=== PATIENT | female | born 1940 | race Caucasian/White ===

== ENCOUNTER 2025-04-27 20:23 | Inpatient (IN) | payer OTHER ==
[~2025-04-27] VITALS: Ht 152.4 cm; Wt 66.0 kg
--- NOTE | 2025-04-27 21:30 | ED.PDOC ---
History of Present Illness HPI Comments 84-year-old female who is brought in by ambulance from private residence for chief complaint of generalized weakness and left hip, leg, and ankle pain status post mechanical fall and injury. Per EMS report, patient endorses on slipping and falling from left side of her bed onto the floor and being unable to assist herself up for 45 minutes straight prior to calling EMS. Vitals were noted to have been stable within normal limits, with the exception of an initial SpO2 of 89% on room air. Significant history for hyperlipidemia, hypertension, diabetes, and in remission left femur cancer. EN route patient was given 2 L O2 via NC, with a SpO2 improving to 96%. Patient denies any loss of consciousness or head, neck, or further injuries. Denies any headache, dizziness, lightheadedness, chest pain, shortness of breath, or further associated symptoms. REVIEW OF SYSTEMS: General: No fever, no chills, or fatigue HEENT: No sore throat, no earache, no congestion, no neck pain. Cardiac: No chest pain. No palpitations. Lungs: No shortness of breath, no cough. GI: No nausea, no vomiting, no diarrhea, no constipation, no abdominal pain : No dysuria, frequency, or urgency. No hematuria. Musculoskeletal: Left hip, leg, and ankle pain , no joint swelling, no extremity edema. Skin: No rash, no itching. Neuro: Generalized weakness. No headache, no dizziness GEN: Patient alert, in no acute distress HEENT: Atraumatic, normocephalic without edema, discoloration or evidence of trauma. Facial bones without deformities or tenderness EYES: PERRL. no scleral icterus or conjunctival injection. Extraocular muscles intact without nystagmus or diplopia. No proptosis or enophthalmos. EARS: Normal-appearing pinnae. No hemotympanum. NOSE: Trachea midline. No discolorations or edema. Neck immobilized in cervical collar. CVS: S1-S2 heard, regular rate and rhythm, no murmur RESPIRATORY: No respiratory distress. Breath sounds clear bilateral, no wheezes, rhonchi or rales; no use of accessory muscles CHEST: No abrasions or ecchymosis. Chest symmetric with respirations. No chest wall tenderness. No crepitus. No step-offs. Lungs are clear to auscultation bilaterally. No rales, rhonchi, wheezing or stridor. Systolic murmur. ABDOMINAL: No ecchymosis or abrasions. Soft, nondistended, nontender. Bowel tones normoactive. No masses or organomegaly. : No CVA tenderness MUSC: No gross deformities are discolorations or lesions. Tolerates full range of motion of extremities without tenderness, with the exception of left tib-fib and ankle tenderness. No edema of the extremities. BACK: No abrasions, skin openings or ecchymosis. Lower thoracic and upper lumbar tenderness. No step-offs. PELVIC: Pelvis stable, nontender to lateral compression and palpation of the symphysis pubis. NEURO: Alert and oriented to person, place and time. GCS 15. Cranial nerves II through XII intact. Sensation grossly intact. Strength 5 out of 5 in bilateral upper and lower extremities. CEREBELLAR FUNCTION: [id number] intact bilaterally SKIN: Warm and well perfused. No lacerations, bruises, discoloration or abrasions. PSYCH: Normal affect, normal mood, no apparent hallucinations, speech clear LYMPHATIC: No cervical lymphadenopathy Chief Complaint: General Weakness Time Seen by MD: 22:10 Reviewed Notes: Nurses Notes, Wedding Day Coordinator Notes, Medications, Allergies Allergies: Coded Allergies: NO KNOWN ALLERGIES (Unverified , 09/12/15) Information Source: Patient, Emergency Med Personnel Mode of Arrival: EMS Severity: Moderate Timing: Hours Duration: Since onset Prehospital treatment: 12 Lead EKG, Accucheck, Central Office Maintainer, Oxygen Past Medical History PAST MEDICAL HISTORY: Cancer (Left femur cancer-in remission), DM, High Lipids, HTN Surgical History: Denies all surgeries ELECTROPLATING TECHNICIAN History: No Pertinent ELECTROPLATING TECHNICIAN History Family History Family History: Unknown Social History Smoker: Non-Smoker Alcohol: Denies ETOH Use Drugs: Denies Drug Use Lives In: Home Was a procedure done? Was a procedure done?: No EKG EKG : Pulse Rate (adult): 91 [place]: Normal Cardiac Rhythm: NSR Block: None Hypertrophy: None ST: Normal Comments No STEMI Differential Dx Considerations may include: Differential diagnoses considered include but are not limited to sepsis, CVA, ACS, PE, stroke, ICH, adrenal insufficiency, viral syndrome, thyroid storm, myxedema coma , DKA, HHS, hypoglycemia, anemia, GI bleeding, renal failure, dehydration, hepatic failure, electrolyte imbalance, carbon monoxide poisoning, malignancy, UTI, other. X-Ray, Labs, Meds, VS Vital Signs Date Time Temp Pulse Resp B/P (MAP) Pulse Ox O2 Delivery O2 Flow Rate FiO2 04/27/25 22:34 91 04/27/25 21:48 87 15 97 Nasal Cannula* 2 28 04/27/25 21:48 98.7 87 16 153/66 (95) 97 98.7 04/27/25 20:47 99.8 90 17 153/73 95 99.8 04/27/25 20:26 91 Lab Test 04/27/25 22:30 04/27/25 22:25 Range/Units White Blood Count 3.6 L 4.4-10.8 10^3/uL Red Blood Count 3.12 L 4.0-5.20 10^6/uL Hemoglobin 9.8 L 12.2-16.2 g/dL Hematocrit 28.6 L 36.0-46.0 % Mean Corpuscular Volume 91.7 80.0-100.0 fL Mean Corpuscular Hemoglobin 31.5 28.0-32.0 pg Mean Corpuscular Hemoglobin Concent 34.4 32.0-36.0 g/dL Red Cell Distribution Width 14.3 11.8-14.3 % Platelet Count 81 L 140-450 10^3/uL Mean Platelet Volume 8.8 6.9-10.8 fL Neutrophils (%) (Auto) 37.0-80.0 % Lymphocytes (%) (Auto) 10.0-50.0 % Monocytes (%) (Auto) 0.0-12.0 % Basophils (%) (Auto) 0.0-2.0 % Neutrophils # (Auto) 1.6-8.6 10 ^3/uL Lymphocytes # (Auto) 0.4-5.4 10 ^3/uL Monocytes # (Auto) 0-1.3 10 ^3/uL Differential Total Cells Counted Pending Neutrophils % (Manual) Pending Band Neutrophils % (Manual) Pending Lymphocytes % (Manual) Pending Monocytes % (Manual) Pending Eosinophils % (Manual) Pending Basophils % (Manual) Pending Metamyelocytes % (manual) Pending Myelocytes % (Manual) Pending Promyelocytes % (Manual) Pending Blast Cells % (Manual) Pending Reactive Lymphocytes Pending Platelet Estimate Pending Sodium Level 134 L 136-145 mmol/L Potassium Level 4.5 3.5-5.1 mmol/L Chloride Level 104 98-107 mmol/L Carbon Dioxide Level 19 L 20-31 mmol/L Anion Gap 11 5-15 Blood Urea Nitrogen 36 H 9-23 mg/dL Creatinine 1.17 H 0.550-1.02 mg/dL Glomerular Filtration Rate Calc 46 >90 mL/min BUN/Creatinine Ratio 30.8 H 10.0-20.0 Serum Glucose 300 H 74-106 mg/dL Calcium Level 9.5 8.7-10.4 mg/dL Troponin I High Sensitivity 18 </=34 ng/L Blood Gas Specimen Type Arterial Blood Gas Sample Site Left radial Blood Gas Patient Temperature 37.0 Arterial Blood Date Drawn [id number] Arterial Blood pH 7.477 H 7.350-7.450 Arterial Blood Partial Pressure CO2 26.4 L 32.0-45.0 mmHg Arterial Blood Partial Pressure O2 98.3 83.0-108.0 mmHg Arterial Blood HCO3 19.1 L 21.0-28.0 mmol/L Arterial Blood Oxygen Saturation 97.5 94.0-98.0 % Arterial Blood Base Excess -3.4 L -2.0-3.0 mmol/L Arterial Blood Oxyhemoglobin 95.5 94.0-98.0 % Arterial Blood Carboxyhemoglobin 1.4 0.5-1.5 % Arterial Blood Methemoglobin 0.7 0.0-1.5 % Chito Test Modified Blood Gas Total Hemoglobin 10.60 L 12.0-16.0 g/dL Blood Gas Liter Flow 2.00 Blood Gas Modality Nasal cannula FiO2 % 28.0 Current Medications Medications (Trade) Dose Ordered Sig/Justina Route Start Time Stop Time Status Last Admin Tramadol HCl (Ultram) 50 mg ONCE ONCE PO 04/27/25 22:15 04/27/25 22:16 DC 04/27/25 22:28 Acetaminophen (Tylenol Tablet) 650 mg ONCE ONCE PO 04/27/25 22:15 04/27/25 22:16 DC 04/27/25 22:28 [facility] [id number] [place] [id number] Ph: [phone] DIAGNOSTIC IMAGING Diagnostic Imaging Report : [id number] Signed PATIENT: LOU STAHL ACCT: [id number] UNIT: [id number] : 1940 LOC: ER ROOM / BED: / AGE / SEX: 84 / F ADM STATUS: REG ER SERVICE 13 ORDERING PHYSICIAN: HAWA TRISTAN MD PROCEDURE(s): CXR1 - CHEST XRAY 1 VIEW REASON: Hypoxia ORDER NUMBER(s): [id number], ACCESSION NUMBER(s): [id number] CHEST RADIOGRAPH Indication: Hypoxia Technique: Single frontal view of the chest was obtained COMPARISON: None FINDINGS: Lines and Tubes: None Lungs: Clear Pleura: No effusion. No pneumothorax. Cardiomediastinal contours: Unremarkable Bones: Unremarkable IMPRESSION: 1. No acute disease. ATED BY: KEON PICKETT MD DICTATED DATE/TIME: 04/27/252333 SIGNED BY: KEON PICKETT MD SIGNED DATE/TIME: 04/27/252333 CC: HEST RADIOGRAPH Indication: Hypoxia Technique: Single frontal view of the chest was obtained COMPARISON: None FINDINGS: Lines and Tubes: None Lungs: Clear Pleura: No effusion. No pneumothorax. Cardiomediastinal contours: Unremarkable Bones: Unremarkable IMPRESSION: 1. No acute disease. Time of 1ST Reevaluation: 22:40 Reevaluation 1ST: Unchanged Patient Education/Counseling: Other (Need for admission) Family Education/Counseling: No Family Present SEPSIS Sepsis Screen Date sepsis recognized/suspect: Apr 27, 2025 Time Sepsis recognized/suspect: 2033 Recent Procedure: No On Antibiotic Therapy: No Respiratory Rate >20: No Heart Rate >90: No Temp<36 C (96.8 F) or >38.3 C: No SBP <90 or MAP <65 mmHG: No New Acute Mental Status Change: No Is the patient on CPAP, BIPAP,: No Physician Orders Complete Blood Count (04/27/25 22:14) Electrocardigram (04/27/25 22:14) Chest Xray 1 View (04/27/25 22:14) Abg W/ Co-Ox (04/27/25 22:14) Manual Differential (04/27/25 22:30) NS (04/28/25 00:15) Vital Signs Date Time Temp Pulse Resp B/P (MAP) Pulse Ox O2 Delivery O2 Flow Rate FiO2 04/27/25 22:34 91 04/27/25 21:48 87 15 97 Nasal Cannula* 2 28 04/27/25 21:48 98.7 87 16 153/66 (95) 97 98.7 04/27/25 20:47 99.8 90 17 153/73 95 99.8 04/27/25 20:26 91 Laboratory Tests Test 04/27/25 22:30 White Blood Count 3.6 10^3/uL (4.4-10.8) L Medications Medications Dose Ordered Sig/Justina Route Start Time Stop Time Status Last Admin Dose Admin Acetaminophen 650 mg ONCE ONCE PO 04/27/25 22:15 04/27/25 22:16 DC 04/27/25 22:28 Tramadol HCl 50 mg ONCE ONCE PO 04/27/25 22:15 04/27/25 22:16 DC 04/27/25 22:28 Departure 1 Departure Time of Disposition: 23:58 Impression: Primary Impression: Hypoxia Additional Impressions: Hyperglycemia WILLIAN (acute kidney injury) Anemia Fall Disposition: ADMITTED INPATIENT Condition: Stable Comments MDM: 84-year-old female has in the ED EMS after fall out of bed. She is found to be hypoxic, 89% on room air on the scene. Initial evaluation included thorough history, physical examination and approp riate diagnostic testing. Based on the clinical presentation and diagnostic findings, the patient appears to have hypoxia, acute kidney injury, hyperglycemia. Given the complexity of the case and need for further management patient is being admitted to the hospitalist service for further monitoring, treatment and evaluation. Risks, benefits and alternatives of admission and proposed interventions were discussed with the patient. Patient is in agreement with the plan. Extensive evaluation was performed in attempt to identify or rule out: (See differential diagnosis section) The following tests were ordered, and results were reviewed by me and discussed with patient: (See diagnostic results section) The following test were independently interpreted by me: N/A I reviewed and agreed with the following test results read by other providers: Chest x-ray I reviewed the following notes from the pt's past medical encounters: September 12, 2015 encounter for headache, nausea, hypertensive Additional information was gathered from interviewing the following independent historians: EMS personnel Discussion of management or test interpretation with external physician/other qualified health childcare aide: N/A Addressed An acute or chronic illness that poses a threat to life or bodily fu nction: Hypoxia, acute kidney injury Decision regarding hospitalization or escalation of hospital level of care: Risk and benefits of admission for further treatment of patient's condition was considered. Due to patient's current clinical condition, high risk of decline and poor outcome if discharged and need for further inpatient management and monitoring, patient will be admitted to the hospital. Critical Care Note Critical Care Time?: No Stability Stability form required: No Heart Score Heart Score: Heart Score Response (Comments) Value History N/A 0 EKG N/A 0 Age N/A 0 Risk Factors N/A 0 Troponin N/A 0 Total 0 I personally scribed for HAWA TRISTAN MD ([email or web address]) on 04/27/25 at 21:30. Electronically submitted by Jacob Regan ([email or web address]). I personally scribed for HAWA TRISTAN MD ([email or web address]) on 04/27/25 at 22:34. Electronically submitted by Jacob Regan ([email or web address]). I personally scribed for HAWA TRISTAN MD ([email or web address]) on 04/27/25 at 23:47. Electronically submitted by Jacob Regan ([email or web address]). HAWA TRISTAN MD Apr 27, 2025 21:30
[2025-04-27 21:48] VITALS: PULSE 87; RESP 15; O2SAT 97
[2025-04-27] MEDS: ACETAMINOPHEN 325 MG TAB PO ONE (22:28)
[2025-04-27 22:29] LABS: Base Excess -3.4 mmol/L (-2.0-3.0)
--- NOTE | 2025-04-27 22:38 | ECG ---
[facility] Test Date: 2025-04-27 Test Time: 20:26:52 Pat Name: LOU STAHL Department: ED Room: 0237 Gender: F Molecular Spectroscopist: KATTY : 1940 Requested By: HAWA TRISTAN Order Number: [id number] Reading MD: Wilfredo Gonzales Measurements Intervals [place] Rate: 91 P: 64 WA: 212 QRS: 64 QRSD: 87 T: 41 QT: 354 QTc: 436 Interpretive Statements Sinus rhythm Atrial premature complex Borderline prolonged WA interval Abnormal R-wave progression, early transition Electronically Signed On 05-02-2025 22:42:06 PDT by Wilfredo Gonzales Please click the below link to view image of tracing.
[2025-04-27 22:48] LABS: Hematocrit 28.6 % (36.0-46.0); Hemoglobin 9.8 g/dL (12.2-16.2); Mean Corpuscular Hemoglobin 31.5 pg (28.0-32.0); Mean Corpuscular Volume 91.7 fL (80.0-100.0)
[2025-04-27 22:53] LABS: Chloride 104 mmol/L (98-107); Potassium 4.5 mmol/L (3.5-5.1)
[2025-04-27 22:54] LABS: Anion Gap 11 (5-15); Calcium 9.5 mg/dL (8.7-10.4)
[2025-04-27 22:59] LABS: BUN/Creatinine Ratio 30.8 (10.0-20.0)
[2025-04-27 23:03] LABS: Blood Urea Nitrogen 36 mg/dL (9-23); Carbon Dioxide 19 mmol/L (20-31); Glucose 300 mg/dL (74-106); Sodium 134 mmol/L (136-145)
--- NOTE | 2025-04-27 23:36 | DVH ---
CHEST RADIOGRAPH Indication: Hypoxia Technique: Single frontal view of the chest was obtained COMPARISON: None FINDINGS: Lines and Tubes: None Lungs: Clear Pleura: No effusion. No pneumothorax. Cardiomediastinal contours: Unremarkable Bones: Unremarkable IMPRESSION: 1. No acute disease.
[2025-04-28 00:24] LABS: Nucleated Red Blood Cells % 1.0 %; Total Cells Counted 100.0 (100)
[2025-04-28] MEDS: SODIUM CHLORIDE 0.9% 1,000 ML IV ONE (00:26)
[2025-04-28] MEDS ORDERED: DEXTROSE (50%) 50ML SYRG IV PRN ×2 (02:00→08:30)
[2025-04-28 02:10] VITALS: PULSE 69; RESP 15; O2SAT 100
[2025-04-28 02:27] LABS: Urine Amorphous Crystal FEW /hpf (None Seen); Urine Protein, UAD 1+ (Negative)
[2025-04-28] MEDS ORDERED: ONDANSETRON HCL 4 MG/2 ML VIAL IV PRN (03:00)
[2025-04-28] MEDS ORDERED: MORPHINE SULFATE INJ 2 MG/ml SYRG IV PRN (03:00)
[2025-04-28] MEDS ORDERED: HYDROcodone-ACET 5/325MG TAB PO PRN (03:00)
[2025-04-28] MEDS ORDERED: ACETAMINOPHEN 325 MG TAB PO PRN (03:00)
[2025-04-28 03:02] LABS: Iron 16.0 ug/dL (50-170); Total Iron Binding Capacity 243.0 ug/dL (250-425)
--- NOTE | 2025-04-28 03:24 | DVHHPRES ---
History of Present Illness Resident Creating Document: FARHANA BOWENS RESIDENT History of Present Illness Suni Martinez is a 84-year-old female, with past medical history of hyperlipidemia, hypertension, and DM2. The patient came to the ED via EMS with chief complain of 4hr after a mechanical fall from standing position, she hit the left side of her body, presenting left hip pain.The patient reports 2 days of generalized weakness and fatigue that contributed to her falling today. The Patient denies loss of conciseness, head trauma or injuring other part of her body as well she denies any headache, dizziness, lightheadedness, chest pain, shortness of breath, or other symptoms. In the ambulance her O2 was 89%, then improving to 96% with O2 2L via NC. The patient will be admitted for further evaluated to rule out hip fracture and pain management. Cardiovascular: HTN Endocrine: Diabetes (type 2 ) Past Surgical History: None Family History: None Smoke: No ALCOHOL: none Drugs: None Lives: with Family Review of Systems Constitutional: Yes: Weakness, Malaise; No: Fever, Chills, Sweats, Other Eyes: No: Pain, Vision change, Conjunctivae inflammation, Eyelid inflammation, Other, Redness ENT: No: Ear pain, Ear discharge, Nose pain, Nose discharge, Nose congestion, Mouth pain, Mouth swelling, Throat pain, Throat swelling, Other Respiratory: No: Cough, Dry, Shortness of breath, SOB with excertion, Wheezing, Hemoptysis, Pleuritic Pain, Sputum, Wheezing, Other Cardiovascular: Lt Headedness; No: Chest Pain, Palpitations, Orthopnea, Paroxysmal Noc. Dyspnea, Edema, Other Gastrointestinal: Nausea; No: Vomiting, Abdominal Pain, Diarrhea, Constipation, Melena, Hematochezia, Other Genitourinary: No Dysuria, No Frequency, No Incontinence, No Hematuria, No Retention, No Other Musculoskeletal: No: other, neck pain, shoulder pain, arm pain, back pain, hand pain, leg pain, foot pain Skin: No: Rash, Lesions, Jaundice, Bruising, Other Neurological: Weakness; No: Numbness, Incoordination, Change in speech, Confusion, Seizures, Other Allergies: Coded Allergies: NO KNOWN ALLERGIES (Unverified , 09/12/15) Medications Current Medications Medications Dose Ordered Sig/Justina Route Start Time Stop Time Status Last Admin Dose Admin Insulin Glargine 10 units QAM SC 04/28/25 07:00 Diagnostic Test (Pha) 1 strip ACHS 04/28/25 07:00 Insulin Human Regular ACHS SC 04/28/25 07:00 Dextrose 50 ml UD PRN IV 04/28/25 02:00 Exam Vital Signs Vital Signs Date Time Temp Pulse Resp B/P (MAP) Pulse Ox O2 Delivery O2 Flow Rate FiO2 04/28/25 02:10 69 15 100 Nasal Cannula* 3 32 04/28/25 02:10 98.2 140/81 (100) 98.2 General Appearance: Alert, Oriented X3, Cooperative, mild distress HEENT: Atraumatic, Mucous membr. moist/pink Respiratory: Clear to auscultation, Normal air movement Cardiovascular: Regular rate, Normal S1, Normal S2, No murmurs Abdominal: Normal bowel sounds, Soft, No tenderness, No hepatospenomegaly, No masses Extremities: No clubbing, No cyanosis, No edema (Bilateral pitting edema), Normal pulses, Other (Pain in left hip) Skin: No rashes, No breakdown, No significant lesion Neuro: Normal speech, Strength at 5/5 X4 ext, Normal tone, Sensation intact Psych/Mental Status: Mental status NL, Mood NL Labs/Xrays Labs Test 04/28/25 02:16 04/27/25 22:30 04/27/25 22:25 Range/Units Urine Color Yellow Yellow Urine Clarity Clear Clear Urine pH 5.0 5.0-9.0 Urine Specific [place] 1.016 1.001-1.035 Urine Protein 1+ H Negative Urine Ketones Negative Negative Urine Blood Negative Negative /uL Urine Nitrite Negative Negative Urine Bilirubin Negative Negative Urine Urobilinogen Normal Negative mg/dL Urine Leukocyte Esterase Trace Negative /uL Urine RBC None seen 0 - 4 /hpf Urine Microscopic WBC 1 0-5 /HPF Urine Squamous Epithelial Cells None seen <5 /hpf Urine Amorphous Crystals Few None Seen /hpf Urine Bacteria None seen None Seen /hpf Urine Glucose Normal Normal mg/dL White Blood Count 3.6 L 4.4-10.8 10^3/uL Red Blood Count 3.12 L 4.0-5.20 10^6/uL Hemoglobin 9.8 L 12.2-16.2 g/dL Hematocrit 28.6 L 36.0-46.0 % Mean Corpuscular Volume 91.7 80.0-100.0 fL Mean Corpuscular Hemoglobin 31.5 28.0-32.0 pg Mean Corpuscular Hemoglobin Concent 34.4 32.0-36.0 g/dL Red Cell Distribution Width 14.3 11.8-14.3 % Platelet Count 81 L 140-450 10^3/uL Mean Platelet Volume 8.8 6.9-10.8 fL Neutrophils (%) (Auto) 37.0-80.0 % Lymphocytes (%) (Auto) 10.0-50.0 % Monocytes (%) (Auto) 0.0-12.0 % Basophils (%) (Auto) 0.0-2.0 % Neutrophils # (Auto) 1.6-8.6 10 ^3/uL Lymphocytes # (Auto) 0.4-5.4 10 ^3/uL Monocytes # (Auto) 0-1.3 10 ^3/uL Differential Total Cells Counted 100.0 100 Neutrophils % (Manual) 37 37.0-80.0 Band Neutrophils % (Manual) 0 Lymphocytes % (Manual) 40 10.0-50.0 Monocytes % (Manual) 22 H 0-12 Eosinophils % (Manual) 1 0-7 Basophils % (Manual) 0 0.0-2.0 Metamyelocytes % (manual) 0 Myelocytes % (Manual) 0 Promyelocytes % (Manual) 0 Blast Cells % (Manual) 0 Nucleated Red Blood Cells 1.0 % Reactive Lymphocytes 0 Platelet Estimate Decreased Sodium Level 134 L 136-145 mmol/L Potassium Level 4.5 3.5-5.1 mmol/L Chloride Level 104 98-107 mmol/L Carbon Dioxide Level 19 L 20-31 mmol/L Anion Gap 11 5-15 Blood Urea Nitrogen 36 H 9-23 mg/dL Creatinine 1.17 H 0.550-1.02 mg/dL Glomerular Filtration Rate Calc 46 >90 mL/min BUN/Creatinine Ratio 30.8 H 10.0-20.0 Serum Glucose 300 H 74-106 mg/dL Calcium Level 9.5 8.7-10.4 mg/dL Troponin I High Sensitivity 18 </=34 ng/L Blood Gas Specimen Type Arterial Blood Gas Sample Site Left radial Blood Gas Patient Temperature 37.0 Arterial Blood Date Drawn [id number] Arterial Blood pH 7.477 H 7.350-7.450 Arterial Blood Partial Pressure CO2 26.4 L 32.0-45.0 mmHg Arterial Blood Partial Pressure O2 98.3 83.0-108.0 mmHg Arterial Blood HCO3 19.1 L 21.0-28.0 mmol/L Arterial Blood Oxygen Saturation 97.5 94.0-98.0 % Arterial Blood Base Excess -3.4 L -2.0-3.0 mmol/L Arterial Blood Oxyhemoglobin 95.5 94.0-98.0 % Arterial Blood Carboxyhemoglobin 1.4 0.5-1.5 % Arterial Blood Methemoglobin 0.7 0.0-1.5 % Chito Test Modified Blood Gas Total Hemoglobin 10.60 L 12.0-16.0 g/dL Blood Gas Liter Flow 2.00 Blood Gas Modality Nasal cannula FiO2 % 28.0 SEPSIS Sepsis Screen Date sepsis recognized/suspect: Apr 28, 2025 Time Sepsis recognized/suspect: 212 Recent Procedure: No On Antibiotic Therapy: No Respiratory Rate >20: No Heart Rate >90: No Temp<36 C (96.8 F) or >38.3 C: No SBP <90 or MAP <65 mmHG: No New Acute Mental Status Change: No Is the patient on CPAP, BIPAP,: No Physician Orders Electrocardigram (04/27/25 22:14) Chest Xray 1 View (04/27/25 22:14) Abg W/ Co-Ox (04/27/25 22:14) Insulin Lantus (Glargine) (Lantus) (04/28/25 07:00) Glucose Blood (Accu-Chek Comfort Curve T (04/28/25 07:00) Insulin R (Human) (Insulin R) (04/28/25 07:00) Dextrose 50% Syringe (04/28/25 02:00) Sequential Compression Device (04/28/25 01:58) Iron Panel (04/28/25 01:59) Ferritin (04/28/25 01:59) B-Type Natriuretic Peptide (04/28/25 02:01) Chest Ultrasound (04/28/25 02:23) Admit (04/28/25 02:51) Code Status (04/28/25 02:51) Vital Signs .PER UNIT PROTOCOL (04/28/25 02:51) Review Orders With Adm. (04/28/25 02:51) Bedside Commode (04/28/25 02:51) Consistent Carb(Ccho)Diabetes (04/28/25 Breakfast) Acetaminophen Tablet (Tylenol Tablet) (04/28/25 03:00) Notify Md Of Changes From Base (04/28/25 02:51) Advance Directive (04/28/25 02:51) Basic Metabolic Panel (04/28/25 04:00) Urinalysis (04/28/25 02:51) Complete Blood Count (04/28/25 04:00) Patient Condition (04/28/25 02:51) Allergies (04/28/25 02:51) Hydrocodone-Acet 5/325mg Tab ([place] 5/32 (04/28/25 03:00) Ondansetron Hcl (Zofran) (04/28/25 03:00) Morphine Sulfate Injection (04/28/25 03:00) Notify Md Of Changes From Base (04/28/25 02:51) Pantoprazole Tablet (Protonix Tablet) (04/28/25 10:00) Drug Screen (04/28/25 02:51) Covid19 Antigen Humaira (04/28/25 ) Rapid Influenza A&B (04/28/25 02:51) Vital Signs Date Time Temp Pulse Resp B/P (MAP) Pulse Ox O2 Delivery O2 Flow Rate FiO2 04/28/25 02:10 69 15 100 Nasal Cannula* 3 32 04/28/25 02:10 98.2 64 18 140/81 (100) 99 98.2 04/27/25 22:34 91 04/27/25 21:48 87 15 97 Nasal Cannula* 2 28 04/27/25 21:48 98.7 87 16 153/66 (95) 97 98.7 04/27/25 20:47 99.8 90 17 153/73 95 99.8 04/27/25 20:26 91 Laboratory Tests Test 04/27/25 22:30 White Blood Count 3.6 10^3/uL (4.4-10.8) L Medications Medications Dose Ordered Sig/Justina Route Start Time Stop Time Status Last Admin Dose Admin Acetaminophen 650 mg ONCE ONCE PO 04/27/25 22:15 04/27/25 22:16 DC 04/27/25 22:28 650 MG Sodium Chloride 1,000 ml @ 1,000 mls/hr Q1H ONCE IV 04/28/25 00:15 04/28/25 01:14 DC 04/28/25 00:26 1,000 MLS/HR Tramadol HCl 50 mg ONCE ONCE PO 04/27/25 22:15 04/27/25 22:16 DC 04/27/25 22:28 50 MG Assessment/Plan Assessment/Plan #Mechanical fall #Rule out left hip fracture IV fluids Pain control: tramadol Left hip xray #WILLIAN possible due to VMN IV fluids Creatinine: 1.17 and BUN 36 #Pancytopenia Iron Panel + ferritin #DM type 2 with hyperglycemia HbA1c Insulin sliding scale #Essential Hypertension Medication reconciliation #Hyperlipidemia Medication reconciliation Diabetic diet DVT prophylaxis- Compressive device PUD prophylaxis Protonic. Goals of care discussed with the patient > 35 min. Discussed plan of care with Dr. Orellana Code status: Full code PCP: Does not recall the name Plan discussed with: Patient, the patient agrees with the admission plan. Plan discussed with: Patient My Orders Orders - FARHANA BWOENS RESIDENT Procedure Category Date Status Time Chest Ultrasound US 04/28/25 Taken 02:23 Admit ADMIT 04/28/25 Transmitted 02:51 Code Status CODE 04/28/25 Transmitted 02:51 Vital Signs [facility] 04/28/25 In Process 02:51 Review Orders With [facility] 04/28/25 In Process Adm. 02:51 Bedside Commode [facility] 04/28/25 In Process 02:51 Consistent DIET 04/28/25 Transmitted Carb(Ccho)Diabetes Breakfast Acetaminophen Tablet PHA 04/28/25 Logged (Tylenol Tablet) 03:00 Notify Of Changes [facility] 04/28/25 In Process From Base 02:51 Advance Directive [facility] 04/28/25 In Process 02:51 Basic Metabolic Panel LAB 04/28/25 Logged 04:00 Urinalysis LAB 04/28/25 Logged 02:51 Complete Blood Count LAB 04/28/25 Logged 04:00 Patient Condition ORDERS 04/28/25 Transmitted 02:51 Allergies NAJMA 04/28/25 In Process 02:51 Hydrocodone-Acet PHA 04/28/25 Logged 5/325mg Tab ([place] 03:00 Ondansetron Hcl PHA 04/28/25 Logged (Zofran) 03:00 Morphine Sulfate PHA 04/28/25 Logged Injection 03:00 Notify Of Changes [facility] 04/28/25 In Process From Base 02:51 Pantoprazole Tablet PHA 04/28/25 Logged (Protonix Tablet) 10:00 Drug Screen LAB 04/28/25 Logged 02:51 Covid19 Antigen Humaira LAB 04/28/25 Logged Rapid Influenza A&B LAB 04/28/25 Logged 02:51 Date of Service: Apr 28, 2025 Billing Provider: LUCY ORELLANA MD Common Visit Codes: [id number] INP/OBS CARE (HIGH) Secondary Visit Codes: [id number] CARE PLAN 30 MINUTES FARHANA BOWENS RESIDENT Apr 28, 2025 03:24
--- NOTE | 2025-04-28 04:02 | DVH ---
Chest Sonogram Date: 04/28/2025 02:42 AM Clinical history: R/O PLURAL EFFUSION Technique: Limited sonographic evaluation of the bilateral chest was performed to evaluate for pleur al effusion. FINDINGS: / impression: No significant pleural effusion noted at this time.
[2025-04-28 04:17] LABS: COVID19 ANTIGEN SOFIA FIA POSITIVE (NEGATIVE)
[2025-04-28 06:06] LABS: Hematocrit 28.2 % (36.0-46.0); Hemoglobin 9.7 g/dL (12.2-16.2); Mean Corpuscular Hemoglobin 32.1 pg (28.0-32.0); Mean Corpuscular Volume 93.7 fL (80.0-100.0)
[2025-04-28 06:11] LABS: Anion Gap 8 (5-15); Carbon Dioxide 22 mmol/L (20-31); Chloride 105 mmol/L (98-107); Potassium 5.0 mmol/L (3.5-5.1)
[2025-04-28 06:13] LABS: Calcium 9.0 mg/dL (8.7-10.4)
[2025-04-28 06:18] LABS: BUN/Creatinine Ratio 29.4 (10.0-20.0)
[2025-04-28 06:22] LABS: Blood Urea Nitrogen 35 mg/dL (9-23); Sodium 135 mmol/L (136-145)
[2025-04-28 06:23] LABS: Glucose 435 mg/dL (74-106)
--- NOTE | 2025-04-28 06:41 | DVH ---
CLINICAL INDICATION: Mechanical fall, left hip pain TECHNIQUE: Pelvis and XY L HIP COMPLETE XRAY Comparison: None FINDINGS/IMPRESSION: : There is no evidence of acute fracture or dislocation. Soft tissues are unremarkable. Moderate degenerative changes of bilateral hips, [id number]-right.
[2025-04-28] MEDS: InsuLIN REG 1unit/0.01ml Soln (100units/ml) SC SCH ×2 (07:00→08:30)
[2025-04-28] MEDS: INSULIN LANTUS (GLARGINE) 1 /0.01ml (100units/ml) SC SCH (07:01)
[2025-04-28] MEDS: ACCU-CHEK COMFORT CURVE STRIP VI SCH ×2 (07:01→08:30)
[2025-04-28] MEDS ORDERED: REMDESIVIR PER PHARMACY 0 ML IV SCH (08:30)
[2025-04-28 09:41] LABS: Total Cells Counted 100.0 (100)
[2025-04-28] MEDS: REMDESIVIR 200mg in NS 210mL LOADING DOSE ADULT IV ONE (10:38)
[2025-04-28] MEDS: PANTOPRAZOLE 40 MG TAB PO SCH (10:40)
[2025-04-28 15:13] VITALS: BP 120/95; PULSE 77; RESP 17; TEMP 98.2; O2SAT 99
[2025-04-28 15:24] VITALS: O2SAT 97
--- NOTE | 2025-04-28 16:15 | DVHPNRES ---
Progress Note Date Seen: Apr 28, 2025 Resident Creating Document: MARRY BATES Medical Necessity Reason Pt with a Central, PICC or Fol: No (RN) Subjective Review of Systems Patient is a 67 years old female with past medical history of hyperlipidemia, hypertension, and DM2 came to the ED via EMS with left hip pain after mechanical fall from standing position. Patient reports that yesterday she felt down while she trying to get out from bed at 7:00 p.m. Patient also complained of generalized weakness and fatigue for a long time. Patient is found to be hypoxic, 89% on room air on the scene and improve to 96% with O2 2L via NC. Patient denies loss of conciseness, head trauma or injuring other part of her body, headache, dizziness, lightheadedness, chest pain, shortness of breath, or cough. 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 Patient is alert and oriented to time, place person and responding to all questions. Constitutional: Weakness, Malaise; No: Fever, Chills, Sweats, Other Eyes: No Pain, No Vision change, No Conjunctivae inflammation, No Eyelid inflammation, No Other, No Redness ENT: No Ear pain, No Ear discharge, No Nose pain, No Nose discharge, No Nose congestion, No Mouth pain, No Mouth swelling, No Throat pain, No Throat swelling, No Other Cardiovascular: Lt Headedness, No Chest Pain, No Palpitations, No Orthopnea, No Paroxysmal No Dyspnea, No Edema, No Other Respiratory: No Cough, No Dry, No Shortness of breath, No SOB with exertion, No Wheezing, No Hemoptysis, No Pleuritic Pain, No Sputum, No Other Gastrointestinal: Nausea, No Vomiting, No Abdominal Pain, No Diarrhea, No Constipation, No Melena, No Hematochezia, No Other Genitourinary: No Dysuria, No Frequency, No Incontinence, No Hematuria, No Retention, No Other Musculoskeletal: No other, No neck pain, No shoulder pain, No arm pain, No back pain, No hand pain, No leg pain, No foot pain Neurological: Weakness; No: Numbness, Incoordination, Change in speech, Confusion, Seizures, Other Skin: No Rash, No Lesions, No Jaundice, No Bruising, No Other Objective vital signs Vital Sign Date Time Temp Pulse Resp B/P (MAP) Pulse Ox O2 Delivery O2 Flow Rate FiO2 04/28/25 14:00 70 11 135/34 (67) 100 04/28/25 08:00 98.4 98.4 04/28/25 02:10 Nasal Cannula* 3 32 Total Intake and Output 04/27/25 04/27/25 04/28/25 15:00 23:00 07:00 Intake Total 1000 ml Balance 1000 ml medications Current Medications Medications Dose Ordered Sig/Justina Route Start Time Stop Time Status Last Admin Dose Admin Insulin Glargine 10 units QAM SC 04/28/25 07:00 04/28/25 07:01 10 UNITS Acetaminophen 650 mg Q6HP PRN PO 04/28/25 03:00 Acetaminophen/ Hydrocodone Bitart 1 tab Q4HP PRN PO 04/28/25 03:00 Ondansetron HCl 4 mg Q4HP PRN IV 04/28/25 03:00 Morphine Sulfate 2 mg Q4HPRN PRN IV 04/28/25 03:00 Pantoprazole Sodium 40 mg DAILY PO 04/28/25 10:00 04/28/25 10:40 40 MG Diagnostic Test (Pha) 1 strip IQ4HR 04/28/25 08:30 04/28/25 12:20 1 STRIP Insulin Human Regular IQ4HR SC 04/28/25 08:30 04/28/25 12:20 12 UNITS Dextrose 50 ml UD PRN IV 04/28/25 08:30 Remdesivir 0 ml @ 0 mls/hr PER PHARMACY IV 04/28/25 08:30 04/30/25 08:31 Remdesivir 100 mg/ Sodium Chloride 250 ml @ 250 mls/hr DAILY@1500 IV 04/29/25 15:00 04/30/25 15:59 Remdesivir 100 mg/ Sodium Chloride 250 ml @ 250 mls/hr DAILY@1500 IV 04/29/25 15:00 05/02/25 15:59 Examination General Appearance: Alert, Oriented X3, Cooperative, mild distress Head Exam: Normal inspection Neck Exam: Normal inspection. Non-tender. Normal alignment Pulmonary/Respiratory: Chest non-tender. Clear bilateral breath sounds, no crackles, no wheezing. Cardiovascular/Chest: Regular rate and rhythm. No murmurs. No JVD. Peripheral Pulses: 2+ Radial (R). 2+ Radial (L). 2+ Pedal (R). 2+ Pedal (L) Abdominal Exam: Normal bowel sounds. Soft. normal abdomen, no visible veins, Nontender. No hepatospenomegaly. No masses Ankle Exam: Negative ankle edema Lower extremities: bilateral lower extremity edema, pain in left hip Neuro/Mental Status: A&O x4. Coherent. Thoughts/Psych: Normal thought pattern. Appropriate mood and affect. Good judgement and insight Skin Exam: Scar in nose from prior BCC excisions. Normal inspection. Normal color. Warm. Dry laboratory and microbiology Laboratory Tests 04/28/25 04:50 Test 04/28/25 04:50 Range/Units Serum Glucose 435 *H 74-106 mg/dL Labs and/or images reviewed: Labs reviewed by me, Image(s) reviewed by me Problem List/Assessment/Plan Problem List/Assessment/Plan # s/p mechanical fall # Ruled out left hip fracture -IV fluids -Tylenol 650 mg -[place] 5/325 mg -Morphine sulfate 2mg -Left hip xray: There is no evidence of acute fracture or dislocation. Soft tissues are unremarkable. Moderate degenerative changes of bilateral hips, [id number]-right. # acute hypoxic respiratory failure, currently on O2 via NC 2 L # COVID-19 infection -Chest X-Ray: No Pleural effusion.No acute disease. -Chest Sonogram: No significant pleural effusion noted at this time. - IV remdesivir per pharmacy -monitor #WILLIAN possible due to VMN -IV fluids -Creatinine: 1.17 and BUN 36 # Pancytopenia due to unspecified cause? 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 Hernandez Plan discussed with: Patient (RN), Other Date of Service: Apr 28, 2025 Billing Provider: CALE HERNANDEZ MD Common Visit Codes: [id number] INP/OBS CARE(HIGH) Secondary Visit Codes: [id number] CARE PLAN 30 MINUTES MARRY BATES RESIDENT Apr 28, 2025 16:15 JR FRANCO RESIDENT Apr 29, 2025 06:28 CALE HERNANDEZ MD Apr 30, 2025 21:24
[2025-04-28 20:00] VITALS: PULSE 78; RESP 18; O2SAT 100
[2025-04-28 21:00] VITALS: BP 120/61; PULSE 78; RESP 18; TEMP 98.5; O2SAT 100
[2025-04-29] VITALS (8 sets, daily range): BP systolic 118–140; BP diastolic 47–96; PULSE 60–97; RESP 17–20; TEMP 98–99.2; O2SAT 96–100
[2025-04-29 06:07] LABS: Potassium 3.6 mmol/L (3.5-5.1); Sodium 139 mmol/L (136-145)
[2025-04-29 06:08] LABS: Anion Gap 9 (5-15); Carbon Dioxide 23 mmol/L (20-31)
[2025-04-29 06:09] LABS: Calcium 8.8 mg/dL (8.7-10.4)
[2025-04-29 06:10] LABS: Chloride 107 mmol/L (98-107)
[2025-04-29 06:14] LABS: BUN/Creatinine Ratio 31.3 (10.0-20.0)
[2025-04-29 06:20] LABS: Hematocrit 26.4 % (36.0-46.0); Hemoglobin 9.3 g/dL (12.2-16.2); Mean Corpuscular Hemoglobin 32.6 pg (28.0-32.0); Mean Corpuscular Volume 92.9 fL (80.0-100.0)
[2025-04-29 06:29] LABS: Blood Urea Nitrogen 35 mg/dL (9-23); Glucose 222 mg/dL (74-106)
[2025-04-29 06:56] LABS: Total Cells Counted 100.0 (100)
[2025-04-29] MEDS ORDERED: REMDESIVIR 100mg in NS 230mL (5 DAY REGIMEN) IV SCH (15:00)
[2025-04-29] MEDS ORDERED: REMDESIVIR 100mg in NS 230mL (3 DAY REGIMEN) IV SCH (15:00)
[2025-04-29] MEDS ORDERED: REMDESIVIR 200mg in NS 210mL LOADING DOSE ADULT IV ONE (15:15)
--- NOTE | 2025-04-29 16:16 | DVHPNRES ---
Progress Note Date Seen: Apr 29, 2025 Resident Creating Document: MARRY BATES Medical Necessity Reason Pt with a Central, PICC or Fol: No (RN) Subjective Review of Systems Patient today reports no pain in the left hip and denies any new symptoms except for a mild cough. Objective vital signs Vital Sign Date Time Temp Pulse Resp B/P (MAP) Pulse Ox O2 Delivery O2 Flow Rate FiO2 04/29/25 13:00 98.2 77 19 118/59 (78) 96 98.2 04/29/25 08:00 Nasal Cannula* 2 28 Total Intake and Output 04/28/25 04/28/25 04/29/25 15:00 23:00 07:00 Intake Total 480 ml 240 ml Output Total 100 ml Balance 380 ml 240 ml medications Current Medications Medications Dose Ordered Sig/Justina Route Start Time Stop Time Status Last Admin Dose Admin Insulin Glargine 10 units QAM SC 04/28/25 07:00 04/29/25 06:29 10 UNITS Acetaminophen 650 mg Q6HP PRN PO 04/28/25 03:00 Acetaminophen/ Hydrocodone Bitart 1 tab Q4HP PRN PO 04/28/25 03:00 Ondansetron HCl 4 mg Q4HP PRN IV 04/28/25 03:00 Morphine Sulfate 2 mg Q4HPRN PRN IV 04/28/25 03:00 Pantoprazole Sodium 40 mg DAILY PO 04/28/25 10:00 04/29/25 10:20 40 MG Diagnostic Test (Pha) 1 strip IQ4HR 04/28/25 08:30 04/29/25 11:50 1 STRIP Insulin Human Regular IQ4HR SC 04/28/25 08:30 04/29/25 11:52 6 UNITS Dextrose 50 ml UD PRN IV 04/28/25 08:30 Remdesivir 0 ml @ 0 mls/hr PER PHARMACY IV 04/28/25 08:30 04/30/25 08:31 Remdesivir 100 mg/ Sodium Chloride 250 ml @ 250 mls/hr DAILY@1500 IV 04/29/25 15:00 04/30/25 15:59 Cancel Remdesivir 100 mg/ Sodium Chloride 250 ml @ 250 mls/hr DAILY@1500 IV 04/30/25 15:00 05/01/25 15:59 Examination General Appearance: Alert, Oriented X3, Cooperative, no distress Head Exam: Normal inspection Neck Exam: Normal inspection. Non-tender. Normal alignment Pulmonary/Respiratory: Chest non-tender. Clear bilateral breath sounds, no crackles, no wheezing. Cardiovascular/Chest: Regular rate and rhythm. No murmurs. No JVD. Peripheral Pulses: 2+ Radial (R). 2+ Radial (L). 2+ Pedal (R). 2+ Pedal (L) Abdominal Exam: Normal bowel sounds. Soft. normal abdomen, no visible veins, Nontender. No hepatosplenomegaly. No masses Ankle Exam: Negative ankle edema Lower extremities: bilateral lower extremity edema, pain in left hip, Surgical scar on the femur Neuro/Mental Status: A&O x4. Coherent. Thoughts/Psych: Normal thought pattern. Appropriate mood and affect. Good judgement and insight Skin Exam: Scar in nose from prior BCC excisions. Normal inspection. Normal color. Warm. Dry laboratory and microbiology Laboratory Tests 04/29/25 05:11 Test 04/29/25 05:11 Range/Units Serum Glucose 222 H 74-106 mg/dL Labs and/or images reviewed: Labs reviewed by me, Image(s) reviewed by me (RN) Problem List/Assessment/Plan Problem List/Assessment/Plan # s/p mechanical fall # Ruled out left hip fracture -IV fluids -Tylenol 650 mg -[place] 5/325 mg -Morphine sulfate 2mg -Left hip x-ray: There is no evidence of acute fracture or dislocation. Soft tissues are unremarkable. Moderate degenerative changes of bilateral hips, [id number]-right. # acute hypoxic respiratory failure due to COVID-19 pneumonia, currently on O2 via NC 2 L/min # COVID-19 pneumonia -Chest X-Ray: No Pleural effusion.No acute disease. -Chest Sonogram: No significant pleural effusion noted at this time. - IV remdesivir per pharmacy -continue oxygen therapy as needed -monitor #WILLIAN possible due to VMN -IV fluids -Creatinine: 1.17 and BUN 36 # Pancytopenia due to unspecified cause? 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 Herbert Plan discussed with: Patient, Other (RN) ADDENDUM ADDENDUM ADDENDUM I was physically present for the lucero portions of the service provided to patient by THE RESIDENT. I have reviewed the documentation, discussed the case with resident and agree with the resident's documentation except as noted. Also the patient's clinical case was discussed with the patient's nurse. This medical document was created using an electronic medical record system with computerized dictation system. Although this document has been carefully reviewed, there might still be some phonetic and typographical errors. These areas are purely typographical due to imperfections of the software programs, and do not reflect any compromise in the patient's medical care. Late signature. Date of Service: Apr 29, 2025 Billing Provider: TEJA HERBERT MD Common Visit Codes: [id number] INP/OBS CARE(HIGH) Secondary Visit Codes: [id number] CARE PLAN 30 MINUTES (20 minutes) MARRY BATES RESIDENT Apr 29, 2025 16:16 JR FRANCO RESIDENT Apr 29, 2025 19:58 TEJA HERBERT MD May 02, 2025 06:09
[2025-04-29] MEDS: REMDESIVIR 100mg in NS 230mL (5 DAY REGIMEN) IV SCH (17:30)
[2025-04-30] VITALS (8 sets, daily range): BP systolic 100–154; BP diastolic 51–77; PULSE 66–102; RESP 15–20; TEMP 97.8–98.3; O2SAT 92–100
[2025-04-30 07:17] LABS: Hematocrit 28.1 % (36.0-46.0); Hemoglobin 9.7 g/dL (12.2-16.2); Mean Corpuscular Hemoglobin 32.0 pg (28.0-32.0); Mean Corpuscular Volume 92.6 fL (80.0-100.0)
[2025-04-30 07:28] LABS: Potassium 3.7 mmol/L (3.5-5.1); Sodium 140 mmol/L (136-145)
[2025-04-30 07:29] LABS: Anion Gap 7 (5-15); Calcium 8.8 mg/dL (8.7-10.4); Carbon Dioxide 24 mmol/L (20-31)
[2025-04-30 07:34] LABS: BUN/Creatinine Ratio 28.2 (10.0-20.0); Blood Urea Nitrogen 33 mg/dL (9-23); Chloride 109 mmol/L (98-107); Glucose 146 mg/dL (74-106)
[2025-04-30 07:47] LABS: Total Cells Counted 100.0 (100)
--- NOTE | 2025-04-30 10:41 | DVHPN2 ---
Reviewed: Care Plan, H&P, Labs, Medications, Previous Orders, Radiology Changes from previous H/P or p: No Changes Eyes: No Pain, No Vision change, No Conjunctivae inflammation, No Eyelid inflammation, No Other, No Redness ENT: No Ear pain, No Ear discharge, No Nose pain, No Nose discharge, No Nose congestion, No Mouth pain, No Mouth swelling, No Throat pain, No Throat swelling, No Other Cardiovascular: No Chest Pain, No Palpitations, No Orthopnea, No Paroxysmal Noc. Dyspnea, No Edema; Lt Headedness; No Other Respiratory: No Cough, No Dry, No Shortness of breath, No SOB with excertion, No Wheezing, No Hemoptysis, No Pleuritic Pain, No Sputum, No Other Gastrointestinal: Nausea; No Vomiting, No Abdominal Pain, No Diarrhea, No Constipation, No Melena, No Hematochezia, No Other Genitourinary: No Dysuria, No Frequency, No Incontinence, No Hematuria, No Retention, No Other Musculoskeletal: No other, No neck pain, No shoulder pain, No arm pain, No back pain, No hand pain, No leg pain, No foot pain Skin: No Rash, No Lesions, No Jaundice, No Bruising, No Other Objective Vitals Vital Signs Date Time Temp Pulse Resp B/P (MAP) Pulse Ox O2 Delivery O2 Flow Rate FiO2 04/30/25 09:00 98.3 102 15 107/51 (69) 100 98.3 04/30/25 08:00 Nasal Cannula* 2 28 Intake/Output Intake and Output 04/30/25 07:00 Intake Total 840 ml Output Total 300 ml Balance 540 ml Intake Oral 840 ml Output Urine Total 300 ml # Voids 3 # Bowel Movements 2 Medications Current Medications Medications Dose Ordered Sig/Justina Route Start Time Stop Time Status Last Admin Dose Admin Insulin Glargine 10 units QAM SC 04/28/25 07:00 04/30/25 06:17 10 UNITS Acetaminophen 650 mg Q6HP PRN PO 04/28/25 03:00 Acetaminophen/ Hydrocodone Bitart 1 tab Q4HP PRN PO 04/28/25 03:00 Ondansetron HCl 4 mg Q4HP PRN IV 04/28/25 03:00 Morphine Sulfate 2 mg Q4HPRN PRN IV 04/28/25 03:00 Pantoprazole Sodium 40 mg DAILY PO 04/28/25 10:00 04/29/25 10:20 40 MG Diagnostic Test (Pha) 1 strip IQ4HR 04/28/25 08:30 04/30/25 08:12 1 STRIP Insulin Human Regular IQ4HR SC 04/28/25 08:30 04/30/25 08:13 3 UNITS Dextrose 50 ml UD PRN IV 04/28/25 08:30 Remdesivir 100 mg/ Sodium Chloride 250 ml @ 250 mls/hr DAILY@1500 IV 04/29/25 15:00 04/30/25 15:59 Cancel Remdesivir 100 mg/ Sodium Chloride 250 ml @ 250 mls/hr DAILY@1500 IV 04/29/25 15:00 04/30/25 15:59 04/29/25 17:30 250 MLS/HR Laboratory Results Laboratory Tests 04/30/25 06:10 Chemistry Test 04/30/25 06:10 Calcium Level 8.8 mg/dL (8.7-10.4) Urinalysis Test 04/28/25 02:16 Urine Color Yellow (Yellow) Urine Clarity Clear (Clear) Urine pH 5.0 (5.0-9.0) Urine Specific [place] 1.016 (1.001-1.035) Urine Protein 1+ (Negative) H Urine Ketones Negative (Negative) Urine Blood Negative /uL (Negative) Urine Nitrite Negative (Negative) Urine Bilirubin Negative (Negative) Urine Urobilinogen Normal mg/dL (Negative) Urine Leukocyte Esterase Trace /uL (Negative) Urine RBC None seen /hpf (0 - 4) Urine Microscopic WBC 1 /HPF (0-5) Urine Squamous Epithelial Cells None seen /hpf (<5) Urine Amorphous Crystals Few /hpf (None Seen) Urine Bacteria None seen /hpf (None Seen) Urine Glucose Normal mg/dL (Normal) Labs and/or images reviewed: Labs reviewed by me, Image(s) reviewed by me Assessment/Plan Assessment/Plan Covering for resident physician Acute Mechanical fall left hip x-ray negative Acute hypoxic respiratory failure COVID-19 infection remdesivir, zinc vitamin-D vitamin-C WILLIAN Pancytopenia Hypertension Diabetes type 2 Hypercholesterolemia Time spent 55 minutes Plan discussed with: Patient Date of Service: Apr 30, 2025 Billing Provider: TEQUILA BAIRD MD Common Visit Codes: [id number] INP/OBS CARE(HIGH) TEQUILA BAIRD MD Apr 30, 2025 10:41
[2025-04-30] MEDS: ZINC SULFATE 220mg CAP or TAB PO ONE (11:04)
[2025-04-30] MEDS: CHOLECALCIFEROL (VITD3) 1,000UNIT=25mCg TAB PO ONE (11:05)
[2025-04-30] MEDS: ASCORBIC ACID 500 MG TAB PO SCH (21:09)
[2025-05-01] VITALS (8 sets, daily range): BP systolic 108–142; BP diastolic 59–71; PULSE 63–92; RESP 16–18; TEMP 96.1–98.3; O2SAT 90–100
[2025-05-01] MEDS: ZINC SULFATE 220mg CAP or TAB PO SCH (08:28)
[2025-05-01] MEDS: CHOLECALCIFEROL (VITD3) 1,000UNIT=25mCg TAB PO SCH (08:28)
--- NOTE | 2025-05-01 10:04 | DVHPN2 ---
Reviewed: Care Plan, H&P, Labs, Medications, Previous Orders, Radiology Changes from previous H/P or p: No Changes Eyes: No Pain, No Vision change, No Conjunctivae inflammation, No Eyelid inflammation, No Other, No Redness ENT: No Ear pain, No Ear discharge, No Nose pain, No Nose discharge, No Nose congestion, No Mouth pain, No Mouth swelling, No Throat pain, No Throat swelling, No Other Cardiovascular: No Chest Pain, No Palpitations, No Orthopnea, No Paroxysmal Noc. Dyspnea, No Edema; Lt Headedness; No Other Respiratory: No Cough, No Dry, No Shortness of breath, No SOB with excertion, No Wheezing, No Hemoptysis, No Pleuritic Pain, No Sputum, No Other Gastrointestinal: Nausea; No Vomiting, No Abdominal Pain, No Diarrhea, No Constipation, No Melena, No Hematochezia, No Other Genitourinary: No Dysuria, No Frequency, No Incontinence, No Hematuria, No Retention, No Other Musculoskeletal: No other, No neck pain, No shoulder pain, No arm pain, No back pain, No hand pain, No leg pain, No foot pain Skin: No Rash, No Lesions, No Jaundice, No Bruising, No Other Objective Vitals Vital Signs Date Time Temp Pulse Resp B/P (MAP) Pulse Ox O2 Delivery O2 Flow Rate FiO2 05/01/25 09:00 97.9 91 18 142/59 (86) 100 97.9 05/01/25 08:09 Nasal Cannula* 2 28 Intake/Output Intake and Output 05/01/25 07:00 Intake Total 1120 ml Output Total 603 ml Balance 517 ml Intake Oral 1120 ml Output Urine Total 600 ml Stool Total 3 ml # Voids 3 # Bowel Movements 2 Medications Current Medications Medications Dose Ordered Sig/Justina Route Start Time Stop Time Status Last Admin Dose Admin Insulin Glargine 10 units QAM SC 04/28/25 07:00 05/01/25 06:53 10 UNITS Acetaminophen 650 mg Q6HP PRN PO 04/28/25 03:00 Acetaminophen/ Hydrocodone Bitart 1 tab Q4HP PRN PO 04/28/25 03:00 Ondansetron HCl 4 mg Q4HP PRN IV 04/28/25 03:00 Morphine Sulfate 2 mg Q4HPRN PRN IV 04/28/25 03:00 Pantoprazole Sodium 40 mg DAILY PO 04/28/25 10:00 05/01/25 08:28 40 MG Diagnostic Test (Pha) 1 strip IQ4HR 04/28/25 08:30 05/01/25 08:28 1 STRIP Insulin Human Regular IQ4HR SC 04/28/25 08:30 05/01/25 08:37 3 UNITS Dextrose 50 ml UD PRN IV 04/28/25 08:30 Remdesivir 100 mg/ Sodium Chloride 250 ml @ 250 mls/hr DAILY@1500 IV 04/29/25 15:00 04/30/25 15:59 Cancel Zinc Sulfate 220 mg DAILY PO 05/01/25 10:00 05/01/25 08:28 220 MG Ascorbic Acid 500 mg BID PO 04/30/25 22:00 05/01/25 08:28 500 MG Cholecalciferol 4,000 unit DAILY PO 05/01/25 10:00 05/01/25 08:28 4,000 UNIT Laboratory Results Laboratory Tests 04/30/25 06:10 Urinalysis Test 04/28/25 02:16 Urine Color Yellow (Yellow) Urine Clarity Clear (Clear) Urine pH 5.0 (5.0-9.0) Urine Specific [place] 1.016 (1.001-1.035) Urine Protein 1+ (Negative) H Urine Ketones Negative (Negative) Urine Blood Negative /uL (Negative) Urine Nitrite Negative (Negative) Urine Bilirubin Negative (Negative) Urine Urobilinogen Normal mg/dL (Negative) Urine Leukocyte Esterase Trace /uL (Negative) Urine RBC None seen /hpf (0 - 4) Urine Microscopic WBC 1 /HPF (0-5) Urine Squamous Epithelial Cells None seen /hpf (<5) Urine Amorphous Crystals Few /hpf (None Seen) Urine Bacteria None seen /hpf (None Seen) Urine Glucose Normal mg/dL (Normal) Labs and/or images reviewed: Labs reviewed by me, Image(s) reviewed by me Assessment/Plan Assessment/Plan Covering for resident physician Acute Mechanical fall left hip x-ray negative Acute hypoxic respiratory failure COVID-19 infection remdesivir, zinc vitamin-D vitamin-C WILLIAN Pancytopenia Hypertension Diabetes type 2 Hypercholesterolemia Time spent 55 minutes Plan discussed with: Patient My Orders Orders - TEQUILA BAIRD MD Procedure Category Date Status Time Zinc Sulfate PHA 05/01/25 In Process 10:00 Ascorbic Acid Tablet PHA 04/30/25 In Process (Vitamin C Tablet) 22:00 Cholecalciferol PHA 05/01/25 In Process Tablet (Vitamin D3 10:00 Date of Service: May 01, 2025 Billing Provider: TEQUILA BAIRD MD Common Visit Codes: [id number] INP/OBS CARE(HIGH) TEQUILA BAIRD MD May 01, 2025 10:04
[2025-05-02 01:24] VITALS: BP 121/71; PULSE 76; RESP 17; TEMP 98.3; O2SAT 100
[2025-05-02 05:05] VITALS: BP 121/58; PULSE 93; RESP 18; TEMP 97.8; O2SAT 100
[2025-05-02 08:00] VITALS: O2SAT 98
[2025-05-02 09:00] VITALS: BP 134/70; PULSE 93; RESP 16; TEMP 98.3; O2SAT 96
[2025-05-02 10:31] LABS: Hematocrit 30.3 % (36.0-46.0); Hemoglobin 10.0 g/dL (12.2-16.2); Mean Corpuscular Hemoglobin 31.4 pg (28.0-32.0); Mean Corpuscular Volume 95.3 fL (80.0-100.0)
[2025-05-02 10:50] LABS: Anion Gap 8 (5-15); Carbon Dioxide 25 mmol/L (20-31); Chloride 106 mmol/L (98-107); Potassium 3.6 mmol/L (3.5-5.1); Sodium 139 mmol/L (136-145)
[2025-05-02 10:51] LABS: Calcium 9.0 mg/dL (8.7-10.4)
[2025-05-02 10:56] LABS: BUN/Creatinine Ratio 21.8 (10.0-20.0)
[2025-05-02 10:57] LABS: Blood Urea Nitrogen 24 mg/dL (9-23); Glucose 367 mg/dL (74-106)
[2025-05-02 11:08] LABS: Total Cells Counted 100.0 (100)
[2025-05-02 11:53] VITALS: TEMP 36.8
[2025-05-02] MEDS ORDERED: ZINC50TA7 PO (16:07)
[2025-05-02] MEDS ORDERED: CHOL200010 PO (16:07)
[2025-05-02] MEDS ORDERED: ASCO500C49 PO (16:07)
--- NOTE | 2025-05-02 16:35 | DVHDSRES ---
Discharge Summary Date of Admission Resident Creating Document: MARRY BATES RESIDENT Apr 28, 2025 at 02:51 Date of Discharge: May 02, 2025 Admitting Diagnosis left hip pain after mechanical fall from standing position Labs/Diagnostic Data: Laboratory Results Test 05/02/25 11:28 05/02/25 10:16 04/30/25 06:10 04/28/25 04:50 POC Glucose 317 mg/dl (70-106) White Blood Count 2.4 10^3/uL (4.4-10.8) Red Blood Count 3.18 10^6/uL (4.0-5.20) Hemoglobin 10.0 g/dL (12.2-16.2) Hematocrit 30.3 % (36.0-46.0) Mean Corpuscular Volume 95.3 fL (80.0-100.0) Mean Corpuscular Hemoglobin 31.4 pg (28.0-32.0) Mean Corpuscular Hemoglobin Concent 32.9 g/dL (32.0-36.0) Red Cell Distribution Width 14.6 % (11.8-14.3) Platelet Count 80 10^3/uL (140-450) Mean Platelet Volume 8.9 fL (6.9-10.8) Neutrophils (%) (Auto) % (37.0-80.0) Lymphocytes (%) (Auto) % (10.0-50.0) Monocytes (%) (Auto) % (0.0-12.0) Basophils (%) (Auto) % (0.0-2.0) Neutrophils # (Auto) 10 ^3/uL (1.6-8.6) Lymphocytes # (Auto) 10 ^3/uL (0.4-5.4) Monocytes # (Auto) 10 ^3/uL (0-1.3) Differential Total Cells Counted 100.0 (100) Neutrophils % (Manual) 33 (37.0-80.0) Band Neutrophils % (Manual) 0 Lymphocytes % (Manual) 43 (10.0-50.0) Monocytes % (Manual) 18 (0-12) Eosinophils % (Manual) 3 (0-7) Basophils % (Manual) 0 (0.0-2.0) Metamyelocytes % (manual) 0 Myelocytes % (Manual) 0 Promyelocytes % (Manual) 0 Blast Cells % (Manual) 0 Reactive Lymphocytes 3 Platelet Estimate Decreased Sodium Level 139 mmol/L (136-145) Potassium Level 3.6 mmol/L (3.5-5.1) Chloride Level 106 mmol/L (98-107) Carbon Dioxide Level 25 mmol/L (20-31) Anion Gap 8 (5-15) Blood Urea Nitrogen 24 mg/dL (9-23) Creatinine 1.10 mg/dL (0.550-1.02) Glomerular Filtration Rate Calc 50 mL/min (>90) BUN/Creatinine Ratio 21.8 (10.0-20.0) Serum Glucose 367 mg/dL (74-106) Calcium Level 9.0 mg/dL (8.7-10.4) Large Platelets Few Hemoglobin A1c 8.2 % A1C (<5.7) Test 04/28/25 03:30 04/28/25 02:16 04/27/25 22:30 04/27/25 22:25 Influenza Type A Antigen Negative (Negative) Influenza Type B Antigen Negative (Negative) SARS-CoV-2 Antigen (Rapid) Positive (NEGATIVE) Urine Color Yellow (Yellow) Urine Clarity Clear (Clear) Urine pH 5.0 (5.0-9.0) Urine Specific [place] 1.016 (1.001-1.035) Urine Protein 1+ (Negative) Urine Ketones Negative (Negative) Urine Blood Negative /uL (Negative) Urine Nitrite Negative (Negative) Urine Bilirubin Negative (Negative) Urine Urobilinogen Normal mg/dL (Negative) Urine Leukocyte Esterase Trace /uL (Negative) Urine RBC None seen /hpf (0 - 4) Urine Microscopic WBC 1 /HPF (0-5) Urine Squamous Epithelial Cells None seen /hpf (<5) Urine Amorphous Crystals Few /hpf (None Seen) Urine Bacteria None seen /hpf (None Seen) Urine Glucose Normal mg/dL (Normal) Nucleated Red Blood Cells 1.0 % Iron Level 16 ug/dL (50-170) Total Iron Binding Capacity 243 ug/dL (250-425) Percent Iron Saturation 6.6 % (15-50) Ferritin 187.7 ng/mL (10-291) Troponin I High Sensitivity 18 ng/L (</=34) B-Type Natriuretic Peptide 305.89 pg/mL (0-100) Blood Gas Specimen Type Arterial Blood Gas Sample Site Left radial Blood Gas Patient Temperature 37.0 Arterial Blood Date Drawn [id number] Arterial Blood pH 7.477 (7.350-7.450) Arterial Blood Partial Pressure CO2 26.4 mmHg (32.0-45.0) Arterial Blood Partial Pressure O2 98.3 mmHg (83.0-108.0) Arterial Blood HCO3 19.1 mmol/L (21.0-28.0) Arterial Blood Oxygen Saturation 97.5 % (94.0-98.0) Arterial Blood Base Excess -3.4 mmol/L (-2.0-3.0) Arterial Blood Oxyhemoglobin 95.5 % (94.0-98.0) Arterial Blood Carboxyhemoglobin 1.4 % (0.5-1.5) Arterial Blood Methemoglobin 0.7 % (0.0-1.5) Chito Test Modified Blood Gas Total Hemoglobin 10.60 g/dL (12.0-16.0) Blood Gas Liter Flow 2.00 Blood Gas Modality Nasal cannula FiO2 % 28.0 Other Laboratory Tests 05/02/25 10:16 Brief Hx & Hospital Course: The patient is a 67-year-old female with a medical history of hypertension, hyperlipidemia, type 2 diabetes mellitus, atypical sarcoma of the left femur, basal cell carcinoma of the nose, and sciatica. She presented to the emergency department via EMS after a mechanical fall from standing while attempting to get out of bed. She reported left hip pain and longstanding generalized weakness and fatigue. On scene, she was found to be hypoxic (SpO? 89% on room air), which improved to 96% with 2L oxygen via nasal cannula. She denied loss of consciousness, head trauma, or other injuries. Past surgical history includes cholecystectomy and appendectomy. She has no history of smoking, alcohol, or drug use. Family history is notable for Huntingtons disease in her mother. On examination, the patient was alert and oriented, in mild distress, and cooperative. Imaging ruled out acute fracture or dislocation of the left hip, though moderate degenerative changes were noted bilaterally. She was treated with IV fluids, acetaminophen, Bonifay, and morphine for pain control. The patient was diagnosed with acute hypoxic respiratory failure and tested positive for COVID-19. Chest imaging showed no acute cardiopulmonary disease or pleural effusion. She was started on IV remdesivir and monitored closely. Laboratory findings revealed acute kidney injury (creatinine 1.17, BUN 36), likely secondary to volume depletion, and pancytopenia of unclear etiology. She was considered immunocompromised and received supportive care including iron studies and antiemetics. Her diabetes was poorly controlled (HbA1c 8.2, glucose 094422 mg/dL) and managed with insulin glargine and dextrose. Antihypertensives were held due to soft blood pressure readings. Hyperlipidemia was monitored without active intervention. Throughout her stay, the patient remained stable on low-flow oxygen. She refused SCDs and bed alarms but was educated on fall precautions and verbalized understanding. At discharge, she was alert and in no distress. IV and Scherer catheters were removed, and she was escorted to her vehicle with family and staff assistance. Discharge instructions were provided, and the patient was advised to follow up with her primary care provider. Patient is discharged with vitamin C, vitamin D, Zinc. Physical exam Constitutional: Weakness, Malaise; No: Fever, Chills, Sweats, Other Eyes: No Pain, No Vision change, No Conjunctivae inflammation, No Eyelid inflammation, No Other, No Redness ENT: No Ear pain, No Ear discharge, No Nose pain, No Nose discharge, No Nose congestion, No Mouth pain, No Mouth swelling, No Throat pain, No Throat swelling, No Other Cardiovascular: Lt Headedness, No Chest Pain, No Palpitations, No Orthopnea, No Paroxysmal No Dyspnea, No Edema, No Other Respiratory: No Cough, No Dry, No Shortness of breath, No SOB with exertion, No Wheezing, No Hemoptysis, No Pleuritic Pain, No Sputum, No Other Gastrointestinal: Nausea, No Vomiting, No Abdominal Pain, No Diarrhea, No Constipation, No Melena, No Hematochezia, No Other Genitourinary: No Dysuria, No Frequency, No Incontinence, No Hematuria, No Retention, No Other Musculoskeletal: No other, No neck pain, No shoulder pain, No arm pain, No back pain, No hand pain, No leg pain, No foot pain Neurological: Weakness; No: Numbness, Incoordination, Change in speech, Confusion, Seizures, Other Skin: No Rash, No Lesions, No Jaundice, No Bruising, No Other Operations or Procedures PROCEDURE(s): LHIP - L HIP COMPLETE XRAY REASON: Mechanical fall, left hip pain ORDER NUMBER(s): [id number], ACCESSION NUMBER(s): [id number] CLINICAL INDICATION: Mechanical fall, left hip pain TECHNIQUE: Pelvis and XY L HIP COMPLETE XRAY Comparison: None FINDINGS/IMPRESSION: : There is no evidence of acute fracture or dislocation. Soft tissues are unremarkable. Moderate degenerative changes of bilateral hips, [id number]. PROCEDURE(s): CHSTU - CHEST ULTRASOUND REASON: R/O PLURAL EFFUSION ORDER NUMBER(s): [id number], ACCESSION NUMBER(s): [id number] Chest Sonogram Date: 04/28/2025 02:42 AM Clinical history: R/O PLURAL EFFUSION Technique: Limited sonographic evaluation of the bilateral chest was performed to evaluate for pleural effusion. FINDINGS: / impression: No significant pleural effusion noted at this time. PROCEDURE(s): CXR1 - CHEST XRAY 1 VIEW REASON: Hypoxia ORDER NUMBER(s): [id number], ACCESSION NUMBER(s): [id number] CHEST RADIOGRAPH Indication: Hypoxia Technique: Single frontal view of the chest was obtained COMPARISON: None FINDINGS: Lines and Tubes: None Lungs: Clear Pleura: No effusion. No pneumothorax. Cardiomediastinal contours: Unremarkable Bones: Unremarkable IMPRESSION: 1. [place] [address] ELECTROCARDIOGRAM REPORT PATIENT: LOU STAHL ACCT: [id number] : 1940 LOC: ER ROOM / BED: / AGE / SEX: 84 / F ADM STATUS: REG ER SERVICE UNIT: [id number] ORDERING PHYSICIAN: HAWA TRISTAN MD PROCEDURE(s): EKG - ELECTROCARDIGRAM ORDER NUMBER(s): [id number], ACCESSION NUMBER(s): [id number] [facility] [place] Test Date: 2025-04-27 Test Time: 20:26:52 Pat Name: LOU STAHL Department: ED Room: Gender: F Charge Entry Clerk: KATTY : 1940 Requested By: HAWA TRISTAN Order Number: [id number] Reading MD: Measurements Intervals [place] Rate: 91 P: 64 IN: 212 QRS: 64 QRSD: 87 T: 41 QT: 354 QTc: 436 Interpretive Statements Sinus rhythm Atrial premature complex Borderline prolonged IN interval Abnormal R-wave progression, early transition Please click the below link to view image of tracing. DICTATED BY: DICTATED DATE/TIME:04/27/252025 Condition at Discharge: Stable Final Diagnosis/Problems List # s/p mechanical fall # Ruled out left hip fracture # acute hypoxic respiratory failure due to COVID-19 pneumonia, currently on O2 via NC 2 L/min # COVID-19 pneumonia #WILLIAN possible due to [employer] # Pancytopenia due to unspecified cause? 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 Medications: Ascorbic Acid (Vitamin C) 500 Mg PO daily 14 days Cholecalciferol (Vitamin D) 2,000 unit PO daily 14 days Zinc Gluconate (Zinc) 50 Mg PO daily 14 days Scheduled Ascorbic Acid (Vitamin C), 500 MG PO DAILY Cholecalciferol (Vitamin D), 2,000 UNIT PO DAILY Zinc Gluconate (Zinc), 50 MG PO DAILY Discharge Statement: "Patient was advised to return to the ER or call 911 if any headaches, dizziness, shortness of breath, chest pain, abdominal pain, bleeding, fevers, or worsening of medical condition. Patient was counseled about treatment plan, medications, possible side effects, patientverbalized understanding. All questions were answered to the best of my ability. This discharge took greater then 30 minutes in planning, reviewing documentation, counseling the patient, and discussing with other team members." ASSESSMENT ASSESSMENT Assessment # s/p mechanical fall # Ruled out left hip fracture # acute hypoxic respiratory failure due to COVID-19 pneumonia, currently on O2 via NC 2 L/min # COVID-19 pneumonia #WILLIAN possible due to [employer] # Pancytopenia due to unspecified cause? 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
== END 2025-05-02 14:18 | disposition home or self-care (01) | DRG 177 ==
LOC: ER 20:23 → EDBD 20:23 → OVERFLOW 04-28 02:51 → EAST 04-28 15:13
PROVIDERS: ADMIT Internal Medicine Geriatric Medicine; ATTEND Internal Medicine Geriatric Medicine
PROC: XW033E5 Introduction of Remdesivir Anti-infective into Peripheral Vein, Percutaneous Approach, New Technology Group 5 (ICD-10-PCS; principal; 2025-04-28)
DX: U07.1 COVID-19 (principal); J12.82 Pneumonia due to coronavirus disease 2019; J96.01 Acute respiratory failure with hypoxia; N17.0 Acute kidney failure with tubular necrosis; D61.818 Other pancytopenia; D84.89 Other immunodeficiencies; E11.65 Type 2 diabetes mellitus with hyperglycemia; E78.00 Pure hypercholesterolemia, unspecified; I10 Essential (primary) hypertension; Z85.830 Personal history of malignant neoplasm of bone; Z79.899 Other long term (current) drug therapy
CPT/HCPCS: 36415; 36600; 71045; 73502; 76604; 80048; 81001; 82728; 82805; 82962; 83036; 83540; 83550; 83880; 84484; 85007; 85027; 87426; 87804; 93005; 97110; 97116; 97163; G0378; J1815

== ENCOUNTER 2025-08-09 15:14 | Inpatient (IN) | payer OTHER ==
[~2025-08-09] VITALS: Ht 152.4 cm; Wt 65.7 kg
[2025-08-09] VITALS (10 sets, daily range): BP systolic 78–133; BP diastolic 38–62; PULSE 64–84; RESP 13–16; O2SAT 93–100
[~2025-08-09 15:14] MED LIST: ASCO500C49 PO; CHOL200010 PO; ZINC50TA7 PO
[2025-08-09] MEDS: MIDAZOLAM DRIP 100 mg/100mL NS 100 ML IV ONE (15:32)
--- NOTE | 2025-08-09 15:37 | ED.PDOC ---
HPI Comments 85-year-old female with a past medical history of HTN, DM, HLD presents to the ED via EMS with a chief compliant chest pain onset today. Per EMS, patient was experiencing chest pain and shortness of breath, 911 was called by family. Upon EMS arrival, O2 sat was 77% RA, patient was alert and oriented. Patient was discharged from [facility] 07/26/25. Upon ED arrival, O2 saturation dropped, code blue was called 15:24, 1 round epinephrine, 1 round bicarb was given, ROSC 1526. Patient was intubated ett tube 8.0, 24 cm @ lips. Time Seen by MD: 15:22 Reviewed Notes: Medications, Allergies Allergies: Coded Allergies: NO KNOWN ALLERGIES (Unverified , 09/12/15) Home Meds Active Scripts Zinc Gluconate (Zinc) 50 Mg Tab, 50 MG PO DAILY for 14 Days, #14 TAB Prov:JR FRANCO RESIDENT 05/02/25 Cholecalciferol (Vitamin D) 2,000 Unit Cap, 2000 UNIT PO DAILY for 14 Days, #20 CAP Prov:JR FRANCO RESIDENT 05/02/25 Ascorbic Acid (VITAMIN C) 500 Mg Cap, 500 MG PO DAILY for 14 Days, #30 CAP Prov:JR FRANCO RESIDENT 05/02/25 Information Source: Emergency Med Personnel Mode of Arrival: EMS Severity: Moderate Timing: Minutes Duration: Since onset Prehospital treatment: Oxygen Location: Chest (L) Radiation: No Radiation Quality: Sharp Onset: At Rest Cardiac Risk Factors: Hyperlipidemia, HTN, Diabetes PE Risk Factors: None History of: None Modifying Factors: Nothing Past Medical History PAST MEDICAL HISTORY: Cancer, DM, High Lipids, HTN Surgical History: Denies all surgeries TRAVEL SALES CONSULTANT History: No Pertinent TRAVEL SALES CONSULTANT History Family History Family History: Unknown Social History Smoker: Non-Smoker Alcohol: Denies ETOH Use Drugs: Denies Drug Use Lives In: Home Unable to Obtain due to: Medical Urgency Physical Exam General Appearance: Severe Distress HEENT: Normal ENT Inspection, Pharynx Normal, TMs Normal Neck: Full Range of Motion, Non-Tender, Normal, Normal Inspection Respiratory: Chest Non-Tender, Lungs Clear, No Accessory Muscle Use, No Respiratory Distress, Normal Breath Sounds Cardiovascular: Other (No pulse) Breast Exam: Deferred Gastrointestinal: No Organomegaly, Non Tender, No Pulsatile Mass, Normal Bowel Sounds, Soft Genitalia: Deferred Pelvic: Deferred Rectal: Deferred Extremities: No pedal edema Musculoskeletal : Apperance: Normal Neurologic: Other (Unconscious) Cerebellar Function: NOT DONE Reflexes: NOT DONE Skin: Pallor Peripheral Pulses: 0 Radial (R), 0 Radial (L) Lymphatic: No Adenopathy EKG EKG : Pulse Rate (adult): 84 Cardiac Rhythm: NSR Block: LBBB Was a procedure done? Was a procedure done?: Yes Sedation Sedation?: No Central Line Recorder of insertion practice: Grain Oilseed Or Pasture Grower Occupation of embroidery cutter: Attending Physician Indication: Inability to obtain IV Room prepared for procedure: Yes Grain Oilseed Or Pasture Grower performed hand hygien: Yes Intubation Indication: Respiratory Insufficiency Prep: Preoxygenation Intubation Approach: Orotracheal Intubation size: cm (24) Informed consent obtained: Yes Risks/benefits/alt described: Yes UTO Consent 8.0 ett CP Differential Dx Differential Diagnosis: A-fib, A-Flutter, Angina, Anxiety / Panic Attack, Atrial Dysrhythmia, Electrolyte Disorder X-Ray, Labs, Meds, VS Vital Signs Date Time Temp Pulse Resp B/P (MAP) Pulse Ox O2 Delivery O2 Flow Rate FiO2 08/09/25 16:50 208.6 90 14 68 Ambu-Bag 90 08/09/25 16:43 85 08/09/25 16:14 106 08/09/25 15:37 84 08/09/25 15:30 68 14 141/76 (97) 100 100 08/09/25 15:18 84 08/09/25 15:15 98.1 96 22 105/52 92 98.1 Lab Test 08/09/25 16:30 Range/Units White Blood Count 4.3 L 4.4-10.8 10^3/uL Red Blood Count 2.23 L 4.0-5.20 10^6/uL Hemoglobin 7.3 L 12.2-16.2 g/dL Hematocrit 21.9 L 36.0-46.0 % Mean Corpuscular Volume 98.1 80.0-100.0 fL Mean Corpuscular Hemoglobin 32.9 H 28.0-32.0 pg Mean Corpuscular Hemoglobin Concent 33.6 32.0-36.0 g/dL Red Cell Distribution Width 19.1 H 11.8-14.3 % Platelet Count 69 L 140-450 10^3/uL Mean Platelet Volume 9.1 6.9-10.8 fL Neutrophils (%) (Auto) 74.5 37.0-80.0 % Lymphocytes (%) (Auto) 12.7 10.0-50.0 % Monocytes (%) (Auto) 11.6 0.0-12.0 % Eosinophils (%) (Auto) 0.5 0.0-7.0 % Basophils (%) (Auto) 0.7 0.0-2.0 % Neutrophils # (Auto) 3.2 1.6-8.6 10 ^3/uL Lymphocytes # (Auto) 0.5 0.4-5.4 10 ^3/uL Monocytes # (Auto) 0.5 0-1.3 10 ^3/uL Eosinophils # (Auto) 0 0-0.8 10 ^3/uL Basophils # (Auto) 0 0-0.2 10 ^3/uL Nucleated Red Blood Cells 0.1 % Prothrombin Time 12.5 H 9.3-11.8 sec Prothrombin Time INR 1.20 H 0.9-1.15 Activated Partial Thromboplast Time 26.2 24.5-34.5 SEC Blood Gas Specimen Type Arterial Blood Gas Sample Site Right radial Blood Gas Patient Temperature 37.0 Arterial Blood Date Drawn [id number] Arterial Blood pH 7.456 H 7.350-7.450 Arterial Blood Partial Pressure CO2 41.4 32.0-45.0 mmHg Arterial Blood Partial Pressure O2 159.1 H 83.0-108.0 mmHg Arterial Blood HCO3 28.5 H 21.0-28.0 mmol/L Arterial Blood Oxygen Saturation 99.0 H 94.0-98.0 % Arterial Blood Base Excess 4.3 H -2.0-3.0 mmol/L Arterial Blood Oxyhemoglobin 95.9 94.0-98.0 % Arterial Blood Carboxyhemoglobin 2.5 H 0.5-1.5 % Arterial Blood Methemoglobin 0.6 0.0-1.5 % Arterial Blood Deoxyhemoglobin 1.0 0.0-5.0 % Chito Test Modified Blood Gas Total Hemoglobin 7.60 L 12.0-16.0 g/dL Blood Gas Set Respiration Rate 14.0 Blood Gas Modality Vent - ac FiO2 % 100.0 Blood Gas Tidal Volume 500.0 Blood Gas PEEP or CPAP 5.0 Sodium Level Pending Potassium Level Pending Chloride Level Pending Carbon Dioxide Level Pending Anion Gap Pending Blood Urea Nitrogen Pending Creatinine Pending Glomerular Filtration Rate Calc Pending BUN/Creatinine Ratio Pending Serum Glucose Pending Hemoglobin A1c Pending Lactic Acid Level Pending Calcium Level Pending Phosphorus Level Pending Magnesium Level Pending Total Bilirubin Pending Aspartate Amino Transferase (AST) Pending Alanine Aminotransferase (ALT) Pending Alkaline Phosphatase Pending Troponin I High Sensitivity Pending Total Protein Pending Albumin Pending Triglycerides Level Pending Cholesterol Level Pending LDL Cholesterol Pending HDL Cholesterol Pending Lipase Pending Vitamin B12 Level Pending Vitamin D 25-Hydroxy Pending Thyroid Stimulating Hormone (TSH) Pending Current Medications Medications (Trade) Dose Ordered Sig/Justina Route Start Time Stop Time Status Last Admin Piperacillin Sod/ Tazobactam Sod 100 ml @ 100 mls/hr ONCE ONCE IV 08/09/25 15:45 08/09/25 16:44 DC 08/09/25 17:23 Sodium Chloride 1,000 ml @ 1,000 mls/hr Q1H ONCE IV 08/09/25 15:45 08/09/25 16:44 DC 08/09/25 16:28 Heparin Sodium (Porcine) 5,000 units ONCE ONCE IV 08/09/25 16:00 08/09/25 17:10 DC 08/09/25 17:04 Brought by paramedics. Not responding. No pulse. CPR started. Epinephrine was given. Sodium bicarbonate was given. Was able to revive the patient within 2 minutes pain Blood pressure holding. Blood pressure within normal limits. Intubate the patient. Central line placed. EKG does show ischemic changes. Spoke with Cardiology. Placed on heparin. Waiting for family. Continue to monitor. Time of 1ST Reevaluation: 15:55 Reevaluation 1ST: Unchanged Patient Education/Counseling: Other Family Education/Counseling: No Family Present SEPSIS Sepsis Screen Physician Orders Blood Culture (08/09/25 15:36) Lactic Acid W/ Reflex Order (08/09/25 15:36) Troponin-I Hs (08/09/25 15:36) Chest Portable (08/09/25 15:36) Urinalysis (08/09/25 15:36) Sodium Chloride 0.9% (08/09/25 15:45) Troponin-I Hs (08/09/25 16:36) Troponin-I Hs (08/09/25 18:36) Head Without Contrast (08/09/25 15:36) Electrocardigram (08/09/25 18:42) Abg W/ Co-Ox (08/09/25 15:45) Ventilator Orders (08/09/25 15:30) Respiratory Culture W/ Gs (08/09/25 15:45) Norepinephrine 8 Mg/250ml Kit (Levophed) (08/09/25 16:15) Midazolam Drip 100 Mg/100ml Ns (Versed D (08/09/25 16:15) Rass Sedation Scale Q1HR (08/09/25 16:03) Troponin-I Hs (08/09/25 16:08) Cardiac Rehabilitation - Outpa (08/09/25 16:08) Platelet Monitoring (08/09/25 16:08) Heparin Per Standardized Proce (08/09/25 16:08) Discontinue All Im Injections (08/09/25 16:08) Heparin Drip/D5w 100units/Ml (08/09/25 16:15) Stat Ekg For Chest Pain (08/09/25 16:08) Communication Order (08/09/25 16:11) Respiratory Misc. Order (08/09/25 16:31) Heparin Per Pharmacy Protocol (08/09/25 16:50) Vital Signs Date Time Temp Pulse Resp B/P (MAP) Pulse Ox O2 Delivery O2 Flow Rate FiO2 08/09/25 16:50 208.6 90 14 68 Ambu-Bag 90 08/09/25 16:43 85 08/09/25 16:14 106 08/09/25 15:37 84 08/09/25 15:30 68 14 141/76 (97) 100 100 08/09/25 15:18 84 08/09/25 15:15 98.1 96 22 105/52 92 98.1 Laboratory Tests Test 08/09/25 16:30 Lactic Acid Level Pending White Blood Count 4.3 10^3/uL (4.4-10.8) L Medications Medications Dose Ordered Sig/Justina Route Start Time Stop Time Status Last Admin Dose Admin Heparin Sodium (Porcine) 5,000 units ONCE ONCE IV 08/09/25 16:00 08/09/25 17:10 DC 08/09/25 17:04 Piperacillin Sod/ Tazobactam Sod 100 ml @ 100 mls/hr ONCE ONCE IV 08/09/25 15:45 08/09/25 16:44 DC 08/09/25 17:23 Sodium Chloride 1,000 ml @ 1,000 mls/hr Q1H ONCE IV 08/09/25 15:45 08/09/25 16:44 DC 08/09/25 16:28 Departure 1 Departure Time of Disposition: 16:38 Impression: Primary Impression: Cardiac arrest Additional Impressions: Metabolic encephalopathy STEMI (ST elevation myocardial infarction) Qualified Codes: I21.3 - ST elevation (STEMI) myocardial infarction of unspecified site Disposition: ADMITTED INPATIENT Admit to: Med Surg Condition: Guarded Critical Care Note Critical Care Time?: Yes (90 min-critical care time only) Stability Stability form required: No Heart Score Heart Score: Heart Score Response (Comments) Value History Highly Suspicious [address]-Deviation 2 Age >65 2 Risk Factors >3 or Hx ASHD 2 Troponin N/A 0 Total 8 I personally scribed for MANISHA ZENDEJAS MD ([email or web address]) on 08/09/25 at 15:37. Electronically submitted by Sarah Franz ([email or web address]). I personally scribed for MANISHA ZENDEJAS MD ([email or web address]) on 08/09/25 at 15:57. Electronically submitted by Sarah Franz ([email or web address]). MANISHA ZENDEJAS MD Aug 09, 2025 15:37
--- NOTE | 2025-08-09 15:42 | ECG ---
[facility] Test Date: 2025-08-09 Test Time: 15:18:51 Pat Name: LOU STAHL Department: ED Room: 0264 Gender: F Philosophy Specialist: LUIS MANUEL : 1940 Requested By: MANISHA ZENDEJAS Order Number: [id number] Reading MD: Wilfredo Gonzales Measurements Intervals [place] Rate: 84 P: 0 MO: 161 QRS: 104 QRSD: 150 T: -81 QT: 390 QTc: 462 Interpretive Statements Sinus rhythm Nonspecific intraventricular conduction delay Repol abnrm, global ischemia, diffuse leads Electronically Signed On 08-10-2025 17:48:00 PST by Wilfredo Gonzales Please click the below link to view image of tracing.
[2025-08-09] MEDS: AZITHROMYCIN 500MG/250ML 250 ML IV ONE (15:45)
[2025-08-09] MEDS: NOREPINEPHRINE 8 MG/250ML KIT 250 ML IV ONE (16:13)
[2025-08-09] MEDS: MIDAZOLAM DRIP 100 mg/100mL NS 100 ML IV SCH (16:15)
[2025-08-09] MEDS: NOREPINEPHRINE 8 MG/250ML KIT 250 ML IV SCH (16:15)
[2025-08-09] MEDS: SODIUM CHLORIDE 0.9% 1,000 ML IV ONE ×2 (16:28→16:35)
[2025-08-09 16:36] LABS: Base Excess 4.3 mmol/L (-2.0-3.0)
--- NOTE | 2025-08-09 16:50 | RESUS ---
CODE BLUE ASSESSSMENT History of Events History of Events: PT BROUGHT IN BY EMS FOR SOB. PT BECAME UNRESPONSIVE ON ARRIVAL TO ER. PT IMMEDIATELY TAKEN TO BED 10 FOR INTUBATION AND MINUTES AFTER LOST PULSES. Initial Information Date: Aug 09, 2025 Time: 15:24 Location of Arrest: ER Arrest Witnessed: Yes CPR started initial time: 15:24 CPR started by whom: Hospital Staff Last seen well: 1515 Type of arrest: Cardiac Spontaneous Respirations: No Pulse Present: No Monitoring: Pulse Oximetry, Telemetry Crash Cart Opened and Supplies: Yes Airway Ventilation Breathing at Onset: Assisted Oxygen Delivery Method: Ambu-Bag Artificial Ventilation: Bag/Endo tube Intubation Time: 15:28 Intubation Size: 8.0 cuffed Intubated by: DR FRANCO Intubation Attempts: 1 Tube secured at: 24 CO2 indicator used: Yes Confirmation: Auscultation, Exhaled CO2, Chest X-ray Circulation Circulation : Time: 15:26 Pulse Rate (adult): 90 Blood Pressure Systolic: 141 Blood Pressure Diastolic: 76 Temperature (Fahrenheit): 98.1 Circulation Comment: ROSC ACHIEVED Procedure - IV Procedure - IV : IV Side: Right IV Location: Hand IV Catheter Type: Peripheral IV IV Placed: Pre-Hospital IV Placed by EMS IV Gauge: 22 IV Line Care: Saline Flush Medications & Response Medications and Responses #1: Medication Time: 15:25 ADULT Medications Given ADULT: Epinephrine 1 mg Route of Administration: IV Heart Rate: 0 EKG Rhythm: Asystole Medications and Responses #2: Medication Time: 15:27 ADULT Medications Given ADULT: Sodium Bacarbinate 50 meq Route of Administration: IV Heart Rate: 90 EKG Rhythm: Sinus Rhythm, Other Blood Pressure Systolic: 141 Blood Pressure Diastolic: 76 Respiratory Rate: 14 O2 Sat by Pulse Oximetry: 68 Nurses Notes [place] Coma Scale Eye Opening: None (1) [place] Coma Scale Verbal: None (1) [place] Coma Scale Motor: None (1) [place] Total: 3 Pupil Reaction: Sluggish Bedside Blood Glucose: 306 Time Code Ended Time Code Ended: 15:26 Post Arrest Status: Ventilated Outcome of code: Successful Code Team Present: GEORGE ROSARIO RT ILLIANA RT ROSC Time of ROSC: 15:26 DAVID DEWEY Aug 09, 2025 16:50
--- NOTE | 2025-08-09 16:50 | CONS ---
Pharmacy Clinical Information: START HEPARIN RATE AT 9 ML/HR NEXT APTT 6 HOURS FROM THE START OF NEW HEPARIN RATE. KELLY BARNARD CONFIRMED AND READ BACK MARISELA QUEEN PHARMACIST Aug 09, 2025 16:50
--- NOTE | 2025-08-09 16:52 | ECG ---
[facility] Test Date: 2025-08-09 Test Time: 16:43:13 Pat Name: LOU STAHL Department: ED Room: 0264 Gender: F Food Services Coordinator: nevin : 1940 Requested By: MANISHA ZENDEJAS Order Number: [id number] Reading MD: Wilfredo Gonzales Measurements Intervals [place] Rate: 85 P: 0 VA: 0 QRS: 94 QRSD: 88 T: 206 QT: 331 QTc: 394 Interpretive Statements Atrial fibrillation Right axis deviation Repol abnrm, severe global ischemia (LM/MVD) Electronically Signed On 08-10-2025 17:48:05 PST by Wilfredo Gonzales Please click the below link to view image of tracing.
--- NOTE | 2025-08-09 16:55 | DVH ---
CHEST RADIOGRAPH Indication: ETT/CENT LINE/NGT Technique: Single frontal view of the chest was obtained Comparison: XY CHEST XRAY 1 VIEW on DOS: 04/27/25 FINDINGS: Lines and Tubes: Endotracheal tube terminates about 0.7 cm above the abeba. Enteric tube and right IJ approach central venous catheters are in satisfactory position. Lungs: Interstitial and alveolar type opacities of bilateral lungs. Blunting of bilateral costophrenic angles. No pneumothorax. Cardiomediastinal contours: Mild cardiomegaly with mild Atherosclerotic calcification and uncoiling of the aorta. Bones: No acute osseous abnormality. IMPRESSION: Endotracheal tube terminates about 0.7 cm above the abeba. Recommend pulling back about 3 cm for more optimal positioning. Right IJ approach central venous catheter and enteric tubes are in satisfactory position. Cardiomegaly with findings suggestive of congestive heart failure / multifocal pneumonia with small to moderate bilateral pleural effusions.
[2025-08-09] MEDS: HEPARIN SODIUM (PORCINE) 5000 UNITS/ML 1ML VIAL IV ONE (17:04)
[2025-08-09 17:07] LABS: Hematocrit 21.9 % (36.0-46.0); Hemoglobin 7.3 g/dL (12.2-16.2); Mean Corpuscular Hemoglobin 32.9 pg (28.0-32.0); Mean Corpuscular Volume 98.1 fL (80.0-100.0); Nucleated Red Blood Cells % 0.1 %
[2025-08-09] MEDS ORDERED: ONDANSETRON HCL 4 MG/2 ML VIAL IV PRN (17:15)
[2025-08-09] MEDS: ASPirin-EC 81 mg tab PO ONE (17:15)
[2025-08-09] MEDS ORDERED: VANCOMYCIN PER PHARMACY 0 MG IV SCH (17:15)
[2025-08-09] MEDS ORDERED: NITROGLYCERIN 0.4 MG SL TAB SL PRN (17:15)
[2025-08-09] MEDS ORDERED: MORPHINE SULFATE INJ 2 MG/ml SYRG IV PRN ×2 (17:15)
[2025-08-09 17:17] LABS: Potassium 4.1 mmol/L (3.5-5.1); Sodium 142 mmol/L (136-145)
[2025-08-09 17:18] LABS: Anion Gap 14 (5-15); Calcium 9.1 mg/dL (8.7-10.4)
[2025-08-09 17:19] LABS: Carbon Dioxide 32 mmol/L (20-31); Chloride 96 mmol/L (98-107)
[2025-08-09 17:22] LABS: INR 1.2 (0.9-1.15); Partial Thromboplastin Time 26.2 SEC (24.5-34.5); Prothrombin Time 12.5 sec (9.3-11.8)
[2025-08-09 17:23] LABS: BUN/Creatinine Ratio 21.9 (10.0-20.0)
[2025-08-09] MEDS: PIPERACILLIN-TAZOB 3.375GM 100 ML IV ONE (17:23)
[2025-08-09 17:24] LABS: Blood Urea Nitrogen 35 mg/dL (9-23); Glucose 355 mg/dL (74-106)
[2025-08-09 17:37] LABS: Albumin 3.5 g/dL (3.2-4.8); Alkaline Phosphatase 114 U/L (46-116); Anion Gap 16 (5-15); BUN/Creatinine Ratio 22.0 (10.0-20.0); Calcium 9.2 mg/dL (8.7-10.4); Carbon Dioxide 30 mmol/L (20-31); Magnesium 2.0 mg/dL (1.6-2.6); Potassium 4.1 mmol/L (3.5-5.1); Sodium 142 mmol/L (136-145); Total Protein 6.3 g/dL (5.7-8.2); Triglycerides 114 mg/dL (< 150)
[2025-08-09 17:38] LABS: Cholesterol 80 mg/dL (< 200)
--- NOTE | 2025-08-09 17:38 | DVHNC2 ---
Procedure - INDICATION: vasopressor support PROCEDURE NUCLEAR AUXILIARY OPERATOR: Dr. Perry, Resident ATTENDING PHYSICIAN: Dr. Cat CONSENT: The procedure was emergent, the patient was unable to provide consent, and a designee was not immediately available. PROCEDURE SUMMARY: The [facility] Central Line Insertion Practices form was completed by an independent observer starting with the first handwash prior to starting sterile technique. A time out was performed. My hands were washed immediately prior to the procedure. I wore a surgical cap, mask with protective eyewear, full gown and sterile gloves throughout the procedure. The patient was placed in Trendelenburg position. RIGHT chest region was prepped using chlorhexidine scrub and draped in sterile fashion using a full drape and sterile probe cover and sterile gel employed. The medial and lateral heads of the sternocleidomastoid muscle were identified as was the carotid pulse. The Internal Jugular vein was identified using the ultrasound. Anesthesia was achieved over the vein using 1% lidocaine. Using real-time out of plane guidance, the introducer needle was inserted into the Internal Jugular vein under direct ultrasound visualization. Venous blood was withdrawn. The syringe was removed and a guidewire was advanced into the introducer needle. The guidewire was visualized in the Internal Jugular Vein by ultrasound. A small incision was made at the skin surface with a scalpel and the introducer needle was exchanged for a dilator over the guidewire. After appropriate dilation was obtained, the dilator was exchanged over the wire for a central venous catheter. The wire was removed and the catheter was sutured in place. A sterile sorbaview shield was placed over the catheter at the insertion site. The patient tolerated the procedure without any hemodynamic compromise. At time of procedure completion, all ports aspirated and flushed properly. Post-procedure chest x-ray showed right IJ CVC in satisfactory position. Estimated blood loss is 5ml. JR PERRY RESIDENT Aug 09, 2025 17:38
--- NOTE | 2025-08-09 17:50 | DVHNC2 ---
Procedure - INDICATION: Protect airway PROCEDURE BI SOLUTIONS ARCHITECT: Dr. Perry, Resident ATTENDING PHYSICIAN: Dr. Cat CONSENT: The procedure was emergent, the patient was unable to provide consent, and a designee was not immediately available. PROCEDURE SUMMARY: A time out was performed. My hands were washed immediately prior to the procedure. I wore a surgical cap, mask with protective eyewear, gown and gloves throughout the procedure. The patient was placed on a campus monitor including continuous pulse oximetry. Rapid Sequence Intubation was conducted. The patient did not receive etomidate and rocuronium, as patient was undergoing resuscitative efforts as part of code blue. Cricoid pressure was maintained from time induction agent was given to time of cuff balloon inflation.With the endotracheal tube with stylet, the patient was intubated on the 1st attempt. The stylet was removed and cuff balloon was inflated. Appropriate endotracheal tube position was confirmed by direct visualization of vocal cord passage, fogging of the tube, CO2 colormetric indicator and symmetric breath sounds. The tube was secured at 24 cm at the lips. Post intubation chest x-ray showed endotracheal tube terminating about 0.7 cm above the abeba.Tube was retracted back by 2cm. JR PERRY RESIDENT Aug 09, 2025 17:50
[2025-08-09] MEDS: HEPARIN DRIP/D5W 100UNITS/ML 250 ML IV SCH (17:52)
[2025-08-09 18:06] LABS: Alanine Aminotransferase 109 U/L (7-40); Bilirubin, Total 1.8 mg/dL (0.2-1.0); Blood Urea Nitrogen 35 mg/dL (9-23); Chloride 96 mmol/L (98-107); Glucose 355 mg/dL (74-106); HDL Cholesterol 18 mg/dL (40-59)
[2025-08-09 18:14] LABS: Lactic Acid w/Reflex 6.2 mmol/L (0.4-2.0)
--- NOTE | 2025-08-09 18:24 | ECG ---
[facility] Test Date: 2025-08-09 Test Time: 15:52:29 Pat Name: LOU STAHL Department: ED Room: 0264 Gender: F Director Pharmaceutical: etienne : 1940 Requested By: MANISHA ZENDEJAS Order Number: [id number] Reading MD: Wilfredo Gonzales Measurements Intervals [place] Rate: 114 P: 0 [place]: 0 QRS: 80 QRSD: 87 T: 176 QT: 303 QTc: 418 Interpretive Statements Atrial fibrillation Repol abnrm, severe global ischemia (LM/MVD) Electronically Signed On 08-10-2025 17:48:01 PST by Wilfredo Gonzales Please click the below link to view image of tracing.
[2025-08-09] MEDS: ASPirin-EC 81 mg tab PO SCH (18:29)
[2025-08-09] MEDS: CLOPIDOGREL BISULFATE 75 MG TAB PO ONE (18:29)
[2025-08-09 18:34] LABS: Lipase 36 U/L (12-53)
--- NOTE | 2025-08-09 19:33 | DVH ---
COMPUTERIZED TOMOGRAPHY OF THE HEAD WITHOUT CONTRAST REASON FOR STUDY: altered COMPARISON: None TECHNIQUE: Helical tomographic scans were obtained through the brain. 2-D coronal and sagittal reformatted images are provided. Radiation optimization: All CT scans at this facility use at least one of these dose optimization techniques: Automated exposure control mA and/or kV adjustment per patient size (includes targeted exams where dose is matched to clinical indication) or iterative reconstruction. RADIATION DOSE: CTDI: 55.4 mGy DLP: 980.93 mGy-cm FINDINGS: No suspicious intracranial hyperdensity to suggest acute blood. 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 There is no mass effect nor midline shift. There is extensive generalized volume loss with compensatory enlargement of the CSF spaces. There is no hydrocephalus. The suprasellar cistern is intact. There are scattered and confluence periventricular and deep white matter hypodensities that are most consistent with chronic microangiopathic changes. The calvarium is intact. The visualized mastoid air cells are grossly clear. There is mild mucosal thickening in the ethmoid air c ells. The patient is status post bilateral lens surgeries. IMPRESSION: No acute intracranial abnormality. Extensive generalized volume loss with severe chronic small vessel ischemic change. Mild mucosal thickening in the ethmoid air cells. Correlate clinically for acute sinusitis.
--- NOTE | 2025-08-09 19:53 | DVH ---
ULTRASOUND CAROTID DUPLEX REASON FOR EXAM: Cardiac arrest. COMPARISON: None TECHNIQUE: Using real-time freeze-frame technique with a high-frequency small parts transducer, multiple longitudinal and transverse sections were obtained. Simultaneous color flow Doppler imaging was performed. FINDINGS: Mild calcified and noncalcified plaques are present at the proximal left internal carotid artery. Waveforms are normal. Flow is laminar throughout. Peak systolic velocities as well as ICA/CCA ratio are normal. Flow through the left vertebral and external carotid arteries is antegrade. PEAK SYSTOLIC VELOCITIES (cm/sec): RIGHT: Not visualized due to a central line in the right internal jugular vein and associated bandages. LEFT: Evaluation difficult due to patient position and intubated status. CCA 69 Proximal ICA 59 Mid ICA 81 Distal ICA 52 ECA 71 ICA/CCA ratio 1.2 IMPRESSION: The arteries of the right neck could not be evaluated due to the central line at the right internal jugular vein. Mild atherosclerotic vascular disease with no hemodynamically significant stenosis in the left neck. Any narrowing is less than 50%. Measurement of carotid stenosis is based on velocity parameters that correlate the residual internal carotid diameter with that of the more distal vessel in accordance with the [place] Symptomatic Carotid Endarterectomy Trial (NASCET).
[2025-08-09 19:58] LABS: Urine Protein, UAD 1+ (Negative); Urine WBC Clumps PRESENT /hpf (None Seen)
[2025-08-09 20:03] LABS: Amphetamine Screen, Urine Neg (NEGATIVE); Barbiturate Scree,Urine Neg (NEGATIVE); Benzodiazephine Screen, Urine Pos (NEGATIVE); Cannabinoid Screen, Urine Neg (NEGATIVE); Cocaine Screen, Urine Neg (NEGATIVE); Opiate Scree,Urine Neg (NEGATIVE); Phencyclidine Screen, Urine Neg (NEGATIVE)
[2025-08-09] MEDS: IODIXANOL 320MG/ML 100ML BTL IV ONE (20:30)
--- NOTE | 2025-08-09 20:41 | DVHSR ---
APPROVED REPORT EXAM: Two-dimensional and M-mode echocardiogram with Doppler and color Doppler. Blood Pressure: 141/76 mmHg INDICATION Cardiac arrest RISK FACTORS Height: 5'0", Weight: 166 DIMENSIONS LVDd (3.8-5.7cm) LA (2D) 4.0 (1.9-4.0cm) Aortic Root (2.0-3.7cm) EF (%) 55.0 (55-70%) Rt. Atrium 3.7 (1.9-4.0cm) Asc. Aorta cm Mitral Valve Mitral Mitral Stenosis E wave 1.36m/s MV Mean GR. mmHg A wave 0.32m/s MV Peak GR. mmHg E/A ratio 4.3 2D MVA cm2 DECEL Time 173ms PRESS 1/2 Time ms Aortic Valve Aortic Valve Aortic Stenosis V1 1.18m/s AO Mean GR. 7mmHg V2 1.89m/s AO Peak GR. 14mmHg LVOT Diameter 1.7 (1.8-2.4cm) Doppler POOJA 1.42cm2 AI P 1/2 Time 387.67ms Tricuspid Valve TR Velocity 3.64m/s RVSP 61mmHg Other Information Quality : Technically Limited Rhythm : Technically limited study due to body habitus, patient lying flat on vent s/p CPR. Conclusion MODERATE DEGREE LVH AND MODERATE DEGREE LV DIASTOLIC DYSFUNCTION LV EF IS 65% MODERATELY DILATED RV AND RA SEVERE PULMONARY HYPERTENSION RVSP IS 61 MM OF HG AND IS VERY HIGH NO EFFUSION NORMAL VALVES
[2025-08-09] MEDS: VERAPAMIL 2.5MG/ML INJ 2ML VIAL IV ONE (21:15)
[2025-08-09] MEDS: SODIUM CHL 0.9% 50 ML ONE (21:15)
[2025-08-09] MEDS: ANGIOMAX 250 MG VIAL IV ONE (21:15)
[2025-08-09] MEDS: LIDOCAINE 2%HCL (LOCAL ANESTH.) INJ 20ML MDV ONE (21:16)
[2025-08-09] MEDS ORDERED: ATORVASTATIN 20 MG TAB PO SCH (22:00)
[2025-08-09 23:32] LABS: Urine Protein, UAD TRACE (Negative)
[2025-08-09] MEDS: CEFEPIME 1GM/50ML 50 ML IV SCH (23:57)
[2025-08-09] MEDS: FUROSEMIDE 40 MG/4 ML VIAL IV ONE (23:58)
[2025-08-09] MEDS: VANCOMYCIN 1GM/250ML KIT 250 ML IV ONE (23:58)
[2025-08-10] VITALS (107 sets, daily range): BP systolic 87–132; BP diastolic 29–86; PULSE 62–124; RESP 12–22; TEMP 96.4–101.5; O2SAT 91–100
[2025-08-10] MEDS: CEFEPIME 1GM/50ML 50 ML IV ONE
[2025-08-10] MEDS: fentaNYL Drip 2500mCg/250mlNS 250 ML IV SCH (00:24)
[2025-08-10 00:56] LABS: INR 1.91 (0.9-1.15); Partial Thromboplastin Time 68.6 SEC (24.5-34.5); Prothrombin Time 19.0 sec (9.3-11.8)
--- NOTE | 2025-08-10 01:01 | DVHINCON2 ---
Date of service: Aug 09, 2025 Referring Physician Ethan Reason for Consultation Cardiac arrest History of Present Illness This is an 85-year-old female with a past medical history of HTN, DM, HLD who was brought in by EMS due to compliant chest pain. Per EMS, patient was experiencing chest pain and shortness of breath, 911 was called by family. Upon EMS arrival, O2 sat was 77% RA, patient was alert and oriented. Patient was recently discharged from [facility] 07/26/25. Upon ED arrival, patient's O2 saturation dropped, code blue was called 15:24. Patietn received 1 round epinephrine, 1 round bicarb and ROSC was achieved at 1526. Patient was intubated in the ED for airway protection. EKG Is NSR at 84 with LBBB. HGB 7.3, HCT 21.9, PLT 69, TROP 115 > 209 > 469. Chest x-ray shows cardiomegaly with findings suggestive of congestive heart failure / multifocal pneumonia with small to moderate bilateral pleural effusions. Patient was admitted to the hospital. I am asked to consult on this patient. Family History: Hypertension G8 MOTHER Allergies: Coded Allergies: NO KNOWN ALLERGIES (Unverified , 09/12/15) Home Meds Active Scripts Zinc Gluconate (Zinc) 50 Mg Tab, 50 MG PO DAILY for 14 Days, #14 TAB Prov:JR FRANCO RESIDENT 05/02/25 Cholecalciferol (Vitamin D) 2,000 Unit Cap, 2000 UNIT PO DAILY for 14 Days, #20 CAP Prov:JR FRANCO RESIDENT 05/02/25 Ascorbic Acid (VITAMIN C) 500 Mg Cap, 500 MG PO DAILY for 14 Days, #30 CAP Prov:JR FRANCO RESIDENT 05/02/25 Current Medications Current Medications Medications (Trade) Dose Ordered Sig/Justina Route PRN Reason Start Time Stop Time Status Last Admin Norepinephrine Bitartrate 250 ml @ 3.75 mls/hr Q24H IV 08/09/25 16:15 08/09/25 16:15 Midazolam HCl 100 ml @ 1 mls/hr Q24H IV 08/09/25 16:15 08/09/25 16:15 Heparin Sodium/ Dextrose 250 ml @ 9 mls/hr Q24H IV 08/09/25 16:15 08/09/25 17:52 Acetaminophen (Tylenol Tablet) 325 mg Q4HP PRN PO MILD PAIN (1-3 PAIN SCALE) 08/09/25 17:15 Hold Ondansetron HCl (Zofran) 4 mg Q4HP PRN IV NAUSEA / VOMITING 08/09/25 17:15 Morphine Sulfate 2 mg Q4HPRN PRN IV SEVERE PAIN (7-10 PAIN SCALE) 08/09/25 17:15 Nitroglycerin (Ntrostat Sublingual) 0.4 mg Q5MINP PRN SL FOR CHEST PAIN 08/09/25 17:15 Morphine Sulfate 2 mg Q30M PRN IV FOR CHEST PAIN 08/09/25 17:15 Fentanyl Citrate 250 ml @ 2.5 mls/hr Q24H IV 08/09/25 17:15 Aspirin (Ecotrin Enteric Coated Tablet) 81 mg DAILY PO 08/10/25 10:00 Atorvastatin Calcium (Lipitor) 40 mg HS PO 08/09/25 22:00 Hold Furosemide (Lasix Injection) 40 mg BIDD IV 08/10/25 06:00 Vancomycin HCl 0 ml @ 0 mls/hr PER PHARMACY IV 08/09/25 17:15 Cefepime HCl 50 ml @ 12.5 mls/hr Q12HR IV 08/09/25 22:00 Clopidogrel Bisulfate (Plavix) 75 mg DAILY PO 08/10/25 10:00 Review of Systems Unable to obtain due to: Intubated on ventilator Vital Signs Vital Signs Date Time Temp Pulse Resp B/P (MAP) Pulse Ox O2 Delivery O2 Flow Rate FiO2 08/09/25 20:31 86 14 117/44 (68) 97 08/09/25 20:15 40 08/09/25 19:57 Mechanical Ventilator+ 08/09/25 19:30 97.9 97.9 Physical Exam GENERAL: Ill appearing, intubated on ventilator. EYES: PERRL, EOMI. Anicteric. HENT: Moist mucous membranes. LUNGS: Decreased breath sounds. CARDIOVASCULAR: Regular rate and rhythm. ABDOMEN: Soft, nontender and nondistended. EXTREMITIES: No edema. SKIN: Warm, dry. Labs/Diagnostic Data Labs Test 08/09/25 19:13 08/09/25 18:45 08/09/25 17:40 08/09/25 16:30 Range/Units Lactic Acid Level 1.7 0.4-2.0 mmol/L Troponin I High Sensitivity 469 *H </=34 ng/L Urine Color Yellow Yellow Urine Clarity Turbid H Clear Urine pH 5.5 5.0-9.0 Urine Specific [place] 1.016 1.001-1.035 Urine Protein 1+ H Negative Urine Ketones Negative Negative Urine Blood 1+ H Negative /uL Urine Nitrite Negative Negative Urine Bilirubin Negative Negative Urine Urobilinogen Normal Negative mg/dL Urine Leukocyte Esterase Negative Negative /uL Urine RBC 11 0 - 4 /hpf Urine WBC Clumps Present None Seen /hpf Urine Microscopic WBC 20 H 0-5 /HPF Urine Squamous Epithelial Cells Few <5 /hpf Urine Bacteria Few H None Seen /hpf Urine Mucus Few None Seen Urine Glucose 1+ H Normal mg/dL Urine Opiates Screen Neg NEGATIVE Urine Fentanyl Screen Neg NEGATIVE Urine Barbiturates Screen Neg NEGATIVE Urine Phencyclidine Screen Neg NEGATIVE Urine Amphetamines Screen Neg NEGATIVE Urine Benzodiazepines Screen Pos NEGATIVE Urine Cocaine Screen Neg NEGATIVE Urine Cannabinoids Screen Neg NEGATIVE Ammonia 14 11-32 umol/L White Blood Count 4.3 L 4.4-10.8 10^3/uL Red Blood Count 2.23 L 4.0-5.20 10^6/uL Hemoglobin 7.3 L 12.2-16.2 g/dL Hematocrit 21.9 L 36.0-46.0 % Mean Corpuscular Volume 98.1 80.0-100.0 fL Mean Corpuscular Hemoglobin 32.9 H 28.0-32.0 pg Mean Corpuscular Hemoglobin Concent 33.6 32.0-36.0 g/dL Red Cell Distribution Width 19.1 H 11.8-14.3 % Platelet Count 69 L 140-450 10^3/uL Mean Platelet Volume 9.1 6.9-10.8 fL Neutrophils (%) (Auto) 74.5 37.0-80.0 % Lymphocytes (%) (Auto) 12.7 10.0-50.0 % Monocytes (%) (Auto) 11.6 0.0-12.0 % Eosinophils (%) (Auto) 0.5 0.0-7.0 % Basophils (%) (Auto) 0.7 0.0-2.0 % Neutrophils # (Auto) 3.2 1.6-8.6 10 ^3/uL Lymphocytes # (Auto) 0.5 0.4-5.4 10 ^3/uL Monocytes # (Auto) 0.5 0-1.3 10 ^3/uL Eosinophils # (Auto) 0 0-0.8 10 ^3/uL Basophils # (Auto) 0 0-0.2 10 ^3/uL Nucleated Red Blood Cells 0.1 % Prothrombin Time 12.5 H 9.3-11.8 sec Prothrombin Time INR 1.20 H 0.9-1.15 Activated Partial Thromboplast Time 26.2 24.5-34.5 SEC Blood Gas Specimen Type Arterial Blood Gas Sample Site Right radial Blood Gas Patient Temperature 37.0 Arterial Blood Date Drawn [id number] Arterial Blood pH 7.456 H 7.350-7.450 Arterial Blood Partial Pressure CO2 41.4 32.0-45.0 mmHg Arterial Blood Partial Pressure O2 159.1 H 83.0-108.0 mmHg Arterial Blood HCO3 28.5 H 21.0-28.0 mmol/L Arterial Blood Oxygen Saturation 99.0 H 94.0-98.0 % Arterial Blood Base Excess 4.3 H -2.0-3.0 mmol/L Arterial Blood Oxyhemoglobin 95.9 94.0-98.0 % Arterial Blood Carboxyhemoglobin 2.5 H 0.5-1.5 % Arterial Blood Methemoglobin 0.6 0.0-1.5 % Arterial Blood Deoxyhemoglobin 1.0 0.0-5.0 % Chito Test Modified Blood Gas Total Hemoglobin 7.60 L 12.0-16.0 g/dL Blood Gas Set Respiration Rate 14.0 Blood Gas Modality Vent - ac FiO2 % 100.0 Blood Gas Tidal Volume 500.0 Blood Gas PEEP or CPAP 5.0 Sodium Level 142 136-145 mmol/L Potassium Level 4.1 3.5-5.1 mmol/L Chloride Level 96 L 98-107 mmol/L Carbon Dioxide Level 30 20-31 mmol/L Anion Gap 16 H 5-15 Blood Urea Nitrogen 35 H 9-23 mg/dL Creatinine 1.59 H 0.550-1.02 mg/dL Glomerular Filtration Rate Calc 32 >90 mL/min BUN/Creatinine Ratio 22.0 H 10.0-20.0 Serum Glucose 355 H 74-106 mg/dL Hemoglobin A1c 5.4 <5.7 % A1C Calcium Level 9.2 8.7-10.4 mg/dL Phosphorus Level 5.6 H 2.4-5.1 mg/dL Magnesium Level 2.0 1.6-2.6 mg/dL Total Bilirubin 1.8 H 0.2-1.0 mg/dL Aspartate Amino Transferase (AST) 148 H 13-40 U/L Alanine Aminotransferase (ALT) 109 H 7-40 U/L Alkaline Phosphatase 114 46-116 U/L Total Protein 6.3 5.7-8.2 g/dL Albumin 3.5 3.2-4.8 g/dL Triglycerides Level 114 < 150 mg/dL Cholesterol Level 80 < 200 mg/dL LDL Cholesterol 36 < 100 mg/dL HDL Cholesterol 18 L 40-59 mg/dL Lipase 36 12-53 U/L Vitamin B12 Level 1383 H 211-911 pg/mL Vitamin D 25-Hydroxy 49.9 30.0-100 ng/mL Thyroid Stimulating Hormone (TSH) 2.33 0.55-4.78 uIU/mL Assessment Cardiac arrest with successful ROSC. Metabolic encephalopathy. STEMI (ST elevation myocardial infarction). Plan/Recommendation I agree with your ongoing assessment and care of plan. Emergency left heart cath. Echocardiogram. Aspirin, Plavix. IV antibiotics as ordered. Diuretics with Lasix. Hepatin drip per pharmacy. Vasopressors for hemodynamic support. Additional plan as per the hospital course. Critical care time of 90 minutes provided to include time spent evaluation of patient at bedside, when appropriate patient/family education for diagnosis, treatment plan, review of pertinent medical information and discussion of care with specialty providers and PCP. Mechanical ventilator parameters, treatment and adjustments have personally been reviewed by me and treatment plan by customer experience leader has also been reviewed. Plan discussed with: Other PATRICIA GROVES MD Aug 09, 2025 23:00
--- NOTE | 2025-08-10 01:36 | DVHHPRES ---
History of Present Illness Resident Creating Document: PERNELL WEIR RESIDENT History of Present Illness Suni García is a 85 year old female patient who presents to the ED via EMS due to dyspnea in functional class IV, chest pain and right arm weakness. Upon arrival, patient presented agonal breathing associated with desaturation (70%) on a non-rebreather mask and became unresponsive, progressing to cardiac arrest obtaining ROSC with ACLS maneuvers with a downtime of 2 minutes (1 round of CPR, 1 epinephrine and ET intubation). Initial EKG showed new LBBB and second EKG lilo wed atrial fibrillation with diffuse ischemia. Dr Silva was consulted indicating STEMI equivalents and indicated emergent coronary angiography. Could not obtain review of systems due to clinical status. Obtained HPI and past medical history from Samia Baig (phone number ). Past medical history: Hypertension, dyslipidemia, diabetes, basal cell carcinoma, atypical sarcoma of left hip, HFpEF, paroxysmal A-Fib (CHADS VASC 7) on apixaban, recent hospitalization due to COVID Surgical history: Hysterectomy, biopsy of basal cell carcinoma and sarcoma Family history: Non contributory Social history: Lives in [place] with (GREGORIA). Denies current tobacco, alcohol and other drug abuse Allergy: Denies Home medication: Does not recall Patient seen and examined at bedside. Currently on mechanical assisted ventilation, and IV vasopressors. Past Medical History Per HPI Past Surgical History Per HPI Family History Per HPI Past Social History Per HPI Review of Systems Review of Systems Per HPI Allergies: Coded Allergies: NO KNOWN ALLERGIES (Unverified , 09/12/15) Medications Current Medications Medications Dose Ordered Sig/[facility] Route Start Time Stop Time Status Last Admin Dose Admin Norepinephrine Bitartrate 250 ml @ 3.75 mls/hr Q24H IV 08/09/25 16:15 08/09/25 16:15 3.75 MLS/HR Midazolam HCl 100 ml @ 1 mls/hr Q24H IV 08/09/25 16:15 08/10/25 00:02 10 MLS/HR Heparin Sodium/ Dextrose 250 ml @ 9 mls/hr Q24H IV 08/09/25 16:15 08/09/25 17:52 9 MLS/HR Acetaminophen 325 mg Q4HP PRN PO 08/09/25 17:15 Hold Ondansetron HCl 4 mg Q4HP PRN IV 08/09/25 17:15 Morphine Sulfate 2 mg Q4HPRN PRN IV 08/09/25 17:15 Nitroglycerin 0.4 mg Q5MINP PRN SL 08/09/25 17:15 Morphine Sulfate 2 mg Q30M PRN IV 08/09/25 17:15 Fentanyl Citrate 250 ml @ 2.5 mls/hr Q24H IV 08/09/25 17:15 08/10/25 00:24 2.5 MLS/HR Aspirin 81 mg DAILY PO 08/10/25 10:00 Atorvastatin Calcium 40 mg HS PO 08/09/25 22:00 Hold Furosemide 40 mg BIDD IV 08/10/25 06:00 Vancomycin HCl 0 ml @ 0 mls/hr PER PHARMACY IV 08/09/25 17:15 Cefepime HCl 50 ml @ 12.5 mls/hr Q12HR IV 08/09/25 22:00 08/09/25 23:57 12.5 MLS/HR Clopidogrel Bisulfate 75 mg DAILY PO 08/10/25 10:00 Exam Vital Signs Vital Signs Date Time Temp Pulse Resp B/P (MAP) Pulse Ox O2 Delivery O2 Flow Rate FiO2 08/10/25 00:41 96/48 08/09/25 23:44 64 14 95 40 08/09/25 19:57 Mechanical Ventilator+ 08/09/25 19:30 97.9 97.9 Exam Patient lying in bed, under sedoanalgesia due to mechanical ventilation General: RASS -4, afebrile, mucosae are moist Cardiovascular: Normal S1 and S2. No murmurs, gallops or rubs Respiratory: Mechanically assisted ventilation, equal bilateral airway entree. Clear lung sounds on auscultation Abdomen: Soft, nontender, no organomegaly, normal bowel sounds MSK/skin: Mobilization of limbs cannot be evaluated. Skin is dry and warm Neurological: Orientation cannot be assessed. No apparent motor no sensitive deficits. Pupils are isocoric and reactive Labs/Xrays Labs Test 08/10/25 00:20 08/09/25 23:10 08/09/25 19:13 08/09/25 18:45 Range/Units Prothrombin Time 19.0 H 9.3-11.8 sec Prothrombin Time INR 1.91 H 0.9-1.15 Activated Partial Thromboplast Time 68.6 H 24.5-34.5 SEC Urine Color Light-orange Yellow Urine Clarity Turbid H Clear Urine pH 5.5 5.0-9.0 Urine Specific [place] 1.041 H 1.001-1.035 Urine Protein Trace H Negative Urine Ketones Negative Negative Urine Blood 3+ H Negative /uL Urine Nitrite Negative Negative Urine Bilirubin Negative Negative Urine Urobilinogen Normal Negative mg/dL Urine Leukocyte Esterase Negative Negative /uL Urine RBC 123 0 - 4 /hpf Urine Microscopic WBC 13 H 0-5 /HPF Urine Squamous Epithelial Cells Few <5 /hpf Urine Uric Acid Crystals Mod None Seen /hpf Urine Bacteria None seen None Seen /hpf Urine Glucose Trace Normal mg/dL Lactic Acid Level 1.7 0.4-2.0 mmol/L Troponin I High Sensitivity 469 *H </=34 ng/L Urine WBC Clumps Present None Seen /hpf Urine Mucus Few None Seen Urine Opiates Screen Neg NEGATIVE Urine Fentanyl Screen Neg NEGATIVE Urine Barbiturates Screen Neg NEGATIVE Urine Phencyclidine Screen Neg NEGATIVE Urine Amphetamines Screen Neg NEGATIVE Urine Benzodiazepines Screen Pos NEGATIVE Urine Cocaine Screen Neg NEGATIVE Urine Cannabinoids Screen Neg NEGATIVE Test 08/09/25 17:40 08/09/25 16:30 Range/Units Ammonia 14 11-32 umol/L White Blood Count 4.3 L 4.4-10.8 10^3/uL Red Blood Count 2.23 L 4.0-5.20 10^6/uL Hemoglobin 7.3 L 12.2-16.2 g/dL Hematocrit 21.9 L 36.0-46.0 % Mean Corpuscular Volume 98.1 80.0-100.0 fL Mean Corpuscular Hemoglobin 32.9 H 28.0-32.0 pg Mean Corpuscular Hemoglobin Concent 33.6 32.0-36.0 g/dL Red Cell Distribution Width 19.1 H 11.8-14.3 % Platelet Count 69 L 140-450 10^3/uL Mean Platelet Volume 9.1 6.9-10.8 fL Neutrophils (%) (Auto) 74.5 37.0-80.0 % Lymphocytes (%) (Auto) 12.7 10.0-50.0 % Monocytes (%) (Auto) 11.6 0.0-12.0 % Eosinophils (%) (Auto) 0.5 0.0-7.0 % Basophils (%) (Auto) 0.7 0.0-2.0 % Neutrophils # (Auto) 3.2 1.6-8.6 10 ^3/uL Lymphocytes # (Auto) 0.5 0.4-5.4 10 ^3/uL Monocytes # (Auto) 0.5 0-1.3 10 ^3/uL Eosinophils # (Auto) 0 0-0.8 10 ^3/uL Basophils # (Auto) 0 0-0.2 10 ^3/uL Nucleated Red Blood Cells 0.1 % Blood Gas Specimen Type Arterial Blood Gas Sample Site Right radial Blood Gas Patient Temperature 37.0 Arterial Blood Date Drawn [id number] Arterial Blood pH 7.456 H 7.350-7.450 Arterial Blood Partial Pressure CO2 41.4 32.0-45.0 mmHg Arterial Blood Partial Pressure O2 159.1 H 83.0-108.0 mmHg Arterial Blood HCO3 28.5 H 21.0-28.0 mmol/L Arterial Blood Oxygen Saturation 99.0 H 94.0-98.0 % Arterial Blood Base Excess 4.3 H -2.0-3.0 mmol/L Arterial Blood Oxyhemoglobin 95.9 94.0-98.0 % Arterial Blood Carboxyhemoglobin 2.5 H 0.5-1.5 % Arterial Blood Methemoglobin 0.6 0.0-1.5 % Arterial Blood Deoxyhemoglobin 1.0 0.0-5.0 % Chito Test Modified Blood Gas Total Hemoglobin 7.60 L 12.0-16.0 g/dL Blood Gas Set Respiration Rate 14.0 Blood Gas Modality Vent - ac FiO2 % 100.0 Blood Gas Tidal Volume 500.0 Blood Gas PEEP or CPAP 5.0 Sodium Level 142 136-145 mmol/L Potassium Level 4.1 3.5-5.1 mmol/L Chloride Level 96 L 98-107 mmol/L Carbon Dioxide Level 30 20-31 mmol/L Anion Gap 16 H 5-15 Blood Urea Nitrogen 35 H 9-23 mg/dL Creatinine 1.59 H 0.550-1.02 mg/dL Glomerular Filtration Rate Calc 32 >90 mL/min BUN/Creatinine Ratio 22.0 H 10.0-20.0 Serum Glucose 355 H 74-106 mg/dL Hemoglobin A1c 5.4 <5.7 % A1C Calcium Level 9.2 8.7-10.4 mg/dL Phosphorus Level 5.6 H 2.4-5.1 mg/dL Magnesium Level 2.0 1.6-2.6 mg/dL Total Bilirubin 1.8 H 0.2-1.0 mg/dL Aspartate Amino Transferase (AST) 148 H 13-40 U/L Alanine Aminotransferase (ALT) 109 H 7-40 U/L Alkaline Phosphatase 114 46-116 U/L Total Protein 6.3 5.7-8.2 g/dL Albumin 3.5 3.2-4.8 g/dL Triglycerides Level 114 < 150 mg/dL Cholesterol Level 80 < 200 mg/dL LDL Cholesterol 36 < 100 mg/dL HDL Cholesterol 18 L 40-59 mg/dL Lipase 36 12-53 U/L Vitamin B12 Level 1383 H 211-911 pg/mL Vitamin D 25-Hydroxy 49.9 30.0-100 ng/mL Thyroid Stimulating Hormone (TSH) 2.33 0.55-4.78 uIU/mL SEPSIS Sepsis Screen Date sepsis recognized/suspect: Aug 09, 2025 Time Sepsis recognized/suspect: 1514 Recent Procedure: No On Antibiotic Therapy: No Respiratory Rate >20: No Heart Rate >90: Yes Temp<36 C (96.8 F) or >38.3 C: No SBP <90 or MAP <65 mmHG: No New Acute Mental Status Change: Yes Is the patient on CPAP, BIPAP,: No Physician Orders Heparin Per Pharmacy Protocol (08/09/25 18:30) Vancomycin,Random (08/10/25 04:00) Vancomycin Per Pharmacy Protoc (08/09/25 18:36) Cl Left Heart Cath (08/09/25 20:00) Mrsa Screen (08/09/25 23:00) Vital Signs Date Time Temp Pulse Resp B/P (MAP) Pulse Ox O2 Delivery O2 Flow Rate FiO2 08/10/25 00:41 96/48 08/10/25 00:35 103/44 08/10/25 00:24 103/43 08/10/25 00:02 103/43 08/09/25 23:58 103/43 08/09/25 23:44 64 14 103/43 (63) 95 40 08/09/25 22:53 78 14 122/60 (80) 98 40 08/09/25 20:31 86 14 117/44 (68) 97 08/09/25 20:30 114/44 08/09/25 20:30 117/44 08/09/25 20:15 79 14 127/55 (79) 98 40 08/09/25 20:15 83 14 127/55 (79) 97 08/09/25 20:01 82 14 154/46 (82) 97 08/09/25 20:00 82 08/09/25 19:57 80 14 98 Mechanical Ventilator+ 40 40 08/09/25 19:45 75 14 134/47 (76) 97 08/09/25 19:30 122/47 08/09/25 19:30 122/47 08/09/25 19:30 97.9 80 14 122/47 (72) 97 97.9 08/09/25 19:11 76 14 133/46 (75) 97 40 08/09/25 18:31 85 08/09/25 18:00 93 10 109/53 (71) 08/09/25 17:58 Laboratory Tests Test 08/09/25 16:30 08/09/25 19:13 Lactic Acid Level 6.2 mmol/L (0.4-2.0) *H 1.7 mmol/L (0.4-2.0) White Blood Count 4.3 10^3/uL (4.4-10.8) L Medications Medications Dose Ordered Sig/Justina Route Start Time Stop Time Status Last Admin Dose Admin Cefepime HCl 50 ml @ 12.5 mls/hr Q12HR IV 08/09/25 22:00 08/09/25 23:57 12.5 MLS/HR Cefepime HCl 50 ml @ 50 mls/hr ONCE ONCE IV 08/09/25 17:15 08/09/25 18:14 DC 08/10/25 00:00 50 MLS/HR Fentanyl Citrate 250 ml @ 2.5 mls/hr Q24H IV 08/09/25 17:15 08/10/25 00:24 2.5 MLS/HR Furosemide 40 mg ONCE ONCE IV 08/09/25 17:15 08/09/25 18:06 DC 08/09/25 23:58 40 MG Heparin Sodium (Porcine) 5,000 units ONCE ONCE IV 08/09/25 16:00 08/09/25 17:10 DC 08/09/25 17:04 5,000 UNITS Heparin Sodium/ Dextrose 250 ml @ 9 mls/hr Q24H IV 08/09/25 16:15 08/09/25 17:52 9 MLS/HR Iodixanol 32,000 mg STK-MED ONCE IV 08/09/25 20:30 08/09/25 20:30 DC 08/09/25 20:30 26,000 MG Midazolam HCl 100 ml @ 1 mls/hr Q24H IV 08/09/25 16:15 08/10/25 00:02 10 MLS/HR Norepinephrine Bitartrate 250 ml @ 3.75 mls/hr Q24H IV 08/09/25 16:15 08/09/25 16:15 3.75 MLS/HR Piperacillin Sod/ Tazobactam Sod 100 ml @ 100 mls/hr ONCE ONCE IV 08/09/25 15:45 08/09/25 16:44 DC 08/09/25 17:23 100 MLS/HR Sodium Chloride 1,000 ml @ 150 mls/hr Q6H40M ONCE IV 08/09/25 15:45 08/09/25 22:24 DC 08/09/25 23:59 150 MLS/HR Sodium Chloride 1,000 ml @ 1,000 mls/hr Q1H ONCE IV 08/09/25 15:45 08/09/25 16:44 DC 08/09/25 16:28 1,000 MLS/HR Vancomycin HCl 250 ml @ 250 mls/hr ONCE ONCE IV 08/09/25 17:15 08/09/25 18:24 DC 08/09/25 23:58 250 MLS/HR Assessment/Plan Assessment/Plan ASSESSMENT Cardiac arrest - s/p ROSC (downtime 2 minutes) Metabolic encephalopathy Acute on chronic respiratory failure Septic shock secondary to aspiration pneumonia STEMI Acute on chronic diastolic congestive heart failure (LVEF 65%) Pulmonary hypertension (RVSP 61 mmHg) WILLIAN hemodynamically mediated (VMN) Likely Pulmonary embolism Atypical sarcoma of left hip Transaminitis Pancytopenia due to above Thrombocytopenia Normocytic anemia Hyperlactacidemia Hypertension Diabetes Dyslipidemia PLAN Patient admitted to ICU On mechanical assisted ventilation, IV vasopressors, empiric IV antibiotics (Va ncomycin and Cefepime), IV diuretics Troponin elevated and increasing. EKG showed new LBBB and diffuse ischemia in subsequent EKG. Presentation of cardiac arrest. Evaluated by Dr Silva who interpreted as STEMI equivalent. Completed coronary angiography (pending report, no PCI performed). Echocardiogram completed: moderate LVH, LVEF 65%, moderately dilated RV and RA, RVSP 61 mmHg Due to thrombocytopenia and anemia, discontinued heparin drip. Likely patient presented cardiac arrest due to PE. Ordered angio CT of chest for diagnosis of PE Goals of care discussed with family for over 26 minutes: For now full code status Discussed plan with Dr Hernandez, family (niece Safia ) and nurses: On ICU status, on mechanical assisted ventilation, IV vasopressors, IV antibiotics and IV diuretics. Discontinued heparing drip due to thrombocytopenia and severe anemia (high risk of bleeding, Safia agrees). Ordered angioCT of chest for diagnosis of PE. Patient has critical prognosis. Critical care time which includes family discussion, chart review, patient evaluation and plan, excluding procedures: 99 minutes Plan discussed with: Spouse, Other (Niece (Safia) and nurses) My Orders Orders - PERNELL WEIR RESIDENT Procedure Category Date Status Time Norepinephrine 8 PHA 08/09/25 In Process Mg/250ml Kit 16:15 Midazolam Drip 100 PHA 08/09/25 In Process Mg/100ml Ns (Versed D 16:15 Rass Sedation Scale [facility] 08/09/25 In Process 16:03 Cardiac NAJMA 08/09/25 In Process Rehabilitation - Outpa 16:08 Platelet Monitoring [facility] 08/09/25 In Process 16:08 Heparin Per NAJMA 08/09/25 In Process Standardized Proce 16:08 Discontinue All Im NAJMA 08/09/25 In Process Injections 16:08 Heparin Drip/D5w PHA 08/09/25 In Process 100units/Ml 16:15 Stat Ekg For Chest NAJMA 08/09/25 In Process Pain 16:08 Communication Order ORDERS 08/09/25 Transmitted 16:11 Respiratory Misc. RT 08/09/25 Transmitted Order 16:31 Heparin Per Pharmacy [facility] 08/09/25 In Process Protocol 16:50 Admit ADMIT 08/09/25 Transmitted 17:01 Code Status CODE 08/09/25 Transmitted 17:01 Acetaminophen Tablet PHA 08/09/25 In Process (Tylenol Tablet) 17:15 Ondansetron Hcl PHA 08/09/25 In Process (Zofran) 17:15 Complete Blood Count LAB 08/10/25 Logged 04:00 Comprehensive LAB 08/10/25 Logged Metabolic Panel 04:00 Npo (Nothing By DIET 08/09/25 Transmitted Mouth) Diet Dinner Echo 2d Mode Cardiac US 08/09/25 Resulted DOP 17:01 Carotid Duplx W Color US 08/09/25 Resulted DOP 17:01 Morphine Sulfate PHA 08/09/25 In Process Injection 17:15 Nitroglycerin PHA 08/09/25 In Process Sublingual (Ntrostat 17:15 Morphine Sulfate PHA 08/09/25 In Process Injection 17:15 Oxygen By Nasal RT 08/09/25 Transmitted Cannula 17:01 Notify Of Changes [facility] 08/09/25 In Process From Base 17:01 Gauntlet Pairer For [facility] 08/09/25 In Process 24 Hours 17:01 Emergency Dysrhythmia [facility] 08/09/25 In Process Protocol 17:01 Rhythm Strips Once [facility] 08/09/25 In Process Every Shift 17:01 Fentanyl Drip PHA 08/09/25 In Process 2500mcg/250mlns 17:15 Aspirin Enteric PHA 08/10/25 In Process Coated Tablet 10:00 Atorvastatin (Lipitor) PHA 08/09/25 In Process 22:00 Vancomycin Per PHA 08/09/25 In Process Pharmacy 17:15 Cefepime 1gm/50ml PHA 08/09/25 In Process (Maxipime 1gm/50ml) 22:00 Clopidogrel Bisulfate PHA 08/10/25 In Process (Plavix) 10:00 Furosemide Injection PHA 08/10/25 In Process (Lasix Injection) 06:00 Heparin Per Pharmacy [facility] 08/09/25 In Process Protocol 18:30 Vancomycin,Random LAB 08/10/25 Logged 04:00 Vancomycin Per [facility] 08/09/25 In Process Pharmacy Protoc 18:36 Mrsa Screen [place] 08/09/25 In Process 23:00 Date of Service: Aug 09, 2025 Billing Provider: CALE HERNANDEZ MD Common Visit Codes: [id number] INP/OBS CARE (HIGH) Secondary Visit Codes: [id number] CARE PLAN 30 MINUTES PERNELL WEIR RESIDENT Aug 10, 2025 01:36
[2025-08-10] MEDS ORDERED: DEXTROSE (50%) 50ML SYRG IV PRN (02:30)
[2025-08-10 04:13] LABS: Hematocrit 21.8 % (36.0-46.0); Hemoglobin 7.7 g/dL (12.2-16.2); Mean Corpuscular Hemoglobin 33.1 pg (28.0-32.0); Mean Corpuscular Volume 94.4 fL (80.0-100.0); Nucleated Red Blood Cells % 0.0 %
[2025-08-10 04:16] LABS: INR 1.39 (0.9-1.15); Partial Thromboplastin Time 51.0 SEC (24.5-34.5); Prothrombin Time 14.3 sec (9.3-11.8)
[2025-08-10 04:18] LABS: Albumin 3.3 g/dL (3.2-4.8); Alkaline Phosphatase 96 U/L (46-116); Anion Gap 11 (5-15); BUN/Creatinine Ratio 25.6 (10.0-20.0); Calcium 8.8 mg/dL (8.7-10.4); Sodium 141 mmol/L (136-145); Total Protein 6.2 g/dL (5.7-8.2)
[2025-08-10 04:19] LABS: Alanine Aminotransferase 77 U/L (7-40); Bilirubin, Total 1.5 mg/dL (0.2-1.0); Blood Urea Nitrogen 32 mg/dL (9-23); Carbon Dioxide 32 mmol/L (20-31); Chloride 98 mmol/L (98-107); Glucose 256 mg/dL (74-106); Potassium 3.2 mmol/L (3.5-5.1)
[2025-08-10 05:55] LABS: COVID19 ANTIGEN SOFIA FIA NEGATIVE (NEGATIVE)
[2025-08-10] MEDS: FUROSEMIDE 40 MG/4 ML VIAL IV SCH (06:16)
[2025-08-10] MEDS: ACCU-CHEK COMFORT CURVE STRIP VI SCH (06:16)
[2025-08-10] MEDS: POTASSIUM CHL 20MEQ/100ML 100 ML IV SCH (06:16)
[2025-08-10] MEDS: InsuLIN REG 1unit/0.01ml Soln (100units/ml) SC SCH (06:19)
--- NOTE | 2025-08-10 07:24 | DVHOP ---
DATE OF SURGERY: 08/09/2025 TECHNIQUES PERFORMED: * Ultrasound of right radial artery. * Management of conscious sedation. * Ultrasound-guided insertion of a 6-Cymro arterial line in the right radial artery. * Attempt for right heart cath and left ventriculogram. * [place] selective left and right coronary artery angiography. ASSISTANTS: Rodrigue Villatoro Juliet and Joseph. INDICATIONS: cardiac catheterization, CPR, intubated, acute myocardial infarction. DESCRIPTION OF PROCEDURE: The procedure risks and benefits discussed. Counseling done. Questions answered. Information given. Brought to the catheter builder. The right radial area thoroughly cleaned with soap and Betadine. I also in-person discussed with the patient's and niece, Safia before bringing her to the catheter builder. Indications, risks and benefits all have been explained. Informed consent obtained. A 6-Cymro arterial line had been placed under ultrasound and TIG catheter, 5-Cymro ____ done after giving the cocktail of nitroglycerin, verapamil and heparin. Subsequently with the help of the TIG catheter, 5-Cymro right groin performed ____. IMPRESSION: * The left main distally is 60% narrowed. 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 * Circumflex artery is moderate sized, obtuse marginal artery is narrowed 90% ____ left anterior descending artery. Shanda Silva MD MP/SAM/JUSTIN TID: [id number] RECEIPT: [id number]
[2025-08-10 07:31] LABS: Base Excess 8.0 mmol/L (-2.0-3.0)
--- NOTE | 2025-08-10 07:33 | DVHOP ---
DATE OF SURGERY: 08/09/2025 TECHNIQUES PERFORMED: * Ultrasound of the right radial artery. * Management of conscious sedation. * Ultrasound-guided insertion of a 6-Belgian arterial line in the right radial artery. * Left coronary angiography. * Insertion of the balloon angioplasty in approximately the mid-region of the left anterior descending artery, which is a 2.0 x 6 mm balloon. * Insertion of the multiple wires in the left anterior descending artery. Initially, we have tried with a Whisper wire and subsequently followed by the Automatic Thread Winder wire and subsequently followed by the Choice extra-support wire. COMPLICATIONS: None. ASSISTANTS: Assisted by Irving. Other assistants are Joseph Husain Juliet. INDICATION: The patient given cardiac cath and CPR, intubated. 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 DESCRIPTION OF PROCEDURE: Risk and benefits have been explained to the and niece, Safia, in a standard manner. Angiogram was started. XB 3.5, 6-Belgian guiding catheter ____ and subsequently now we put a wire which is Whisper wire, which went in the left anterior artery in the proximal region. It did not cross the lesion, going immediately to the septal dental equipment technician proximal to the stenosis. Multiple attempts were done and subsequently the further attempt had been discontinued. Now I have put a Automatic Thread Winder wire and Automatic Thread Winder wire also had the same problem. It did not cross the lesion because it is heavily calcified subtotally and it is chronically total occluded, so did not cross the lesion. Subsequently, I pulled a Choice extra-support wire and a similar problem had occurred ____ did not cross the lesion. So further attempts had been discontinued. There were no complications and balloon, wire and catheter all had been discontinued. 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 It appears it is chronically occluded. * Post-procedure the similar finding and the GABRIELLE grade 1 flow has been noted pre and post. No complications. PLAN OF ACTION: I was unable to cross the wire because of the chronic total occlusion. I discussed along with the patient's in person and also with her niece, her name is Safia conservative medical treatment at this time. Shanda Silva MD MP/GEOVANY/JUSTIN TID: [id number] RECEIPT: [id number]
[2025-08-10 08:50] LABS: Hematocrit 23.3 % (36.0-46.0); Hemoglobin 8.1 g/dL (12.2-16.2); Mean Corpuscular Hemoglobin 32.8 pg (28.0-32.0); Mean Corpuscular Volume 95.1 fL (80.0-100.0); Nucleated Red Blood Cells % 0.1 %
[2025-08-10] MEDS: AZITHROMYCIN 500MG/250ML 250 ML IV ONE (08:53)
[2025-08-10 09:08] LABS: INR 1.28 (0.9-1.15); Partial Thromboplastin Time 36.9 SEC (24.5-34.5); Prothrombin Time 13.2 sec (9.3-11.8)
[2025-08-10] MEDS ORDERED: CLOPIDOGREL BISULFATE 75 MG TAB PO SCH (10:00)
[2025-08-10] MEDS: HEPARIN DRIP/D5W 100UNITS/ML 250 ML IV SCH (10:27)
--- NOTE | 2025-08-10 10:51 | ECG ---
[facility] Test Date: 2025-08-09 Test Time: 18:31:51 Pat Name: LOU STAHL Department: ED Room: 0264 A Gender: F Parole Or Probation Officer: LUIS MANUEL : 1940 Requested By: MANISHA ZENDEJAS Order Number: [id number] Reading MD: Wilfredo Gonzales Measurements Intervals [place] Rate: 85 P: 0 [place]: 0 QRS: 59 QRSD: 86 T: 170 QT: 364 QTc: 433 Interpretive Statements Atrial fibrillation Nonspecific repol abnormality, diffuse leads Electronically Signed On 08-10-2025 17:48:47 PST by Wilfredo Gonzales Please click the below link to view image of tracing.
--- NOTE | 2025-08-10 11:14 | DVH ---
CHEST RADIOGRAPH Indication: ett PLACEMENT Technique: XY CHEST PORTABLE COMPARISON: None FINDINGS: Right IJ catheter tip projects over the cavoatrial junction. Nasogastric tube projects towards stomach. Endotracheal tube tip projects 1.8 cm above the abeba. The cardiac silhouette is enlarged. The lungs demonstrate bilateral patchy airspace opacities, [id number]-left. The pulmonary vasculature is prominent. Moderate right and small left pleural effusions. There is no pneumothorax. IMPRESSION: As above
--- NOTE | 2025-08-10 12:58 | DVHPNRES ---
Progress Note Date Seen: Aug 10, 2025 Resident Creating Document: BRENDAN LEMOS RESIDENT Has the PT tested + for MRSA If YES, has PT been informed?: No Medical Necessity Reason Pt with a Central, PICC or Fol: Yes The following are medically ne: Central Line, Scherer Catheter Subjective Review of Systems The patient is an 85-year-old female who presented to the ED with class IV dyspnea, chest pain, and right arm weakness, followed by agonal breathing, rapid desaturation into the 70s on NRB, and progression to cardiac arrest. ROSC achieved after ~2 min downtime, 1 round of CPR, 1 dose epinephrine, and endotracheal intubation. EKG showed new left bundle branch block. atrial fibrillation with global ischemia. Cardiology diagnosed ST-segmentelevation [place] equivalent and took patient for emergent LHC, which revealed: * 99% LAD stenosis * 60% left main stenosis * 90% circumflex stenosis * Unable to cross chronic total occlusion due to high procedural mortality and conservative medical management recommended. The patient developed acute hypoxic respiratory failure, aspiration pneumonia, and septic shock requiring vasopressors. She was admitted to ICU on mechanical ventilation, norepinephrine, broad-spectrum antibiotics, heparin drip, and supportive care. PAST MEDICAL HISTORY * Hypertension * Type 2 diabetes mellitus * Dyslipidemia * HFpEF (EF 65%) * Paroxysmal atrial fibrillation on apixaban * Pulmonary hypertension (RVSP 61 mmHg) * Basal cell carcinoma * Atypical left hip sarcoma (surgically treated) * Recent COVID-19 * Chronic thrombocytopenia IV. PAST SURGICAL HISTORY * Hysterectomy * Appendectomy * Cholecystectomy * Basal cell carcinoma excision * Left hip sarcoma excision (2019) V. SOCIAL HISTORY * Lives with * No smoking, alcohol, or illicit substances ROS (Unable to Obtain Due to Intubation & Sedation) 08/10/25 The patient is an 85-year-old female who presented to the ED with class IV dyspnea, chest pain, and right arm weakness, followed by agonal breathing, rapid desaturation into the 70s on NRB, and progression to cardiac arrest. ROSC achieved after ~2 min downtime, 1 round of CPR, 1 dose epinephrine, and endotracheal intubation. EKG showed new left bundle branch block. atrial fibrillation with global ischemia. Cardiology diagnosed ST-segmentelevation [place] equivalent and took patient for emergent LHC, which revealed: * 99% LAD stenosis * 60% left main stenosis * 90% circumflex stenosis * Unable to cross chronic total occlusion due to high procedural mortality and conservative medical management recommended. The patient developed acute hypoxic respiratory failure, aspiration pneumonia, and septic shock requiring vasopressors. She was admitted to ICU on mechanical ventilation, norepinephrine, broad-spectrum antibiotics, heparin drip, and supportive care. * Still requiring norepinephrine Temperature: Tmax 100.9 ongoing infection concern. Renal: UOP remains 0.32 mL/kg/hr, creatinine improved to 1.25 (from 1.6). Troponin: 496 ( from 115), consistent with evolving [place]. Platelets: 92K (chronic baseline, trending up from 78K yesterday). CXR: Cardiomegaly, pulmonary vascular congestion, multifocal pneumonia, bilateral effusions. Labs: K 3.2 repleted; Phos 5.6; BUN 32; Hgb 8.1; AST/ALT down-trending. Medications: Norepinephrine, midazolam, fentanyl, heparin drip, cefepime, vancomycin. PLAN ADJUSTMENTS TODAY: * Convert enteric-coated aspirin to regular aspirin * Continue heparin drip now * Discontinue heparin in 48 hours, then start Aspirin + Plavix * Held/discontinued Zofran * Held/discontinued Atorvastatin (Lipitor) * Ordered repeat chest X-ray * Continue antibiotics * Continue vasopressor support Objective vital signs Vital Sign Date Time Temp Pulse Resp B/P (MAP) Pulse Ox O2 Delivery O2 Flow Rate FiO2 08/10/25 11:52 104 14 118/54 (75) 98 30 08/10/25 06:00 Mechanical Ventilator+ 08/10/25 04:00 98.1 98.1 08/10/25 03:13 40.0 Total Intake and Output 08/09/25 08/09/25 08/10/25 14:59 22:59 06:59 Intake Total 1555.00 ml Output Total 550 ml Balance 1005.00 ml medications Current Medications Medications Dose Ordered Sig/Justina Route Start Time Stop Time Status Last Admin Dose Admin Norepinephrine Bitartrate 250 ml @ 3.75 mls/hr Q24H IV 08/09/25 16:15 08/10/25 09:14 18.75 MLS/HR Midazolam HCl 100 ml @ 1 mls/hr Q24H IV 08/09/25 16:15 08/10/25 09:06 10 MLS/HR Acetaminophen 325 mg Q4HP PRN PO 08/09/25 17:15 Ondansetron HCl 4 mg Q4HP PRN IV 08/09/25 17:15 Morphine Sulfate 2 mg Q4HPRN PRN IV 08/09/25 17:15 Nitroglycerin 0.4 mg Q5MINP PRN SL 08/09/25 17:15 Morphine Sulfate 2 mg Q30M PRN IV 08/09/25 17:15 Fentanyl Citrate 250 ml @ 2.5 mls/hr Q24H IV 08/09/25 17:15 08/10/25 00:24 2.5 MLS/HR Aspirin 81 mg DAILY PO 08/10/25 10:00 Atorvastatin Calcium 40 mg HS PO 08/09/25 22:00 Hold Furosemide 40 mg BIDD IV 08/10/25 06:00 08/10/25 06:16 40 MG Vancomycin HCl 0 ml @ 0 mls/hr PER PHARMACY IV 08/09/25 17:15 Cefepime HCl 50 ml @ 12.5 mls/hr Q12HR IV 08/09/25 22:00 08/10/25 11:02 12.5 MLS/HR Diagnostic Test (Pha) 1 strip Q6HR 08/10/25 06:00 08/10/25 11:41 1 STRIP Insulin Human Regular Q6HR SC 08/10/25 06:00 08/10/25 11:45 3 UNITS Dextrose 50 ml UD PRN IV 08/10/25 02:30 Heparin Sodium/ Dextrose 250 ml @ 8 mls/hr Q24H IV 08/10/25 09:22 08/10/25 10:27 8 MLS/HR Examination General Intubated, sedated, critically ill. Neuro Sedated on midazolam/fentanyl; no purposeful movement; PERRL. CV Irregular rhythm (AFib). Tachycardia. Peripheral pulses present. warm extremities. Resp Mechanically ventilated. Bilateral crackles R>L. Adequate chest rise. GI Soft, nontender. NG tube present. Scherer catheter draining concentrated urine. Skin Warm; no new pressure ulcers. Lines/Tubes * Right IJ triple lumen * ET tube * NG tube * Scherer catheter laboratory and microbiology Laboratory Tests 08/10/25 08:30 08/10/25 03:26 Test 08/10/25 03:26 Range/Units Serum Glucose 256 H 74-106 mg/dL Microbiology Date/Time Source Procedure Growth Status 08/09/25 15:40 Sputum Gram Stain - Final Resulted 08/09/25 15:40 Sputum Respiratory Culture - Preliminary Resulted Problem List/Assessment/Plan Problem List/Assessment/Plan IX. [id number] PLAN NEUROLOGY Metabolic Encephalopathy Post-arrest + sepsis + hypoxia. neurological arrest ruled out (CT head negative) Reflexes present * Continue sedation: midazolam and fentanyl drips * Target RASS 3 * Daily sedation holiday when stable * Monitor for hypoxic-ischemic brain injury * Daily sedation awakening trial when hemodynamically stable. * Monitor for post-hypoxic brain injury. * CT head negative for acute abnormalities. CARDIOVASCULAR . Cardiac Arrest with ROSC Due to hypoxic respiratory failure + STEMI-equivalent. * Downtime ~2 minutes; ROSC after 1 Epi, 1 CPR cycle. STEMI Due to multi-vessel CAD (LAD 99%, LM 60%, LCx 90%).High procedural mortality , conservative management per cardiology LBBB, global ischemia, coronary angiography findings Acute on Chronic Diastolic CHF (HFpEF, EF 65%) Volume overload + pulmonary edema on imaging. Severe Pulmonary Hypertension (RVSP 61 mmHg) From chronic HF + hypoxic vasoconstriction. * Continue norepinephrine to maintain MAP >65 * Convert EC aspirin TO regular aspirin chewable * Continue heparin drip for now * Discontinue heparin in 48 hours * After stopping heparin THEN Start Aspirin + Plavix * Hold Lipitor (atorvastatin) * Trend troponin until peak * Cardiology following * Avoid aggressive diuresis due to borderline MAP. * Conservative management of multi-vessel CAD per cardiology. * Continue aspirin, , heparin drip unless platelets <50K or HIT suspected. * Trend troponin q6h. * Continuous telemetry for AFib; rate-control withheld due to vasopressor need. Hypertension Chronic comorbidity Dyslipidemia Chronic comorbidity RESPIRATORY MECHANICAL VENTILATION Acute Hypoxic Respiratory Failure * Requiring mechanical ventilation Aspiration Pneumonia, Multifocal CXR findings consistent. * Febrile, pneumonia on CXR, lactate normalized from 6.2 - 1.7 * Mode: Assist-Control Volume * RR 14, TV 500, PEEP 5, FiO? 40% * Maintain saturation >94% * Daily SBT after vasopressor weaning * Prevent VAP: HOB elevated, oral care * ABG shows metabolic alkalosis + mild hypoxemia. * Lung-protective strategy if ARDS develops. RENAL WILLIAN Stage 2 due to VMN Improving Likely hemodynamic ischemic ATN. . Hyperphosphatemia Hypokalemia improving replenished Electrolyte derangements. * Monitor UOP hourly * Electrolyte replacement protocol * Avoid nephrotoxins * Consider renal ultrasound if persistent oliguria * WILLIAN improving (Cr 1.25). * Monitor UOP q1h; goal >0.5 mL/kg/hr. * Avoid nephrotoxins. * Continue gentle diuresis only if hemodynamically tolerated. * Correct electrolytes: K >4, Mg >2. INFECTIOUS DISEASE Septic Shock From aspiration pneumonia: initially lactate 6.2 THEN improved to 1.7 .Still requiring vasopressors. Aspiration Pneumonia, Multifocal Complicated UTI, UA Positive CXR findings consistent. * Continue Vancomycin + Cefepime . * Repeat blood cultures if febrile, urine culture ordered * MRSA negative, initial blood cultures are negative * Respiratory culture/gram stain Few Gram Positive Rods Few Gram Positive Cocci in chains Rare Gram Negative Rods Still ruling out pathogens. * De-escalate based on culture results. * Lactate normalized; continue sepsis bundle. GI Transaminitis Likely shock liver vs congestive hepatopathy. * NPO with NG tube. * Start tube feeds when hemodynamically stable. * GI prophylaxis: IV pantoprazole. * Bowel regimen: Senna + docusate. * Continue Scherer for accurate I/O * Monitor for hematuria * Schreer catheter in place for accurate UOP. HEMATOLOGY Normocytic Anemia improving Chronic Thrombocytopenia * Trending upward; no bleeding * Thrombocytopenia trending upward ? continue monitoring * Continue heparin drip; discontinue in 48 hours * Start DAPT afterward * Platelets 92K monitor daily. * If <50K reassess need for heparin. * Anemia Hgb 8.1: transfuse if <7 or hemodynamically unstable. * DVT prophylaxis: Heparin drip already therapeutic. ENDOCRINE T2DM with Stress Hyperglycemia * Sliding scale insulin q4h * Goal BG [id number] * Resume home diabetic meds after stabilization. PSYCHIATRY * Sedated; no psychiatric meds needed PROPHYLAXIS * DVT: Heparin drip * GI: Pantoprazole * Pressure ulcers: q2h turns * Line-associated infection: Daily review of necessity LINES, TUBES, DRIPS * Right IJ triple-lumen (08/09) * ET tube placed 08/09 * NG tube * Scherer * Drips: Norepinephrine, Midazolam, Fentanyl, Heparin PHYSICAL THERAPY * Not appropriate today due to hemodynamic instability. * Reassess daily. SOCIAL WORK * Family updated at bedside; case management following. * [id number] ongoing; currently FULL CODE. X. CRITICAL CARE TIME Critical care time: 82 minutes (exclusive of procedures).High-complexity medical decision-making due to multiorgan failure, vasopressor dependence, mechanical ventilation, post-cardiac arrest care, evolving STEMI, and septic shock. XI. CODE STATUS Full Code Discussed with family >20 minutes.Family understands severity of illness and poor prognosis of illness FINAL STATEMENT Case discussed in detail with the attending physician , including the clinical presentation, diagnostic workup, and comprehensive management plan. The patient was present for the discussion and demonstrated understanding of her condition and the proposed plan. Plan discussed with: Patient, Spouse, Other (Samia DEVRIES, KELLY) Date of Service: Aug 10, 2025 Billing Provider: DAVID SANDRA MD Common Visit Codes: 56224-[id number] CARE 30-74 MIN, 10659-MCEPJEHV CARE-EACH +30MIN BRENDAN LEMOS RESIDENT Aug 10, 2025 12:57 DAVID SANDRA MD Aug 11, 2025 11:34
[2025-08-10] MEDS ORDERED: SITA50TA PO (13:43)
[2025-08-10] MEDS ORDERED: GLIM4TAB42 PO (13:43)
[2025-08-10] MEDS ORDERED: METO25TA5 PO (13:43)
[2025-08-10] MEDS ORDERED: APIX5TAB4 PO (13:43)
[2025-08-10] MEDS ORDERED: ATOR40TA52 PO (13:43)
[2025-08-10] MEDS ORDERED: NIFE1TAB36 PO (13:44)
[2025-08-10 17:08] LABS: INR 1.25 (0.9-1.15); Partial Thromboplastin Time 53.6 SEC (24.5-34.5); Prothrombin Time 13.0 sec (9.3-11.8)
[2025-08-10 22:39] LABS: INR 1.24 (0.9-1.15); Partial Thromboplastin Time 54.3 SEC (24.5-34.5); Prothrombin Time 12.9 sec (9.3-11.8)
--- NOTE | 2025-08-10 23:55 | DVHPN2 ---
Progress Note - Dictate Date Seen: Aug 10, 2025 Has the PT tested + for MRSA If YES, has PT been informed?: No Medical Necessity Reason Pt with a Central, PICC or Fol: Yes The following are medically ne: Central Line, Scherer Catheter Subjective Patient was seen and evaluated in follow-up in the ICU. Patient is intubated and sedated on ventilator. 30% FiO2. Patient underwent an attempt for right heart cath, [place] selective left and right coronary artery angiography, left coronary angiography, insertion of the balloon angioplasty in approximately the mid- region of the left anterior descending artery, insertion of the multiple wires in the left anterior descending artery. Initially, we have tried with a Whisper wire and subsequently followed by the Machine Operator Picker wire and subsequently followed by the Choice extra-support wire. Prior to performing the procedure; the left anterior descending artery from proximal to mid region has subtotal occlusion 99.9%. It appears it is chronically occluded. Post-procedure the similar finding and the GABRIELLE grade 1 flow has been noted pre and post. No complications. I was unable to cross the wire because of the chronic total occlusion. I discussed along with the patient's in person and also with her niece, her name is Safia conservative medical treatment at this time. HGB 8.1, HCT 23.3, K 3.2, CO2 32, BUN 32, JUNIOR QA ANALYST 1.25, AST 96, ALT 77. vital signs Vital Sign Date Time Temp Pulse Resp B/P (MAP) Pulse Ox O2 Delivery O2 Flow Rate FiO2 08/10/25 11:52 104 14 118/54 (75) 98 30 08/10/25 08:00 Mechanical Ventilator+ 08/10/25 04:00 98.1 98.1 08/10/25 03:13 40.0 Total Intake and Output 08/09/25 08/09/25 08/10/25 15:00 23:00 07:00 Intake Total 17.5 ml 1618.75 ml Output Total 550 ml Balance 17.5 ml 1068.75 ml medications Current Medications Medications Dose Ordered Sig/Justina Route Start Time Stop Time Status Last Admin Dose Admin Norepinephrine Bitartrate 250 ml @ 3.75 mls/hr Q24H IV 08/09/25 16:15 08/10/25 09:14 18.75 MLS/HR Midazolam HCl 100 ml @ 1 mls/hr Q24H IV 08/09/25 16:15 08/10/25 09:06 10 MLS/HR Acetaminophen 325 mg Q4HP PRN PO 08/09/25 17:15 Ondansetron HCl 4 mg Q4HP PRN IV 08/09/25 17:15 Morphine Sulfate 2 mg Q4HPRN PRN IV 08/09/25 17:15 Nitroglycerin 0.4 mg Q5MINP PRN SL 08/09/25 17:15 Morphine Sulfate 2 mg Q30M PRN IV 08/09/25 17:15 Fentanyl Citrate 250 ml @ 2.5 mls/hr Q24H IV 08/09/25 17:15 08/10/25 00:24 2.5 MLS/HR Aspirin 81 mg DAILY PO 08/10/25 10:00 Atorvastatin Calcium 40 mg HS PO 08/09/25 22:00 Hold Furosemide 40 mg BIDD IV 08/10/25 06:00 08/10/25 06:16 40 MG Vancomycin HCl 0 ml @ 0 mls/hr PER PHARMACY IV 08/09/25 17:15 Cefepime HCl 50 ml @ 12.5 mls/hr Q12HR IV 08/09/25 22:00 08/10/25 11:02 12.5 MLS/HR Diagnostic Test (Pha) 1 strip Q6HR 08/10/25 06:00 08/10/25 11:41 1 STRIP Insulin Human Regular Q6HR SC 08/10/25 06:00 08/10/25 11:45 3 UNITS Dextrose 50 ml UD PRN IV 08/10/25 02:30 Heparin Sodium/ Dextrose 250 ml @ 8 mls/hr Q24H IV 08/10/25 09:22 08/10/25 10:27 8 MLS/HR objective GENERAL: Ill appearing, intubated on ventilator. EYES: PERRL, EOMI. Anicteric. HENT: Moist mucous membranes. LUNGS: Decreased breath sounds. CARDIOVASCULAR: Regular rate and rhythm. ABDOMEN: Soft, nontender and nondistended. EXTREMITIES: No edema. SKIN: Warm, dry. laboratory and microbiology Laboratory Tests 08/10/25 08:30 08/10/25 03:26 Test 08/10/25 03:26 Range/Units Serum Glucose 256 H 74-106 mg/dL Problem List Cardiac arrest with successful ROSC. Metabolic encephalopathy. STEMI (ST elevation myocardial infarction). Assessment/Plan Continued all current supportive medical care. Aspirin. IV antibiotics as ordered. Diuretics with Lasix. Heparin drip per pharmacy. Vasopressors for hemodynamic support. Additional plan as per the hospital course. Critical care time of 45 minutes provided to include time spent evaluation of patient at bedside, when appropriate patient/family education for diagnosis, treatment plan, review of pertinent medical information and discussion of care with specialty providers and PCP. Mechanical ventilator parameters, treatment and adjustments have personally been reviewed by me and treatment plan by scoring machine operator has also been reviewed. Plan discussed with: Other PATRICIA GROVES MD Aug 10, 2025 14:26
[2025-08-11] VITALS (107 sets, daily range): BP systolic 89–146; BP diastolic 26–106; PULSE 73–114; RESP 13–20; TEMP 96.8–99.9; O2SAT 93–100
[2025-08-11 03:16] LABS: Anion Gap 10 (5-15); BUN/Creatinine Ratio 27.0 (10.0-20.0)
[2025-08-11 03:20] LABS: Albumin 3.0 g/dL (3.2-4.8); Alkaline Phosphatase 93 U/L (46-116); Bilirubin, Total 1.7 mg/dL (0.2-1.0); Blood Urea Nitrogen 37 mg/dL (9-23); Calcium 8.8 mg/dL (8.7-10.4); Carbon Dioxide 31 mmol/L (20-31); Chloride 102 mmol/L (98-107); Glucose 144 mg/dL (74-106); Magnesium 1.7 mg/dL (1.6-2.6); Potassium 3.6 mmol/L (3.5-5.1); Sodium 143 mmol/L (136-145); Total Protein 5.6 g/dL (5.7-8.2)
[2025-08-11 03:27] LABS: Hematocrit 21.4 % (36.0-46.0); Hemoglobin 7.3 g/dL (12.2-16.2); Mean Corpuscular Hemoglobin 32.5 pg (28.0-32.0); Mean Corpuscular Volume 95.3 fL (80.0-100.0); Nucleated Red Blood Cells % 0.1 %
[2025-08-11 04:38] LABS: Alanine Aminotransferase 53 U/L (7-40)
[2025-08-11 05:52] LABS: INR 1.21 (0.9-1.15); Partial Thromboplastin Time 46.2 SEC (24.5-34.5); Prothrombin Time 12.6 sec (9.3-11.8)
--- NOTE | 2025-08-11 06:12 | DVH ---
CHEST RADIOGRAPH Indication: acute hypoxic respiratory failure Technique: Single frontal view of the chest was obtained COMPARISON: XY CHEST PORTABLE on DOS: 08/10/25, XY CHEST PORTABLE on DOS: 08/09/25, US CHEST ULTRASOUND on DOS: 04/28/25, XY CHEST XRAY 1 VIEW on DOS: 04/27/25 FINDINGS: Lines and Tubes: Endotracheal tube, enteric catheter and right central venous catheter in satisfactory position. Lungs: Unchanged pulmonary vascular congestion. Pleura: Trace left pleural effusion. No pneumothorax. Cardiomediastinal contours: Unremarkable Bones: Unremarkable IMPRESSION: Lines and tubes in satisfactory position. No significant interval change.
[2025-08-11 07:50] LABS: Base Excess 5.3 mmol/L (-2.0-3.0)
--- NOTE | 2025-08-11 08:51 | DVHPNRES ---
Progress Note Date Seen: Aug 11, 2025 Resident Creating Document: BRENDAN LEMOS RESIDENT Has the PT tested + for MRSA If YES, has PT been informed?: No Medical Necessity Reason Pt with a Central, PICC or Fol: Yes The following are medically ne: Central Line, Scherer Catheter Subjective Review of Systems The patient is an 85-year-old female who presented to the ED with class IV dyspnea, chest pain, and right arm weakness, followed by agonal breathing, rapid desaturation into the 70s on NRB, and progression to cardiac arrest. ROSC achieved after ~2 min downtime, 1 round of CPR, 1 dose epinephrine, and endotracheal intubation. EKG showed new left bundle branch block. atrial fibrillation with global ischemia. Cardiology diagnosed ST-segmentelevation MS equivalent and took patient for emergent LHC, which revealed: * 99% LAD stenosis * 60% left main stenosis * 90% circumflex stenosis * Unable to cross chronic total occlusion due to high procedural mortality and conservative medical management recommended. The patient developed acute hypoxic respiratory failure, aspiration pneumonia, and septic shock requiring vasopressors. She was admitted to ICU on mechanical ventilation, norepinephrine, broad-spectrum antibiotics, heparin drip, and supportive care. PAST MEDICAL HISTORY * Hypertension * Type 2 diabetes mellitus * Dyslipidemia * HFpEF (EF 65%) * Paroxysmal atrial fibrillation on apixaban * Pulmonary hypertension (RVSP 61 mmHg) * Basal cell carcinoma * Atypical left hip sarcoma (surgically treated) * Recent COVID-19 * Chronic thrombocytopenia IV. PAST SURGICAL HISTORY * Hysterectomy * Appendectomy * Cholecystectomy * Basal cell carcinoma excision * Left hip sarcoma excision (2019) V. SOCIAL HISTORY * Lives with * No smoking, alcohol, or illicit substances ROS (Unable to Obtain Due to Intubation & Sedation) 08/10/25 The patient is an 85-year-old female who presented to the ED with class IV dyspnea, chest pain, and right arm weakness, followed by agonal breathing, rapid desaturation into the 70s on NRB, and progression to cardiac arrest. ROSC achieved after ~2 min downtime, 1 round of CPR, 1 dose epinephrine, and endotracheal intubation. EKG showed new left bundle branch block. atrial fibrillation with global ischemia. Cardiology diagnosed ST-segmentelevation MS equivalent and took patient for emergent LHC, which revealed: * 99% LAD stenosis * 60% left main stenosis * 90% circumflex stenosis * Unable to cross chronic total occlusion due to high procedural mortality and conservative medical management recommended. The patient developed acute hypoxic respiratory failure, aspiration pneumonia, and septic shock requiring vasopressors. She was admitted to ICU on mechanical ventilation, norepinephrine, broad-spectrum antibiotics, heparin drip, and supportive care. * Still requiring norepinephrine Temperature: Tmax 100.9 ongoing infection concern. Renal: UOP remains 0.32 mL/kg/hr, creatinine improved to 1.25 (from 1.6). Troponin: 496 ( from 115), consistent with evolving MS. Platelets: 92K (chronic baseline, trending up from 78K yesterday). CXR: Cardiomegaly, pulmonary vascular congestion, multifocal pneumonia, bilateral effusions. Labs: K 3.2 repleted; Phos 5.6; BUN 32; Hgb 8.1; AST/ALT down-trending. Medications: Norepinephrine, midazolam, fentanyl, heparin drip, cefepime, vancomycin. PLAN ADJUSTMENTS TODAY: * Convert enteric-coated aspirin to regular aspirin * Continue heparin drip now * Discontinue heparin in 48 hours, then start Aspirin + Plavix * Held/discontinued Zofran * Held/discontinued Atorvastatin (Lipitor) * Ordered repeat chest X-ray * Continue antibiotics * Continue vasopressor support 08/11/25 * Hemodynamically fluctuating on norepinephrine. * On AC/VC mechanical ventilation; gases show mild metabolic alkalosis. * Oxygenation improved (PO2 88). * No fever overnight. * Chronic thrombocytopenia trending downward but stable. * Hemoglobin down to 7.3; monitor closely, consider transfusion if symptomatic or <7.0. * WILLIAN slightly worsened (Cr 1.37). * CXR unchanged. * Started statin therapy and sedation vacation protocol. * No arrhythmias other than AFib with controlled rate. Objective vital signs Vital Sign Date Time Temp Pulse Resp B/P (MAP) Pulse Ox O2 Delivery O2 Flow Rate FiO2 08/11/25 08:12 94 14 119/46 (70) 100 30 08/11/25 07:15 98.2 208.8 08/11/25 06:00 Mechanical Ventilator+ 08/10/25 03:13 40.0 Total Intake and Output 08/10/25 08/10/25 08/11/25 15:00 23:00 07:00 Intake Total 256.25 ml 309.0 ml 316.00 ml Output Total 325 ml 450 ml Balance 256.25 ml -16.0 ml -134.00 ml medications Current Medications Medications Dose Ordered Sig/Justina Route Start Time Stop Time Status Last Admin Dose Admin Norepinephrine Bitartrate 250 ml @ 3.75 mls/hr Q24H IV 08/09/25 16:15 08/11/25 01:37 15 MLS/HR Midazolam HCl 100 ml @ 1 mls/hr Q24H IV 08/09/25 16:15 08/11/25 04:36 10 MLS/HR Acetaminophen 325 mg Q4HP PRN PO 08/09/25 17:15 Morphine Sulfate 2 mg Q4HPRN PRN IV 08/09/25 17:15 Nitroglycerin 0.4 mg Q5MINP PRN SL 08/09/25 17:15 Morphine Sulfate 2 mg Q30M PRN IV 08/09/25 17:15 Fentanyl Citrate 250 ml @ 2.5 mls/hr Q24H IV 08/09/25 17:15 08/10/25 00:24 2.5 MLS/HR Furosemide 40 mg BIDD IV 08/10/25 06:00 08/11/25 06:05 40 MG Vancomycin HCl 0 ml @ 0 mls/hr PER PHARMACY IV 08/09/25 17:15 Cefepime HCl 50 ml @ 12.5 mls/hr Q12HR IV 08/09/25 22:00 08/10/25 21:01 12.5 MLS/HR Diagnostic Test (Pha) 1 strip Q6HR 08/10/25 06:00 08/11/25 06:05 1 STRIP Insulin Human Regular Q6HR SC 08/10/25 06:00 08/11/25 06:08 2 UNITS Dextrose 50 ml UD PRN IV 08/10/25 02:30 Aspirin 81 mg DAILY PO 08/11/25 10:00 Heparin Sodium/ Dextrose 250 ml @ 10 mls/hr Q24H IV 08/11/25 06:30 Examination General: Intubated, sedated, critically ill. Neuro: RASS 3; no purposeful movement; pupils brisk; cough/gag intact. CV: AFib 97521 bpm; pulses palpable; extremities warm; 1+ edema. Resp: Coarse crackles, wheezes, rhonchi bilaterally. GI: Soft, non-tender; NG tube present. : Scherer catheter; adequate UOP. Skin: No ulcers. Lines: RIJ triple lumen, ET tube, NG tube, Scherer. laboratory and microbiology Laboratory Tests 08/11/25 02:30 Test 08/11/25 02:30 Range/Units Serum Glucose 144 H 74-106 mg/dL Microbiology Date/Time Source Procedure Growth Status 08/09/25 22:59 Nose MRSA Screen - Final Complete 08/09/25 16:40 Blood Blood Culture - Preliminary NO GROWTH AFTER 24 HOURS OF INCUBATION. Resulted 08/09/25 15:40 Sputum Gram Stain - Final Resulted 08/09/25 15:40 Sputum Respiratory Culture - Preliminary Resulted Problem List/Assessment/Plan Problem List/Assessment/Plan IX. [id number] PLAN NEUROLOGY Metabolic Encephalopathy Post-arrest + sepsis + hypoxia. neurological arrest ruled out (CT head negative) Reflexes present * Continue sedation: midazolam and fentanyl * Target RASS 3 * Monitor for hypoxic-ischemic brain injury * Daily sedation awakening trial when hemodynamically stable. * Monitor for post-hypoxic brain injury. * CT head negative for acute abnormalities. CARDIOVASCULAR . Cardiac Arrest with ROSC Due to hypoxic respiratory failure + STEMI-equivalent. * Downtime ~2 minutes; ROSC after 1 Epi, 1 CPR cycle. STEMI Due to multi-vessel CAD (LAD 99%, LM 60%, LCx 90%).High procedural mortality , conservative management per cardiology LBBB, global ischemia, coronary angiography findings Acute on Chronic Diastolic CHF (HFpEF, EF 65%) Volume overload + pulmonary edema on imaging. Severe Pulmonary Hypertension (RVSP 61 mmHg) From chronic HF + hypoxic vasoconstriction. * Continue norepinephrine to maintain MAP >65 * Continue heparin drip for now * Discontinue heparin in 48 hours * After stopping heparin THEN Start Aspirin + Plavix * Continue aspirin * Continue atorvastatin started today * Trend troponin until peak * Cardiology following * Avoid aggressive diuresis due to borderline MAP. * Conservative management of multi-vessel CAD per cardiology. * Continue aspirin, heparin drip unless platelets <50K or HIT suspected. * Trend troponin q6h. * Continuous telemetry for AFib; rate-control withheld due to vasopressor need. Hypertension Chronic comorbidity Dyslipidemia Chronic comorbidity RESPIRATORY MECHANICAL VENTILATION Acute Hypoxic Respiratory Failure * Requiring mechanical ventilation Aspiration Pneumonia, Multifocal CXR findings consistent. * Febrile, pneumonia on CXR, lactate normalized from 6.2 - 1.7 - 1.2 * Mode: Assist-Control Volume * RR 2530, TV 450, FiO2 30%, PEEP 5 * Maintain saturation >94% * Daily SBT after vasopressor weaning * Prevent VAP: HOB elevated, oral care * Suction PRN * Bronchodilators if wheezing persists * Lung-protective strategy if ARDS develops. RENAL WILLIAN Stage 2 due to VMN Improving Likely hemodynamic ischemic ATN. . Hyperphosphatemia Hypokalemia improving replenished Electrolyte derangements. * Monitor UOP hourly * Electrolyte replacement protocol * Avoid nephrotoxins * Consider renal ultrasound if persistent oliguria * WILLIAN improving * Monitor UOP q1h; goal >0.5 mL/kg/hr. * Avoid nephrotoxins. * Continue gentle diuresis only if hemodynamically tolerated. * Correct electrolytes: K >4, Mg >2. INFECTIOUS DISEASE Septic Shock From aspiration pneumonia: initially lactate 6.2 THEN improved to 1.7 - 1.2 .Still requiring vasopressors. Aspiration Pneumonia, Multifocal CXR findings consistent. * Continue Vancomycin + Cefepime for aspiration pneumonia + sepsis. * Repeat blood cultures if febrile, urine culture ordered and are negative. * MRSA negative, initial blood cultures are negative * Respiratory culture/gram stain Few Gram Positive Rods Few Gram Positive Cocci in chains Rare Gram Negative Rods Still ruling out pathogens. * De-escalate based on culture results. * Lactate normalized; continue sepsis bundle. GI Transaminitis Likely shock liver vs congestive hepatopathy. * NPO with NG tube. * Start tube feeds when hemodynamically stable. * GI prophylaxis: IV pantoprazole. * Bowel regimen: Senna + docusate. * Continue Scherer for accurate I/O * Monitor for hematuria * Scherer catheter in place for accurate UOP. HEMATOLOGY Normocytic Anemia Chronic Thrombocytopenia no bleeding * Thrombocytopenia continue monitoring * Continue heparin drip; discontinue in 48 hours * Start DAPT afterward * Platelets monitor daily. * If <50K reassess need for heparin. * Anemia : transfuse if <7 or hemodynamically unstable. * DVT prophylaxis: Heparin drip already therapeutic. ENDOCRINE T2DM with Stress Hyperglycemia * Sliding scale insulin q4h * Goal BG [id number] * Resume home diabetic meds after stabilization. PSYCHIATRY * Sedated; no psychiatric meds needed NUTRITION * NPO * Initiate enteral feeds once vasopressors lower * Nutritional consult PROPHYLAXIS * DVT: Heparin drip * GI: Pantoprazole * Pressure ulcers: q2h turns * Line-associated infection: Daily review of necessity LINES, TUBES, DRIPS * Right IJ triple-lumen (08/09) * ET tube placed 08/09 * NG tube * Scherer * Drips: Norepinephrine, Midazolam, Fentanyl, Heparin PHYSICAL THERAPY * Not appropriate today due to hemodynamic instability. * Reassess daily. SOCIAL WORK * Family updated at bedside; case management following. * [id number] ongoing; currently FULL CODE. X. CRITICAL CARE TIME Critical care time: 83 minutes (exclusive of procedures).High-complexity medical decision-making due to multiorgan failure, vasopressor dependence, mechanical ventilation, post-cardiac arrest care, evolving STEMI, and septic shock. XI. CODE STATUS Full Code Discussed with family >20 minutes.Family understands severity of illness and poor prognosis of illness FINAL STATEMENT Case discussed in detail with the attending physician , including the clinical presentation, diagnostic workup, and comprehensive management plan. The patient was present for the discussion and demonstrated understanding of her condition and the proposed plan. Plan discussed with: Spouse, Other (Niece, RN) My Orders My Orders Orders - BRENDAN LEMOS RESIDENT Procedure Category Date Status Time Aspirin Chewable PHA 08/11/25 In Process Tablet 10:00 Abg W/ Co-Ox RT 08/11/25 Logged 04:00 Chest Xray 1 View XY 08/11/25 Resulted 04:00 BRENDAN LEMOS RESIDENT Aug 11, 2025 08:51
[2025-08-11] MEDS: HEPARIN DRIP/D5W 100UNITS/ML 250 ML IV SCH (10:12)
[2025-08-11] MEDS: VANCOMYCIN 750MG KIT 100 ML IV ONE (12:59)
[2025-08-11 19:06] LABS: Hematocrit 24.0 % (36.0-46.0); Hemoglobin 8.2 g/dL (12.2-16.2)
[2025-08-11 19:12] LABS: INR 1.15 (0.9-1.15); Partial Thromboplastin Time 59.2 SEC (24.5-34.5); Prothrombin Time 12.0 sec (9.3-11.8)
[2025-08-11] MEDS: Glucerna 1.2 Cal 1Liter BOTTLE GT SCH (21:54)
[2025-08-11] MEDS: ATORVASTATIN 20 MG TAB GT SCH (22:35)
[2025-08-12] VITALS (108 sets, daily range): BP systolic 89–153; BP diastolic 33–90; PULSE 64–120; RESP 13–18; TEMP 96.3–99.5; O2SAT 85–100
--- NOTE | 2025-08-12 00:25 | DVHPN2 ---
Progress Note - Dictate Date Seen: Aug 11, 2025 Has the PT tested + for MRSA If YES, has PT been informed?: No Medical Necessity Reason Pt with a Central, PICC or Fol: Yes The following are medically ne: Central Line, Scherer Catheter Subjective Patient was seen and evaluated in follow up in the ICU. Patient is intubated and sedated on ventilator. 30% FiO2. Patient on Levophed drip. HGB 8.2, HCT 24, BUN 37, Director Quality Assurance 1.37. Urine culture is negative for growth. MRSA is negative. Chest x- ray shows pulmonary vascular congestion and trace left pleural effusion. vital signs Vital Sign Date Time Temp Pulse Resp B/P (MAP) Pulse Ox O2 Delivery O2 Flow Rate FiO2 08/12/25 00:00 82 08/12/25 00:00 14 100 Mechanical Ventilator+ 30 30 08/11/25 21:58 111/46 (67) 08/11/25 19:15 98.4 209.1 Total Intake and Output 08/11/25 08/11/25 08/12/25 15:00 23:00 07:00 Intake Total 191.75 ml 213.0 ml Output Total 400 ml Balance 191.75 ml -187.0 ml medications Current Medications Medications Dose Ordered Sig/Justina Route Start Time Stop Time Status Last Admin Dose Admin Norepinephrine Bitartrate 250 ml @ 3.75 mls/hr Q24H IV 08/09/25 16:15 08/11/25 15:39 15 MLS/HR Midazolam HCl 100 ml @ 1 mls/hr Q24H IV 08/09/25 16:15 08/11/25 15:38 6 MLS/HR Acetaminophen 325 mg Q4HP PRN PO 08/09/25 17:15 Morphine Sulfate 2 mg Q4HPRN PRN IV 08/09/25 17:15 Nitroglycerin 0.4 mg Q5MINP PRN SL 08/09/25 17:15 Morphine Sulfate 2 mg Q30M PRN IV 08/09/25 17:15 Fentanyl Citrate 250 ml @ 2.5 mls/hr Q24H IV 08/09/25 17:15 08/10/25 00:24 2.5 MLS/HR Furosemide 40 mg BIDD IV 08/10/25 06:00 08/11/25 17:40 40 MG Vancomycin HCl 0 ml @ 0 mls/hr PER PHARMACY IV 08/09/25 17:15 Cefepime HCl 50 ml @ 12.5 mls/hr Q12HR IV 08/09/25 22:00 08/11/25 21:59 12.5 MLS/HR Diagnostic Test (Pha) 1 strip Q6HR 08/10/25 06:00 08/12/25 00:09 1 STRIP Insulin Human Regular Q6HR SC 08/10/25 06:00 08/12/25 00:12 2 UNITS Dextrose 50 ml UD PRN IV 08/10/25 02:30 Aspirin 81 mg DAILY PO 08/11/25 10:00 08/11/25 10:46 81 MG Heparin Sodium/ Dextrose 250 ml @ 10 mls/hr Q24H IV 08/11/25 06:30 08/11/25 15:01 10 MLS/HR Atorvastatin Calcium 80 mg HS GT 08/11/25 22:00 08/11/25 22:35 80 MG Pantoprazole Sodium 40 mg DAILY IV 08/12/25 10:00 Enteral Nutritional Formula 1,000 ml 25ML/HR GT 08/11/25 19:30 08/11/25 21:54 1,000 ML objective GENERAL: Ill appearing, intubated on ventilator. EYES: PERRL, EOMI. Anicteric. HENT: Moist mucous membranes. LUNGS: Decreased breath sounds. CARDIOVASCULAR: Regular rate and rhythm. ABDOMEN: Soft, nontender and nondistended. EXTREMITIES: No edema. SKIN: Warm, dry. laboratory and microbiology Laboratory Tests 08/11/25 18:35 08/11/25 02:30 Test 08/11/25 02:30 Range/Units Serum Glucose 144 H 74-106 mg/dL Problem List Cardiac arrest with successful ROSC. Metabolic encephalopathy. STEMI (ST elevation myocardial infarction). Assessment/Plan Continued all current supportive medical care. Aspirin. IV antibiotics as ordered. Diuretics with Lasix. Heparin drip per pharmacy. Vasopressors for hemodynamic support. Additional plan as per the hospital course. Critical care time of 45 minutes provided to include time spent evaluation of patient at bedside, when appropriate patient/family education for diagnosis, treatment plan, review of pertinent medical information and discussion of care with specialty providers and PCP. Mechanical ventilator parameters, treatment and adjustments have personally been reviewed by me and treatment plan by red hat open stack administrator has also been reviewed. Dietary Evaluation Review Comments: Nutrition Recommendation: 1) EN Vital High Protein @ 45ml/hr x 24hr (goal). Water flush 50ml Q6H if allowed, adjust PRN. TF at goal volume provides 1080 kcal (100%), 95 gm protein (100%), and 90510 ml free water(including flush). 2) TPN if NPO >7 days 3) Monitor NPO status, lab values, weight trend, and I/O Expected Outcomes/Goals: Intake to meet >75% estimated needs Lab values to improve FU 2-3 days Plan discussed with: Other PATRICIA GROVES MD Aug 12, 2025 00:25
[2025-08-12 01:15] LABS: INR 1.16 (0.9-1.15); Partial Thromboplastin Time 64.2 SEC (24.5-34.5); Prothrombin Time 12.1 sec (9.3-11.8)
[2025-08-12 04:24] LABS: Hematocrit 21.5 % (36.0-46.0); Hemoglobin 7.5 g/dL (12.2-16.2); Mean Corpuscular Hemoglobin 32.9 pg (28.0-32.0); Mean Corpuscular Volume 94.9 fL (80.0-100.0)
[2025-08-12 04:46] LABS: Alanine Aminotransferase 35 U/L (7-40); Alkaline Phosphatase 95 U/L (46-116); Anion Gap 10 (5-15); BUN/Creatinine Ratio 25.9 (10.0-20.0); Calcium 9.0 mg/dL (8.7-10.4); Chloride 101 mmol/L (98-107); Sodium 142 mmol/L (136-145)
[2025-08-12 04:47] LABS: Albumin 3.0 g/dL (3.2-4.8); Bilirubin, Total 1.6 mg/dL (0.2-1.0); Blood Urea Nitrogen 37 mg/dL (9-23); Carbon Dioxide 31 mmol/L (20-31); Glucose 137 mg/dL (74-106); Potassium 3.2 mmol/L (3.5-5.1); Total Protein 5.5 g/dL (5.7-8.2)
--- NOTE | 2025-08-12 05:06 | DVH ---
CHEST RADIOGRAPH Indication: Acute hypoxic respiratory failure Technique: Single frontal view of the chest was obtained COMPARISON: XY CHEST XRAY 1 VIEW on DOS: 08/11/25, XY CHEST PORTABLE on DOS: 08/10/25, XY CHEST PORTABLE on DOS: 08/09/25, US CHEST ULTRASOUND on DOS: 04/28/25, XY CHEST XRAY 1 VIEW on DOS: 04/27/25 FINDINGS: Lines and Tubes: Endotracheal tube, enteric catheter and right central venous catheter in satisfactory position. Lungs: Increased interstitial prominence. This may represent pulmonary vascular congestion and/or viral pneumonia. Pleura: No effusion. No pneumothorax. Cardiomediastinal contours: Unremarkable Bones: Unremarkable IMPRESSION: Lines and tubes in satisfactory position. Increased interstitial prominence. This may represent pulmonary vascular congestion and/or viral pneumonia.
[2025-08-12 05:24] LABS: Total Cells Counted 100.0 (100)
[2025-08-12] MEDS: MAGNESIUM SULFATE 1GM/100ML 100 ML IV ONE (05:36)
[2025-08-12] MEDS: POTASSIUM CHL 20MEQ/100ML 100 ML IV SCH (05:37)
[2025-08-12 07:03] LABS: Base Excess 1.6 mmol/L (-2.0-3.0)
--- NOTE | 2025-08-12 08:02 | DVHPNRES ---
Progress Note Date Seen: Aug 12, 2025 Resident Creating Document: BRENDAN LEMOS RESIDENT Has the PT tested + for MRSA If YES, has PT been informed?: No Medical Necessity Reason Pt with a Central, PICC or Fol: Yes The following are medically ne: Central Line, Scherer Catheter Subjective Review of Systems The patient is an 85-year-old female who presented to the ED with class IV dyspnea, chest pain, and right arm weakness, followed by agonal breathing, rapid desaturation into the 70s on NRB, and progression to cardiac arrest. ROSC achieved after ~2 min downtime, 1 round of CPR, 1 dose epinephrine, and endotracheal intubation. EKG showed new left bundle branch block. atrial fibrillation with global ischemia. Cardiology diagnosed ST-segmentelevation CA equivalent and took patient for emergent LHC, which revealed: * 99% LAD stenosis * 60% left main stenosis * 90% circumflex stenosis * Unable to cross chronic total occlusion due to high procedural mortality and conservative medical management recommended. The patient developed acute hypoxic respiratory failure, aspiration pneumonia, and septic shock requiring vasopressors. She was admitted to ICU on mechanical ventilation, norepinephrine, broad-spectrum antibiotics, heparin drip, and supportive care. PAST MEDICAL HISTORY * Hypertension * Type 2 diabetes mellitus * Dyslipidemia * HFpEF (EF 65%) * Paroxysmal atrial fibrillation on apixaban * Pulmonary hypertension (RVSP 61 mmHg) * Basal cell carcinoma * Atypical left hip sarcoma (surgically treated) * Recent COVID-19 * Chronic thrombocytopenia IV. PAST SURGICAL HISTORY * Hysterectomy * Appendectomy * Cholecystectomy * Basal cell carcinoma excision * Left hip sarcoma excision (2019) V. SOCIAL HISTORY * Lives with * No smoking, alcohol, or illicit substances ROS (Unable to Obtain Due to Intubation & Sedation) 08/10/25 The patient is an 85-year-old female who presented to the ED with class IV dyspnea, chest pain, and right arm weakness, followed by agonal breathing, rapid desaturation into the 70s on NRB, and progression to cardiac arrest. ROSC achieved after ~2 min downtime, 1 round of CPR, 1 dose epinephrine, and endotracheal intubation. EKG showed new left bundle branch block. atrial fibrillation with global ischemia. Cardiology diagnosed ST-segmentelevation CA equivalent and took patient for emergent LHC, which revealed: * 99% LAD stenosis * 60% left main stenosis * 90% circumflex stenosis * Unable to cross chronic total occlusion due to high procedural mortality and conservative medical management recommended. The patient developed acute hypoxic respiratory failure, aspiration pneumonia, and septic shock requiring vasopressors. She was admitted to ICU on mechanical ventilation, norepinephrine, broad-spectrum antibiotics, heparin drip, and supportive care. * Still requiring norepinephrine Temperature: Tmax 100.9 ongoing infection concern. Renal: UOP remains 0.32 mL/kg/hr, creatinine improved to 1.25 (from 1.6). Troponin: 496 ( from 115), consistent with evolving CA. Platelets: 92K (chronic baseline, trending up from 78K yesterday). CXR: Cardiomegaly, pulmonary vascular congestion, multifocal pneumonia, bilateral effusions. Labs: K 3.2 repleted; Phos 5.6; BUN 32; Hgb 8.1; AST/ALT down-trending. Medications: Norepinephrine, midazolam, fentanyl, heparin drip, cefepime, vancomycin. PLAN ADJUSTMENTS TODAY: * Convert enteric-coated aspirin to regular aspirin * Continue heparin drip now * Discontinue heparin in 48 hours, then start Aspirin + Plavix * Held/discontinued Zofran * Held/discontinued Atorvastatin (Lipitor) * Ordered repeat chest X-ray * Continue antibiotics * Continue vasopressor support 08/11/25 * Hemodynamically fluctuating on norepinephrine. * On AC/VC mechanical ventilation; gases show mild metabolic alkalosis. * Oxygenation improved (PO2 88). * No fever overnight. * Chronic thrombocytopenia trending downward but stable. * Hemoglobin down to 7.3; monitor closely, consider transfusion if symptomatic or <7.0. * WILLIAN slightly worsened (Cr 1.37). * CXR unchanged. * Started statin therapy and sedation vacation protocol. * No arrhythmias other than AFib with controlled rate. 08/12/25 Patient remains critically ill but hemodynamically unstable on low-dose norepinephrine. Ventilation stable. Labs show mild anemia worsening (Hgb 7.5), stable chronic thrombocytopenia (80K), slight rise in creatinine. Cultures negative except respiratory culture with E. coli sensitive to cefepime. Heparin drip discontinued; switched to prophylactic Lovenox. Code status updated to DNR. KUB ordered for constipation; tube feeds tolerated. Continuing all supportive care. Heparin drip discontinued today Started Lovenox 40 mg subcutaneous daily (prophylactic) Continue Aspirin. NOT starting Eliquis / therapeutic Lovenox due to: * Hgb drop (8.2 to 7.5) * Platelets 80K * High bleeding risk. NOT starting Plavix due to high bleeding risk Code status changed from FULL CODE to DNR per family. Continue cefepime (E. coli sensitive), discontinue vancomycin if MRSA PCR negative (as already done) K repleted; Mg repleted Continue sedation and vasopressor support Begin bowel regimen if KUB non-obstructive Objective vital signs Vital Sign Date Time Temp Pulse Resp B/P (MAP) Pulse Ox O2 Delivery O2 Flow Rate FiO2 08/12/25 07:00 96.3 84 14 117/39 (65) 97 96.3 08/12/25 06:00 30 08/12/25 06:00 Mechanical Ventilator+ Total Intake and Output 08/11/25 08/11/25 08/12/25 15:00 23:00 07:00 Intake Total 191.75 ml 213.0 ml 509.25 ml Output Total 400 ml 500 ml Balance 191.75 ml -187.0 ml 9.25 ml medications Current Medications Medications Dose Ordered Sig/Justina Route Start Time Stop Time Status Last Admin Dose Admin Norepinephrine Bitartrate 250 ml @ 3.75 mls/hr Q24H IV 08/09/25 16:15 08/12/25 06:35 15 MLS/HR Midazolam HCl 100 ml @ 1 mls/hr Q24H IV 08/09/25 16:15 08/12/25 06:41 6 MLS/HR Acetaminophen 325 mg Q4HP PRN PO 08/09/25 17:15 Morphine Sulfate 2 mg Q4HPRN PRN IV 08/09/25 17:15 Nitroglycerin 0.4 mg Q5MINP PRN SL 08/09/25 17:15 Morphine Sulfate 2 mg Q30M PRN IV 08/09/25 17:15 Fentanyl Citrate 250 ml @ 2.5 mls/hr Q24H IV 08/09/25 17:15 08/12/25 06:39 2.5 MLS/HR Furosemide 40 mg BIDD IV 08/10/25 06:00 08/12/25 05:36 40 MG Vancomycin HCl 0 ml @ 0 mls/hr PER PHARMACY IV 08/09/25 17:15 Cefepime HCl 50 ml @ 12.5 mls/hr Q12HR IV 08/09/25 22:00 08/11/25 21:59 12.5 MLS/HR Diagnostic Test (Pha) 1 strip Q6HR 08/10/25 06:00 08/12/25 05:37 1 STRIP Insulin Human Regular Q6HR SC 08/10/25 06:00 08/12/25 05:57 2 UNITS Dextrose 50 ml UD PRN IV 08/10/25 02:30 Aspirin 81 mg DAILY PO 08/11/25 10:00 08/11/25 10:46 81 MG Heparin Sodium/ Dextrose 250 ml @ 10 mls/hr Q24H IV 08/11/25 06:30 08/11/25 15:01 10 MLS/HR Atorvastatin Calcium 80 mg HS GT 08/11/25 22:00 08/11/25 22:35 80 MG Pantoprazole Sodium 40 mg DAILY IV 08/12/25 10:00 Enteral Nutritional Formula 1,000 ml 25ML/HR GT 08/11/25 19:30 08/11/25 21:54 1,000 ML Potassium Chloride 100 ml @ 50 mls/hr Q2H IV 08/12/25 05:30 08/12/25 09:29 08/12/25 05:37 50 MLS/HR Examination General Intubated, sedated, critically ill. Neurological * RASS 3 * Cough/gag reflex intact * Pupils brisk * No purposeful movements Cardiovascular * AFib, rate [id number] * Pulses palpable in all extremities * 1+ pitting edema * Extremities warm Respiratory * Ventilated * Crackles, rhonchi, wheezes * Adequate chest rise * ET tube secure GI * Soft, nondistended * NG tube in place * No bowel movement * Scherer catheter draining clear urine * UOP acceptable for WILLIAN Skin * Intact; no ulcers Lines/Tubes * ET tube * NG tube * Scherer catheter * Right IJ triple lumen laboratory and microbiology Laboratory Tests 08/12/25 02:35 Test 08/12/25 02:35 Range/Units Serum Glucose 137 H 74-106 mg/dL Microbiology Date/Time Source Procedure Growth Status 08/09/25 23:10 Urine - Scherer Port Urine Culture - Preliminary No growth Resulted 08/09/25 22:59 Nose MRSA Screen - Final Complete 08/09/25 16:40 Blood Blood Culture - Preliminary NO GROWTH AFTER 48 HOURS OF INCUBATION. Resulted 08/09/25 15:40 Sputum Gram Stain - Final Resulted 08/09/25 15:40 Respiratory Culture - Preliminary Escherichia coli Resulted Problem List/Assessment/Plan Problem List/Assessment/Plan IX. [id number] PLAN NEUROLOGY Metabolic Encephalopathy Post-arrest + sepsis + hypoxia. neurological arrest ruled out (CT head negative) Reflexes present * Continue sedation: midazolam and fentanyl * Target RASS 3 * Monitor for hypoxic-ischemic brain injury * Daily sedation awakening trial when hemodynamically stable. * Monitor for post-hypoxic brain injury. * CT head negative for acute abnormalities. CARDIOVASCULAR . Cardiac Arrest with ROSC Due to hypoxic respiratory failure + STEMI-equivalent. * Downtime ~2 minutes; ROSC after 1 Epi, 1 CPR cycle. STEMI Due to multi-vessel CAD (LAD 99%, LM 60%, LCx 90%).High procedural mortality , conservative management per cardiology LBBB, global ischemia, coronary angiography findings Acute on Chronic Diastolic CHF (HFpEF, EF 65%) Volume overload + pulmonary edema on imaging. Severe Pulmonary Hypertension (RVSP 61 mmHg) From chronic HF + hypoxic vasoconstriction. * Continue norepinephrine to maintain MAP >65 * Continue aspirin * Stop heparin drip today * Start Lovenox 40 mg SC daily (prophylaxis) * No therapeutic Lovenox / Eliquis due to anemia & low platelets * No Plavix due to bleeding risk * Trend troponin, EKG PRN * No beta blockers while on pressors * No KEVIN inhibitors due to WILLIAN * Continue atorvastatin * Cardiology following * Avoid aggressive diuresis due to borderline MAP. * Conservative management of multi-vessel CAD per cardiology. * Continuous telemetry for AFib; rate-control withheld due to vasopressor need. Hypertension Chronic comorbidity Dyslipidemia Chronic comorbidity RESPIRATORY MECHANICAL VENTILATION Acute Hypoxic Respiratory Failure * Requiring mechanical ventilation Aspiration Pneumonia, Multifocal CXR findings consistent. * Febrile, pneumonia on CXR, lactate normalized from 6.2 - 1.7 - 1.2 * Mode: Assist-Control Volume * RR 2530, TV 450, FiO2 30%, PEEP 5 * Maintain saturation >94% * Daily SBT after vasopressor weaning * Prevent VAP: HOB elevated, oral care * Suction PRN * Bronchodilators if wheezing persists * Lung-protective strategy if ARDS develops. RENAL WILLIAN Stage 2 due to VMN Improving Likely hemodynamic ischemic ATN. . Hyperphosphatemia Hypokalemia improving replenished Electrolyte derangements. * Monitor UOP hourly * Electrolyte replacement protocol * Avoid nephrotoxins * Consider renal ultrasound if persistent oliguria * WILLIAN improving * Monitor UOP q1h; goal >0.5 mL/kg/hr. * Avoid nephrotoxins. * Continue gentle diuresis only if hemodynamically tolerated. * Correct electrolytes: K >4, Mg >2. INFECTIOUS DISEASE Septic Shock From aspiration pneumonia: initially lactate 6.2 THEN improved to 1.7 - 1.2 .Still requiring vasopressors. Aspiration Pneumonia, Multifocal CXR findings consistent. * Continue Vancomycin + Cefepime for aspiration pneumonia + sepsis. * Repeat blood cultures if febrile, urine culture ordered and are negative. * MRSA negative, initial blood cultures are negative * Respiratory culture/gram stain Few Gram Positive Rods Few Gram Positive Cocci in chains Rare Gram Negative Rods Positive for Stap aures Sensitive to vancomycin and ECOLI sensitive to Cefepime * De-escalate based on culture results. * Lactate normalized; continue sepsis bundle. GI Transaminitis Likely shock liver vs congestive hepatopathy. * NPO except tube feeds * Tube feeds tolerated * KUB ordered today * If non-obstructive start: Senna, Docusate, Miralax * GI prophylaxis: IV pantoprazole. * Continue Scherer for accurate I/O * Monitor for hematuria * Scherer catheter in place for accurate UOP. HEMATOLOGY Normocytic Anemia Chronic Thrombocytopenia no bleeding DC heparin and started on Lovenox SQ 4O and holding on plavix due to high bleeding risk. * Thrombocytopenia continue monitoring * Platelets, monitor daily. * Anemia : transfuse if <7 or hemodynamically unstable. * DVT prophylaxis: Lovenox SQ 4O ENDOCRINE T2DM with Stress Hyperglycemia * Sliding scale insulin q4h * Goal BG [id number] * Resume home diabetic meds after stabilization. PSYCHIATRY * Sedated; no psychiatric meds needed NUTRITION * Tube feeds started; no residuals * Continue to advance as tolerated * Nutritional consult PROPHYLAXIS * DVT: Lovenox SQ 4O * GI: Pantoprazole * Pressure ulcers: q2h turns * Line-associated infection: Daily review of necessity LINES, TUBES, DRIPS * Right IJ triple-lumen (08/09) * ET tube placed 08/09 * NG tube * Scherer * Drips: Norepinephrine, Midazolam, Fentanyl, Heparin PHYSICAL THERAPY * Not appropriate today due to hemodynamic instability. * Reassess daily. SOCIAL WORK * Family updated * Code status changed to DNR today per family request * Continue [id number] discussion X. CRITICAL CARE TIME Critical care time: 83 minutes (exclusive of procedures).High-complexity medical decision-making due to multiorgan failure, vasopressor dependence, mechanical ventilation, post-cardiac arrest care, evolving STEMI, and septic shock. XI. CODE STATUS DNR Discussed with family >20 minutes.Family understands severity of illness and poor prognosis of illness FINAL STATEMENT Case discussed in detail with the attending physician , including the clinical presentation, diagnostic workup, and comprehensive management plan. The patient was present for the discussion and demonstrated understanding of her condition and the proposed plan. Plan discussed with: Other (RADHA DEVRIES RN) My Orders My Orders Orders - BRENDAN LEMOS RESIDENT Procedure Category Date Status Time Atorvastatin (Lipitor) PHA 08/11/25 In Process 22:00 Chest Xray 1 View XY 08/12/25 Resulted 04:00 Pantoprazole PHA 08/12/25 In Process (Protonix) 10:00 Nutritional PHA 08/11/25 In Process Supplements (Glucerna 19:30 Abg W/ Co-Ox RT 08/12/25 Logged 05:13 Dietary Evaluation Review Comments: Nutrition Recommendation: 1) EN Vital High Protein @ 45ml/hr x 24hr (goal). Water flush 50ml Q6H if allowed, adjust PRN. TF at goal volume provides 1080 kcal (100%), 95 gm protein (100%), and 20662 ml free water(including flush). 2) TPN if NPO >7 days 3) Monitor NPO status, lab values, weight trend, and I/O Expected Outcomes/Goals: Intake to meet >75% estimated needs Lab values to improve FU 2-3 days BRENDAN LEMOS RESIDENT Aug 12, 2025 08:02
[2025-08-12] MEDS: PANTOPRAZOLE 40 MG/10 ML VIAL INJ IV SCH (10:22)
[2025-08-12] MEDS ORDERED: MORPHINE SULFATE 4 MG/ML SYR/VIAL IV PRN ×2 (11:15)
[2025-08-12] MEDS: DEXMEDETOMIDINE HCL IN D5W 100 ML IV SCH (13:15)
[2025-08-12 14:07] LABS: Potassium 3.8 mmol/L (3.5-5.1)
[2025-08-12 14:15] LABS: Magnesium 1.9 mg/dL (1.6-2.6)
--- NOTE | 2025-08-12 14:30 | DVHPN2 ---
Progress Note - Dictate Date Seen: Aug 12, 2025 Has the PT tested + for MRSA If YES, has PT been informed?: No Medical Necessity Reason Pt with a Central, PICC or Fol: Yes The following are medically ne: Central Line, Scherer Catheter Subjective Patient was seen and evaluated in follow up in the ICU. Patient is intubated and sedated on ventilator. 30% FiO2. Patient remains on Levophed drip. Family at bedside. HGB 7.5, HCT 21.5, K 3.2, BUN 37, CELLOPHANE PRESS OPERATOR 1.43. Chest x-ray shows increased interstitial prominence. vital signs Vital Sign Date Time Temp Pulse Resp B/P (MAP) Pulse Ox O2 Delivery O2 Flow Rate FiO2 08/12/25 14:00 30 08/12/25 14:00 80 08/12/25 14:00 14 100 Mechanical Ventilator+ 08/12/25 13:33 118/38 (64) 08/12/25 12:01 97.7 97.7 Total Intake and Output 08/11/25 08/11/25 08/12/25 15:00 23:00 07:00 Intake Total 191.75 ml 213.0 ml 509.25 ml Output Total 400 ml 500 ml Balance 191.75 ml -187.0 ml 9.25 ml medications Current Medications Medications Dose Ordered Sig/Justina Route Start Time Stop Time Status Last Admin Dose Admin Norepinephrine Bitartrate 250 ml @ 3.75 mls/hr Q24H IV 08/09/25 16:15 08/12/25 06:35 15 MLS/HR Midazolam HCl 100 ml @ 1 mls/hr Q24H IV 08/09/25 16:15 08/12/25 06:41 6 MLS/HR Acetaminophen 325 mg Q4HP PRN PO 08/09/25 17:15 Nitroglycerin 0.4 mg Q5MINP PRN SL 08/09/25 17:15 Fentanyl Citrate 250 ml @ 2.5 mls/hr Q24H IV 08/09/25 17:15 08/12/25 06:39 2.5 MLS/HR Furosemide 40 mg BIDD IV 08/10/25 06:00 08/12/25 05:36 40 MG Vancomycin HCl 0 ml @ 0 mls/hr PER PHARMACY IV 08/09/25 17:15 Cefepime HCl 50 ml @ 12.5 mls/hr Q12HR IV 08/09/25 22:00 08/12/25 10:21 12.5 MLS/HR Diagnostic Test (Pha) 1 strip Q6HR 08/10/25 06:00 08/12/25 12:04 1 STRIP Insulin Human Regular Q6HR SC 08/10/25 06:00 08/12/25 12:09 3 UNITS Dextrose 50 ml UD PRN IV 08/10/25 02:30 Aspirin 81 mg DAILY PO 08/11/25 10:00 08/12/25 10:22 81 MG Atorvastatin Calcium 80 mg HS GT 08/11/25 22:00 08/11/25 22:35 80 MG Pantoprazole Sodium 40 mg DAILY IV 08/12/25 10:00 08/12/25 10:22 40 MG Enteral Nutritional Formula 1,000 ml 25ML/HR GT 08/11/25 19:30 08/11/25 21:54 1,000 ML Docusate Sodium 100 mg BID PO 08/12/25 22:00 Sennosides 8.6 mg HS PO 08/12/25 22:00 Morphine Sulfate 2 mg Q4HPRN PRN IV 08/12/25 11:15 Morphine Sulfate 2 mg Q30M PRN IV 08/12/25 11:15 objective GENERAL: Ill appearing, intubated on ventilator. EYES: PERRL, EOMI. Anicteric. HENT: Moist mucous membranes. LUNGS: Decreased breath sounds. CARDIOVASCULAR: Regular rate and rhythm. ABDOMEN: Soft, nontender and nondistended. EXTREMITIES: No edema. SKIN: Warm, dry. laboratory and microbiology Laboratory Tests 08/12/25 02:35 Test 08/12/25 02:35 Range/Units Serum Glucose 137 H 74-106 mg/dL Problem List Cardiac arrest with successful ROSC. Metabolic encephalopathy. STEMI (ST elevation myocardial infarction). Assessment/Plan Continued all current supportive medical care. Aspirin. GI prophylactics. IV antibiotics as ordered. Diuretics with Lasix. Morphine for pain management. Vasopressors for hemodynamic support. Additional plan as per the hospital course. Critical care time of 45 minutes provided to include time spent evaluation of patient at bedside, when appropriate patient/family education for diagnosis, treatment plan, review of pertinent medical information and discussion of care with specialty providers and PCP. Mechanical ventilator parameters, treatment and adjustments have personally been reviewed by me and treatment plan by land acquisition analyst has also been reviewed. Dietary Evaluation Review Comments: Nutrition Recommendation: 1) EN Vital High Protein @ 45ml/hr x 24hr (goal). Water flush 50ml Q6H if allowed, adjust PRN. TF at goal volume provides 1080 kcal (100%), 95 gm protein (100%), and 39403 ml free water(including flush). 2) TPN if NPO >7 days 3) Monitor NPO status, lab values, weight trend, and I/O Expected Outcomes/Goals: Intake to meet >75% estimated needs Lab values to improve FU 2-3 days Plan discussed with: Other APTRICIA GROVES MD Aug 12, 2025 14:15
--- NOTE | 2025-08-12 15:07 | DVH ---
Indication: UNKNOWN LAST BOWEL MOVEMENT Technique: XY KUB ABDOMEN SINGLE VIEWXY Comparison: None FINDINGS/IMPRESSION: Moderate to large volume stool within the colon. Nasogastric tube projects towards the gastric pylorus. There is a Scherer catheter which is looped upon itself within the bladder. Cholecystectomy clips. Bibasilar pulmonary airspace opacities and pleural effusions.
[2025-08-12] MEDS: FUROSEMIDE 40 MG/4 ML VIAL IV ONE (17:36)
[2025-08-12] MEDS: VANCOMYCIN 500mg/100mL 100 ML IV ONE (17:36)
[2025-08-12] MEDS: DOCUSATE SOD 100 MG CAP PO SCH (21:11)
[2025-08-12] MEDS: SENNA 8.6 MG TAB PO SCH (21:11)
[2025-08-13] VITALS (109 sets, daily range): BP systolic 88–134; BP diastolic 30–80; PULSE 6–103; RESP 12–23; TEMP 98.1–99.3; O2SAT 90–100
[2025-08-13 03:19] LABS: Mean Corpuscular Volume 95.2 fL (80.0-100.0)
[2025-08-13 03:21] LABS: Hematocrit 20.5 % (36.0-46.0); Mean Corpuscular Hemoglobin 32.4 pg (28.0-32.0)
[2025-08-13 03:36] LABS: Hemoglobin 7.0 g/dL (12.2-16.2)
[2025-08-13 03:42] LABS: Alanine Aminotransferase 29 U/L (7-40); Alkaline Phosphatase 113 U/L (46-116); Anion Gap 11 (5-15); BUN/Creatinine Ratio 24.5 (10.0-20.0); Calcium 9.0 mg/dL (8.7-10.4); Carbon Dioxide 30 mmol/L (20-31); Chloride 101 mmol/L (98-107); Magnesium 2.1 mg/dL (1.6-2.6); Potassium 3.7 mmol/L (3.5-5.1); Sodium 142 mmol/L (136-145)
[2025-08-13 04:08] LABS: Glucose 161 mg/dL (74-106)
[2025-08-13 04:09] LABS: Albumin 3.0 g/dL (3.2-4.8); Bilirubin, Total 1.4 mg/dL (0.2-1.0); Blood Urea Nitrogen 37 mg/dL (9-23); Total Protein 5.5 g/dL (5.7-8.2)
[2025-08-13 05:09] LABS: Total Cells Counted 100.0 (100)
[2025-08-13 05:19] LABS: Iron 46.0 ug/dL (50-170)
[2025-08-13 05:23] LABS: Total Iron Binding Capacity 215.0 ug/dL (250-425)
--- NOTE | 2025-08-13 06:37 | DVH ---
CHEST RADIOGRAPH Indication: Acuye hypoxic respiratory failure/ Pnuemonia vs CHF Technique: Single frontal view of the chest was obtained COMPARISON: XY CHEST XRAY 1 VIEW on DOS: 08/12/25, XY CHEST XRAY 1 VIEW on DOS: 08/11/25, XY CHEST PORTABLE on DOS: 08/10/25, XY CHEST PORTABLE on DOS: 08/09/25, US CHEST ULTRASOUND on DOS: 04/28/25 FINDINGS: Lines and Tubes: Slight interval advancement of the endotracheal tube such that the tip now projects approximately 2.6 cm above the level of the abeba. Remaining lines and tubes unchanged. Lungs: Grossly stable appearing diffuse increased prominence of the pulmonary vasculature and small bilateral pleural effusions. No pneumothorax. Cardiomediastinal contours: Cardiomegaly. Bones: Unremarkable IMPRESSION: 1. Slight interval advancement of the endotracheal tube such that the tip now projects approximately 2.6 cm above the level of the abeba. Remaining lines and tubes unchanged. 2. Cardiomegaly, diffuse increased prominence of the pulmonary vasculature and small bilateral pleural effusions.
[2025-08-13 06:44] LABS: Base Excess 3.3 mmol/L (-2.0-3.0)
--- NOTE | 2025-08-13 08:26 | DVHPNRES ---
Progress Note Date Seen: Aug 13, 2025 Resident Creating Document: KRIS BOWLES RESIDENT Has the PT tested + for MRSA If YES, has PT been informed?: No Medical Necessity Reason Pt with a Central, PICC or Fol: Yes The following are medically ne: Central Line, Scherer Catheter Subjective Review of Systems The patient is an 85-year-old female who presented to the ED with class IV dyspnea, chest pain, and right arm weakness, followed by agonal breathing, rapid desaturation into the 70s on NRB, and progression to cardiac arrest. ROSC achieved after ~2 min downtime, 1 round of CPR, 1 dose epinephrine, and endotracheal intubation. EKG showed new left bundle branch block. atrial fibrillation with global ischemia. Cardiology diagnosed ST-segmentelevation VA equivalent and took patient for emergent LHC, which revealed: * 99% LAD stenosis * 60% left main stenosis * 90% circumflex stenosis * Unable to cross chronic total occlusion due to high procedural mortality and conservative medical management recommended. The patient developed acute hypoxic respiratory failure, aspiration pneumonia, and septic shock requiring vasopressors. She was admitted to ICU on mechanical ventilation, norepinephrine, broad-spectrum antibiotics, heparin drip, and supportive care. PAST MEDICAL HISTORY * Hypertension * Type 2 diabetes mellitus * Dyslipidemia * HFpEF (EF 65%) * Paroxysmal atrial fibrillation on apixaban * Pulmonary hypertension (RVSP 61 mmHg) * Basal cell carcinoma * Atypical left hip sarcoma (surgically treated) * Recent COVID-19 * Chronic thrombocytopenia IV. PAST SURGICAL HISTORY * Hysterectomy * Appendectomy * Cholecystectomy * Basal cell carcinoma excision * Left hip sarcoma excision (2019) V. SOCIAL HISTORY * Lives with * No smoking, alcohol, or illicit substances ROS (Unable to Obtain Due to Intubation & Sedation) 08/10/25 The patient is an 85-year-old female who presented to the ED with class IV dyspnea, chest pain, and right arm weakness, followed by agonal breathing, rapid desaturation into the 70s on NRB, and progression to cardiac arrest. ROSC achieved after ~2 min downtime, 1 round of CPR, 1 dose epinephrine, and endotracheal intubation. EKG showed new left bundle branch block. atrial fibrillation with global ischemia. Cardiology diagnosed ST-segmentelevation VA equivalent and took patient for emergent LHC, which revealed: * 99% LAD stenosis * 60% left main stenosis * 90% circumflex stenosis * Unable to cross chronic total occlusion due to high procedural mortality and conservative medical management recommended. The patient developed acute hypoxic respiratory failure, aspiration pneumonia, and septic shock requiring vasopressors. She was admitted to ICU on mechanical ventilation, norepinephrine, broad-spectrum antibiotics, heparin drip, and supportive care. * Still requiring norepinephrine Temperature: Tmax 100.9 ongoing infection concern. Renal: UOP remains 0.32 mL/kg/hr, creatinine improved to 1.25 (from 1.6). Troponin: 496 ( from 115), consistent with evolving VA. Platelets: 92K (chronic baseline, trending up from 78K yesterday). CXR: Cardiomegaly, pulmonary vascular congestion, multifocal pneumonia, bilateral effusions. Labs: K 3.2 repleted; Phos 5.6; BUN 32; Hgb 8.1; AST/ALT down-trending. Medications: Norepinephrine, midazolam, fentanyl, heparin drip, cefepime, vancomycin. PLAN ADJUSTMENTS TODAY: * Convert enteric-coated aspirin to regular aspirin * Continue heparin drip now * Discontinue heparin in 48 hours, then start Aspirin + Plavix * Held/discontinued Zofran * Held/discontinued Atorvastatin (Lipitor) * Ordered repeat chest X-ray * Continue antibiotics * Continue vasopressor support 08/11/25 * Hemodynamically fluctuating on norepinephrine. * On AC/VC mechanical ventilation; gases show mild metabolic alkalosis. * Oxygenation improved (PO2 88). * No fever overnight. * Chronic thrombocytopenia trending downward but stable. * Hemoglobin down to 7.3; monitor closely, consider transfusion if symptomatic or <7.0. * WILLIAN slightly worsened (Cr 1.37). * CXR unchanged. * Started statin therapy and sedation vacation protocol. * No arrhythmias other than AFib with controlled rate. 08/12/25 Patient remains critically ill but hemodynamically unstable on low-dose norepinephrine. Ventilation stable. Labs show mild anemia worsening (Hgb 7.5), stable chronic thrombocytopenia (80K), slight rise in creatinine. Cultures negative except respiratory culture with E. coli sensitive to cefepime. Heparin drip discontinued; switched to prophylactic Lovenox. Code status updated to DNR. KUB ordered for constipation; tube feeds tolerated. Continuing all supportive care. Heparin drip discontinued today Started Lovenox 40 mg subcutaneous daily (prophylactic) Continue Aspirin. NOT starting Eliquis / therapeutic Lovenox due to: * Hgb drop (8.2 to 7.5) * Platelets 80K * High bleeding risk. NOT starting Plavix due to high bleeding risk Code status changed from FULL CODE to DNR per family. Continue cefepime (E. coli sensitive), discontinue vancomycin if MRSA PCR negative (as already done) K repleted; Mg repleted Continue sedation and vasopressor support Begin bowel regimen if KUB non-obstructive 08/13/25: Patient is seen and examined at bedside, x-ray KUB shows, Moderate to large volume stool within the colon. Bibasilar pulmonary airspace opacities and pleural effusions. We will begin bowel regimen. Ordered lower extremity Doppler to rule out DVT, start Lovenox 30 mg subQ. Objective vital signs Vital Sign Date Time Temp Pulse Resp B/P (MAP) Pulse Ox O2 Delivery O2 Flow Rate FiO2 08/13/25 07:44 83 14 125/34 (64) 98 30 08/13/25 07:30 Mechanical Ventilator+ 08/13/25 07:15 98.6 209.5 Total Intake and Output 08/12/25 08/12/25 08/13/25 15:00 23:00 07:00 Intake Total 276.50 ml 187.50 ml 414.75 ml Output Total 600 ml 200 ml Balance 276.50 ml -412.50 ml 214.75 ml medications Current Medications Medications Dose Ordered Sig/Justina Route Start Time Stop Time Status Last Admin Dose Admin Norepinephrine Bitartrate 250 ml @ 3.75 mls/hr Q24H IV 08/09/25 16:15 08/12/25 06:35 15 MLS/HR Midazolam HCl 100 ml @ 1 mls/hr Q24H IV 08/09/25 16:15 08/12/25 06:41 6 MLS/HR Acetaminophen 325 mg Q4HP PRN PO 08/09/25 17:15 Nitroglycerin 0.4 mg Q5MINP PRN SL 08/09/25 17:15 Fentanyl Citrate 250 ml @ 2.5 mls/hr Q24H IV 08/09/25 17:15 08/12/25 06:39 2.5 MLS/HR Furosemide 40 mg BIDD IV 08/10/25 06:00 08/13/25 05:31 40 MG Vancomycin HCl 0 ml @ 0 mls/hr PER PHARMACY IV 08/09/25 17:15 Cefepime HCl 50 ml @ 12.5 mls/hr Q12HR IV 08/09/25 22:00 08/12/25 21:11 12.5 MLS/HR Diagnostic Test (Pha) 1 strip Q6HR 08/10/25 06:00 08/13/25 05:26 1 STRIP Insulin Human Regular Q6HR SC 08/10/25 06:00 08/13/25 05:28 3 UNITS Dextrose 50 ml UD PRN IV 08/10/25 02:30 Aspirin 81 mg DAILY PO 08/11/25 10:00 08/12/25 10:22 81 MG Atorvastatin Calcium 80 mg HS GT 08/11/25 22:00 08/12/25 21:11 80 MG Pantoprazole Sodium 40 mg DAILY IV 08/12/25 10:00 08/12/25 10:22 40 MG Enteral Nutritional Formula 1,000 ml 25ML/HR GT 08/11/25 19:30 08/11/25 21:54 1,000 ML Docusate Sodium 100 mg BID PO 08/12/25 22:00 08/12/25 21:11 100 MG Sennosides 8.6 mg HS PO 08/12/25 22:00 08/12/25 21:11 8.6 MG Morphine Sulfate 2 mg Q4HPRN PRN IV 08/12/25 11:15 Morphine Sulfate 2 mg Q30M PRN IV 08/12/25 11:15 Examination General Intubated, sedated, critically ill. Neurological * RASS 3 * Cough/gag reflex intact * Pupils brisk * No purposeful movements Cardiovascular * AFib, rate 14014 * Pulses palpable in all extremities * 1+ pitting edema * Extremities warm Respiratory * Ventilated * Crackles, rhonchi, wheezes * Adequate chest rise * ET tube secure GI * Soft, nondistended * NG tube in place * No bowel movement * Scherer catheter draining clear urine * UOP acceptable for WILLIAN Skin * Intact; no ulcers Lines/Tubes * ET tube * NG tube * Scherer catheter * Right IJ triple lumen. laboratory and microbiology Laboratory Tests 08/13/25 02:45 Test 08/13/25 02:45 Range/Units Serum Glucose 161 H 74-106 mg/dL Microbiology Date/Time Source Procedure Growth Status 08/09/25 23:10 Urine - Scherer Port Urine Culture - Final Complete 08/09/25 22:59 Nose MRSA Screen - Final Complete 08/09/25 16:40 Blood Blood Culture - Preliminary NO GROWTH AFTER 72 HOURS OF INCUBATION. Resulted 08/09/25 15:40 Sputum Gram Stain - Final Complete 08/09/25 15:40 Respiratory Culture - Final Escherichia coli Staphylococcus aureus Complete Problem List/Assessment/Plan Problem List/Assessment/Plan NEUROLOGY Metabolic Encephalopathy Post-arrest + sepsis + hypoxia. neurological arrest ruled out (CT head negative) Reflexes present * Continue sedation: midazolam and fentanyl * Target RASS 3 * Monitor for hypoxic-ischemic brain injury * Daily sedation awakening trial when hemodynamically stable. * Monitor for post-hypoxic brain injury. * CT head negative for acute abnormalities. CARDIOVASCULAR . Cardiac Arrest with ROSC Due to hypoxic respiratory failure + STEMI-equivalent. * Downtime ~2 minutes; ROSC after 1 Epi, 1 CPR cycle. STEMI Due to multi-vessel CAD (LAD 99%, LM 60%, LCx 90%).High procedural mortality , conservative management per cardiology LBBB, global ischemia, coronary angiography findings Acute on Chronic Diastolic CHF (HFpEF, EF 65%) Volume overload + pulmonary edema on imaging. Severe Pulmonary Hypertension (RVSP 61 mmHg) From chronic HF + hypoxic vasoconstriction. * Continue norepinephrine to maintain MAP >65 * Continue aspirin * Stop heparin drip today * Start Lovenox 40 mg SC daily (prophylaxis) * No therapeutic Lovenox / Eliquis due to anemia & low platelets * No Plavix due to bleeding risk * Trend troponin, EKG PRN * No beta blockers while on pressors * No KEVIN inhibitors due to WILLIAN * Continue atorvastatin * Cardiology following * Avoid aggressive diuresis due to borderline MAP. * Conservative management of multi-vessel CAD per cardiology. * Continuous telemetry for AFib; rate-control withheld due to vasopressor need. Hypertension Chronic comorbidity Dyslipidemia Chronic comorbidity RESPIRATORY MECHANICAL VENTILATION Acute Hypoxic Respiratory Failure * Requiring mechanical ventilation Aspiration Pneumonia, Multifocal CXR findings consistent. * Febrile, pneumonia on CXR, lactate normalized from 6.2 - 1.7 - 1.2 * Mode: Assist-Control Volume * RR 2530, TV 450, FiO2 30%, PEEP 5 * Maintain saturation >94% * Daily SBT after vasopressor weaning * Prevent VAP: HOB elevated, oral care * Suction PRN * Bronchodilators if wheezing persists * Lung-protective strategy if ARDS develops. RENAL WILLIAN Stage 2 due to VMN Improving Likely hemodynamic ischemic ATN. . Hyperphosphatemia Hypokalemia improving replenished Electrolyte derangements. * Monitor UOP hourly * Electrolyte replacement protocol * Avoid nephrotoxins * Consider renal ultrasound if persistent oliguria * WILLIAN improving * Monitor UOP q1h; goal >0.5 mL/kg/hr. * Avoid nephrotoxins. * Continue gentle diuresis only if hemodynamically tolerated. * Correct electrolytes: K >4, Mg >2. INFECTIOUS DISEASE Septic Shock From aspiration pneumonia: initially lactate 6.2 THEN improved to 1.7 - 1.2 .Still requiring vasopressors. Aspiration Pneumonia, Multifocal CXR findings consistent. * Continue Vancomycin + Cefepime for aspiration pneumonia + sepsis. * Repeat blood cultures if febrile, urine culture ordered and are negative. * MRSA negative, initial blood cultures are negative * Respiratory culture/gram stain Few Gram Positive Rods Few Gram Positive Cocci in chains Rare Gram Negative Rods Positive for Stap aures Sensitive to vancomycin and ECOLI sensitive to Cefepime * De-escalate based on culture results. * Lactate normalized; continue sepsis bundle. GI Transaminitis Likely shock liver vs congestive hepatopathy. * NPO except tube feeds * Tube feeds tolerated * KUB ordered today * If non-obstructive start: Senna, Docusate, Miralax * GI prophylaxis: IV pantoprazole. * Continue Scherer for accurate I/O * Monitor for hematuria * Scherer catheter in place for accurate UOP. HEMATOLOGY Normocytic Anemia Chronic Thrombocytopenia no bleeding DC heparin and started on Lovenox SQ 4O and holding on plavix due to high bleeding risk. * Thrombocytopenia continue monitoring * Platelets, monitor daily. * Anemia : transfuse if <7 or hemodynamically unstable. * DVT prophylaxis: Lovenox SQ 4O ENDOCRINE T2DM with Stress Hyperglycemia * Sliding scale insulin q4h * Goal BG [id number] * Resume home diabetic meds after stabilization. PSYCHIATRY * Sedated; no psychiatric meds needed NUTRITION * Tube feeds started; no residuals * Continue to advance as tolerated * Nutritional consult PROPHYLAXIS * DVT: Lovenox SQ 4O * GI: Pantoprazole * Pressure ulcers: q2h turns * Line-associated infection: Daily review of necessity LINES, TUBES, DRIPS * Right IJ triple-lumen (08/09) * ET tube placed 08/09 * NG tube * Scherer * Drips: Norepinephrine, Midazolam, Fentanyl, Heparin PHYSICAL THERAPY * Not appropriate today due to hemodynamic instability. * Reassess daily. SOCIAL WORK * Family updated * Code status changed to DNR today per family request * Continue [id number] discussion CODE STATUS DNR Critical Care time spent 41 minutes including patient care, chart review and updating family, excluding procedure. Case discussed in detail with the attending physician , Plan discussed with: Other (RN) Dietary Evaluation Review Comments: Nutrition Recommendation: 1) EN Vital High Protein @ 45ml/hr x 24hr (goal). Water flush 50ml Q6H if allowed, adjust PRN. TF at goal volume provides 1080 kcal (100%), 95 gm protein (100%), and 59433 ml free water(including flush). 2) TPN if NPO >7 days 3) Monitor NPO status, lab values, weight trend, and I/O Expected Outcomes/Goals: Intake to meet >75% estimated needs Lab values to improve FU 2-3 days KRIS BOWLES RESIDENT Aug 13, 2025 08:26
[2025-08-13] MEDS ORDERED: ENOXAPARIN SOD 40 MG/0.4 ML SYRINGE SC SCH (10:00)
[2025-08-13] MEDS: DOCUSATE ORAL LIQUID 100 MG/10 ML UD GT SCH (10:00)
--- NOTE | 2025-08-13 14:26 | DVH ---
US BiLat Lower DVT History: swelling Comparison: None Technique: Realtime grayscale, color flow, and Doppler ultrasound images of the deep venous structures with spectral waveform analysis were obtained. Doppler spectral waveform analysis of the bilateral lower extremity veins was performed. Findings: Right Lower Extremity: Right common femoral vein: Normal compressibility and flow. Right femoral vein: Normal compressibility and flow. Right popliteal vein: Normal compressibility and flow. Left Lower Extremity: Left common femoral vein: Normal compressibility and flow. Left femoral vein: Normal compressibility and flow. Left popliteal vein: Normal compressibility and flow. Prominent bilateral inguinal lymph nodes, nonenlarged in short axis with preserved fatty hilum. 3.5 cm left popliteal frank's cyst. IMPRESSION: NO SONOGRAPHIC EVIDENCE FOR DEEP VENOUS THROMBOSIS IN THE BILATERAL LOWER EXTREMITY VEINS.
--- NOTE | 2025-08-13 18:31 | DVHPN2 ---
Progress Note - Dictate Date Seen: Aug 13, 2025 Has the PT tested + for MRSA If YES, has PT been informed?: No Medical Necessity Reason Pt with a Central, PICC or Fol: Yes The following are medically ne: Central Line, Scherer Catheter Subjective Patient was seen and evaluated in follow up in the ICU. Patient is intubated and sedated on ventilator. 30% FiO2. Patient is maintained on Levophed drip. HGB 7, HCT 20.5. KUB shows moderate to large volume stool within the colon, bibasilar pulmonary airspace opacities and pleural effusions. Chest x-ray showed slight interval advancement of the endotracheal tube such that the tip now projects approximately 2.6 cm above the level of the abeba. Remaining lines and tubes unchanged, cardiomegaly, diffuse increased prominence of the pulmonary vasculature and small bilateral pleural effusions. vital signs Vital Sign Date Time Temp Pulse Resp B/P (MAP) Pulse Ox O2 Delivery O2 Flow Rate FiO2 08/13/25 12:08 87 14 132/47 (75) 100 30 08/13/25 07:30 Mechanical Ventilator+ 08/13/25 07:15 98.6 209.5 Total Intake and Output 08/12/25 08/12/25 08/13/25 15:00 23:00 07:00 Intake Total 276.50 ml 187.50 ml 414.75 ml Output Total 600 ml 200 ml Balance 276.50 ml -412.50 ml 214.75 ml medications Current Medications Medications Dose Ordered Sig/Justina Route Start Time Stop Time Status Last Admin Dose Admin Norepinephrine Bitartrate 250 ml @ 3.75 mls/hr Q24H IV 08/09/25 16:15 08/12/25 06:35 15 MLS/HR Midazolam HCl 100 ml @ 1 mls/hr Q24H IV 08/09/25 16:15 08/12/25 06:41 6 MLS/HR Acetaminophen 325 mg Q4HP PRN PO 08/09/25 17:15 Nitroglycerin 0.4 mg Q5MINP PRN SL 08/09/25 17:15 Fentanyl Citrate 250 ml @ 2.5 mls/hr Q24H IV 08/09/25 17:15 08/12/25 06:39 2.5 MLS/HR Furosemide 40 mg BIDD IV 08/10/25 06:00 08/13/25 05:31 40 MG Vancomycin HCl 0 ml @ 0 mls/hr PER PHARMACY IV 08/09/25 17:15 Cefepime HCl 50 ml @ 12.5 mls/hr Q12HR IV 08/09/25 22:00 08/13/25 10:00 12.5 MLS/HR Diagnostic Test (Pha) 1 strip Q6HR 08/10/25 06:00 08/13/25 05:26 1 STRIP Insulin Human Regular Q6HR SC 08/10/25 06:00 08/13/25 05:28 3 UNITS Dextrose 50 ml UD PRN IV 08/10/25 02:30 Aspirin 81 mg DAILY PO 08/11/25 10:00 08/13/25 10:00 81 MG Atorvastatin Calcium 80 mg HS GT 08/11/25 22:00 08/12/25 21:11 80 MG Pantoprazole Sodium 40 mg DAILY IV 08/12/25 10:00 08/13/25 10:00 40 MG Enteral Nutritional Formula 1,000 ml 25ML/HR GT 08/11/25 19:30 08/11/25 21:54 1,000 ML Sennosides 8.6 mg HS PO 08/12/25 22:00 08/12/25 21:11 8.6 MG Morphine Sulfate 2 mg Q4HPRN PRN IV 08/12/25 11:15 Morphine Sulfate 2 mg Q30M PRN IV 08/12/25 11:15 Docusate Sodium 100 mg BID GT 08/13/25 10:00 08/13/25 10:00 100 MG Enoxaparin Sodium 40 mg DAILY SC 08/14/25 10:00 objective GENERAL: Ill appearing, intubated on ventilator. EYES: PERRL, EOMI. Anicteric. HENT: Moist mucous membranes. LUNGS: Decreased breath sounds. CARDIOVASCULAR: Regular rate and rhythm. ABDOMEN: Soft, nontender and nondistended. EXTREMITIES: No edema. SKIN: Warm, dry. laboratory and microbiology Laboratory Tests 08/13/25 02:45 Test 08/13/25 02:45 Range/Units Serum Glucose 161 H 74-106 mg/dL Problem List Cardiac arrest with successful ROSC. Metabolic encephalopathy. STEMI (ST elevation myocardial infarction). Assessment/Plan Continued all current supportive medical care. Aspirin. Diuretics with Lasix. DVT and GI prophylactics. IV antibiotics as ordered. Morphine for pain management. Additional plan as per the hospital course. Critical care time of 45 minutes provided to include time spent evaluation of patient at bedside, when appropriate patient/family education for diagnosis, treatment plan, review of pertinent medical information and discussion of care with specialty providers and PCP. Mechanical ventilator parameters, treatment and adjustments have personally been reviewed by me and treatment plan by watch parts inspector has also been reviewed. Dietary Evaluation Review Comments: Nutrition Recommendation: 1) EN Vital High Protein @ 45ml/hr x 24hr (goal). Water flush 50ml Q6H if allowed, adjust PRN. TF at goal volume provides 1080 kcal (100%), 95 gm protein (100%), and 97721 ml free water(including flush). 2) TPN if NPO >7 days 3) Monitor NPO status, lab values, weight trend, and I/O Expected Outcomes/Goals: Intake to meet >75% estimated needs Lab values to improve FU 2-3 days Plan discussed with: Other PATRICIA GROVES MD Aug 13, 2025 12:34
[2025-08-14] VITALS (110 sets, daily range): BP systolic 93–147; BP diastolic 29–97; PULSE 62–117; RESP 13–37; TEMP 97.9–99.1; O2SAT 76–100
[2025-08-14 03:38] LABS: Hematocrit 19.5 % (36.0-46.0); Mean Corpuscular Hemoglobin 32.9 pg (28.0-32.0); Mean Corpuscular Volume 95.2 fL (80.0-100.0)
[2025-08-14 03:42] LABS: Hemoglobin 6.7 g/dL (12.2-16.2)
[2025-08-14 03:50] LABS: Alanine Aminotransferase 24 U/L (7-40); Anion Gap 11 (5-15); BUN/Creatinine Ratio 24.0 (10.0-20.0); Calcium 9.1 mg/dL (8.7-10.4); Chloride 102 mmol/L (98-107); Sodium 144 mmol/L (136-145)
[2025-08-14 03:51] LABS: Albumin 3.0 g/dL (3.2-4.8); Alkaline Phosphatase 119 U/L (46-116); Bilirubin, Total 1.3 mg/dL (0.2-1.0); Blood Urea Nitrogen 36 mg/dL (9-23); Carbon Dioxide 31 mmol/L (20-31); Glucose 172 mg/dL (74-106); Potassium 3.4 mmol/L (3.5-5.1); Total Protein 5.4 g/dL (5.7-8.2)
[2025-08-14 04:50] LABS: Total Cells Counted 100.0 (100)
[2025-08-14] MEDS: POTASSIUM CHL 20MEQ/100ML 100 ML IV ONE (06:42)
--- NOTE | 2025-08-14 08:09 | DVH ---
CHEST RADIOGRAPH Indication: intubated Technique: Single frontal view of the chest was obtained COMPARISON: XY CHEST XRAY 1 VIEW on DOS: 08/13/25, XY CHEST XRAY 1 VIEW on DOS: 08/12/25, XY CHEST XRAY 1 VIEW on DOS: 08/11/25, XY CHEST PORTABLE on DOS: 08/10/25, XY CHEST PORTABLE on DOS: 08/09/25 FINDINGS: Lines and Tubes: Endotracheal tube, enteric catheter and right central venous catheter in satisfactory position. Lungs: Unchanged pulmonary vascular congestion. Pleura: No effusion. No pneumothorax. Cardiomediastinal contours: Unchanged cardiomegaly. Bones: Unremarkable IMPRESSION: Lines and tubes in satisfactory position. No significant interval change.
[2025-08-14] MEDS ORDERED: ENOXAPARIN SOD 40 MG/0.4 ML SYRINGE SC SCH (10:00)
[2025-08-14] MEDS: ENOXAPARIN SOD 30 MG/0.3 ML SYRINGE SC ONE (10:30)
--- NOTE | 2025-08-14 11:23 | MEDREC ---
[facility] Intervention Section I [facility] Intervention: Deescalate AB based on CS (Please consider de-escalate antibiotic based on suseptibility results. Vancomycin not recommended to treat MSSA infection, also CORONA = 2, even less effective. Recommend: ceftriaxone (for E.coli) + cefazolin (for MSSA)) SILVER SONG [facility] RESIDENT Aug 14, 2025 11:23
[2025-08-14] MEDS: VANCOMYCIN 500mg/100mL 100 ML IV ONE (12:00)
--- NOTE | 2025-08-14 14:22 | DVHPNRES ---
Progress Note Date Seen: Aug 14, 2025 Resident Creating Document: BRENDAN LEMOS RESIDENT Has the PT tested + for MRSA If YES, has PT been informed?: No Medical Necessity Reason Pt with a Central, PICC or Fol: Yes The following are medically ne: Central Line, Scherer Catheter Subjective Review of Systems The patient is an 85-year-old female who presented to the ED with class IV dyspnea, chest pain, and right arm weakness, followed by agonal breathing, rapid desaturation into the 70s on NRB, and progression to cardiac arrest. ROSC achieved after ~2 min downtime, 1 round of CPR, 1 dose epinephrine, and endotracheal intubation. EKG showed new left bundle branch block. atrial fibrillation with global ischemia. Cardiology diagnosed ST-segmentelevation PR equivalent and took patient for emergent LHC, which revealed: * 99% LAD stenosis * 60% left main stenosis * 90% circumflex stenosis * Unable to cross chronic total occlusion due to high procedural mortality and conservative medical management recommended. The patient developed acute hypoxic respiratory failure, aspiration pneumonia, and septic shock requiring vasopressors. She was admitted to ICU on mechanical ventilation, norepinephrine, broad-spectrum antibiotics, heparin drip, and supportive care. PAST MEDICAL HISTORY * Hypertension * Type 2 diabetes mellitus * Dyslipidemia * HFpEF (EF 65%) * Paroxysmal atrial fibrillation on apixaban * Pulmonary hypertension (RVSP 61 mmHg) * Basal cell carcinoma * Atypical left hip sarcoma (surgically treated) * Recent COVID-19 * Chronic thrombocytopenia IV. PAST SURGICAL HISTORY * Hysterectomy * Appendectomy * Cholecystectomy * Basal cell carcinoma excision * Left hip sarcoma excision (2019) V. SOCIAL HISTORY * Lives with * No smoking, alcohol, or illicit substances ROS (Unable to Obtain Due to Intubation & Sedation) 08/10/25 The patient is an 85-year-old female who presented to the ED with class IV dyspnea, chest pain, and right arm weakness, followed by agonal breathing, rapid desaturation into the 70s on NRB, and progression to cardiac arrest. ROSC achieved after ~2 min downtime, 1 round of CPR, 1 dose epinephrine, and endotracheal intubation. EKG showed new left bundle branch block. atrial fibrillation with global ischemia. Cardiology diagnosed ST-segmentelevation PR equivalent and took patient for emergent LHC, which revealed: * 99% LAD stenosis * 60% left main stenosis * 90% circumflex stenosis * Unable to cross chronic total occlusion due to high procedural mortality and conservative medical management recommended. The patient developed acute hypoxic respiratory failure, aspiration pneumonia, and septic shock requiring vasopressors. She was admitted to ICU on mechanical ventilation, norepinephrine, broad-spectrum antibiotics, heparin drip, and supportive care. * Still requiring norepinephrine Temperature: Tmax 100.9 ongoing infection concern. Renal: UOP remains 0.32 mL/kg/hr, creatinine improved to 1.25 (from 1.6). Troponin: 496 ( from 115), consistent with evolving PR. Platelets: 92K (chronic baseline, trending up from 78K yesterday). CXR: Cardiomegaly, pulmonary vascular congestion, multifocal pneumonia, bilateral effusions. Labs: K 3.2 repleted; Phos 5.6; BUN 32; Hgb 8.1; AST/ALT down-trending. Medications: Norepinephrine, midazolam, fentanyl, heparin drip, cefepime, vancomycin. PLAN ADJUSTMENTS TODAY: * Convert enteric-coated aspirin to regular aspirin * Continue heparin drip now * Discontinue heparin in 48 hours, then start Aspirin + Plavix * Held/discontinued Zofran * Held/discontinued Atorvastatin (Lipitor) * Ordered repeat chest X-ray * Continue antibiotics * Continue vasopressor support 08/11/25 * Hemodynamically fluctuating on norepinephrine. * On AC/VC mechanical ventilation; gases show mild metabolic alkalosis. * Oxygenation improved (PO2 88). * No fever overnight. * Chronic thrombocytopenia trending downward but stable. * Hemoglobin down to 7.3; monitor closely, consider transfusion if symptomatic or <7.0. * WILLIAN slightly worsened (Cr 1.37). * CXR unchanged. * Started statin therapy and sedation vacation protocol. * No arrhythmias other than AFib with controlled rate. 08/12/25 Patient remains critically ill but hemodynamically unstable on low-dose norepinephrine. Ventilation stable. Labs show mild anemia worsening (Hgb 7.5), stable chronic thrombocytopenia (80K), slight rise in creatinine. Cultures negative except respiratory culture with E. coli sensitive to cefepime. Heparin drip discontinued; switched to prophylactic Lovenox. Code status updated to DNR. KUB ordered for constipation; tube feeds tolerated. Continuing all supportive care. Heparin drip discontinued today Started Lovenox 40 mg subcutaneous daily (prophylactic) Continue Aspirin. NOT starting Eliquis / therapeutic Lovenox due to: * Hgb drop (8.2 to 7.5) * Platelets 80K * High bleeding risk. NOT starting Plavix due to high bleeding risk Code status changed from FULL CODE to DNR per family. Continue cefepime (E. coli sensitive), discontinue vancomycin if MRSA PCR negative (as already done) K repleted; Mg repleted Continue sedation and vasopressor support Begin bowel regimen if KUB non-obstructive 08/13/25: Patient is seen and examined at bedside, x-ray KUB shows, Moderate to large volume stool within the colon. Bibasilar pulmonary airspace opacities and pleural effusions. We will begin bowel regimen. Ordered lower extremity Doppler to rule out DVT, start Lovenox 30 mg subQ. 08/14/25 Patient is off pressors, tolerating CPAP/TSV SBT, clear lungs, stable oxygenation, and strong respiratory effort. Preparing for extubation today. However, she has worsening anemia (Hgb 6.7) transfusing 1 PRBC. WILLIAN slightly worse. Holding all therapeutic anticoagulation (Eliquis, Lovenox). Continue aspirin. Starting Miralax for constipation. Cultures negative except respiratory culture showing E. coli + Staph aureus continuing cefepime + vancomycin. Objective vital signs Vital Sign Date Time Temp Pulse Resp B/P (MAP) Pulse Ox O2 Delivery O2 Flow Rate FiO2 08/14/25 12:23 15 98 Mechanical Ventilator+ 98 98 08/14/25 12:15 99.1 93 116/53 (74) 210.4 Total Intake and Output 08/13/25 08/13/25 08/14/25 15:00 23:00 07:00 Intake Total 126.25 ml 202.75 ml 567.5 ml Output Total 350 ml 900 ml Balance 126.25 ml -147.25 ml -332.5 ml medications Current Medications Medications Dose Ordered Sig/Justina Route Start Time Stop Time Status Last Admin Dose Admin Norepinephrine Bitartrate 250 ml @ 3.75 mls/hr Q24H IV 08/09/25 16:15 08/13/25 09:30 11.25 MLS/HR Midazolam HCl 100 ml @ 1 mls/hr Q24H IV 08/09/25 16:15 08/12/25 06:41 6 MLS/HR Acetaminophen 325 mg Q4HP PRN PO 08/09/25 17:15 Nitroglycerin 0.4 mg Q5MINP PRN SL 08/09/25 17:15 Fentanyl Citrate 250 ml @ 2.5 mls/hr Q24H IV 08/09/25 17:15 08/12/25 06:39 2.5 MLS/HR Furosemide 40 mg BIDD IV 08/10/25 06:00 08/14/25 06:42 40 MG Vancomycin HCl 0 ml @ 0 mls/hr PER PHARMACY IV 08/09/25 17:15 Cefepime HCl 50 ml @ 12.5 mls/hr Q12HR IV 08/09/25 22:00 08/14/25 11:11 12.5 MLS/HR Diagnostic Test (Pha) 1 strip Q6HR 08/10/25 06:00 08/14/25 12:29 1 STRIP Insulin Human Regular Q6HR SC 08/10/25 06:00 08/14/25 06:43 3 UNITS Dextrose 50 ml UD PRN IV 08/10/25 02:30 Aspirin 81 mg DAILY PO 08/11/25 10:00 08/13/25 10:00 81 MG Atorvastatin Calcium 80 mg HS GT 08/11/25 22:00 08/13/25 23:13 80 MG Pantoprazole Sodium 40 mg DAILY IV 08/12/25 10:00 08/14/25 11:11 40 MG Enteral Nutritional Formula 1,000 ml 25ML/HR GT 08/11/25 19:30 08/11/25 21:54 1,000 ML Sennosides 8.6 mg HS PO 08/12/25 22:00 08/13/25 23:13 8.6 MG Morphine Sulfate 2 mg Q4HPRN PRN IV 08/12/25 11:15 Morphine Sulfate 2 mg Q30M PRN IV 08/12/25 11:15 Docusate Sodium 100 mg BID GT 08/13/25 10:00 08/13/25 23:13 100 MG Enoxaparin Sodium 30 mg DAILY SC 08/15/25 10:00 Examination General Critically ill, intubated, sedated. Neuro Drowsy, inconsistently follows commands.RASS 2 to 3.Cough/[place] [address]. No pressors. Warm extremities.1+ pitting edema. Respiratory On CPAP/TSV SBT.Good respiratory drive. Lungs clear.ET tube in proper position. GI Soft, non-distended. Positive bowel sounds. No bowel movement. Scherer draining clear urine. Skin Intact, no pressure ulcers. Lines Right IJ triple lumen, Scherer, ET tube, NG tube. laboratory and microbiology Laboratory Tests 08/14/25 03:00 Test 08/14/25 03:00 Range/Units Serum Glucose 172 H 74-106 mg/dL Microbiology Date/Time Source Procedure Growth Status 08/09/25 23:10 Urine - Scherer Port Urine Culture - Final Complete 08/09/25 22:59 Nose MRSA Screen - Final Complete 08/09/25 16:40 Blood Blood Culture - Preliminary NO GROWTH AFTER 72 HOURS OF INCUBATION. Resulted 08/09/25 15:40 Sputum Gram Stain - Final Complete 08/09/25 15:40 Respiratory Culture - Final Escherichia coli Staphylococcus aureus Complete Problem List/Assessment/Plan Problem List/Assessment/Plan IX. [id number] PLAN NEUROLOGY Metabolic Encephalopathy Post-arrest + sepsis + hypoxia. neurological arrest ruled out (CT head negative) Reflexes present * Continue Precedex + minimal Versed * Monitor for hypoxic-ischemic brain injury * Daily sedation awakening trial when hemodynamically stable. * Monitor for post-hypoxic brain injury. * CT head negative for acute abnormalities. CARDIOVASCULAR . Cardiac Arrest with ROSC Due to hypoxic respiratory failure + STEMI-equivalent. * Downtime ~2 minutes; ROSC after 1 Epi, 1 CPR cycle. STEMI Due to multi-vessel CAD (LAD 99%, LM 60%, LCx 90%).High procedural mortality , conservative management per cardiology LBBB, global ischemia, coronary angiography findings Acute on Chronic Diastolic CHF (HFpEF, EF 65%) Volume overload + pulmonary edema on imaging. Severe Pulmonary Hypertension (RVSP 61 mmHg) From chronic HF + hypoxic vasoconstriction. * Continue norepinephrine to maintain MAP >65, Off pressors today * Continue aspirin * Stop heparin drip today * Hold Eliquis / Hold Lovenox therapeutic due to anemia (Hgb 6.7) * No therapeutic Lovenox / Eliquis due to anemia & low platelets * No Plavix due to bleeding risk * No beta blockers while on pressors * No KEVIN inhibitors due to WILLIAN * Continue atorvastatin * Cardiology following * Avoid aggressive diuresis due to borderline MAP. * Conservative management of multi-vessel CAD per cardiology. * Continuous telemetry for AFib; rate-control withheld due to vasopressor need. Hypertension Chronic comorbidity Dyslipidemia Chronic comorbidity RESPIRATORY MECHANICAL VENTILATION Acute Hypoxic Respiratory Failure * Requiring mechanical ventilation Aspiration Pneumonia, Multifocal bacterial (E. coli + MSSA) CXR findings consistent. cefepime + vancomycin * Febrile, pneumonia on CXR, lactate normalized from 6.2 - 1.7 - 1.2 * Mode: Assist-Control Volume * RR 2530, TV 450, FiO2 30%, PEEP 5 * Maintain saturation >94% * Prevent VAP: HOB elevated, oral care * Suction PRN * Lung-protective strategy if ARDS develops. * Mechanical Ventilation: CPAP / TSV SBT * Good spontaneous effort * Extubate today if passes SBT * Post-extubation plan: * NC oxygen * Incentive spirometry * Duonebs PRN * Maintain VAP bundle RENAL WILLIAN Stage 2 due to VMN Improving Likely hemodynamic ischemic ATN. . Hyperphosphatemia Hypokalemia improving replenished Electrolyte derangements. * Monitor UOP hourly * Electrolyte replacement protocol * Avoid nephrotoxins * Consider renal ultrasound if persistent oliguria * WILLIAN improving * Monitor UOP q1h; goal >0.5 mL/kg/hr. * Avoid nephrotoxins. * Continue gentle diuresis only if hemodynamically tolerated. * Correct electrolytes: K >4, Mg >2. INFECTIOUS DISEASE Septic Shock From aspiration pneumonia: initially lactate 6.2 THEN improved to 1.7 - 1.2 .Still requiring vasopressors. Aspiration Pneumonia, Multifocal CXR findings consistent. * Continue Vancomycin + Cefepime for aspiration pneumonia + sepsis. * Repeat blood cultures if febrile, urine culture ordered and are negative. * MRSA negative, initial blood cultures are negative * Respiratory culture/gram stain Few Gram Positive Rods Few Gram Positive Cocci in chains Rare Gram Negative Rods Positive for Stap aures Sensitive to vancomycin and ECOLI sensitive to Cefepime * De-escalate based on culture results. * Lactate normalized; continue sepsis bundle. GI Transaminitis Likely shock liver vs congestive hepatopathy. * NPO except tube feeds * Tube feeds tolerated * KUB ordered today * If non-obstructive start: Senna, Docusate, Miralax * GI prophylaxis: IV pantoprazole. * Continue Scherer for accurate I/O * Monitor for hematuria * Scherer catheter in place for accurate UOP. HEMATOLOGY Normocytic Anemia Chronic Thrombocytopenia no bleeding DC heparin and Lovenox and holding on plavix due to high bleeding risk. * Thrombocytopenia continue monitoring * Platelets, monitor daily. * Transfuse 1 PRBC for Hgb 6.7 * Anemia : transfuse if <7 or hemodynamically unstable. * DVT prophylaxis: Lovenox SQ 4O ENDOCRINE T2DM with Stress Hyperglycemia * Sliding scale insulin q4h * Goal BG [id number] * Resume home diabetic meds after stabilization. PSYCHIATRY * Sedated; no psychiatric meds needed NUTRITION * Tube feeds started; no residuals * Continue to advance as tolerated * Nutritional consult PROPHYLAXIS * DVT: SCD * GI: Pantoprazole * Pressure ulcers: q2h turns * Line-associated infection: Daily review of necessity LINES, TUBES, DRIPS * Right IJ triple-lumen (08/09) * ET tube placed 08/09 * NG tube * Scherer * Drips: Norepinephrine, Midazolam, Fentanyl, Heparin PHYSICAL THERAPY * Not appropriate today due to hemodynamic instability. * Reassess daily. SOCIAL WORK * Family updated * Code status changed to DNR today per family request * Continue [id number] discussion X. CRITICAL CARE TIME Critical care time: 83 minutes (exclusive of procedures).High-complexity medical decision-making due to multiorgan failure, vasopressor dependence, mechanical ventilation, post-cardiac arrest care, evolving STEMI, and septic shock. XI. CODE STATUS DNR Discussed with family >20 minutes.Family understands severity of illness and poor prognosis of illness FINAL STATEMENT Case discussed in detail with the attending physician , including the clinical presentation, diagnostic workup, and comprehensive management plan. The patient was present for the discussion and demonstrated understanding of her condition and the proposed plan. Plan discussed with: Other (KELLY Gracia) Dietary Evaluation Review Comments: Nutrition Recommendation: 1) EN Vital High Protein @ 45ml/hr x 24hr (goal). Water flush 50ml Q6H if allowed, adjust PRN. TF at goal volume provides 1080 kcal (100%), 95 gm protein (100%), and 16502 ml free water(including flush). 2) TPN if NPO >7 days 3) Monitor NPO status, lab values, weight trend, and I/O Expected Outcomes/Goals: Intake to meet >75% estimated needs Lab values to improve FU 2-3 days BRENDAN LEMOS RESIDENT Aug 14, 2025 14:22
[2025-08-14] MEDS ORDERED: POLYETHYLENE GLYCOL 17 GM PWDR GT PRN (14:30)
[2025-08-14] MEDS: FUROSEMIDE 40 MG/4 ML VIAL IV ONE (17:18)
[2025-08-14 17:44] LABS: Hematocrit 21.0 % (36.0-46.0)
[2025-08-14 17:48] LABS: Hemoglobin 7.0 g/dL (12.2-16.2)
[2025-08-14 18:09] LABS: Iron 43.0 ug/dL (50-170)
[2025-08-14 18:14] LABS: Total Iron Binding Capacity 236.0 ug/dL (250-425)
--- NOTE | 2025-08-14 20:49 | DVHPN2 ---
Progress Note - Dictate Date Seen: Aug 14, 2025 Has the PT tested + for MRSA If YES, has PT been informed?: No Medical Necessity Reason Pt with a Central, PICC or Fol: Yes The following are medically ne: Central Line, Scherer Catheter Subjective Patient was seen and evaluated in follow up in the ICU. Patient is intubated and sedated on ventilator. 98% FiO2. Patient is maintained on Levophed drip. Patient is undergoing CPAP trial. WBC 3.8, HGB 6.7, HCT 19.5, K 3.4, BUN 36, IMPROVEMENT AUDITOR 1.50. Chest x-ray is unchanged. vital signs Vital Sign Date Time Temp Pulse Resp B/P (MAP) Pulse Ox O2 Delivery O2 Flow Rate FiO2 08/14/25 12:23 15 98 Mechanical Ventilator+ 98 98 08/14/25 12:15 99.1 93 116/53 (74) 210.4 Total Intake and Output 08/13/25 08/13/25 08/14/25 15:00 23:00 07:00 Intake Total 126.25 ml 202.75 ml 567.5 ml Output Total 350 ml 900 ml Balance 126.25 ml -147.25 ml -332.5 ml medications Current Medications Medications Dose Ordered Sig/Justina Route Start Time Stop Time Status Last Admin Dose Admin Norepinephrine Bitartrate 250 ml @ 3.75 mls/hr Q24H IV 08/09/25 16:15 08/13/25 09:30 11.25 MLS/HR Midazolam HCl 100 ml @ 1 mls/hr Q24H IV 08/09/25 16:15 08/12/25 06:41 6 MLS/HR Acetaminophen 325 mg Q4HP PRN PO 08/09/25 17:15 Nitroglycerin 0.4 mg Q5MINP PRN SL 08/09/25 17:15 Fentanyl Citrate 250 ml @ 2.5 mls/hr Q24H IV 08/09/25 17:15 08/12/25 06:39 2.5 MLS/HR Furosemide 40 mg BIDD IV 08/10/25 06:00 08/14/25 06:42 40 MG Vancomycin HCl 0 ml @ 0 mls/hr PER PHARMACY IV 08/09/25 17:15 Cefepime HCl 50 ml @ 12.5 mls/hr Q12HR IV 08/09/25 22:00 08/14/25 11:11 12.5 MLS/HR Diagnostic Test (Pha) 1 strip Q6HR 08/10/25 06:00 08/14/25 12:29 1 STRIP Insulin Human Regular Q6HR SC 08/10/25 06:00 08/14/25 06:43 3 UNITS Dextrose 50 ml UD PRN IV 08/10/25 02:30 Aspirin 81 mg DAILY PO 08/11/25 10:00 08/13/25 10:00 81 MG Atorvastatin Calcium 80 mg HS GT 08/11/25 22:00 08/13/25 23:13 80 MG Pantoprazole Sodium 40 mg DAILY IV 08/12/25 10:00 08/14/25 11:11 40 MG Enteral Nutritional Formula 1,000 ml 25ML/HR GT 08/11/25 19:30 08/11/25 21:54 1,000 ML Sennosides 8.6 mg HS PO 08/12/25 22:00 08/13/25 23:13 8.6 MG Morphine Sulfate 2 mg Q4HPRN PRN IV 08/12/25 11:15 Morphine Sulfate 2 mg Q30M PRN IV 08/12/25 11:15 Docusate Sodium 100 mg BID GT 08/13/25 10:00 08/13/25 23:13 100 MG Enoxaparin Sodium 30 mg DAILY SC 08/15/25 10:00 objective GENERAL: Ill appearing, intubated on ventilator. EYES: PERRL, EOMI. Anicteric. HENT: Moist mucous membranes. LUNGS: Decreased breath sounds. CARDIOVASCULAR: Regular rate and rhythm. ABDOMEN: Soft, nontender and nondistended. EXTREMITIES: No edema. SKIN: Warm, dry. laboratory and microbiology Laboratory Tests 08/14/25 03:00 Test 08/14/25 03:00 Range/Units Serum Glucose 172 H 74-106 mg/dL Problem List Cardiac arrest with successful ROSC. Metabolic encephalopathy. STEMI (ST elevation myocardial infarction). Assessment/Plan Continued all current supportive medical care. Diuretics with Lasix. DVT and GI prophylactics. IV antibiotics as ordered. Morphine for pain management. Additional plan as per the hospital course. Critical care time of 45 minutes provided to include time spent evaluation of patient at bedside, when appropriate patient/family education for diagnosis, treatment plan, review of pertinent medical information and discussion of care with specialty providers and PCP. Mechanical ventilator parameters, treatment and adjustments have personally been reviewed by me and treatment plan by shipwright apprentice has also been reviewed. Dietary Evaluation Review Comments: Nutrition Recommendation: 1) EN Vital High Protein @ 45ml/hr x 24hr (goal). Water flush 50ml Q6H if allowed, adjust PRN. TF at goal volume provides 1080 kcal (100%), 95 gm protein (100%), and 64542 ml free water(including flush). 2) TPN if NPO >7 days 3) Monitor NPO status, lab values, weight trend, and I/O Expected Outcomes/Goals: Intake to meet >75% estimated needs Lab values to improve FU 2-3 days Plan discussed with: Other PATRICIA GROVES MD Aug 14, 2025 13:44
[2025-08-15] VITALS (105 sets, daily range): BP systolic 84–129; BP diastolic 25–92; PULSE 73–111; RESP 17–44; TEMP 97.7–99.3; O2SAT 84–100
[2025-08-15 03:12] LABS: Hematocrit 19.6 % (36.0-46.0); Mean Corpuscular Hemoglobin 31.4 pg (28.0-32.0); Mean Corpuscular Volume 97.3 fL (80.0-100.0)
[2025-08-15 03:14] LABS: Hemoglobin 6.3 g/dL (12.2-16.2)
[2025-08-15 03:30] LABS: Alanine Aminotransferase 27 U/L (7-40); Anion Gap 10 (5-15); BUN/Creatinine Ratio 25.2 (10.0-20.0); Bilirubin, Total 1.2 mg/dL (0.2-1.0); Calcium 9.3 mg/dL (8.7-10.4); Chloride 104 mmol/L (98-107); Magnesium 2.1 mg/dL (1.6-2.6); Total Protein 5.7 g/dL (5.7-8.2)
[2025-08-15 03:31] LABS: Total Cells Counted 100.0 (100)
[2025-08-15 03:32] LABS: Giant Platelets Few
[2025-08-15 03:35] LABS: Albumin 3.1 g/dL (3.2-4.8); Alkaline Phosphatase 121 U/L (46-116); Blood Urea Nitrogen 36 mg/dL (9-23); Carbon Dioxide 31 mmol/L (20-31); Glucose 145 mg/dL (74-106); Potassium 3.5 mmol/L (3.5-5.1); Sodium 145 mmol/L (136-145)
--- NOTE | 2025-08-15 04:31 | DVH ---
CHEST RADIOGRAPH Indication: CHF Technique: Single frontal view of the chest was obtained Comparison: XY CHEST XRAY 1 VIEW on DOS: 08/14/25 FINDINGS: Lines and Tubes: There is a right central venous catheter with its tip terminating in the right atrium. Removal of the endotracheal and enteric tube. Lungs: No focal consolidation. Pleura: Similar bilateral pleural effusions. No pneumothorax. Cardiomediastinal contours: Cardiomegaly. Bones: No acute osseous abnormality. IMPRESSION: 1. Removal of the endotracheal and enteric tube. 2. Similar bilateral pleural effusions. 3. Cardiomegaly.
[2025-08-15] MEDS: IRON SUCROSE COMPLEX 110 ML IV ONE (05:51)
[2025-08-15 07:38] LABS: Base Excess 3.7 mmol/L (-2.0-3.0)
[2025-08-15] MEDS ORDERED: ENOXAPARIN SOD 30 MG/0.3 ML SYRINGE SC SCH (10:00)
[2025-08-15 11:23] LABS: Base Excess 2.8 mmol/L (-2.0-3.0)
[2025-08-15] MEDS ORDERED: IRON SUCROSE COMPLEX 110 ML IV SCH ×2 (12:00)
--- NOTE | 2025-08-15 13:09 | DVH ---
CHEST RADIOGRAPH Indication: pleural effusion Technique: Single frontal view of the chest was obtained COMPARISON: XY CHEST XRAY 1 VIEW on DOS: 08/15/25, XY CHEST XRAY 1 VIEW on DOS: 08/14/25, XY CHEST XRAY 1 VIEW on DOS: 08/13/25, XY CHEST XRAY 1 VIEW on DOS: 08/12/25, XY CHEST XRAY 1 VIEW on DOS: 08/11/25 FINDINGS: Lines and Tubes: Right central venous catheter in satisfactory position. Lungs: Increased interstitial prominence. This may represent pulmonary vascular congestion and/or viral pneumonia. Pleura: Small left pleural effusion. No pneumothorax. Cardiomediastinal contours: Unremarkable Bones: Unremarkable IMPRESSION: Increased interstitial prominence. This may represent pulmonary vascular congestion and/or viral pneumonia. Small left pleural effusion.
[2025-08-15] MEDS: FUROSEMIDE 40 MG/4 ML VIAL IV ONE (13:25)
[2025-08-15] MEDS: VANCOMYCIN 500mg/100mL 100 ML IV ONE (13:27)
[2025-08-15] MEDS: FUROSEMIDE INJECTION 100 MG in SODIUM CHL 0.9% 100 ML IV SCH (14:50)
--- NOTE | 2025-08-15 15:14 | DVHNC2 ---
Procedure - Procedure- Right sided Thoracentesis ultrasound guided Indication- Pleural effusions Procedure in detail Consent was obtained and timeout performed per protocol. The patient was placed in the sitting position and ultrasound SonoSite was used to localize pleural fluid. ChloraPrep was used to clean the operative field and Lidocaine for local analgesia. Thoracentesis catheter was advanced over the needle, attached to the suction bottle and approximately 1.3 liters of fluid was drained from the right pleural space. At the end of the procedure, the catheter was removed and dressing applied. Samples obtained for diagnostic testing. Chest-x ray ordered. No complications RICO KING MD Aug 15, 2025 15:14
--- NOTE | 2025-08-15 15:24 | DVHPNRES ---
Progress Note Date Seen: Aug 15, 2025 Resident Creating Document: BRENDAN LEMOS RESIDENT Has the PT tested + for MRSA If YES, has PT been informed?: No Medical Necessity Reason Pt with a Central, PICC or Fol: Yes The following are medically ne: Central Line, Scherer Catheter Subjective Review of Systems The patient is an 85-year-old female who presented to the ED with class IV dyspnea, chest pain, and right arm weakness, followed by agonal breathing, rapid desaturation into the 70s on NRB, and progression to cardiac arrest. ROSC achieved after ~2 min downtime, 1 round of CPR, 1 dose epinephrine, and endotracheal intubation. EKG showed new left bundle branch block. atrial fibrillation with global ischemia. Cardiology diagnosed ST-segmentelevation ME equivalent and took patient for emergent LHC, which revealed: * 99% LAD stenosis * 60% left main stenosis * 90% circumflex stenosis * Unable to cross chronic total occlusion due to high procedural mortality and conservative medical management recommended. The patient developed acute hypoxic respiratory failure, aspiration pneumonia, and septic shock requiring vasopressors. She was admitted to ICU on mechanical ventilation, norepinephrine, broad-spectrum antibiotics, heparin drip, and supportive care. PAST MEDICAL HISTORY * Hypertension * Type 2 diabetes mellitus * Dyslipidemia * HFpEF (EF 65%) * Paroxysmal atrial fibrillation on apixaban * Pulmonary hypertension (RVSP 61 mmHg) * Basal cell carcinoma * Atypical left hip sarcoma (surgically treated) * Recent COVID-19 * Chronic thrombocytopenia IV. PAST SURGICAL HISTORY * Hysterectomy * Appendectomy * Cholecystectomy * Basal cell carcinoma excision * Left hip sarcoma excision (2019) V. SOCIAL HISTORY * Lives with * No smoking, alcohol, or illicit substances ROS (Unable to Obtain Due to Intubation & Sedation) 08/10/25 The patient is an 85-year-old female who presented to the ED with class IV dyspnea, chest pain, and right arm weakness, followed by agonal breathing, rapid desaturation into the 70s on NRB, and progression to cardiac arrest. ROSC achieved after ~2 min downtime, 1 round of CPR, 1 dose epinephrine, and endotracheal intubation. EKG showed new left bundle branch block. atrial fibrillation with global ischemia. Cardiology diagnosed ST-segmentelevation ME equivalent and took patient for emergent LHC, which revealed: * 99% LAD stenosis * 60% left main stenosis * 90% circumflex stenosis * Unable to cross chronic total occlusion due to high procedural mortality and conservative medical management recommended. The patient developed acute hypoxic respiratory failure, aspiration pneumonia, and septic shock requiring vasopressors. She was admitted to ICU on mechanical ventilation, norepinephrine, broad-spectrum antibiotics, heparin drip, and supportive care. * Still requiring norepinephrine Temperature: Tmax 100.9 ongoing infection concern. Renal: UOP remains 0.32 mL/kg/hr, creatinine improved to 1.25 (from 1.6). Troponin: 496 ( from 115), consistent with evolving ME. Platelets: 92K (chronic baseline, trending up from 78K yesterday). CXR: Cardiomegaly, pulmonary vascular congestion, multifocal pneumonia, bilateral effusions. Labs: K 3.2 repleted; Phos 5.6; BUN 32; Hgb 8.1; AST/ALT down-trending. Medications: Norepinephrine, midazolam, fentanyl, heparin drip, cefepime, vancomycin. PLAN ADJUSTMENTS TODAY: * Convert enteric-coated aspirin to regular aspirin * Continue heparin drip now * Discontinue heparin in 48 hours, then start Aspirin + Plavix * Held/discontinued Zofran * Held/discontinued Atorvastatin (Lipitor) * Ordered repeat chest X-ray * Continue antibiotics * Continue vasopressor support 08/11/25 * Hemodynamically fluctuating on norepinephrine. * On AC/VC mechanical ventilation; gases show mild metabolic alkalosis. * Oxygenation improved (PO2 88). * No fever overnight. * Chronic thrombocytopenia trending downward but stable. * Hemoglobin down to 7.3; monitor closely, consider transfusion if symptomatic or <7.0. * WILLIAN slightly worsened (Cr 1.37). * CXR unchanged. * Started statin therapy and sedation vacation protocol. * No arrhythmias other than AFib with controlled rate. 08/12/25 Patient remains critically ill but hemodynamically unstable on low-dose norepinephrine. Ventilation stable. Labs show mild anemia worsening (Hgb 7.5), stable chronic thrombocytopenia (80K), slight rise in creatinine. Cultures negative except respiratory culture with E. coli sensitive to cefepime. Heparin drip discontinued; switched to prophylactic Lovenox. Code status updated to DNR. KUB ordered for constipation; tube feeds tolerated. Continuing all supportive care. Heparin drip discontinued today Started Lovenox 40 mg subcutaneous daily (prophylactic) Continue Aspirin. NOT starting Eliquis / therapeutic Lovenox due to: * Hgb drop (8.2 to 7.5) * Platelets 80K * High bleeding risk. NOT starting Plavix due to high bleeding risk Code status changed from FULL CODE to DNR per family. Continue cefepime (E. coli sensitive), discontinue vancomycin if MRSA PCR negative (as already done) K repleted; Mg repleted Continue sedation and vasopressor support Begin bowel regimen if KUB non-obstructive 08/13/25: Patient is seen and examined at bedside, x-ray KUB shows, Moderate to large volume stool within the colon. Bibasilar pulmonary airspace opacities and pleural effusions. We will begin bowel regimen. Ordered lower extremity Doppler to rule out DVT, start Lovenox 30 mg subQ. 08/14/25 Patient is off pressors, tolerating CPAP/TSV SBT, clear lungs, stable oxygenation, and strong respiratory effort. Preparing for extubation today. However, she has worsening anemia (Hgb 6.7) transfusing 1 PRBC. WILLIAN slightly worse. Holding all therapeutic anticoagulation (Eliquis, Lovenox). Continue aspirin. Starting Miralax for constipation. Cultures negative except respiratory culture showing E. coli + Staph aureus continuing cefepime + vancomycin. 08/15/25 The patient is an 85-year-old critically ill female with a history of cardiac arrest with ROSC, STEMI-equivalent ME, acute hypoxic respiratory failure, severe pulmonary hypertension, HFpEF, aspiration pneumonia, septic shock (improving), WILLIAN, chronic anemia, and chronic thrombocytopenia. She was successfully extubated yesterday, currently on BiPAP but develops tachypnea (RR 40), tachycardia (110), and desaturation to 88% when weaning off BiPAP. Symptoms improved when placed back on BiPAP (RR to 20, SpO2 to 100).CXR showed persistent bilateral pleural effusions, so a right-sided ultrasound- guided thoracentesis was performed with 1.3 L fluid removed. 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 Antibiotics: discontinue; vancomycin planned to discontinue . Considering de- escalation to ceftriaxone Current drips (fentanyl, versed, precedex, norepinephrine) all discontinued. Aspirin currently on hold due to anemia and thrombocytopenia. * Starting Lasix drip 5 mg/h after IV bolus 40 mg. Objective vital signs Vital Sign Date Time Temp Pulse Resp B/P (MAP) Pulse Ox O2 Delivery O2 Flow Rate FiO2 08/15/25 14:50 96 106/40 98 Facial BiPAP Mask 35 08/15/25 14:25 3 08/15/25 10:00 27 08/15/25 09:15 98.4 209.1 Total Intake and Output 08/14/25 08/14/25 08/15/25 15:00 23:00 07:00 Intake Total 88.615 ml 35.201 ml 98.303 ml Output Total 450 ml 650 ml Balance 88.615 ml -414.799 ml -551.697 ml medications Current Medications Medications Dose Ordered Sig/Justina Route Start Time Stop Time Status Last Admin Dose Admin Norepinephrine Bitartrate 250 ml @ 3.75 mls/hr Q24H IV 08/09/25 16:15 08/13/25 09:30 11.25 MLS/HR Midazolam HCl 100 ml @ 1 mls/hr Q24H IV 08/09/25 16:15 08/12/25 06:41 6 MLS/HR Acetaminophen 325 mg Q4HP PRN PO 08/09/25 17:15 Nitroglycerin 0.4 mg Q5MINP PRN SL 08/09/25 17:15 Fentanyl Citrate 250 ml @ 2.5 mls/hr Q24H IV 08/09/25 17:15 08/12/25 06:39 2.5 MLS/HR Vancomycin HCl 0 ml @ 0 mls/hr PER PHARMACY IV 08/09/25 17:15 Cefepime HCl 50 ml @ 12.5 mls/hr Q12HR IV 08/09/25 22:00 08/15/25 09:55 12.5 MLS/HR Diagnostic Test (Pha) 1 strip Q6HR 08/10/25 06:00 08/15/25 05:52 1 STRIP Insulin Human Regular Q6HR SC 08/10/25 06:00 08/14/25 17:48 3 UNITS Dextrose 50 ml UD PRN IV 08/10/25 02:30 Aspirin 81 mg DAILY PO 08/11/25 10:00 08/13/25 10:00 81 MG Atorvastatin Calcium 80 mg HS GT 08/11/25 22:00 08/13/25 23:13 80 MG Pantoprazole Sodium 40 mg DAILY IV 08/12/25 10:00 08/15/25 09:55 40 MG Enteral Nutritional Formula 1,000 ml 25ML/HR GT 08/11/25 19:30 08/11/25 21:54 1,000 ML Sennosides 8.6 mg HS PO 08/12/25 22:00 08/13/25 23:13 8.6 MG Morphine Sulfate 2 mg Q4HPRN PRN IV 08/12/25 11:15 Morphine Sulfate 2 mg Q30M PRN IV 08/12/25 11:15 Docusate Sodium 100 mg BID GT 08/13/25 10:00 08/13/25 23:13 100 MG Polyethylene Glycol 17 gm DAILYPRN PRN GT 08/14/25 14:30 Iron Sucrose 110 ml @ 110 mls/hr DAILY@1200 IV 08/15/25 12:00 08/19/25 11:59 Cancel Iron Sucrose 110 ml @ 110 mls/hr DAILY@1200 IV 08/15/25 12:00 08/19/25 11:59 Cancel Furosemide 100 mg/ Sodium Chloride 110 ml @ 5.5 mls/hr Q20H IV 08/15/25 12:15 08/15/25 14:50 5.5 MLS/HR Examination General Awake, drowsy, tachypneic off BiPAP, improved when on BiPAP. Neuro Follows simple commands intermittently, no focal deficits. CV AFib, HR 90s, irregularly irregular, warm extremities, 1+ pedal edema. Respiratory Diffuse crackles + wheezing.Improved aeration after thoracentesis. GI Soft, non-distended, bowel sounds present. Scherer draining clear urine. Skin No pressure ulcers. Lines Right IJ triple lumen, Scherer, NG tube. laboratory and microbiology Laboratory Tests 08/15/25 02:51 Test 08/15/25 02:51 Range/Units Serum Glucose 145 H 74-106 mg/dL Microbiology Date/Time Source Procedure Growth Status 08/09/25 23:10 Urine - Scherer Port Urine Culture - Final Complete 08/09/25 22:59 Nose MRSA Screen - Final Complete 08/09/25 16:40 Blood Blood Culture - Final NO GROWTH AFTER 5 DAYS OF INCUBATION. Complete 08/09/25 15:40 Sputum Gram Stain - Final Complete 08/09/25 15:40 Respiratory Culture - Final Escherichia coli Staphylococcus aureus Complete Problem List/Assessment/Plan Problem List/Assessment/Plan IX. [id number] PLAN NEUROLOGY Metabolic Encephalopathy Post-arrest + sepsis + hypoxia. neurological arrest ruled out (CT head negative) Reflexes present * Continue close neurological monitoring * Maintain minimal sedation * Neurochecks q2 * Monitor for hypoxic-ischemic brain injury * Monitor for post-hypoxic brain injury. * CT head negative for acute abnormalities. CARDIOVASCULAR . Cardiac Arrest with ROSC Due to hypoxic respiratory failure + STEMI-equivalent. * Downtime ~2 minutes; ROSC after 1 Epi, 1 CPR cycle. Atrial fibrillation rate controlled STEMI Due to multi-vessel CAD (LAD 99%, LM 60%, LCx 90%).High procedural mortality , conservative management per cardiology LBBB, global ischemia, coronary angiography findings Acute on Chronic Diastolic CHF (HFpEF, EF 65%) Volume overload + pulmonary edema on imaging. Severe Pulmonary Hypertension (RVSP 61 mmHg) From chronic HF + hypoxic vasoconstriction. * Continue norepinephrine to maintain MAP >65, Off pressors * Hemodynamically stable off pressors * Hold aspirin due to Hgb 6.3 + platelets 71K * Hold anticoagulation (Eliquis / Lovenox) * Continue atorvastatin * Strict MAP monitoring * EKG for QT interval * No Plavix due to bleeding risk * No beta blockers while on pressors * No KEVIN inhibitors due to WILLIAN * Cardiology following * Conservative management of multi-vessel CAD per cardiology. * Continuous telemetry for AFib; rate-control withheld due to vasopressor need. Hypertension Chronic comorbidity Dyslipidemia Chronic comorbidity RESPIRATORY MECHANICAL VENTILATION Acute on chronic hypoxic respiratory failure post-extubation, BiPAP dependent Aspiration Pneumonia, Multifocal bacterial (E. coli + MSSA) Bilateral pleural effusions large right, moderate left Thoracentesis improved symptoms. Right drained 1.3 L. CXR findings consistent. * Febrile, pneumonia on CXR, lactate normalized from 6.2 - 1.7 - 1.2 * Continue BiPAP IPAP 12 / EPAP 5 / FiO2 30 * Wean cautiously; avoid high work of breathing * Thoracentesis done monitor for re-expansion edema * Start: * Incentive spirometry * Chest physiotherapy * Daily CXR * Bronchodilators PRN * Maintain saturation >94% * Suction PRN * Post-extubation plan: * NC oxygen * Incentive spirometry * Duonebs PRN * Maintain VAP bundle RENAL WILLIAN Stage 2 due to VMN Improving Likely hemodynamic ischemic ATN. . Hyperphosphatemia Hypokalemia improving replenished Electrolyte derangements. * Monitor UOP hourly * Electrolyte replacement protocol * Avoid nephrotoxins * Consider renal ultrasound if persistent oliguria * WILLIAN improving * Monitor UOP q1h; goal >0.5 mL/kg/hr. * Avoid nephrotoxins. * Continue Lasix IV drip (5 mg/hr) after 40 mg IV loading * Correct electrolytes: K >4, Mg >2. INFECTIOUS DISEASE Septic Shock From aspiration pneumonia: initially lactate 6.2 THEN improved to 1.7 - 1.2 .Still requiring vasopressors. Aspiration Pneumonia, Multifocal CXR findings consistent.. * Repeat blood cultures if febrile, urine culture ordered and are negative. * MRSA negative, initial blood cultures are negative * Respiratory culture/gram stain Few Gram Positive Rods Few Gram Positive Cocci in chains Rare Gram Negative Rods Positive for Stap aures ECOLI, * Discontinue vancomycin (MSSA, no MRSA) * STOP cefepime to reduce nephrotoxicity risk in WILLIAN (acceptable to stop) * Start: * Ceftriaxone 12 g IV daily * De-escalate based on culture results. * Lactate normalized; continue sepsis bundle. GI Transaminitis Likely shock liver vs congestive hepatopathy. * NPO except tube feeds * Tube feeds tolerated * KUB ordered today * If non-obstructive start: Senna, Docusate, Miralax * GI prophylaxis: IV pantoprazole. * Continue Scherer for accurate I/O * Monitor for hematuria * Scherer catheter in place for accurate UOP. HEMATOLOGY Normocytic Anemia Chronic Thrombocytopenia no signs of bleeding now * Hgb 6.3, transfusion deferred due to RBC alloantibodies * If transfusion required transfuse O-positive with premedication * Monitor CBC q12h * Hold aspirin, Eliquis, Lovenox * Thrombocytopenia continue monitoring * Platelets, monitor daily. * Anemia : transfuse if <7 or hemodynamically unstable. * DVT prophylaxis: SCD ENDOCRINE T2DM with Stress Hyperglycemia * Sliding scale insulin q4h * Goal BG [id number] * Resume home diabetic meds after stabilization. PSYCHIATRY * Sedated; no psychiatric meds needed NUTRITION Malnutrition risk low albumin * Tube feeds started; no residuals * Continue to advance as tolerated * Nutritional consult PROPHYLAXIS * DVT: SCD * GI: Pantoprazole * Pressure ulcers: q2h turns * Line-associated infection: Daily review of necessity LINES, TUBES, DRIPS * Right IJ triple-lumen (08/09) * ET tube placed 08/09 * NG tube * Scherer * Drips: Norepinephrine, Midazolam, Fentanyl, Heparin PHYSICAL THERAPY * Not appropriate today due to hemodynamic instability. * Reassess daily. SOCIAL WORK * Family updated * Code status changed to DNR today per family request * Continue [id number] discussion X. CRITICAL CARE TIME Critical care time: 83 minutes (exclusive of procedures).High-complexity medical decision-making due to multiorgan failure, vasopressor dependence, mechanical ventilation, post-cardiac arrest care, evolving STEMI, and septic shock. XI. CODE STATUS DNR Discussed with family >20 minutes.Family understands severity of illness and poor prognosis of illness FINAL STATEMENT Case discussed in detail with the attending physician , including the clinical presentation, diagnostic workup, and comprehensive management plan. The patient was present for the discussion and demonstrated understanding of her condition and the proposed plan. Plan discussed with: Other (Niece, RN) My Orders My Orders Orders - BRENDAN LEMOS RESIDENT Procedure Category Date Status Time Code Status CODE 08/14/25 Transmitted 21:25 Modified Resuscitive CODE 08/14/25 Transmitted Measures Dietary Evaluation Review Comments: Nutrition Recommendation: 1) EN Vital High Protein @ 45ml/hr x 24hr (goal). Water flush 50ml Q6H if allowed, adjust PRN. TF at goal volume provides 1080 kcal (100%), 95 gm protein (100%), and 81550 ml free water(including flush). 2) TPN if NPO >7 days 3) Monitor NPO status, lab values, weight trend, and I/O Expected Outcomes/Goals: Intake to meet >75% estimated needs Lab values to improve FU 2-3 days BRENDAN LEMOS RESIDENT Aug 15, 2025 15:24
[2025-08-15] MEDS ORDERED: ceFAZolin 1GM/50ML 50 ML IV SCH (22:00)
--- NOTE | 2025-08-15 22:57 | DVHPN2 ---
Progress Note - Dictate Date Seen: Aug 15, 2025 Has the PT tested + for MRSA If YES, has PT been informed?: No Medical Necessity Reason Pt with a Central, PICC or Fol: Yes The following are medically ne: Central Line, Scherer Catheter Subjective Patient was seen and evaluated in follow up in the ICU. Patient was successfully extubated yesterday, currently on BiPAP. Patient develops tachypnea and desaturation to 88% when weaning off BiPAP. Chest x-ray showed persistent bilateral pleural effusions. Patient underwent right-sided ultrasound-guided thoracentesis with 1.3 L fluid removed. HGB 6.3, HCT 19.6, BUN 36, Public Speaking Coach 1.42. vital signs Vital Sign Date Time Temp Pulse Resp B/P (MAP) Pulse Ox O2 Delivery O2 Flow Rate FiO2 08/15/25 21:39 100 123/51 98 Facial BiPAP Mask 35 08/15/25 21:15 35 08/15/25 20:00 6 08/15/25 20:00 98.6 98.6 Total Intake and Output 08/14/25 08/14/25 08/15/25 15:00 23:00 07:00 Intake Total 88.615 ml 35.201 ml 102.053 ml Output Total 450 ml 650 ml Balance 88.615 ml -414.799 ml -547.947 ml medications Current Medications Medications Dose Ordered Sig/Justnia Route Start Time Stop Time Status Last Admin Dose Admin Norepinephrine Bitartrate 250 ml @ 3.75 mls/hr Q24H IV 08/09/25 16:15 08/15/25 15:45 3.75 MLS/HR Midazolam HCl 100 ml @ 1 mls/hr Q24H IV 08/09/25 16:15 08/12/25 06:41 6 MLS/HR Acetaminophen 325 mg Q4HP PRN PO 08/09/25 17:15 Nitroglycerin 0.4 mg Q5MINP PRN SL 08/09/25 17:15 Fentanyl Citrate 250 ml @ 2.5 mls/hr Q24H IV 08/09/25 17:15 08/12/25 06:39 2.5 MLS/HR Diagnostic Test (Pha) 1 strip Q6HR 08/10/25 06:00 08/15/25 18:11 1 STRIP Insulin Human Regular Q6HR SC 08/10/25 06:00 08/15/25 18:11 3 UNITS Dextrose 50 ml UD PRN IV 08/10/25 02:30 Atorvastatin Calcium 80 mg HS GT 08/11/25 22:00 08/13/25 23:13 80 MG Pantoprazole Sodium 40 mg DAILY IV 08/12/25 10:00 08/15/25 09:55 40 MG Enteral Nutritional Formula 1,000 ml 25ML/HR GT 08/11/25 19:30 08/11/25 21:54 1,000 ML Sennosides 8.6 mg HS PO 08/12/25 22:00 08/13/25 23:13 8.6 MG Morphine Sulfate 2 mg Q4HPRN PRN IV 08/12/25 11:15 Morphine Sulfate 2 mg Q30M PRN IV 08/12/25 11:15 Docusate Sodium 100 mg BID GT 08/13/25 10:00 08/13/25 23:13 100 MG Polyethylene Glycol 17 gm DAILYPRN PRN GT 08/14/25 14:30 Iron Sucrose 110 ml @ 110 mls/hr DAILY@1200 IV 08/15/25 12:00 08/19/25 11:59 Cancel Iron Sucrose 110 ml @ 110 mls/hr DAILY@1200 IV 08/15/25 12:00 08/19/25 11:59 Cancel Furosemide 100 mg/ Sodium Chloride 110 ml @ 5.5 mls/hr Q20H IV 08/15/25 12:15 08/15/25 14:50 5.5 MLS/HR Ceftriaxone Sodium 50 ml @ 100 mls/hr DAILY@09 IV 08/16/25 09:00 Albuterol 2.5 mg Q6HWA [facility] 08/16/25 06:00 Ipratropium [place] 0.5 mg Q6HWA [facility] 08/16/25 06:00 objective GENERAL: Alert and oriented x 3. Ill appearing. EYES: PERRL, EOMI. Anicteric. HENT: Moist mucous membranes. LUNGS: Decreased breath sounds. CARDIOVASCULAR: Regular rate and rhythm. ABDOMEN: Soft, nontender and nondistended. EXTREMITIES: No edema. SKIN: Warm, dry. laboratory and microbiology Laboratory Tests 08/15/25 02:51 Test 08/15/25 02:51 Range/Units Serum Glucose 145 H 74-106 mg/dL Problem List Cardiac arrest with successful ROSC. Metabolic encephalopathy. STEMI (ST elevation myocardial infarction). Assessment/Plan Continued all current supportive medical care. Lipitor. IV antibiotics as ordered. Diuretics with Lasix. Morphine for pain management. Vasopressors for hemodynamic support. GI prophylactics. Additional plan as per the hospital course. Critical care time of 45 minutes provided to include time spent evaluation of patient at bedside, when appropriate patient/family education for diagnosis, treatment plan, review of pertinent medical information and discussion of care with specialty providers and PCP. Dietary Evaluation Review Comments: Nutrition Recommendation: 1) EN Vital High Protein @ 45ml/hr x 24hr (goal). Water flush 50ml Q6H if allowed, adjust PRN. TF at goal volume provides 1080 kcal (100%), 95 gm protein (100%), and 42749 ml free water(including flush). 2) TPN if NPO >7 days 3) Monitor NPO status, lab values, weight trend, and I/O Expected Outcomes/Goals: Intake to meet >75% estimated needs Lab values to improve FU 2-3 days Plan discussed with: Patient PATRICIA GROVES MD Aug 15, 2025 22:57
[2025-08-16] VITALS (76 sets, daily range): BP systolic 93–121; BP diastolic 30–61; PULSE 79–125; RESP 15–35; TEMP 97.7–98.3; O2SAT 85–100
[2025-08-16 03:44] LABS: Hematocrit 21.6 % (36.0-46.0); Hemoglobin 7.2 g/dL (12.2-16.2); Mean Corpuscular Hemoglobin 32.3 pg (28.0-32.0); Mean Corpuscular Volume 97.2 fL (80.0-100.0)
[2025-08-16 04:09] LABS: Alanine Aminotransferase 30 U/L (7-40); Anion Gap 15 (5-15); BUN/Creatinine Ratio 25.9 (10.0-20.0); Calcium 9.5 mg/dL (8.7-10.4); Carbon Dioxide 29 mmol/L (20-31); Chloride 104 mmol/L (98-107); Magnesium 2.1 mg/dL (1.6-2.6); Total Protein 6.0 g/dL (5.7-8.2)
[2025-08-16 04:10] LABS: Bilirubin, Total 1.0 mg/dL (0.2-1.0)
[2025-08-16 04:12] LABS: Albumin 3.1 g/dL (3.2-4.8); Alkaline Phosphatase 117 U/L (46-116); Blood Urea Nitrogen 41 mg/dL (9-23); Glucose 142 mg/dL (74-106); Potassium 3.3 mmol/L (3.5-5.1); Sodium 148 mmol/L (136-145)
--- NOTE | 2025-08-16 05:07 | DVH ---
CHEST RADIOGRAPH Indication: Acute hypoxic respiratory failure Technique: Single frontal view of the chest was obtained COMPARISON: XY CHEST PORTABLE on DOS: 08/15/25, XY CHEST XRAY 1 VIEW on DOS: 08/15/25, XY CHEST XRAY 1 VIEW on DOS: 08/14/25, XY CHEST XRAY 1 VIEW on DOS: 08/13/25, XY CHEST XRAY 1 VIEW on DOS: 08/12/25 FINDINGS: Lines and Tubes: Right central venous catheter in satisfactory position. Lungs: Unchanged pulmonary vascular congestion. Pleura: Unchanged small left pleural effusion. No pneumothorax. Cardiomediastinal contours: Cardiomegaly. Bones: Unremarkable IMPRESSION: Unchanged pulmonary vascular congestion and small left pleural effusion.
[2025-08-16 05:25] LABS: Total Cells Counted 100.0 (100)
[2025-08-16] MEDS: POTASSIUM CHL 20MEQ/100ML 100 ML IV ONE (05:47)
[2025-08-16] MEDS: ALBUTEROL SULF 2.5 MG/0.5ML(0.5%) NEB SOLN NEB SCH (06:14)
[2025-08-16] MEDS: IPRATROPIUM BROM 0.5 MG/2.5ML INH SOL NEB SCH (06:14)
[2025-08-16 07:48] LABS: Base Excess 2.4 mmol/L (-2.0-3.0)
--- NOTE | 2025-08-16 13:28 | DVHPNRES ---
Progress Note Date Seen: Aug 16, 2025 Resident Creating Document: BRENDAN LEMOS RESIDENT Has the PT tested + for MRSA If YES, has PT been informed?: No Medical Necessity Reason Pt with a Central, PICC or Fol: Yes The following are medically ne: Central Line, Scherer Catheter Subjective Review of Systems The patient is an 85-year-old female who presented to the ED with class IV dyspnea, chest pain, and right arm weakness, followed by agonal breathing, rapid desaturation into the 70s on NRB, and progression to cardiac arrest. ROSC achieved after ~2 min downtime, 1 round of CPR, 1 dose epinephrine, and endotracheal intubation. EKG showed new left bundle branch block. atrial fibrillation with global ischemia. Cardiology diagnosed ST-segmentelevation DE equivalent and took patient for emergent LHC, which revealed: * 99% LAD stenosis * 60% left main stenosis * 90% circumflex stenosis * Unable to cross chronic total occlusion due to high procedural mortality and conservative medical management recommended. The patient developed acute hypoxic respiratory failure, aspiration pneumonia, and septic shock requiring vasopressors. She was admitted to ICU on mechanical ventilation, norepinephrine, broad-spectrum antibiotics, heparin drip, and supportive care. PAST MEDICAL HISTORY * Hypertension * Type 2 diabetes mellitus * Dyslipidemia * HFpEF (EF 65%) * Paroxysmal atrial fibrillation on apixaban * Pulmonary hypertension (RVSP 61 mmHg) * Basal cell carcinoma * Atypical left hip sarcoma (surgically treated) * Recent COVID-19 * Chronic thrombocytopenia IV. PAST SURGICAL HISTORY * Hysterectomy * Appendectomy * Cholecystectomy * Basal cell carcinoma excision * Left hip sarcoma excision (2019) V. SOCIAL HISTORY * Lives with * No smoking, alcohol, or illicit substances ROS (Unable to Obtain Due to Intubation & Sedation) 08/10/25 The patient is an 85-year-old female who presented to the ED with class IV dyspnea, chest pain, and right arm weakness, followed by agonal breathing, rapid desaturation into the 70s on NRB, and progression to cardiac arrest. ROSC achieved after ~2 min downtime, 1 round of CPR, 1 dose epinephrine, and endotracheal intubation. EKG showed new left bundle branch block. atrial fibrillation with global ischemia. Cardiology diagnosed ST-segmentelevation DE equivalent and took patient for emergent LHC, which revealed: * 99% LAD stenosis * 60% left main stenosis * 90% circumflex stenosis * Unable to cross chronic total occlusion due to high procedural mortality and conservative medical management recommended. The patient developed acute hypoxic respiratory failure, aspiration pneumonia, and septic shock requiring vasopressors. She was admitted to ICU on mechanical ventilation, norepinephrine, broad-spectrum antibiotics, heparin drip, and supportive care. * Still requiring norepinephrine Temperature: Tmax 100.9 ongoing infection concern. Renal: UOP remains 0.32 mL/kg/hr, creatinine improved to 1.25 (from 1.6). Troponin: 496 ( from 115), consistent with evolving DE. Platelets: 92K (chronic baseline, trending up from 78K yesterday). CXR: Cardiomegaly, pulmonary vascular congestion, multifocal pneumonia, bilateral effusions. Labs: K 3.2 repleted; Phos 5.6; BUN 32; Hgb 8.1; AST/ALT down-trending. Medications: Norepinephrine, midazolam, fentanyl, heparin drip, cefepime, vancomycin. PLAN ADJUSTMENTS TODAY: * Convert enteric-coated aspirin to regular aspirin * Continue heparin drip now * Discontinue heparin in 48 hours, then start Aspirin + Plavix * Held/discontinued Zofran * Held/discontinued Atorvastatin (Lipitor) * Ordered repeat chest X-ray * Continue antibiotics * Continue vasopressor support 08/11/25 * Hemodynamically fluctuating on norepinephrine. * On AC/VC mechanical ventilation; gases show mild metabolic alkalosis. * Oxygenation improved (PO2 88). * No fever overnight. * Chronic thrombocytopenia trending downward but stable. * Hemoglobin down to 7.3; monitor closely, consider transfusion if symptomatic or <7.0. * WILLIAN slightly worsened (Cr 1.37). * CXR unchanged. * Started statin therapy and sedation vacation protocol. * No arrhythmias other than AFib with controlled rate. 08/12/25 Patient remains critically ill but hemodynamically unstable on low-dose norepinephrine. Ventilation stable. Labs show mild anemia worsening (Hgb 7.5), stable chronic thrombocytopenia (80K), slight rise in creatinine. Cultures negative except respiratory culture with E. coli sensitive to cefepime. Heparin drip discontinued; switched to prophylactic Lovenox. Code status updated to DNR. KUB ordered for constipation; tube feeds tolerated. Continuing all supportive care. Heparin drip discontinued today Started Lovenox 40 mg subcutaneous daily (prophylactic) Continue Aspirin. NOT starting Eliquis / therapeutic Lovenox due to: * Hgb drop (8.2 to 7.5) * Platelets 80K * High bleeding risk. NOT starting Plavix due to high bleeding risk Code status changed from FULL CODE to DNR per family. Continue cefepime (E. coli sensitive), discontinue vancomycin if MRSA PCR negative (as already done) K repleted; Mg repleted Continue sedation and vasopressor support Begin bowel regimen if KUB non-obstructive 08/13/25: Patient is seen and examined at bedside, x-ray KUB shows, Moderate to large volume stool within the colon. Bibasilar pulmonary airspace opacities and pleural effusions. We will begin bowel regimen. Ordered lower extremity Doppler to rule out DVT, start Lovenox 30 mg subQ. 08/14/25 Patient is off pressors, tolerating CPAP/TSV SBT, clear lungs, stable oxygenation, and strong respiratory effort. Preparing for extubation today. However, she has worsening anemia (Hgb 6.7) transfusing 1 PRBC. WILLIAN slightly worse. Holding all therapeutic anticoagulation (Eliquis, Lovenox). Continue aspirin. Starting Miralax for constipation. Cultures negative except respiratory culture showing E. coli + Staph aureus continuing cefepime + vancomycin. 08/15/25 The patient is an 85-year-old critically ill female with a history of cardiac arrest with ROSC, STEMI-equivalent DE, acute hypoxic respiratory failure, severe pulmonary hypertension, HFpEF, aspiration pneumonia, septic shock (improving), WILLIAN, chronic anemia, and chronic thrombocytopenia. She was successfully extubated yesterday, currently on BiPAP but develops tachypnea (RR 40), tachycardia (110), and desaturation to 88% when weaning off BiPAP. Symptoms improved when placed back on BiPAP (RR to 20, SpO2 to 100).CXR showed persistent bilateral pleural effusions, so a right-sided ultrasound- guided thoracentesis was performed with 1.3 L fluid removed. 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 Antibiotics: discontinue; vancomycin planned to discontinue . Considering de- escalation to ceftriaxone Current drips (fentanyl, versed, precedex, norepinephrine) all discontinued. Aspirin currently on hold due to anemia and thrombocytopenia. * Starting Lasix drip 5 mg/h after IV bolus 40 mg. 08/16/25 Today she is off BiPAP and maintaining adequate oxygenation on 4 L nasal cannula, with saturations 36727%. No increased work of breathing noted. Hemodynamically soft but stable. Chest x-ray unchanged with small left pleural effusion and vascular congestion. \Awake, interactive, sitting upright. Stool output absent today; bowel sounds active. She is tolerating mechanical soft diet. Lasix drip discontinued; transitioned to Lasix 40 mg IV BID.?On Ceftriaxone monotherapy, tolerating well. downgrade to telemetry given respiratory stability. * CXR stable. * Hemoglobin improving (7.2) without transfusion. * Platelets up to 108K. Objective vital signs Vital Sign Date Time Temp Pulse Resp B/P (MAP) Pulse Ox O2 Delivery O2 Flow Rate FiO2 08/16/25 11:27 98 24 98 08/16/25 11:21 Nasal Cannula 5.0 08/16/25 11:21 40 08/16/25 07:42 105/49 08/16/25 04:00 97.7 97.7 Total Intake and Output 08/15/25 08/15/25 08/16/25 15:00 23:00 07:00 Intake Total 85.50 ml 44.0 ml 33.0 ml Output Total 500 ml 700 ml Balance 85.50 ml -456.0 ml -667.0 ml medications Current Medications Medications Dose Ordered Sig/Justina Route Start Time Stop Time Status Last Admin Dose Admin Norepinephrine Bitartrate 250 ml @ 3.75 mls/hr Q24H IV 08/09/25 16:15 08/15/25 15:45 3.75 MLS/HR Midazolam HCl 100 ml @ 1 mls/hr Q24H IV 08/09/25 16:15 08/12/25 06:41 6 MLS/HR Acetaminophen 325 mg Q4HP PRN PO 08/09/25 17:15 Nitroglycerin 0.4 mg Q5MINP PRN SL 08/09/25 17:15 Fentanyl Citrate 250 ml @ 2.5 mls/hr Q24H IV 08/09/25 17:15 08/12/25 06:39 2.5 MLS/HR Diagnostic Test (Pha) 1 strip Q6HR 08/10/25 06:00 08/16/25 11:46 1 STRIP Insulin Human Regular Q6HR SC 08/10/25 06:00 08/16/25 11:47 2 UNITS Dextrose 50 ml UD PRN IV 08/10/25 02:30 Atorvastatin Calcium 80 mg HS GT 08/11/25 22:00 08/13/25 23:13 80 MG Pantoprazole Sodium 40 mg DAILY IV 08/12/25 10:00 08/16/25 10:25 40 MG Enteral Nutritional Formula 1,000 ml 25ML/HR GT 08/11/25 19:30 08/11/25 21:54 1,000 ML Sennosides 8.6 mg HS PO 08/12/25 22:00 08/13/25 23:13 8.6 MG Morphine Sulfate 2 mg Q4HPRN PRN IV 08/12/25 11:15 Morphine Sulfate 2 mg Q30M PRN IV 08/12/25 11:15 Docusate Sodium 100 mg BID GT 08/13/25 10:00 08/16/25 10:24 100 MG Polyethylene Glycol 17 gm DAILYPRN PRN GT 08/14/25 14:30 Iron Sucrose 110 ml @ 110 mls/hr DAILY@1200 IV 08/15/25 12:00 08/19/25 11:59 Cancel Iron Sucrose 110 ml @ 110 mls/hr DAILY@1200 IV 08/15/25 12:00 08/19/25 11:59 Cancel Ceftriaxone Sodium 50 ml @ 100 mls/hr DAILY@09 IV 08/16/25 09:00 08/16/25 10:24 100 MLS/HR Albuterol 2.5 mg Q6HWA [facility] 08/16/25 06:00 08/16/25 11:21 2.5 MG Ipratropium [place] 0.5 mg Q6HWA [facility] 08/16/25 06:00 08/16/25 11:21 0.5 MG Furosemide 40 mg BIDD IV 08/16/25 18:00 Enteral Nutritional Formula 28.8 gm BIDWM PO 08/16/25 18:00 Examination General Awake, alert, no acute distress. Neuro Follows commands, no focal deficits. CV AFib, irregularly irregular, rate 8095. Soft BP, warm extremities. Respiratory Clear anteriorly with mild bibasilar crackles. No wheezing. No respiratory distress. GI Soft, nondistended, bowel sounds active. No tenderness. Scherer catheter in place; good urine output. Extremities 1+ bilateral edema. Warm, pulses palpable. Skin No pressure sores. Lines/Tubes Right IJ central line, Scherer catheter, NG/OG removed post-extubation. laboratory and microbiology Laboratory Tests 08/16/25 02:40 Test 08/16/25 02:40 Range/Units Serum Glucose 142 H 74-106 mg/dL Microbiology Date/Time Source Procedure Growth Status 08/09/25 23:10 Urine - Scherer Port Urine Culture - Final Complete 08/09/25 22:59 Nose MRSA Screen - Final Complete 08/09/25 16:40 Blood Blood Culture - Final NO GROWTH AFTER 5 DAYS OF INCUBATION. Complete 08/09/25 15:40 Sputum Gram Stain - Final Complete 08/09/25 15:40 Respiratory Culture - Final Escherichia coli Staphylococcus aureus Complete Problem List/Assessment/Plan Problem List/Assessment/Plan IX. [id number] PLAN NEUROLOGY Metabolic Encephalopathy Post-arrest + sepsis + hypoxia. neurological arrest ruled out (CT head negative) Reflexes present * Awake, alert * No sedation required * Neurochecks Q4H * CT head negative for acute abnormalities. CARDIOVASCULAR . Cardiac Arrest with ROSC Due to hypoxic respiratory failure + STEMI-equivalent. * Downtime ~2 minutes; ROSC after 1 Epi, 1 CPR cycle. Atrial fibrillation rate controlled STEMI Due to multi-vessel CAD (LAD 99%, LM 60%, LCx 90%).High procedural mortality , conservative management per cardiology LBBB, global ischemia, coronary angiography findings Acute on Chronic Diastolic CHF (HFpEF, EF 65%) Volume overload + pulmonary edema on imaging. Severe Pulmonary Hypertension (RVSP 61 mmHg) From chronic HF + hypoxic vasoconstriction. * Continue norepinephrine to maintain MAP >65, Off pressors * Hemodynamically stable off pressors * Hold aspirin due to Hgb 6.3 + platelets 71K * Hold anticoagulation (Eliquis / Lovenox) * Continue atorvastatin * Strict MAP monitoring * EKG for QT interval * No Plavix due to bleeding risk * No KEVIN inhibitors due to WILLIAN * Cardiology following * Conservative management of multi-vessel CAD per cardiology. * Continuous telemetry for AFib; starting metoprolol tartarate 25 mg BID Hypertension Chronic comorbidity Dyslipidemia Chronic comorbidity Continue Atorvasatin RESPIRATORY MECHANICAL VENTILATION Acute on chronic hypoxic respiratory failure post-extubation, improving Aspiration Pneumonia, Multifocal bacterial (E. coli + MSSA) improving Bilateral pleural effusions large right, moderate left Thoracentesis improved symptoms. Right drained 1.3 L. * Febrile, pneumonia on CXR, lactate normalized from 6.2 - 1.7 - 1.2 improving * On 4 L nasal cannula * Wean as tolerated * Thoracentesis done monitor for re-expansion edema * Start: * Incentive spirometry * Chest physiotherapy * Daily CXR * Bronchodilators PRN * Maintain saturation >94% * Suction PRN RENAL WILLIAN Stage 2 due to VMN Improving Likely hemodynamic ischemic ATN. . Hyperphosphatemia Hypokalemia improving replenished Electrolyte derangements. Hypernatremia * Monitor UOP hourly * Electrolyte replacement protocol * 250 mL PO free water Q3H * Continue Lasix 40 mg IV BID * Avoid nephrotoxins * Consider renal ultrasound if persistent oliguria * Monitor UOP q1h; goal >0.5 mL/kg/hr. * Correct electrolytes: K >4, Mg >2. INFECTIOUS DISEASE Septic Shock From aspiration pneumonia: initially lactate 6.2 THEN improved to 1.7 - 1.2 .Still requiring vasopressors. Aspiration Pneumonia, Multifocal CXR findings consistent.. * Repeat blood cultures if febrile, urine culture ordered and are negative. * MRSA negative, initial blood cultures are negative * Respiratory culture/gram stain Few Gram Positive Rods Few Gram Positive Cocci in chains Rare Gram Negative Rods Positive for Stap aures ECOLI, * Discontinue vancomycin (MSSA, no MRSA) * STOP cefepime to reduce nephrotoxicity risk in WILLIAN (acceptable to stop) * Start: * Ceftriaxone 12 g IV daily * De-escalate based on culture results. * Lactate normalized; continue sepsis bundle. GI Transaminitis Likely shock liver vs congestive hepatopathy. * Start mechanical soft diet * Continue bowel regimen: * Senna * Docusate * Miralax * If no BM by tomorrow add bisacodyl PRN * GI prophylaxis: IV pantoprazole. * Continue Scherer for accurate I/O * Monitor for hematuria * Scherer catheter in place for accurate UOP. 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 * Anemia : transfuse if <7 or hemodynamically unstable. * DVT prophylaxis: SCD ENDOCRINE T2DM with Stress Hyperglycemia * Sliding scale insulin q4h * Goal BG 924130 * Resume home diabetic meds after stabilization. PSYCHIATRY * Sedated; no psychiatric meds needed NUTRITION Malnutrition risk low albumin * Mechanical soft diet * Advance as tolerated PROPHYLAXIS * DVT: SCD * GI: Pantoprazole * Pressure ulcers: q2h turns * Line-associated infection: Daily review of necessity LINES, TUBES, DRIPS * Right IJ triple-lumen (08/09) * ET tube placed 08/09 * NG tube * Scherer * Drips: discontinued PHYSICAL THERAPY * Out of bed to chair today * PT/OT evaluation for mobility improvement SOCIAL WORK * Family updated * Code status changed to DNR today per family request * Continue [id number] discussion X. CRITICAL CARE TIME Critical care time: 83 minutes (exclusive of procedures).High-complexity medical decision-making due to multiorgan failure, vasopressor dependence, mechanical ventilation, post-cardiac arrest care, evolving STEMI, and septic shock. XI. CODE STATUS DNR Discussed with family >20 minutes.Family understands severity of illness and poor prognosis of illness FINAL STATEMENT Case discussed in detail with the attending physician , including the clinical presentation, diagnostic workup, and comprehensive management plan. The patient was present for the discussion and demonstrated understanding of her condition and the proposed plan. Plan discussed with: Other (RN, Niece) My Orders My Orders Orders - BRENDAN LEMOS RESIDENT Procedure Category Date Status Time Ceftriaxone 1gm/50ml PHA 08/16/25 In Process (Rocephin) 09:00 Chest Percussion Tx RT 08/15/25 Logged Initi 15:51 Incentive Spirometry ORDERS 08/15/25 Transmitted 15:51 Abg W/ Co-Ox RT 08/16/25 Logged 04:00 Chest Xray 1 View XY 08/16/25 Resulted 04:00 Chest Percussion Tx RT 08/15/25 Logged Initi 17:49 Nasal Tracheal Suction RT 08/15/25 Logged 17:49 * Dietary Consult CONS 08/15/25 Transmitted 18:40 Apply Z-Guard NAJMA 08/15/25 In Process 10:30 * Wound Consult CONS 08/15/25 Transmitted Furosemide Injection PHA 08/16/25 In Process (Lasix Injection) 18:00 Mechanical Soft Diet DIET 08/16/25 Transmitted Lunch Nutritional PHA 08/16/25 In Process Supplements (Vicente 18:00 Transfer Orders XFER 08/16/25 Transmitted 10:32 Dietary Evaluation Review Comments: Nutrition Recommendation: 1) EN Vital High Protein @ 45ml/hr x 24hr (goal). Water flush 50ml Q6H if allowed, adjust PRN. TF at goal volume provides 1080 kcal (100%), 95 gm protein (100%), and 68801 ml free water(including flush). 2) TPN if NPO >7 days 3) Monitor NPO status, lab values, weight trend, and I/O Expected Outcomes/Goals: Intake to meet >75% estimated needs Lab values to improve FU 2-3 days Visit Coding STANDARD RES Billing Provider: RICO KING MD Date of Service if different f: Aug 16, 2025 BRENDAN LEMOS RESIDENT Aug 16, 2025 13:28
[2025-08-16] MEDS: FREE WATER PO SCH (15:05)
[2025-08-16] MEDS: FUROSEMIDE 40 MG/4 ML VIAL IV SCH (17:52)
[2025-08-16] MEDS: Juven Fruit Punch Powder PACKET 28.8gm PO SCH (18:00)
[2025-08-17] VITALS (11 sets, daily range): BP systolic 103–118; BP diastolic 53–68; PULSE 97–112; RESP 16–24; TEMP 97.8–98.1; O2SAT 93–100
[2025-08-17] MEDS: MELATONIN 5 MG TAB PO ONE (00:31)
--- NOTE | 2025-08-17 00:38 | DVHPN2 ---
Progress Note - Dictate Date Seen: Aug 16, 2025 Has the PT tested + for MRSA If YES, has PT been informed?: No Medical Necessity Reason Pt with a Central, PICC or Fol: Yes The following are medically ne: Central Line, Scherer Catheter Subjective Patient was seen and evaluated in follow up in the ICU. Patient is on 5 LPM NC. The patient is tolerating mechanical soft diet. HGB 7.2, HCT 21.6, NA 148, K 3.3, BUN 41, VETERINARY PHYSIOLOGIST 1.58. Chest x-ray shows unchanged with small left pleural effusion and vascular congestion. vital signs Vital Sign Date Time Temp Pulse Resp B/P (MAP) Pulse Ox O2 Delivery O2 Flow Rate FiO2 08/16/25 15:00 108 26 111/52 (71) 93 08/16/25 14:00 Nasal Cannula* 5 40 08/16/25 12:00 98.3 98.3 Total Intake and Output 08/15/25 08/15/25 08/16/25 15:00 23:00 07:00 Intake Total 85.50 ml 44.0 ml 33.0 ml Output Total 500 ml 700 ml Balance 85.50 ml -456.0 ml -667.0 ml medications Current Medications Medications Dose Ordered Sig/Justina Route Start Time Stop Time Status Last Admin Dose Admin Norepinephrine Bitartrate 250 ml @ 3.75 mls/hr Q24H IV 08/09/25 16:15 08/15/25 15:45 3.75 MLS/HR Midazolam HCl 100 ml @ 1 mls/hr Q24H IV 08/09/25 16:15 08/12/25 06:41 6 MLS/HR Acetaminophen 325 mg Q4HP PRN PO 08/09/25 17:15 Nitroglycerin 0.4 mg Q5MINP PRN SL 08/09/25 17:15 Fentanyl Citrate 250 ml @ 2.5 mls/hr Q24H IV 08/09/25 17:15 08/12/25 06:39 2.5 MLS/HR Diagnostic Test (Pha) 1 strip Q6HR 08/10/25 06:00 08/16/25 11:46 1 STRIP Insulin Human Regular Q6HR SC 08/10/25 06:00 08/16/25 11:47 2 UNITS Dextrose 50 ml UD PRN IV 08/10/25 02:30 Atorvastatin Calcium 80 mg HS GT 08/11/25 22:00 08/13/25 23:13 80 MG Pantoprazole Sodium 40 mg DAILY IV 08/12/25 10:00 08/16/25 10:25 40 MG Enteral Nutritional Formula 1,000 ml 25ML/HR GT 08/11/25 19:30 08/11/25 21:54 1,000 ML Sennosides 8.6 mg HS PO 08/12/25 22:00 08/13/25 23:13 8.6 MG Morphine Sulfate 2 mg Q4HPRN PRN IV 08/12/25 11:15 Morphine Sulfate 2 mg Q30M PRN IV 08/12/25 11:15 Docusate Sodium 100 mg BID GT 08/13/25 10:00 08/16/25 10:24 100 MG Polyethylene Glycol 17 gm DAILYPRN PRN GT 08/14/25 14:30 Iron Sucrose 110 ml @ 110 mls/hr DAILY@1200 IV 08/15/25 12:00 08/19/25 11:59 Cancel Iron Sucrose 110 ml @ 110 mls/hr DAILY@1200 IV 08/15/25 12:00 08/19/25 11:59 Cancel Ceftriaxone Sodium 50 ml @ 100 mls/hr DAILY@09 IV 08/16/25 09:00 08/16/25 10:24 100 MLS/HR Albuterol 2.5 mg Q6HWA [facility] 08/16/25 06:00 08/16/25 11:21 2.5 MG Ipratropium [place] 0.5 mg Q6HWA [facility] 08/16/25 06:00 08/16/25 11:21 0.5 MG Furosemide 40 mg BIDD IV 08/16/25 18:00 Enteral Nutritional Formula 28.8 gm BIDWM PO 08/16/25 18:00 Purified Water 250 ml Q3HR PO 08/16/25 15:00 08/16/25 15:05 250 ML objective GENERAL: Alert and oriented x 3. Ill appearing. EYES: PERRL, EOMI. Anicteric. HENT: Moist mucous membranes. LUNGS: Decreased breath sounds. CARDIOVASCULAR: Regular rate and rhythm. ABDOMEN: Soft, nontender and nondistended. EXTREMITIES: No edema. SKIN: Warm, dry. laboratory and microbiology Laboratory Tests 08/16/25 02:40 Test 08/16/25 02:40 Range/Units Serum Glucose 142 H 74-106 mg/dL Problem List Cardiac arrest with successful ROSC. Metabolic encephalopathy. STEMI (ST elevation myocardial infarction). Assessment/Plan Continued all current supportive medical care. Lipitor. IV antibiotics as ordered. Diuretics with Lasix. Morphine for pain management. GI prophylactics. Additional plan as per the hospital course. Critical care time of 45 minutes provided to include time spent evaluation of patient at bedside, when appropriate patient/family education for diagnosis, treatment plan, review of pertinent medical information and discussion of care with specialty providers and PCP. Dietary Evaluation Review Comments: Nutrition Recommendation: 1) EN Vital High Protein @ 45ml/hr x 24hr (goal). Water flush 50ml Q6H if allowed, adjust PRN. TF at goal volume provides 1080 kcal (100%), 95 gm protein (100%), and 80628 ml free water(including flush). 2) TPN if NPO >7 days 3) Monitor NPO status, lab values, weight trend, and I/O Expected Outcomes/Goals: Intake to meet >75% estimated needs Lab values to improve FU 2-3 days Plan discussed with: Patient PATRICIA GROVES MD Aug 16, 2025 15:32
[2025-08-17 06:05] LABS: Hemoglobin 7.6 g/dL (12.2-16.2)
[2025-08-17 06:07] LABS: Hematocrit 22.3 % (36.0-46.0); Mean Corpuscular Hemoglobin 32.7 pg (28.0-32.0); Mean Corpuscular Volume 96.5 fL (80.0-100.0)
[2025-08-17 06:21] LABS: Anion Gap 14 (5-15); Carbon Dioxide 28 mmol/L (20-31); Chloride 102 mmol/L (98-107); Potassium 3.2 mmol/L (3.5-5.1); Sodium 144 mmol/L (136-145)
[2025-08-17 06:22] LABS: Calcium 9.8 mg/dL (8.7-10.4)
[2025-08-17 06:27] LABS: BUN/Creatinine Ratio 29.8 (10.0-20.0); Magnesium 1.9 mg/dL (1.6-2.6)
[2025-08-17 06:29] LABS: Blood Urea Nitrogen 53 mg/dL (9-23); Glucose 188 mg/dL (74-106)
[2025-08-17 07:03] LABS: Total Cells Counted 100.0 (100)
[2025-08-17 07:04] LABS: Stomatocytes Few
--- NOTE | 2025-08-17 11:17 | DVHPNRES ---
Progress Note Date Seen: Aug 17, 2025 Resident Creating Document: BRENDAN LEMOS RESIDENT Has the PT tested + for MRSA If YES, has PT been informed?: No Medical Necessity Reason Pt with a Central, PICC or Fol: Yes The following are medically ne: Central Line, Scherer Catheter Subjective Review of Systems The patient is an 85-year-old female who presented to the ED with class IV dyspnea, chest pain, and right arm weakness, followed by agonal breathing, rapid desaturation into the 70s on NRB, and progression to cardiac arrest. ROSC achieved after ~2 min downtime, 1 round of CPR, 1 dose epinephrine, and endotracheal intubation. EKG showed new left bundle branch block. atrial fibrillation with global ischemia. Cardiology diagnosed ST-segmentelevation UT equivalent and took patient for emergent LHC, which revealed: * 99% LAD stenosis * 60% left main stenosis * 90% circumflex stenosis * Unable to cross chronic total occlusion due to high procedural mortality and conservative medical management recommended. The patient developed acute hypoxic respiratory failure, aspiration pneumonia, and septic shock requiring vasopressors. She was admitted to ICU on mechanical ventilation, norepinephrine, broad-spectrum antibiotics, heparin drip, and supportive care. PAST MEDICAL HISTORY * Hypertension * Type 2 diabetes mellitus * Dyslipidemia * HFpEF (EF 65%) * Paroxysmal atrial fibrillation on apixaban * Pulmonary hypertension (RVSP 61 mmHg) * Basal cell carcinoma * Atypical left hip sarcoma (surgically treated) * Recent COVID-19 * Chronic thrombocytopenia IV. PAST SURGICAL HISTORY * Hysterectomy * Appendectomy * Cholecystectomy * Basal cell carcinoma excision * Left hip sarcoma excision (2019) V. SOCIAL HISTORY * Lives with * No smoking, alcohol, or illicit substances ROS (Unable to Obtain Due to Intubation & Sedation) 08/10/25 The patient is an 85-year-old female who presented to the ED with class IV dyspnea, chest pain, and right arm weakness, followed by agonal breathing, rapid desaturation into the 70s on NRB, and progression to cardiac arrest. ROSC achieved after ~2 min downtime, 1 round of CPR, 1 dose epinephrine, and endotracheal intubation. EKG showed new left bundle branch block. atrial fibrillation with global ischemia. Cardiology diagnosed ST-segmentelevation UT equivalent and took patient for emergent LHC, which revealed: * 99% LAD stenosis * 60% left main stenosis * 90% circumflex stenosis * Unable to cross chronic total occlusion due to high procedural mortality and conservative medical management recommended. The patient developed acute hypoxic respiratory failure, aspiration pneumonia, and septic shock requiring vasopressors. She was admitted to ICU on mechanical ventilation, norepinephrine, broad-spectrum antibiotics, heparin drip, and supportive care. * Still requiring norepinephrine Temperature: Tmax 100.9 ongoing infection concern. Renal: UOP remains 0.32 mL/kg/hr, creatinine improved to 1.25 (from 1.6). Troponin: 496 ( from 115), consistent with evolving UT. Platelets: 92K (chronic baseline, trending up from 78K yesterday). CXR: Cardiomegaly, pulmonary vascular congestion, multifocal pneumonia, bilateral effusions. Labs: K 3.2 repleted; Phos 5.6; BUN 32; Hgb 8.1; AST/ALT down-trending. Medications: Norepinephrine, midazolam, fentanyl, heparin drip, cefepime, vancomycin. PLAN ADJUSTMENTS TODAY: * Convert enteric-coated aspirin to regular aspirin * Continue heparin drip now * Discontinue heparin in 48 hours, then start Aspirin + Plavix * Held/discontinued Zofran * Held/discontinued Atorvastatin (Lipitor) * Ordered repeat chest X-ray * Continue antibiotics * Continue vasopressor support 08/11/25 * Hemodynamically fluctuating on norepinephrine. * On AC/VC mechanical ventilation; gases show mild metabolic alkalosis. * Oxygenation improved (PO2 88). * No fever overnight. * Chronic thrombocytopenia trending downward but stable. * Hemoglobin down to 7.3; monitor closely, consider transfusion if symptomatic or <7.0. * WILLIAN slightly worsened (Cr 1.37). * CXR unchanged. * Started statin therapy and sedation vacation protocol. * No arrhythmias other than AFib with controlled rate. 08/12/25 Patient remains critically ill but hemodynamically unstable on low-dose norepinephrine. Ventilation stable. Labs show mild anemia worsening (Hgb 7.5), stable chronic thrombocytopenia (80K), slight rise in creatinine. Cultures negative except respiratory culture with E. coli sensitive to cefepime. Heparin drip discontinued; switched to prophylactic Lovenox. Code status updated to DNR. KUB ordered for constipation; tube feeds tolerated. Continuing all supportive care. Heparin drip discontinued today Started Lovenox 40 mg subcutaneous daily (prophylactic) Continue Aspirin. NOT starting Eliquis / therapeutic Lovenox due to: * Hgb drop (8.2 to 7.5) * Platelets 80K * High bleeding risk. NOT starting Plavix due to high bleeding risk Code status changed from FULL CODE to DNR per family. Continue cefepime (E. coli sensitive), discontinue vancomycin if MRSA PCR negative (as already done) K repleted; Mg repleted Continue sedation and vasopressor support Begin bowel regimen if KUB non-obstructive 08/13/25: Patient is seen and examined at bedside, x-ray KUB shows, Moderate to large volume stool within the colon. Bibasilar pulmonary airspace opacities and pleural effusions. We will begin bowel regimen. Ordered lower extremity Doppler to rule out DVT, start Lovenox 30 mg subQ. 08/14/25 Patient is off pressors, tolerating CPAP/TSV SBT, clear lungs, stable oxygenation, and strong respiratory effort. Preparing for extubation today. However, she has worsening anemia (Hgb 6.7) transfusing 1 PRBC. WILLIAN slightly worse. Holding all therapeutic anticoagulation (Eliquis, Lovenox). Continue aspirin. Starting Miralax for constipation. Cultures negative except respiratory culture showing E. coli + Staph aureus continuing cefepime + vancomycin. 08/15/25 The patient is an 85-year-old critically ill female with a history of cardiac arrest with ROSC, STEMI-equivalent UT, acute hypoxic respiratory failure, severe pulmonary hypertension, HFpEF, aspiration pneumonia, septic shock (improving), WILLIAN, chronic anemia, and chronic thrombocytopenia. She was successfully extubated yesterday, currently on BiPAP but develops tachypnea (RR 40), tachycardia (110), and desaturation to 88% when weaning off BiPAP. Symptoms improved when placed back on BiPAP (RR to 20, SpO2 to 100).CXR showed persistent bilateral pleural effusions, so a right-sided ultrasound- guided thoracentesis was performed with 1.3 L fluid removed. 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 Antibiotics: discontinue; vancomycin planned to discontinue . Considering de- escalation to ceftriaxone Current drips (fentanyl, versed, precedex, norepinephrine) all discontinued. Aspirin currently on hold due to anemia and thrombocytopenia. * Starting Lasix drip 5 mg/h after IV bolus 40 mg. 08/16/25 Today she is off BiPAP and maintaining adequate oxygenation on 4 L nasal cannula, with saturations 66560%. No increased work of breathing noted. Hemodynamically soft but stable. Chest x-ray unchanged with small left pleural effusion and vascular congestion. \Awake, interactive, sitting upright. Stool output absent today; bowel sounds active. She is tolerating mechanical soft diet. Lasix drip discontinued; transitioned to Lasix 40 mg IV BID.?On Ceftriaxone monotherapy, tolerating well. downgrade to telemetry given respiratory stability. * CXR stable. * Hemoglobin improving (7.2) without transfusion. * Platelets up to 108K. 08/17/25 Patient evaluated at bedside today. She is awake, alert, intermittently fatigued, able to answer simple questions, remains in AFib with HR [id number], BP stable with MAP > 70 throughout the morning. Oxygenation stable on 4 L nasal cannula FiO2 ~3642% with SpO2 9699%. She had six bowel movements today on bowel regimen and soft diet, no abdominal pain. Reports mild generalized weakness. No chest pain, dyspnea improved. Labs: Hemoglobin improved from 7.2 - 7.6, WBC 5.9, platelets 152 (normalized). Persistent WILLIAN on CKD: Cr 1.78 (?), BUN 53. Sodium normal at 144. Potassium 3.2 low, repleted today with 40 mEq KCl and magnesium. * Discontinued right IJ central venous catheter. * Reinforced PT/OT, patient stood briefly with assistance. * Case management consulted; family requests intermediate / assisted care facility for discharge planning. * No change in antibiotics Objective vital signs Vital Sign Date Time Temp Pulse Resp B/P (MAP) Pulse Ox O2 Delivery O2 Flow Rate FiO2 08/17/25 06:16 110 24 99 08/17/25 06:07 Nasal Cannula* 5 40 08/17/25 05:01 118/62 08/17/25 04:38 98.1 98.1 Total Intake and Output 08/16/25 08/16/25 08/17/25 15:00 23:00 07:00 Intake Total 66.5 ml 820 ml 700 ml Output Total 525 ml Balance 66.5 ml 295 ml 700 ml medications Current Medications Medications Dose Ordered Sig/Justina Route Start Time Stop Time Status Last Admin Dose Admin Acetaminophen 325 mg Q4HP PRN PO 08/09/25 17:15 Nitroglycerin 0.4 mg Q5MINP PRN SL 08/09/25 17:15 Diagnostic Test (Pha) 1 strip Q6HR 08/10/25 06:00 08/17/25 05:03 1 STRIP Insulin Human Regular Q6HR SC 08/10/25 06:00 08/17/25 05:06 3 UNITS Dextrose 50 ml UD PRN IV 08/10/25 02:30 Atorvastatin Calcium 80 mg HS GT 08/11/25 22:00 08/16/25 21:39 80 MG Pantoprazole Sodium 40 mg DAILY IV 08/12/25 10:00 08/17/25 09:22 40 MG Enteral Nutritional Formula 1,000 ml 25ML/HR GT 08/11/25 19:30 08/11/25 21:54 1,000 ML Sennosides 8.6 mg HS PO 08/12/25 22:00 08/13/25 23:13 8.6 MG Morphine Sulfate 2 mg Q4HPRN PRN IV 08/12/25 11:15 Morphine Sulfate 2 mg Q30M PRN IV 08/12/25 11:15 Docusate Sodium 100 mg BID GT 08/13/25 10:00 08/16/25 21:39 100 MG Polyethylene Glycol 17 gm DAILYPRN PRN GT 08/14/25 14:30 Iron Sucrose 110 ml @ 110 mls/hr DAILY@1200 IV 08/15/25 12:00 08/19/25 11:59 Cancel Iron Sucrose 110 ml @ 110 mls/hr DAILY@1200 IV 08/15/25 12:00 08/19/25 11:59 Cancel Ceftriaxone Sodium 50 ml @ 100 mls/hr DAILY@09 IV 08/16/25 09:00 08/17/25 09:21 100 MLS/HR Albuterol 2.5 mg Q6HWA NEB 08/16/25 06:00 08/17/25 06:07 2.5 MG Ipratropium [place] 0.5 mg Q6HWA NEB 08/16/25 06:00 08/17/25 06:07 0.5 MG Furosemide 40 mg BIDD IV 08/16/25 18:00 08/17/25 05:01 40 MG Enteral Nutritional Formula 28.8 gm BIDWM PO 08/16/25 18:00 08/17/25 09:22 28.8 GM Purified Water 250 ml Q3HR PO 08/16/25 15:00 08/17/25 09:45 250 ML Potassium Chloride 100 ml @ 50 mls/hr Q2H IV 08/17/25 09:45 08/17/25 13:44 Examination General: Frail elderly female, no acute distress, appears fatigued but awake. Neuro: Alert, oriented to person and place; moves all extremities; no focal deficit. HEENT: PERRLA; oral mucosa moist. Cardiovascular: Irregularly irregular rhythm consistent with AFib; HR [id number]; pulses 2+ bilaterally; no JVD; mild peripheral edema. Respiratory: On 4 L NC, SpO2 9699%. Breath sounds with mild crackles bilaterally; no wheezing today. GI: Abdomen soft, non-tender, positive bowel sounds. : Scherer recently removed; previously draining clear yellow urine. Extremities: Warm, 1+ pedal edema. Skin: No new rashes; skin intact. Lines/Tubes: Removing Right IJ central line today. No active drips. laboratory and microbiology Laboratory Tests 08/17/25 05:24 Test 08/17/25 05:24 Range/Units Serum Glucose 188 H 74-106 mg/dL Microbiology Date/Time Source Procedure Growth Status 08/09/25 23:10 Urine - Scherer Port Urine Culture - Final Complete 08/09/25 22:59 Nose MRSA Screen - Final Complete 08/09/25 16:40 Blood Blood Culture - Final NO GROWTH AFTER 5 DAYS OF INCUBATION. Complete 08/09/25 15:40 Sputum Gram Stain - Final Complete 08/09/25 15:40 Respiratory Culture - Final Escherichia coli Staphylococcus aureus Complete Problem List/Assessment/Plan Problem List/Assessment/Plan IX. [id number] PLAN NEUROLOGY Metabolic Encephalopathy Post-arrest + sepsis + hypoxia. neurological arrest ruled out (CT head negative) Reflexes present * Awake, alert * No sedation required * Neurochecks Q4H * CT head negative for acute abnormalities. CARDIOVASCULAR . Cardiac Arrest with ROSC Due to hypoxic respiratory failure + STEMI-equivalent. * Downtime ~2 minutes; ROSC after 1 Epi, 1 CPR cycle. Atrial fibrillation rate controlled On Metoprolol Tartarate 25 Mg PO BID * HR [id number] today * High stroke risk (FRANKLIN?DS?-VASc = 7). * Anticoagulation withheld due to anemia and prior thrombocytopenia. STEMI Due to multi-vessel CAD (LAD 99%, LM 60%, LCx 90%).High procedural mortality , conservative management per cardiology LBBB, global ischemia, coronary angiography findings Acute on Chronic Diastolic CHF (HFpEF, EF 65%) Volume overload + pulmonary edema on imaging. Severe Pulmonary Hypertension (RVSP 61 mmHg) From chronic HF + hypoxic vasoconstriction. * Hemodynamically stable off pressors * Hold aspirin due to Hgb 7.6 + platelets 71K * Hold anticoagulation (Eliquis / Lovenox) * Continue atorvastatin * Strict MAP monitoring * EKG for QT interval * No Plavix due to bleeding risk * No KEVIN inhibitors due to WILLIAN * Cardiology following * Conservative management of multi-vessel CAD per cardiology. * Continuous telemetry for AFib; starting metoprolol tartarate 25 mg BID Hypertension Chronic comorbidity Dyslipidemia Chronic comorbidity Continue Atorvasatin RESPIRATORY MECHANICAL VENTILATION Acute on chronic hypoxic respiratory failure post-extubation, improving Aspiration Pneumonia, Multifocal bacterial (E. coli + MSSA) improving Bilateral pleural effusions large right, moderate left Thoracentesis improved symptoms. Right drained 1.3 L. *pneumonia on CXR, lactate normalized from 6.2 - 1.7 - 1.2 improved * On 4 L nasal cannula * Wean as tolerated * Thoracentesis done monitor for re-expansion edema * Start: * Incentive spirometry * Chest physiotherapy * Daily CXR * Bronchodilators PRN * Maintain saturation >94% * Suction PRN RENAL WILLIAN Stage 2 due to VMN Improving Likely hemodynamic ischemic ATN. . Hyperphosphatemia Hypokalemia improving replenished Electrolyte derangements. Hypernatremia * Monitor UOP hourly * Electrolyte replacement protocol * 250 mL PO free water Q3H * Continue Lasix 40 mg IV BID * Avoid nephrotoxins * Consider renal ultrasound if persistent oliguria * Monitor UOP q1h; goal >0.5 mL/kg/hr. * Correct electrolytes: K >4, Mg >2. INFECTIOUS DISEASE Septic Shock From aspiration pneumonia: initially lactate 6.2 THEN improved to 1.7 - 1.2 .Still requiring vasopressors. Aspiration Pneumonia, Multifocal CXR findings consistent.. * Repeat blood cultures if febrile, urine culture ordered and are negative. * MRSA negative, initial blood cultures are negative * Respiratory culture/gram stain Few Gram Positive Rods Few Gram Positive Cocci in chains Rare Gram Negative Rods Positive for Stap aures ECOLI, * Discontinue vancomycin (MSSA, no MRSA) * STOP cefepime to reduce nephrotoxicity risk in WILLIAN (acceptable to stop) * Start: * Ceftriaxone 12 g IV daily * De-escalate based on culture results. * Lactate normalized; continue sepsis bundle. GI Transaminitis Likely shock liver vs congestive hepatopathy. * Start mechanical soft diet * Continue bowel regimen: * Senna * Docusate * Miralax * If no BM by tomorrow add bisacodyl PRN * GI prophylaxis: IV pantoprazole. * Continue Scherer for accurate I/O * Monitor for hematuria * Scherer catheter in place for accurate UOP. 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 * Anemia : transfuse if <7 or hemodynamically unstable. * DVT prophylaxis: SCD ENDOCRINE T2DM with Stress Hyperglycemia * Sliding scale insulin q4h * Goal BG [id number] * Resume home diabetic meds after stabilization. PSYCHIATRY * Sedated; no psychiatric meds needed NUTRITION Malnutrition risk low albumin * Mechanical soft diet * Advance as tolerated PROPHYLAXIS * DVT: SCD * GI: Pantoprazole * Pressure ulcers: q2h turns * Line-associated infection: Daily review of necessity LINES, TUBES, DRIPS * Right IJ triple-lumen (08/09) placed order to remove today. * ET tube placed 08/09 * NG tube * Scherer * Drips: discontinued PHYSICAL THERAPY * Out of bed to chair today * PT/OT evaluation for mobility improvement SOCIAL WORK * Family updated * Code status changed to DNR today per family request * Continue [id number] discussion * Family requests assisted care facility. X. CRITICAL CARE TIME Critical care time: 83 minutes (exclusive of procedures).High-complexity medical decision-making due to multiorgan failure, vasopressor dependence, mechanical ventilation, post-cardiac arrest care, evolving STEMI, and septic shock. XI. CODE STATUS DNR Discussed with family >20 minutes.Family understands severity of illness and poor prognosis of illness FINAL STATEMENT Case discussed in detail with the attending physician , including the clinical presentation, diagnostic workup, and comprehensive management plan. The patient was present for the discussion and demonstrated understanding of her condition and the proposed plan. Plan discussed with: Other (RN, NIECE) My Orders My Orders Orders - BRENDAN LEMOS RESIDENT Procedure Category Date Status Time Free Water PHA 08/16/25 In Process 15:00 Potassium Chl PHA 08/17/25 In Process 20meq/100ml 09:45 Dietary Evaluation Review Comments: Nutrition Recommendation: 1) EN Vital High Protein @ 45ml/hr x 24hr (goal). Water flush 50ml Q6H if allowed, adjust PRN. TF at goal volume provides 1080 kcal (100%), 95 gm protein (100%), and 04989 ml free water(including flush). 2) TPN if NPO >7 days 3) Monitor NPO status, lab values, weight trend, and I/O Expected Outcomes/Goals: Intake to meet >75% estimated needs Lab values to improve FU 2-3 days Visit Coding STANDARD RES Billing Provider: RICO KING MD Date of Service if different f: Aug 17, 2025 BRENDAN LEMOS RESIDENT Aug 17, 2025 11:17
[2025-08-17] MEDS: MAGNESIUM SULFATE 1GM/100ML 100 ML IV ONE (12:05)
[2025-08-17] MEDS: POTASSIUM CHL 20MEQ/100ML 100 ML IV SCH (12:06)
[2025-08-18] VITALS (13 sets, daily range): BP systolic 111–129; BP diastolic 53–83; PULSE 74–105; RESP 16–24; TEMP 97–98; O2SAT 88–100
[2025-08-18] MEDS: METOPROLOL TARTRATE 25 MG TAB PO SCH (00:50)
--- NOTE | 2025-08-18 01:10 | DVHPN2 ---
Progress Note - Dictate Date Seen: Aug 17, 2025 Has the PT tested + for MRSA If YES, has PT been informed?: No Medical Necessity Reason Pt with a Central, PICC or Fol: Yes The following are medically ne: Central Line, Scherer Catheter Subjective Patient was seen and evaluated in follow up. Patient was downgraded to telemetry. Patient is on 5 LPM NC. HGB 7.6, HCT 22.3, K 3.2, BUN 52, SKI PATROL OFFICER 1.78, GLUC 255. Telemetry reviewed. vital signs Vital Sign Date Time Temp Pulse Resp B/P (MAP) Pulse Ox O2 Delivery O2 Flow Rate FiO2 08/17/25 12:03 107 24 99 08/17/25 11:57 Nasal Cannula 5.0 08/17/25 06:07 40 08/17/25 05:01 118/62 08/17/25 04:38 98.1 98.1 Total Intake and Output 08/16/25 08/16/25 08/17/25 15:00 23:00 07:00 Intake Total 66.5 ml 820 ml 700 ml Output Total 525 ml Balance 66.5 ml 295 ml 700 ml medications Current Medications Medications Dose Ordered Sig/Justina Route Start Time Stop Time Status Last Admin Dose Admin Acetaminophen 325 mg Q4HP PRN PO 08/09/25 17:15 Nitroglycerin 0.4 mg Q5MINP PRN SL 08/09/25 17:15 Diagnostic Test (Pha) 1 strip Q6HR 08/10/25 06:00 08/17/25 12:07 1 STRIP Insulin Human Regular Q6HR SC 08/10/25 06:00 08/17/25 12:07 6 UNITS Dextrose 50 ml UD PRN IV 08/10/25 02:30 Atorvastatin Calcium 80 mg HS GT 08/11/25 22:00 08/16/25 21:39 80 MG Pantoprazole Sodium 40 mg DAILY IV 08/12/25 10:00 08/17/25 09:22 40 MG Enteral Nutritional Formula 1,000 ml 25ML/HR GT 08/11/25 19:30 08/11/25 21:54 1,000 ML Sennosides 8.6 mg HS PO 08/12/25 22:00 08/13/25 23:13 8.6 MG Morphine Sulfate 2 mg Q4HPRN PRN IV 08/12/25 11:15 Morphine Sulfate 2 mg Q30M PRN IV 08/12/25 11:15 Docusate Sodium 100 mg BID GT 08/13/25 10:00 08/16/25 21:39 100 MG Polyethylene Glycol 17 gm DAILYPRN PRN GT 08/14/25 14:30 Iron Sucrose 110 ml @ 110 mls/hr DAILY@1200 IV 08/15/25 12:00 08/19/25 11:59 Cancel Iron Sucrose 110 ml @ 110 mls/hr DAILY@1200 IV 08/15/25 12:00 08/19/25 11:59 Cancel Ceftriaxone Sodium 50 ml @ 100 mls/hr DAILY@09 IV 08/16/25 09:00 08/17/25 13:32 100 MLS/HR Albuterol 2.5 mg Q6HWA [facility] 08/16/25 06:00 08/17/25 11:57 2.5 MG Ipratropium [place] 0.5 mg Q6HWA [facility] 08/16/25 06:00 08/17/25 11:57 0.5 MG Furosemide 40 mg BIDD IV 08/16/25 18:00 08/17/25 05:01 40 MG Enteral Nutritional Formula 28.8 gm BIDWM PO 08/16/25 18:00 08/17/25 09:22 28.8 GM Purified Water 250 ml Q3HR PO 08/16/25 15:00 08/17/25 13:32 250 ML objective GENERAL: Alert and oriented x 3. Ill appearing. EYES: PERRL, EOMI. Anicteric. HENT: Moist mucous membranes. LUNGS: Decreased breath sounds. CARDIOVASCULAR: Regular rate and rhythm. ABDOMEN: Soft, nontender and nondistended. EXTREMITIES: No edema. SKIN: Warm, dry. laboratory and microbiology Laboratory Tests 08/17/25 05:24 Test 08/17/25 05:24 Range/Units Serum Glucose 188 H 74-106 mg/dL Problem List Cardiac arrest with successful ROSC. Metabolic encephalopathy. STEMI (ST elevation myocardial infarction). Assessment/Plan Continued all current supportive medical care. Lipitor, Metoprolol. IV antibiotics as ordered. Diuretics with Lasix. Morphine for pain management. GI prophylactics. Additional plan as per the hospital course. Dietary Evaluation Review Comments: Nutrition Recommendation: 1) EN Vital High Protein @ 45ml/hr x 24hr (goal). Water flush 50ml Q6H if allowed, adjust PRN. TF at goal volume provides 1080 kcal (100%), 95 gm protein (100%), and 51912 ml free water(including flush). 2) TPN if NPO >7 days 3) Monitor NPO status, lab values, weight trend, and I/O Expected Outcomes/Goals: Intake to meet >75% estimated needs Lab values to improve FU 2-3 days Plan discussed with: Patient PATRICIA GROVES MD Aug 17, 2025 14:23
[2025-08-18 06:09] LABS: Chloride 102 mmol/L (98-107); Sodium 143 mmol/L (136-145)
[2025-08-18 06:10] LABS: Anion Gap 10 (5-15); Calcium 9.8 mg/dL (8.7-10.4); Carbon Dioxide 31 mmol/L (20-31)
[2025-08-18 06:13] LABS: Potassium 3.4 mmol/L (3.5-5.1)
[2025-08-18 06:15] LABS: BUN/Creatinine Ratio 29.7 (10.0-20.0); Blood Urea Nitrogen 55 mg/dL (9-23); Glucose 159 mg/dL (74-106); Magnesium 2.1 mg/dL (1.6-2.6)
[2025-08-18 06:17] LABS: Hematocrit 24.7 % (36.0-46.0); Hemoglobin 8.2 g/dL (12.2-16.2); Mean Corpuscular Hemoglobin 32.5 pg (28.0-32.0); Mean Corpuscular Volume 97.3 fL (80.0-100.0)
[2025-08-18 08:01] LABS: Total Cells Counted 100.0 (100)
--- NOTE | 2025-08-18 10:26 | DVHPNRES ---
Progress Note Date Seen: Aug 18, 2025 Resident Creating Document: BRENDAN LEMOS RESIDENT Has the PT tested + for MRSA If YES, has PT been informed?: No Medical Necessity Reason Pt with a Central, PICC or Fol: Yes The following are medically ne: Central Line, Scherer Catheter Subjective Review of Systems Review of Systems The patient is an 85-year-old female who presented to the ED with class IV dyspnea, chest pain, and right arm weakness, followed by agonal breathing, rapid desaturation into the 70s on NRB, and progression to cardiac arrest. ROSC achieved after ~2 min downtime, 1 round of CPR, 1 dose epinephrine, and endotracheal intubation. EKG showed new left bundle branch block. atrial fibrillation with global ischemia. Cardiology diagnosed ST-segmentelevation LA equivalent and took patient for emergent LHC, which revealed: * 99% LAD stenosis * 60% left main stenosis * 90% circumflex stenosis * Unable to cross chronic total occlusion due to high procedural mortality and conservative medical management recommended. The patient developed acute hypoxic respiratory failure, aspiration pneumonia, and septic shock requiring vasopressors. She was admitted to ICU on mechanical ventilation, norepinephrine, broad-spectrum antibiotics, heparin drip, and supportive care. PAST MEDICAL HISTORY * Hypertension * Type 2 diabetes mellitus * Dyslipidemia * HFpEF (EF 65%) * Paroxysmal atrial fibrillation on apixaban * Pulmonary hypertension (RVSP 61 mmHg) * Basal cell carcinoma * Atypical left hip sarcoma (surgically treated) * Recent COVID-19 * Chronic thrombocytopenia IV. PAST SURGICAL HISTORY * Hysterectomy * Appendectomy * Cholecystectomy * Basal cell carcinoma excision * Left hip sarcoma excision (2019) V. SOCIAL HISTORY * Lives with * No smoking, alcohol, or illicit substances ROS (Unable to Obtain Due to Intubation & Sedation) 08/10/25 The patient is an 85-year-old female who presented to the ED with class IV dyspnea, chest pain, and right arm weakness, followed by agonal breathing, rapid desaturation into the 70s on NRB, and progression to cardiac arrest. ROSC achieved after ~2 min downtime, 1 round of CPR, 1 dose epinephrine, and endotracheal intubation. EKG showed new left bundle branch block. atrial fibrillation with global ischemia. Cardiology diagnosed ST-segmentelevation LA equivalent and took patient for emergent LHC, which revealed: * 99% LAD stenosis * 60% left main stenosis * 90% circumflex stenosis * Unable to cross chronic total occlusion due to high procedural mortality and conservative medical management recommended. The patient developed acute hypoxic respiratory failure, aspiration pneumonia, and septic shock requiring vasopressors. She was admitted to ICU on mechanical ventilation, norepinephrine, broad-spectrum antibiotics, heparin drip, and supportive care. * Still requiring norepinephrine Temperature: Tmax 100.9 ongoing infection concern. Renal: UOP remains 0.32 mL/kg/hr, creatinine improved to 1.25 (from 1.6). Troponin: 496 ( from 115), consistent with evolving LA. Platelets: 92K (chronic baseline, trending up from 78K yesterday). CXR: Cardiomegaly, pulmonary vascular congestion, multifocal pneumonia, bilateral effusions. Labs: K 3.2 repleted; Phos 5.6; BUN 32; Hgb 8.1; AST/ALT down-trending. Medications: Norepinephrine, midazolam, fentanyl, heparin drip, cefepime, vancomycin. PLAN ADJUSTMENTS TODAY: * Convert enteric-coated aspirin to regular aspirin * Continue heparin drip now * Discontinue heparin in 48 hours, then start Aspirin + Plavix * Held/discontinued Zofran * Held/discontinued Atorvastatin (Lipitor) * Ordered repeat chest X-ray * Continue antibiotics * Continue vasopressor support 08/11/25 * Hemodynamically fluctuating on norepinephrine. * On AC/VC mechanical ventilation; gases show mild metabolic alkalosis. * Oxygenation improved (PO2 88). * No fever overnight. * Chronic thrombocytopenia trending downward but stable. * Hemoglobin down to 7.3; monitor closely, consider transfusion if symptomatic or <7.0. * WILLIAN slightly worsened (Cr 1.37). * CXR unchanged. * Started statin therapy and sedation vacation protocol. * No arrhythmias other than AFib with controlled rate. 08/12/25 Patient remains critically ill but hemodynamically unstable on low-dose norepinephrine. Ventilation stable. Labs show mild anemia worsening (Hgb 7.5), stable chronic thrombocytopenia (80K), slight rise in creatinine. Cultures negative except respiratory culture with E. coli sensitive to cefepime. Heparin drip discontinued; switched to prophylactic Lovenox. Code status updated to DNR. KUB ordered for constipation; tube feeds tolerated. Continuing all supportive care. Heparin drip discontinued today Started Lovenox 40 mg subcutaneous daily (prophylactic) Continue Aspirin. NOT starting Eliquis / therapeutic Lovenox due to: * Hgb drop (8.2 to 7.5) * Platelets 80K * High bleeding risk. NOT starting Plavix due to high bleeding risk Code status changed from FULL CODE to DNR per family. Continue cefepime (E. coli sensitive), discontinue vancomycin if MRSA PCR negative (as already done) K repleted; Mg repleted Continue sedation and vasopressor support Begin bowel regimen if KUB non-obstructive 08/13/25: Patient is seen and examined at bedside, x-ray KUB shows, Moderate to large volume stool within the colon. Bibasilar pulmonary airspace opacities and pleural effusions. We will begin bowel regimen. Ordered lower extremity Doppler to rule out DVT, start Lovenox 30 mg subQ. 08/14/25 Patient is off pressors, tolerating CPAP/TSV SBT, clear lungs, stable oxygenation, and strong respiratory effort. Preparing for extubation today. However, she has worsening anemia (Hgb 6.7) transfusing 1 PRBC. WILLIAN slightly worse. Holding all therapeutic anticoagulation (Eliquis, Lovenox). Continue aspirin. Starting Miralax for constipation. Cultures negative except respiratory culture showing E. coli + Staph aureus continuing cefepime + vancomycin. 08/15/25 The patient is an 85-year-old critically ill female with a history of cardiac arrest with ROSC, STEMI-equivalent LA, acute hypoxic respiratory failure, severe pulmonary hypertension, HFpEF, aspiration pneumonia, septic shock (improving), WILLIAN, chronic anemia, and chronic thrombocytopenia. She was successfully extubated yesterday, currently on BiPAP but develops tachypnea (RR 40), tachycardia (110), and desaturation to 88% when weaning off BiPAP. Symptoms improved when placed back on BiPAP (RR to 20, SpO2 to 100).CXR showed persistent bilateral pleural effusions, so a right-sided ultrasound- guided thoracentesis was performed with 1.3 L fluid removed. 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 Antibiotics: discontinue; vancomycin planned to discontinue . Considering de- escalation to ceftriaxone Current drips (fentanyl, versed, precedex, norepinephrine) all discontinued. Aspirin currently on hold due to anemia and thrombocytopenia. * Starting Lasix drip 5 mg/h after IV bolus 40 mg. 08/16/25 Today she is off BiPAP and maintaining adequate oxygenation on 4 L nasal cannula, with saturations 18611%. No increased work of breathing noted. Hemodynamically soft but stable. Chest x-ray unchanged with small left pleural effusion and vascular congestion. \Awake, interactive, sitting upright. Stool output absent today; bowel sounds active. She is tolerating mechanical soft diet. Lasix drip discontinued; transitioned to Lasix 40 mg IV BID.?On Ceftriaxone monotherapy, tolerating well. downgrade to telemetry given respiratory stability. * CXR stable. * Hemoglobin improving (7.2) without transfusion. * Platelets up to 108K. 08/17/25 Patient evaluated at bedside today. She is awake, alert, intermittently fatigued, able to answer simple questions, remains in AFib with HR 269105, BP stable with MAP > 70 throughout the morning. Oxygenation stable on 4 L nasal cannula FiO2 ~3642% with SpO2 9699%. She had six bowel movements today on bowel regimen and soft diet, no abdominal pain. Reports mild generalized weakness. No chest pain, dyspnea improved. Labs: Hemoglobin improved from 7.2 - 7.6, WBC 5.9, platelets 152 (normalized). Persistent WILLIAN on CKD: Cr 1.78 (?), BUN 53. Sodium normal at 144. Potassium 3.2 low, repleted today with 40 mEq KCl and magnesium. * Discontinued right IJ central venous catheter. * Reinforced PT/OT, patient stood briefly with assistance. * Case management consulted; family requests long term / assisted care facility for discharge planning. * No change in antibiotics 08/18/25 Patient evaluated at bedside today. She is awake, alert, following commands, conversational with fatigue. On 8L Oximizer with increased o2 REQUIREMNT FROM 4L NC NOW ON SpO2 9698%. Hemodynamics stable. No active chest pain or increased dyspnea. Renal function worsened today: BUN/Cr increased from 53/1.78 to 55/1.85 despite prior diuresis. Urine output over past 24 hours 1050 ml, intake 1080 ml (near even balance). Decision made for volume-based renal optimization. Interventions & Management changes today: * Furosemide discontinued due to worsening renal indices. * Bumetanide drip (Bumex) initiated for improved diuretic efficiency in CKD. * Albumin 25% IV Q15H 3 doses started to improve intravascular volume and diuretic responsiveness. * Free water discontinued to avoid hyponatremia and further renal stress. * Nephrology consult placed today. * Ordered renal US, PTH, Urine sodium, Urine creatinine, Urine protein/Cr ratio for WILLIAN evaluation. * PT working with patient patient able to sit edge of bed with assistance. * Hgb improved to 8.2 g/dL ( from 7.6). No transfusion indicated today. Plan today: Continue bumetanide drip with albumin dosing, monitor renal response hourly UO, trend BMP Q12h, avoid nephrotoxins, continue ceftriaxone, maintain soft PO diet and electrolytes optimization. Objective vital signs Vital Sign Date Time Temp Pulse Resp B/P (MAP) Pulse Ox O2 Delivery O2 Flow Rate FiO2 08/18/25 10:08 94 111/53 08/18/25 08:51 98.0 17 94 98.0 08/18/25 08:02 Oxymizer 8 N/A Total Intake and Output 08/17/25 08/17/25 08/18/25 15:00 23:00 07:00 Intake Total 350 ml 430 ml 300 ml Output Total 400 ml 650 ml Balance 350 ml 30 ml -350 ml medications Current Medications Medications Dose Ordered Sig/Justina Route Start Time Stop Time Status Last Admin Dose Admin Acetaminophen 325 mg Q4HP PRN PO 08/09/25 17:15 Diagnostic Test (Pha) 1 strip Q6HR 08/10/25 06:00 08/18/25 06:00 1 STRIP Insulin Human Regular Q6HR SC 08/10/25 06:00 08/18/25 06:50 3 UNITS Dextrose 50 ml UD PRN IV 08/10/25 02:30 Atorvastatin Calcium 80 mg HS GT 08/11/25 22:00 08/18/25 00:49 80 MG Pantoprazole Sodium 40 mg DAILY IV 08/12/25 10:00 08/18/25 10:08 40 MG Enteral Nutritional Formula 1,000 ml 25ML/HR GT 08/11/25 19:30 08/11/25 21:54 1,000 ML Sennosides 8.6 mg HS PO 08/12/25 22:00 08/13/25 23:13 8.6 MG Docusate Sodium 100 mg BID GT 08/13/25 10:00 08/16/25 21:39 100 MG Polyethylene Glycol 17 gm DAILYPRN PRN GT 08/14/25 14:30 Iron Sucrose 110 ml @ 110 mls/hr DAILY@1200 IV 08/15/25 12:00 08/19/25 11:59 Cancel Iron Sucrose 110 ml @ 110 mls/hr DAILY@1200 IV 08/15/25 12:00 08/19/25 11:59 Cancel Ceftriaxone Sodium 50 ml @ 100 mls/hr DAILY@09 IV 08/16/25 09:00 08/17/25 13:32 100 MLS/HR Albuterol 2.5 mg Q6HWA NEB 08/16/25 06:00 08/18/25 07:52 2.5 MG Ipratropium [place] 0.5 mg Q6HWA NEB 08/16/25 06:00 08/18/25 07:52 0.5 MG Furosemide 40 mg BIDD IV 08/16/25 18:00 08/18/25 06:38 40 MG Enteral Nutritional Formula 28.8 gm BIDWM PO 08/16/25 18:00 08/18/25 10:09 28.8 GM Purified Water 250 ml Q3HR PO 08/16/25 15:00 08/18/25 03:00 250 ML Metoprolol Tartrate 25 mg BID PO 08/17/25 22:00 08/18/25 10:08 25 MG Potassium Chloride 100 ml @ 50 mls/hr Q2H IV 08/18/25 10:15 08/18/25 14:14 UNV Examination General: Elderly, frail female, no acute distress, pleasant. Neuro: Alert, follows commands, no focal deficits. Cardiac: Irregularly irregular rhythm AFib 440400, no murmurs, pulses 2+; no JVD. Respiratory: bilateral crackles mild, no respiratory distress. GI: Soft, NT/ND, bowel sounds present. Renal: Scherer intermittently; urine clear yellow; output 1050 ml/24h. Extremities: 1+ pedal edema, warm. Skin: No breakdown; healed central line site. Lines: CVC removal today PIV only. laboratory and microbiology Laboratory Tests 08/18/25 05:27 Test 08/18/25 05:27 Range/Units Serum Glucose 159 H 74-106 mg/dL Microbiology Date/Time Source Procedure Growth Status 08/09/25 23:10 Urine - Scherer Port Urine Culture - Final Complete 08/09/25 22:59 Nose MRSA Screen - Final Complete 08/09/25 16:40 Blood Blood Culture - Final NO GROWTH AFTER 5 DAYS OF INCUBATION. Complete 08/09/25 15:40 Sputum Gram Stain - Final Complete 08/09/25 15:40 Respiratory Culture - Final Escherichia coli Staphylococcus aureus Complete Problem List/Assessment/Plan Problem List/Assessment/Plan IX. [id number] PLAN NEUROLOGY Metabolic Encephalopathy Post-arrest + sepsis + hypoxia. neurological arrest ruled out (CT head negative) Reflexes present * Awake, alert * No sedation required * Neurochecks Q4H * CT head negative for acute abnormalities. CARDIOVASCULAR . Cardiac Arrest with ROSC Due to hypoxic respiratory failure + STEMI-equivalent. * Downtime ~2 minutes; ROSC after 1 Epi, 1 CPR cycle. Atrial fibrillation rate controlled On Metoprolol Tartarate 25 Mg PO BID * HR 480142 today * High stroke risk (FRANKLIN?DS?-VASc = 7). * Anticoagulation withheld due to anemia and prior thrombocytopenia. STEMI Due to multi-vessel CAD (LAD 99%, LM 60%, LCx 90%).High procedural mortality , conservative management per cardiology LBBB, global ischemia, coronary angiography findings Acute on Chronic Diastolic CHF (HFpEF, EF 65%) Volume overload + pulmonary edema on imaging. Severe Pulmonary Hypertension (RVSP 61 mmHg) From chronic HF + hypoxic vasoconstriction. * Hemodynamically stable off pressors * Hold aspirin due to Hgb 7.6 + platelets 71K * Hold anticoagulation (Eliquis / Lovenox) * Continue atorvastatin * Strict MAP monitoring * EKG for QT interval * No Plavix due to bleeding risk * No KEVIN inhibitors due to WILLIAN * Cardiology following * Conservative management of multi-vessel CAD per cardiology. * Continuous telemetry for AFib; starting metoprolol tartarate 25 mg BID Hypertension Chronic comorbidity Dyslipidemia Chronic comorbidity Continue Atorvasatin RESPIRATORY MECHANICAL VENTILATION Acute on chronic hypoxic respiratory failure post-extubation, improving Aspiration Pneumonia, Multifocal bacterial (E. coli + MSSA) improving Bilateral pleural effusions large right, moderate left Thoracentesis improved symptoms. Right drained 1.3 L. *pneumonia on CXR, lactate normalized from 6.2 - 1.7 - 1.2 improved * On 8 L Oximizer * Wean as tolerated * Thoracentesis done monitor for re-expansion edema * Start: * Incentive spirometry * Chest physiotherapy * Daily CXR * Bronchodilators PRN * Maintain saturation >94% * Suction PRN RENAL WILLIAN Stage 2 due to VMN Improving Likely hemodynamic ischemic ATN. . Hyperphosphatemia Hypokalemia improving replenished Electrolyte derangements. Hypernatremia * Nephrology consult placed today * Monitor UOP hourly * Electrolyte replacement protocol * 250 mL PO free water Q3H * STOP furosemide * START bumetanide drip + albumin 25% IV Q15H 3 doses * Avoid nephrotoxins * Consider renal ultrasound if persistent oliguria * Monitor UOP q1h; goal >0.5 mL/kg/hr. * Correct electrolytes: K >4, Mg >2. INFECTIOUS DISEASE Septic Shock From aspiration pneumonia: initially lactate 6.2 THEN improved to 1.7 - 1.2 .Still requiring vasopressors. Aspiration Pneumonia, Multifocal CXR findings consistent.. * Repeat blood cultures if febrile, urine culture ordered and are negative. * MRSA negative, initial blood cultures are negative * Respiratory culture/gram stain Few Gram Positive Rods Few Gram Positive Cocci in chains Rare Gram Negative Rods Positive for Stap aures ECOLI, * Discontinue vancomycin (MSSA, no MRSA) * STOP cefepime to reduce nephrotoxicity risk in WILLIAN (acceptable to stop) * Start: * Ceftriaxone 12 g IV daily * De-escalate based on culture results. * Lactate normalized; continue sepsis bundle. GI Transaminitis Likely shock liver vs congestive hepatopathy. * Start mechanical soft diet * Continue bowel regimen: * Senna * Docusate * Miralax * If no BM by tomorrow add bisacodyl PRN * GI prophylaxis: IV pantoprazole. * Continue Scherer for accurate I/O * Monitor for hematuria * Scherer catheter in place for accurate UOP. 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 * Anemia : transfuse if <7 or hemodynamically unstable. * DVT prophylaxis: SCD ENDOCRINE T2DM with Stress Hyperglycemia * Sliding scale insulin q4h * Goal BG 602215 * Resume home diabetic meds after stabilization. PSYCHIATRY * Sedated; no psychiatric meds needed NUTRITION Malnutrition risk low albumin * Mechanical soft diet * Advance as tolerated PROPHYLAXIS * DVT: SCD * GI: Pantoprazole * Pressure ulcers: q2h turns * Line-associated infection: Daily review of necessity LINES, TUBES, DRIPS * Right IJ triple-lumen (08/09) placed order to remove today. * ET tube placed 08/09 * NG tube * Scherer * Drips: discontinued PHYSICAL THERAPY * Out of bed to chair and then walk today * PT/OT evaluation for mobility improvement SOCIAL WORK * Family updated * Code status changed to DNR today per family request * Continue [id number] discussion * Continue planning SNF transfer once medically stable for physical therapy X. CRITICAL CARE TIME Critical care time: 83 minutes (exclusive of procedures).High-complexity medical decision-making due to multiorgan failure, vasopressor dependence, mechanical ventilation, post-cardiac arrest care, evolving STEMI, and septic shock. XI. CODE STATUS DNR Discussed with family >20 minutes.Family understands severity of illness and poor prognosis of illness FINAL STATEMENT Case discussed in detail with the attending physician , including the clinical presentation, diagnostic workup, and comprehensive management plan. The patient was present for the discussion and demonstrated understanding of her condition and the proposed plan. Plan discussed with: Patient, Other (NIECE, RN) My Orders My Orders Orders - BRENDAN LEMOS RESIDENT Procedure Category Date Status Time D/C Triple Lumen ORDERS 08/17/25 Transmitted 15:03 Metoprolol Tartrate PHA 08/17/25 In Process Tablet (Lopressor Ta 22:00 * Radioactive Waste Disposal Dispatcher CONS 08/17/25 Transmitted Consult 16:37 Abg W/ Co-Ox RT 08/18/25 Logged 10:10 *[facility] CONS 08/18/25 Transmitted -[place] 10:12 Potassium Chl PHA 08/18/25 Logged 20meq/100ml 10:15 Magnesium Sulfate PHA 08/18/25 Logged 1gm/100ml 10:15 Chest Xray 1 View XY 08/18/25 Logged 10:14 Dietary Evaluation Review Comments: Nutrition Recommendation: 1) EN Vital High Protein @ 45ml/hr x 24hr (goal). Water flush 50ml Q6H if allowed, adjust PRN. TF at goal volume provides 1080 kcal (100%), 95 gm protein (100%), and 66341 ml free water(including flush). 2) TPN if NPO >7 days 3) Monitor NPO status, lab values, weight trend, and I/O Expected Outcomes/Goals: Intake to meet >75% estimated needs Lab values to improve FU 2-3 days Visit Coding STANDARD RES Billing Provider: HAIDER PRESTON MD Date of Service if different f: Aug 18, 2025 BRENDAN LEMOS RESIDENT Aug 18, 2025 10:25
[2025-08-18 10:57] LABS: Base Excess 3.4 mmol/L (-2.0-3.0)
[2025-08-18] MEDS: MAGNESIUM SULFATE 1GM/100ML 100 ML IV ONE (12:34)
--- NOTE | 2025-08-18 12:57 | DVH ---
CHEST RADIOGRAPH Indication: CHF EXCERBATION Technique: Single frontal view of the chest was obtained Comparison: XY CHEST XRAY 1 VIEW on DOS: 08/16/25, XY CHEST PORTABLE on DOS: 08/15/25, XY CHEST XRAY 1 VIEW on DOS: 08/15/25, XY CHEST XRAY 1 VIEW on DOS: 08/14/25, XY CHEST XRAY 1 VIEW on DOS: 08/13/25, XY CHEST XRAY 1 VIEW on DOS: 08/16/25 FINDINGS: Lines and Tubes: Right central venous catheter in satisfactory position. Lungs: Unchanged pulmonary vascular congestion. Pleura: Unchanged small left pleural effusion. No pneumothorax. Cardiomediastinal contours: Cardiomegaly. Bones: Unremarkable IMPRESSION: 1. Unchanged pulmonary vascular congestion and small left pleural effusion.
--- NOTE | 2025-08-18 14:01 | DVHINCON2 ---
Date of service: Aug 18, [address] Harvey Reason for Consultation Acute kidney injury History of Present Illness Patient is a 85-year-old female with past medical history significant for DM type 2, High Lipids, and HTN who is admitted on 08/09 with chest pain status post cardiac arrest patient was intubated on the ventilator and extubated on 08/14. Nephrology is consulted for acute kidney injury Past Medical History Basal cell carcinoma, DM, High Lipids, HTN Past Surgical History Surgical History: Denies all surgeries Allergies: Coded Allergies: NO KNOWN ALLERGIES (Unverified , 09/12/15) Home Meds Active Scripts Zinc Gluconate (Zinc) 50 Mg Tab, 50 MG PO DAILY for 14 Days, #14 TAB Prov:JR FRANCO RESIDENT 05/02/25 Cholecalciferol (Vitamin D) 2,000 Unit Cap, 2000 UNIT PO DAILY for 14 Days, #20 CAP Prov:JR FRANCO RESIDENT 05/02/25 Ascorbic Acid (VITAMIN C) 500 Mg Cap, 500 MG PO DAILY for 14 Days, #30 CAP Prov:JR FRANCO RESIDENT 05/02/25 Reported Medications Nifedipine (Nifedipine ER) 30 Mg Tab, 30 MG PO DAILY, TAB 08/10/25 Metoprolol Tartrate (Metoprolol Tartrate) 25 Mg Tab, 25 MG PO BID for 30 Days, MG 08/10/25 Sitagliptin Phosphate (Januvia) 50 Mg Tab, 25 MG PO, TAB 08/10/25 Glimepiride (Glimepiride) 4 Mg Tab, 1 TAB PO DAILY, #30 TAB 5 Refills 08/10/25 Atorvastatin Calcium (ATORVASTATIN CALCIUM) 40 Mg Tab, 1 TAB PO DAILY, #30 TAB 5 Refills 08/10/25 Apixaban Base (Eliquis Starter Pack) 5 Mg Tab, 2.5 MG PO BID, TAB 08/10/25 Current Medications Current Medications Medications (Trade) Dose Ordered Sig/Justina Route PRN Reason Start Time Stop Time Status Last Admin Metoprolol Tartrate (Lopressor Tablet) 25 mg BID PO 08/17/25 22:00 08/18/25 10:08 Potassium Chloride 100 ml @ 50 mls/hr Q2H IV 08/18/25 10:15 08/18/25 14:14 Family History: Hypertension G8 MOTHER H&P Exam Vital Signs/I&O Vital Sign Date Time Temp Pulse Resp B/P (MAP) Pulse Ox O2 Delivery O2 Flow Rate FiO2 08/18/25 13:21 103 20 100 08/18/25 13:15 Nasal Cannula 5.0 08/18/25 13:15 40 08/18/25 13:00 97.4 127/57 (80) 97.4 Intake and Output 08/17/25 08/18/25 19:00 07:00 Intake Total 780 ml 300 ml Output Total 400 ml 650 ml Balance 380 ml -350 ml Intake Oral 430 ml 300 ml IV Total 350 ml Output Urine Total 400 ml 650 ml # Bowel Movements 3 Labs/Diagnostic Data Labs/Diagnostic Data Laboratory Tests Test 08/18/25 11:38 08/18/25 10:48 08/18/25 06:35 08/18/25 05:27 Range/Units POC Glucose 186 H 173 H 70-106 mg/dl Blood Gas Specimen Type Arterial Blood Gas Sample Site Right radial Blood Gas Patient Temperature 37.0 Arterial Blood Date Drawn [id number] Arterial Blood pH 7.478 H 7.350-7.450 Arterial Blood Partial Pressure CO2 37.4 32.0-45.0 mmHg Arterial Blood Partial Pressure O2 93.1 83.0-108.0 mmHg Arterial Blood HCO3 27.1 21.0-28.0 mmol/L Arterial Blood Oxygen Saturation 96.6 94.0-98.0 % Arterial Blood Base Excess 3.4 H -2.0-3.0 mmol/L Arterial Blood Oxyhemoglobin 94.3 94.0-98.0 % Arterial Blood Carboxyhemoglobin 1.6 H 0.5-1.5 % Arterial Blood Methemoglobin 0.8 0.0-1.5 % Arterial Blood Deoxyhemoglobin 3.3 0.0-5.0 % Chito Test Yes Blood Gas Total Hemoglobin 8.60 L 12.0-16.0 g/dL Blood Gas Liter Flow 8.00 Blood Gas Modality Oxymizer FiO2 % 64.0 White Blood Count 5.3 4.4-10.8 10^3/uL Red Blood Count 2.54 L 4.0-5.20 10^6/uL Hemoglobin 8.2 L 12.2-16.2 g/dL Hematocrit 24.7 #L 36.0-46.0 % Mean Corpuscular Volume 97.3 80.0-100.0 fL Mean Corpuscular Hemoglobin 32.5 H 28.0-32.0 pg Mean Corpuscular Hemoglobin Concent 33.4 32.0-36.0 g/dL Red Cell Distribution Width 18.9 H 11.8-14.3 % Platelet Count 162 140-450 10^3/uL Mean Platelet Volume 8.4 6.9-10.8 fL Neutrophils (%) (Auto) 37.0-80.0 % Lymphocytes (%) (Auto) 10.0-50.0 % Monocytes (%) (Auto) 0.0-12.0 % Basophils (%) (Auto) 0.0-2.0 % Neutrophils # (Auto) 1.6-8.6 10 ^3/uL Lymphocytes # (Auto) 0.4-5.4 10 ^3/uL Monocytes # (Auto) 0-1.3 10 ^3/uL Differential Total Cells Counted 100.0 100 Neutrophils % (Manual) 41 37.0-80.0 Band Neutrophils % (Manual) 0 Lymphocytes % (Manual) 43 10.0-50.0 Monocytes % (Manual) 16 H 0-12 Eosinophils % (Manual) 0 0-7 Basophils % (Manual) 0 0.0-2.0 Metamyelocytes % (manual) 0 Myelocytes % (Manual) 0 Promyelocytes % (Manual) 0 Blast Cells % (Manual) 0 Reactive Lymphocytes 0 Platelet Estimate Adequate Sodium Level 143 136-145 mmol/L Potassium Level 3.4 L 3.5-5.1 mmol/L Chloride Level 102 98-107 mmol/L Carbon Dioxide Level 31 20-31 mmol/L Anion Gap 10 5-15 Blood Urea Nitrogen 55 H 9-23 mg/dL Creatinine 1.85 H 0.550-1.02 mg/dL Glomerular Filtration Rate Calc 27 >90 mL/min BUN/Creatinine Ratio 29.7 H 10.0-20.0 Serum Glucose 159 H 74-106 mg/dL Calcium Level 9.8 8.7-10.4 mg/dL Magnesium Level 2.1 1.6-2.6 mg/dL Test 08/18/25 00:44 08/17/25 17:45 08/17/25 15:21 08/17/25 11:11 Range/Units POC Glucose 180 H 192 H 255 H 70-106 mg/dl Potassium Level 3.8 3.5-5.1 mmol/L Test 08/17/25 05:24 08/17/25 05:05 08/17/25 00:10 08/16/25 17:33 Range/Units White Blood Count 5.9 4.4-10.8 10^3/uL Red Blood Count 2.32 L 4.0-5.20 10^6/uL Hemoglobin 7.6 L 12.2-16.2 g/dL Hematocrit 22.3 L 36.0-46.0 % Mean Corpuscular Volume 96.5 80.0-100.0 fL Mean Corpuscular Hemoglobin 32.7 H 28.0-32.0 pg Mean Corpuscular Hemoglobin Concent 33.8 32.0-36.0 g/dL Red Cell Distribution Width 18.6 H 11.8-14.3 % Platelet Count 152 140-450 10^3/uL Mean Platelet Volume 8.6 6.9-10.8 fL Neutrophils (%) (Auto) 37.0-80.0 % Lymphocytes (%) (Auto) 10.0-50.0 % Monocytes (%) (Auto) 0.0-12.0 % Basophils (%) (Auto) 0.0-2.0 % Neutrophils # (Auto) 1.6-8.6 10 ^3/uL Lymphocytes # (Auto) 0.4-5.4 10 ^3/uL Monocytes # (Auto) 0-1.3 10 ^3/uL Differential Total Cells Counted 100.0 100 Neutrophils % (Manual) 52 37.0-80.0 Band Neutrophils % (Manual) 1 Lymphocytes % (Manual) 23 10.0-50.0 Monocytes % (Manual) 24 H 0-12 Eosinophils % (Manual) 0 0-7 Basophils % (Manual) 0 0.0-2.0 Metamyelocytes % (manual) 0 Myelocytes % (Manual) 0 Promyelocytes % (Manual) 0 Blast Cells % (Manual) 0 Reactive Lymphocytes 0 Platelet Estimate Adequate Large Platelets Few Stomatocytes Few Sodium Level 144 136-145 mmol/L Potassium Level 3.2 L 3.5-5.1 mmol/L Chloride Level 102 98-107 mmol/L Carbon Dioxide Level 28 20-31 mmol/L Anion Gap 14 5-15 Blood Urea Nitrogen 53 #H 9-23 mg/dL Creatinine 1.78 H 0.550-1.02 mg/dL Glomerular Filtration Rate Calc 28 >90 mL/min BUN/Creatinine Ratio 29.8 H 10.0-20.0 Serum Glucose 188 H 74-106 mg/dL Calcium Level 9.8 8.7-10.4 mg/dL Magnesium Level 1.9 1.6-2.6 mg/dL POC Glucose 195 H 196 H 193 H 70-106 mg/dl Test 08/16/25 14:58 08/16/25 11:41 08/16/25 07:16 08/16/25 05:49 Range/Units Stool Occult Blood Negative Negative Stool Occult Blood Sample #3 Negative POC Glucose 157 H 161 H 70-106 mg/dl Blood Gas Specimen Type Arterial Blood Gas Sample Site Left radial Blood Gas Patient Temperature 37.0 Arterial Blood Date Drawn Arterial Blood pH 7.460 H 7.350-7.450 Arterial Blood Partial Pressure CO2 38.0 32.0-45.0 mmHg Arterial Blood Partial Pressure O2 103.9 83.0-108.0 mmHg Arterial Blood HCO3 26.4 21.0-28.0 mmol/L Arterial Blood Oxygen Saturation 97.5 94.0-98.0 % Arterial Blood Base Excess 2.4 -2.0-3.0 mmol/L Arterial Blood Oxyhemoglobin 94.2 94.0-98.0 % Arterial Blood Carboxyhemoglobin 2.3 H 0.5-1.5 % Arterial Blood Methemoglobin 1.1 0.0-1.5 % Arterial Blood Deoxyhemoglobin 2.4 0.0-5.0 % Chito Test Yes Blood Gas Total Hemoglobin 7.50 L 12.0-16.0 g/dL Blood Gas Liter Flow 4.00 Blood Gas Modality Nasal cannula FiO2 % 36.0 Test 08/16/25 02:40 08/16/25 00:21 08/15/25 18:00 08/15/25 11:06 Range/Units White Blood Count 4.9 # 4.4-10.8 10^3/uL Red Blood Count 2.23 L 4.0-5.20 10^6/uL Hemoglobin 7.2 L 12.2-16.2 g/dL Hematocrit 21.6 #L 36.0-46.0 % Mean Corpuscular Volume 97.2 80.0-100.0 fL Mean Corpuscular Hemoglobin 32.3 H 28.0-32.0 pg Mean Corpuscular Hemoglobin Concent 33.2 32.0-36.0 g/dL Red Cell Distribution Width 18.8 H 11.8-14.3 % Platelet Count 108 L 140-450 10^3/uL Mean Platelet Volume 8.7 6.9-10.8 fL Neutrophils (%) (Auto) 37.0-80.0 % Lymphocytes (%) (Auto) 10.0-50.0 % Monocytes (%) (Auto) 0.0-12.0 % Basophils (%) (Auto) 0.0-2.0 % Neutrophils # (Auto) 1.6-8.6 10 ^3/uL Lymphocytes # (Auto) 0.4-5.4 10 ^3/uL Monocytes # (Auto) 0-1.3 10 ^3/uL Differential Total Cells Counted 100.0 100 Neutrophils % (Manual) 58 37.0-80.0 Band Neutrophils % (Manual) 1 Lymphocytes % (Manual) 20 10.0-50.0 Monocytes % (Manual) 14 H 0-12 Eosinophils % (Manual) 4 0-7 Basophils % (Manual) 0 0.0-2.0 Metamyelocytes % (manual) 3 Myelocytes % (Manual) 0 Promyelocytes % (Manual) 0 Blast Cells % (Manual) 0 Reactive Lymphocytes 0 Platelet Estimate Decreased Large Platelets Few Sodium Level 148 H 136-145 mmol/L Potassium Level 3.3 L 3.5-5.1 mmol/L Chloride Level 104 98-107 mmol/L Carbon Dioxide Level 29 20-31 mmol/L Anion Gap 15 5-15 Blood Urea Nitrogen 41 H 9-23 mg/dL Creatinine 1.58 H 0.550-1.02 mg/dL Glomerular Filtration Rate Calc 32 >90 mL/min BUN/Creatinine Ratio 25.9 H 10.0-20.0 Serum Glucose 142 H 74-106 mg/dL Calcium Level 9.5 8.7-10.4 mg/dL Magnesium Level 2.1 1.6-2.6 mg/dL Total Bilirubin 1.0 0.2-1.0 mg/dL Aspartate Amino Transferase (AST) 39 13-40 U/L Alanine Aminotransferase (ALT) 30 7-40 U/L Alkaline Phosphatase 117 H 46-116 U/L Total Protein 6.0 5.7-8.2 g/dL Albumin 3.1 L 3.2-4.8 g/dL Random Vancomycin Level 19.9 H 5-10 ug/mL POC Glucose 158 H 187 H 70-106 mg/dl Blood Gas Specimen Type Arterial Blood Gas Sample Site Left radial Blood Gas Patient Temperature 37.0 Arterial Blood Date Drawn [id number] Arterial Blood pH 7.497 H 7.350-7.450 Arterial Blood Partial Pressure CO2 34.5 32.0-45.0 mmHg Arterial Blood Partial Pressure O2 76.3 L 83.0-108.0 mmHg Arterial Blood HCO3 26.1 21.0-28.0 mmol/L Arterial Blood Oxygen Saturation 94.4 94.0-98.0 % Arterial Blood Base Excess 2.8 -2.0-3.0 mmol/L Arterial Blood Oxyhemoglobin 91.5 L 94.0-98.0 % Arterial Blood Carboxyhemoglobin 2.4 H 0.5-1.5 % Arterial Blood Methemoglobin 0.7 0.0-1.5 % Arterial Blood Deoxyhemoglobin 5.4 H 0.0-5.0 % Chito Test Modified Blood Gas Total Hemoglobin 7.90 L 12.0-16.0 g/dL Blood Gas Set Respiration Rate 14.0 Blood Gas Modality Mask - bipap Blood Gas Spontaneous Rate 39 FiO2 % 30.0 Blood Gas Spontaneous Tidal Volume 438 Blood Gas EPAP 5 Blood Gas IPAP 12 Test 08/15/25 07:30 08/15/25 05:50 08/15/25 02:51 08/14/25 23:41 Range/Units Blood Gas Specimen Type Arterial Blood Gas Sample Site Left radial Blood Gas Patient Temperature 37.0 Arterial Blood Date Drawn [id number] Arterial Blood pH 7.463 H 7.350-7.450 Arterial Blood Partial Pressure CO2 39.7 32.0-45.0 mmHg Arterial Blood Partial Pressure O2 76.7 L 83.0-108.0 mmHg Arterial Blood HCO3 27.8 21.0-28.0 mmol/L Arterial Blood Oxygen Saturation 93.9 L 94.0-98.0 % Arterial Blood Base Excess 3.7 H -2.0-3.0 mmol/L Arterial Blood Oxyhemoglobin 91.6 L 94.0-98.0 % Arterial Blood Carboxyhemoglobin 1.9 H 0.5-1.5 % Arterial Blood Methemoglobin 0.6 0.0-1.5 % Arterial Blood Deoxyhemoglobin 5.9 H 0.0-5.0 % Chito Test Modified Blood Gas Total Hemoglobin 7.20 L 12.0-16.0 g/dL Blood Gas Set Respiration Rate 14.0 Blood Gas Modality Mask - bipap Blood Gas Spontaneous Rate 22 FiO2 % 30.0 Blood Gas Spontaneous Tidal Volume 351 Blood Gas EPAP 5 Blood Gas IPAP 12 POC Glucose 150 H 153 H 70-106 mg/dl White Blood Count 3.3 L 4.4-10.8 10^3/uL Red Blood Count 2.02 L 4.0-5.20 10^6/uL Hemoglobin 6.3 *L 12.2-16.2 g/dL Hematocrit 19.6 L 36.0-46.0 % Mean Corpuscular Volume 97.3 80.0-100.0 fL Mean Corpuscular Hemoglobin 31.4 28.0-32.0 pg Mean Corpuscular Hemoglobin Concent 32.3 32.0-36.0 g/dL Red Cell Distribution Width 18.4 H 11.8-14.3 % Platelet Count 71 L 140-450 10^3/uL Mean Platelet Volume 8.6 6.9-10.8 fL Neutrophils (%) (Auto) 37.0-80.0 % Lymphocytes (%) (Auto) 10.0-50.0 % Monocytes (%) (Auto) 0.0-12.0 % Basophils (%) (Auto) 0.0-2.0 % Neutrophils # (Auto) 1.6-8.6 10 ^3/uL Lymphocytes # (Auto) 0.4-5.4 10 ^3/uL Monocytes # (Auto) 0-1.3 10 ^3/uL Differential Total Cells Counted 100.0 100 Neutrophils % (Manual) 40 37.0-80.0 Band Neutrophils % (Manual) 0 Lymphocytes % (Manual) 27 10.0-50.0 Monocytes % (Manual) 33 H 0-12 Eosinophils % (Manual) 0 0-7 Basophils % (Manual) 0 0.0-2.0 Metamyelocytes % (manual) 0 Myelocytes % (Manual) 0 Promyelocytes % (Manual) 0 Blast Cells % (Manual) 0 Reactive Lymphocytes 0 Platelet Estimate Decrea Large Platelets Few Giant Platelets Few Sodium Level 145 136-145 mmol/L Potassium Level 3.5 3.5-5.1 mmol/L Chloride Level 104 98-107 mmol/L Carbon Dioxide Level 31 20-31 mmol/L Anion Gap 10 5-15 Blood Urea Nitrogen 36 H 9-23 mg/dL Creatinine 1.43 H 0.550-1.02 mg/dL Glomerular Filtration Rate Calc 36 >90 mL/min BUN/Creatinine Ratio 25.2 H 10.0-20.0 Serum Glucose 145 H 74-106 mg/dL Calcium Level 9.3 8.7-10.4 mg/dL Magnesium Level 2.1 1.6-2.6 mg/dL Total Bilirubin 1.2 H 0.2-1.0 mg/dL Aspartate Amino Transferase (AST) 33 13-40 U/L Alanine Aminotransferase (ALT) 27 7-40 U/L Alkaline Phosphatase 121 H 46-116 U/L Total Protein 5.7 5.7-8.2 g/dL Albumin 3.1 L 3.2-4.8 g/dL Random Vancomycin Level 16.4 H 5-10 ug/mL Test 08/14/25 17:30 08/14/25 17:18 08/14/25 15:30 08/14/25 11:38 Range/Units Hemoglobin 7.0 *L 12.2-16.2 g/dL Hematocrit 21.0 L 36.0-46.0 % Iron Level 43 L 50-170 ug/dL Total Iron Binding Capacity 236 L 250-425 ug/dL Percent Iron Saturation 18.2 15-50 % Ferritin 230.7 10-291 ng/mL POC Glucose 194 H 181 H 70-106 mg/dl Potassium Level 3.7 3.5-5.1 mmol/L Test 08/14/25 06:41 08/14/25 03:00 08/13/25 23:19 08/13/25 17:16 Range/Units POC Glucose 169 H 159 H 161 H 70-106 mg/dl White Blood Count 3.8 L 4.4-10.8 10^3/uL Red Blood Count 2.05 L 4.0-5.20 10^6/uL Hemoglobin 6.7 *L 12.2-16.2 g/dL Hematocrit 19.5 L 36.0-46.0 % Mean Corpuscular Volume 95.2 80.0-100.0 fL Mean Corpuscular Hemoglobin 32.9 H 28.0-32.0 pg Mean Corpuscular Hemoglobin Concent 34.5 32.0-36.0 g/dL Red Cell Distribution Width 18.1 H 11.8-14.3 % Platelet Count 83 L 140-450 10^3/uL Mean Platelet Volume 8.9 6.9-10.8 fL Neutrophils (%) (Auto) 37.0-80.0 % Lymphocytes (%) (Auto) 10.0-50.0 % Monocytes (%) (Auto) 0.0-12.0 % Basophils (%) (Auto) 0.0-2.0 % Neutrophils # (Auto) 1.6-8.6 10 ^3/uL Lymphocytes # (Auto) 0.4-5.4 10 ^3/uL Monocytes # (Auto) 0-1.3 10 ^3/uL Differential Total Cells Counted 100.0 100 Neutrophils % (Manual) 49 37.0-80.0 Band Neutrophils % (Manual) 2 Lymphocytes % (Manual) 26 10.0-50.0 Monocytes % (Manual) 21 H 0-12 Eosinophils % (Manual) 1 0-7 Basophils % (Manual) 0 0.0-2.0 Metamyelocytes % (manual) 0 Myelocytes % (Manual) 0 Promyelocytes % (Manual) 0 Blast Cells % (Manual) 0 Reactive Lymphocytes 1 Platelet Estimate Decreased Sodium Level 144 136-145 mmol/L Potassium Level 3.4 L 3.5-5.1 mmol/L Chloride Level 102 98-107 mmol/L Carbon Dioxide Level 31 20-31 mmol/L Anion Gap 11 5-15 Blood Urea Nitrogen 36 H 9-23 mg/dL Creatinine 1.50 H 0.550-1.02 mg/dL Glomerular Filtration Rate Calc 34 >90 mL/min BUN/Creatinine Ratio 24.0 H 10.0-20.0 Serum Glucose 172 H 74-106 mg/dL Calcium Level 9.1 8.7-10.4 mg/dL Magnesium Level 2.1 1.6-2.6 mg/dL Total Bilirubin 1.3 H 0.2-1.0 mg/dL Aspartate Amino Transferase (AST) 28 13-40 U/L Alanine Aminotransferase (ALT) 24 7-40 U/L Alkaline Phosphatase 119 H 46-116 U/L Total Protein 5.4 L 5.7-8.2 g/dL Albumin 3.0 L 3.2-4.8 g/dL Random Vancomycin Level 14.3 H 5-10 ug/mL Test 08/13/25 11:40 08/13/25 06:25 08/13/25 05:18 08/13/25 02:45 Range/Units POC Glucose 185 H 167 H 70-106 mg/dl Blood Gas Specimen Type Arterial Blood Gas Sample Site Right radial Blood Gas Patient Temperature 37.0 Arterial Blood Date Drawn [id number] Arterial Blood pH 7.531 H 7.350-7.450 Arterial Blood Partial Pressure CO2 31.8 L 32.0-45.0 mmHg Arterial Blood Partial Pressure O2 75.4 L 83.0-108.0 mmHg Arterial Blood HCO3 26.0 21.0-28.0 mmol/L Arterial Blood Oxygen Saturation 94.8 94.0-98.0 % Arterial Blood Base Excess 3.3 H -2.0-3.0 mmol/L Arterial Blood Oxyhemoglobin 91.4 L 94.0-98.0 % Arterial Blood Carboxyhemoglobin 2.9 H 0.5-1.5 % Arterial Blood Methemoglobin 0.7 0.0-1.5 % Arterial Blood Deoxyhemoglobin 5.0 0.0-5.0 % Chito Test Modified Blood Gas Total Hemoglobin 7.80 L 12.0-16.0 g/dL Blood Gas Set Respiration Rate 14.0 Blood Gas Modality Vent - ac FiO2 % 30.0 Blood Gas Tidal Volume 500.0 Blood Gas PEEP or CPAP 5.0 White Blood Count 4.3 L 4.4-10.8 10^3/uL Red Blood Count 2.16 L 4.0-5.20 10^6/uL Hemoglobin 7.0 *L 12.2-16.2 g/dL Hematocrit 20.5 L 36.0-46.0 % Mean Corpuscular Volume 95.2 80.0-100.0 fL Mean Corpuscular Hemoglobin 32.4 H 28.0-32.0 pg Mean Corpuscular Hemoglobin Concent 34.0 32.0-36.0 g/dL Red Cell Distribution Width 18.7 H 11.8-14.3 % Platelet Count 83 L 140-450 10^3/uL Mean Platelet Volume 8.6 6.9-10.8 fL Neutrophils (%) (Auto) 37.0-80.0 % Lymphocytes (%) (Auto) 10.0-50.0 % Monocytes (%) (Auto) 0.0-12.0 % Basophils (%) (Auto) 0.0-2.0 % Neutrophils # (Auto) 1.6-8.6 10 ^3/uL Lymphocytes # (Auto) 0.4-5.4 10 ^3/uL Monocytes # (Auto) 0-1.3 10 ^3/uL Differential Total Cells Counted 100.0 100 Neutrophils % (Manual) 54 37.0-80.0 Band Neutrophils % (Manual) 0 Lymphocytes % (Manual) 40 10.0-50.0 Monocytes % (Manual) 6 0-12 Eosinophils % (Manual) 0 0-7 Basophils % (Manual) 0 0.0-2.0 Metamyelocytes % (manual) 0 Myelocytes % (Manual) 0 Promyelocytes % (Manual) 0 Blast Cells % (Manual) 0 Reactive Lymphocytes 0 Platelet Estimate Decreased Haptoglobin <10 L 41-333 mg/dL Sodium Level 142 136-145 mmol/L Potassium Level 3.7 3.5-5.1 mmol/L Chloride Level 101 98-107 mmol/L Carbon Dioxide Level 30 20-31 mmol/L Anion Gap 11 5-15 Blood Urea Nitrogen 37 H 9-23 mg/dL Creatinine 1.51 H 0.550-1.02 mg/dL Glomerular Filtration Rate Calc 34 >90 mL/min BUN/Creatinine Ratio 24.5 H 10.0-20.0 Serum Glucose 161 H 74-106 mg/dL Calcium Level 9.0 8.7-10.4 mg/dL Magnesium Level 2.1 1.6-2.6 mg/dL Iron Level 46 L 50-170 ug/dL Total Iron Binding Capacity 215 L 250-425 ug/dL Percent Iron Saturation 21.4 15-50 % Ferritin 233.6 10-291 ng/mL Total Bilirubin 1.4 H 0.2-1.0 mg/dL Aspartate Amino Transferase (AST) 25 13-40 U/L Alanine Aminotransferase (ALT) 29 7-40 U/L Alkaline Phosphatase 113 46-116 U/L Lactate Dehydrogenase 385 H 120-246 U/L Total Protein 5.5 L 5.7-8.2 g/dL Albumin 3.0 L 3.2-4.8 g/dL Random Vancomycin Level 19.2 H 5-10 ug/mL Test 08/12/25 23:20 08/12/25 19:30 08/12/25 13:40 08/12/25 11:55 Range/Units POC Glucose 150 H 159 H 177 H 70-106 mg/dl Potassium Level 3.8 3.5-5.1 mmol/L Magnesium Level 1.9 1.6-2.6 mg/dL Test 08/12/25 06:23 08/12/25 05:52 08/12/25 02:35 08/12/25 00:32 Range/Units Blood Gas Specimen Type Arterial Blood Gas Sample Site Left radial Blood Gas Patient Temperature 37.0 Arterial Blood Date Drawn [id number] Arterial Blood pH 7.503 H 7.350-7.450 Arterial Blood Partial Pressure CO2 32.1 32.0-45.0 mmHg Arterial Blood Partial Pressure O2 87.2 83.0-108.0 mmHg Arterial Blood HCO3 24.6 21.0-28.0 mmol/L Arterial Blood Oxygen Saturation 96.1 94.0-98.0 % Arterial Blood Base Excess 1.6 -2.0-3.0 mmol/L Arterial Blood Oxyhemoglobin 92.9 L 94.0-98.0 % Arterial Blood Carboxyhemoglobin 2.5 H 0.5-1.5 % Arterial Blood Methemoglobin 0.8 0.0-1.5 % Arterial Blood Deoxyhemoglobin 3.8 0.0-5.0 % Chito Test Modified Blood Gas Total Hemoglobin 8.10 L 12.0-16.0 g/dL Blood Gas Set Respiration Rate 14.0 Blood Gas Modality Vent - ac FiO2 % 30.0 Blood Gas Tidal Volume 500.0 Blood Gas PEEP or CPAP 5.0 POC Glucose 144 H 70-106 mg/dl White Blood Count 4.7 4.4-10.8 10^3/uL Red Blood Count 2.27 L 4.0-5.20 10^6/uL Hemoglobin 7.5 L 12.2-16.2 g/dL Hematocrit 21.5 #L 36.0-46.0 % Mean Corpuscular Volume 94.9 80.0-100.0 fL Mean Corpuscular Hemoglobin 32.9 H 28.0-32.0 pg Mean Corpuscular Hemoglobin Concent 34.7 32.0-36.0 g/dL Red Cell Distribution Width 19.1 H 11.8-14.3 % Platelet Count 80 L 140-450 10^3/uL Mean Platelet Volume 9.0 6.9-10.8 fL Neutrophils (%) (Auto) 37.0-80.0 % Lymphocytes (%) (Auto) 10.0-50.0 % Monocytes (%) (Auto) 0.0-12.0 % Basophils (%) (Auto) 0.0-2.0 % Neutrophils # (Auto) 1.6-8.6 10 ^3/uL Lymphocytes # (Auto) 0.4-5.4 10 ^3/uL Monocytes # (Auto) 0-1.3 10 ^3/uL Differential Total Cells Counted 100.0 100 Neutrophils % (Manual) 57 37.0-80.0 Band Neutrophils % (Manual) 0 Lymphocytes % (Manual) 34 10.0-50.0 Monocytes % (Manual) 9 0-12 Eosinophils % (Manual) 0 0-7 Basophils % (Manual) 0 0.0-2.0 Metamyelocytes % (manual) 0 Myelocytes % (Manual) 0 Promyelocytes % (Manual) 0 Blast Cells % (Manual) 0 Reactive Lymphocytes 0 Platelet Estimate Decreased Sodium Level 142 136-145 mmol/L Potassium Level 3.2 L 3.5-5.1 mmol/L Chloride Level 101 98-107 mmol/L Carbon Dioxide Level 31 20-31 mmol/L Anion Gap 10 5-15 Blood Urea Nitrogen 37 H 9-23 mg/dL Creatinine 1.43 H 0.550-1.02 mg/dL Glomerular Filtration Rate Calc 36 >90 mL/min BUN/Creatinine Ratio 25.9 H 10.0-20.0 Serum Glucose 137 H 74-106 mg/dL Calcium Level 9.0 8.7-10.4 mg/dL Total Bilirubin 1.6 H 0.2-1.0 mg/dL Aspartate Amino Transferase (AST) 25 13-40 U/L Alanine Aminotransferase (ALT) 35 7-40 U/L Alkaline Phosphatase 95 46-116 U/L Total Protein 5.5 L 5.7-8.2 g/dL Albumin 3.0 L 3.2-4.8 g/dL Random Vancomycin Level 16.3 H 5-10 ug/mL Prothrombin Time 12.1 H 9.3-11.8 sec Prothrombin Time INR 1.16 H 0.9-1.15 Activated Partial Thromboplast Time 64.2 H 24.5-34.5 SEC Test 08/12/25 00:10 08/11/25 18:35 08/11/25 17:33 08/11/25 12:33 Range/Units POC Glucose 146 H 152 H 70-106 mg/dl Hemoglobin 8.2 L 12.2-16.2 g/dL Hematocrit 24.0 #L 36.0-46.0 % Prothrombin Time 12.0 H 9.3-11.8 sec Prothrombin Time INR 1.15 0.9-1.15 Activated Partial Thromboplast Time 59.2 H 50.1 H 24.5-34.5 SEC Test 08/11/25 11:27 08/11/25 07:34 08/11/25 05:20 08/11/25 05:02 Range/Units POC Glucose 158 H 148 H 70-106 mg/dl Blood Gas Specimen Type Arterial Blood Gas Sample Site Left radial Blood Gas Patient Temperature 37.0 Arterial Blood Date Drawn [id number] Arterial Blood pH 7.504 H 7.350-7.450 Arterial Blood Partial Pressure CO2 37.2 32.0-45.0 mmHg Arterial Blood Partial Pressure O2 88.5 83.0-108.0 mmHg Arterial Blood HCO3 28.6 H 21.0-28.0 mmol/L Arterial Blood Oxygen Saturation 96.4 94.0-98.0 % Arterial Blood Base Excess 5.3 H -2.0-3.0 mmol/L Arterial Blood Oxyhemoglobin 93.5 L 94.0-98.0 % Arterial Blood Carboxyhemoglobin 2.5 H 0.5-1.5 % Arterial Blood Methemoglobin 0.5 0.0-1.5 % Arterial Blood Deoxyhemoglobin 3.5 0.0-5.0 % Chito Test Modified Blood Gas Total Hemoglobin 11.40 L 12.0-16.0 g/dL Blood Gas Set Respiration Rate 20.0 Blood Gas Modality Vent - ac FiO2 % 30.0 Blood Gas Tidal Volume 450.0 Blood Gas PEEP or CPAP 5.0 Prothrombin Time 12.6 H 9.3-11.8 sec Prothrombin Time INR 1.21 H 0.9-1.15 Activated Partial Thromboplast Time 46.2 H 24.5-34.5 SEC Test 08/11/25 02:30 08/11/25 01:38 08/10/25 22:15 08/10/25 17:51 Range/Units White Blood Count 5.9 # 4.4-10.8 10^3/uL Red Blood Count 2.25 L 4.0-5.20 10^6/uL Hemoglobin 7.3 L 12.2-16.2 g/dL Hematocrit 21.4 L 36.0-46.0 % Mean Corpuscular Volume 95.3 80.0-100.0 fL Mean Corpuscular Hemoglobin 32.5 H 28.0-32.0 pg Mean Corpuscular Hemoglobin Concent 34.1 32.0-36.0 g/dL Red Cell Distribution Width 19.8 H 11.8-14.3 % Platelet Count 78 L 140-450 10^3/uL Mean Platelet Volume 9.0 6.9-10.8 fL Neutrophils (%) (Auto) 54.7 37.0-80.0 % Lymphocytes (%) (Auto) 22.9 10.0-50.0 % Monocytes (%) (Auto) 19.5 H 0.0-12.0 % Eosinophils (%) (Auto) 2.1 0.0-7.0 % Basophils (%) (Auto) 0.8 0.0-2.0 % Neutrophils # (Auto) 3.2 1.6-8.6 10 ^3/uL Lymphocytes # (Auto) 1.4 0.4-5.4 10 ^3/uL Monocytes # (Auto) 1.2 0-1.3 10 ^3/uL Eosinophils # (Auto) 0.1 0-0.8 10 ^3/uL Basophils # (Auto) 0 0-0.2 10 ^3/uL Nucleated Red Blood Cells 0.1 % Activated Partial Thromboplast Time 47.9 H 54.3 H 24.5-34.5 SEC Sodium Level 143 136-145 mmol/L Potassium Level 3.6 3.5-5.1 mmol/L Chloride Level 102 98-107 mmol/L Carbon Dioxide Level 31 20-31 mmol/L Anion Gap 10 5-15 Blood Urea Nitrogen 37 H 9-23 mg/dL Creatinine 1.37 H 0.550-1.02 mg/dL Glomerular Filtration Rate Calc 38 >90 mL/min BUN/Creatinine Ratio 27.0 H 10.0-20.0 Serum Glucose 144 H 74-106 mg/dL Lactic Acid Level 1.2 0.4-2.0 mmol/L Calcium Level 8.8 8.7-10.4 mg/dL Magnesium Level 1.7 1.6-2.6 mg/dL Total Bilirubin 1.7 H 0.2-1.0 mg/dL Aspartate Amino Transferase (AST) 38 13-40 U/L Alanine Aminotransferase (ALT) 53 H 7-40 U/L Alkaline Phosphatase 93 46-116 U/L Total Protein 5.6 L 5.7-8.2 g/dL Albumin 3.0 L 3.2-4.8 g/dL Random Vancomycin Level 9.9 5-10 ug/mL POC Glucose 166 H 185 H 70-106 mg/dl Prothrombin Time 12.9 H 9.3-11.8 sec Prothrombin Time INR 1.24 H 0.9-1.15 Test 08/10/25 16:40 08/10/25 11:23 08/10/25 08:30 08/10/25 07:21 Range/Units Prothrombin Time 13.0 H 13.2 H 9.3-11.8 sec Prothrombin Time INR 1.25 H 1.28 H 0.9-1.15 Activated Partial Thromboplast Time 53.6 H 36.9 H 24.5-34.5 SEC POC Glucose 160 H 70-106 mg/dl White Blood Count 8.3 4.4-10.8 10^3/uL Red Blood Count 2.46 L 4.0-5.20 10^6/uL Hemoglobin 8.1 L 12.2-16.2 g/dL Hematocrit 23.3 L 36.0-46.0 % Mean Corpuscular Volume 95.1 80.0-100.0 fL Mean Corpuscular Hemoglobin 32.8 H 28.0-32.0 pg Mean Corpuscular Hemoglobin Concent 34.5 32.0-36.0 g/dL Red Cell Distribution Width 19.5 H 11.8-14.3 % Platelet Count 92 L 140-450 10^3/uL Mean Platelet Volume 8.8 6.9-10.8 fL Neutrophils (%) (Auto) 70.5 37.0-80.0 % Lymphocytes (%) (Auto) 12.2 10.0-50.0 % Monocytes (%) (Auto) 16.0 H 0.0-12.0 % Eosinophils (%) (Auto) 1.0 0.0-7.0 % Basophils (%) (Auto) 0.3 0.0-2.0 % Neutrophils # (Auto) 5.8 1.6-8.6 10 ^3/uL Lymphocytes # (Auto) 1.0 0.4-5.4 10 ^3/uL Monocytes # (Auto) 1.3 0-1.3 10 ^3/uL Eosinophils # (Auto) 0.1 0-0.8 10 ^3/uL Basophils # (Auto) 0 0-0.2 10 ^3/uL Nucleated Red Blood Cells 0.1 % Blood Gas Specimen Type Arterial Blood Gas Sample Site Left radial Blood Gas Patient Temperature 37.0 Arterial Blood Date Drawn [id number] Arterial Blood pH 7.484 H 7.350-7.450 Arterial Blood Partial Pressure CO2 43.8 32.0-45.0 mmHg Arterial Blood Partial Pressure O2 70.2 L 83.0-108.0 mmHg Arterial Blood HCO3 32.2 H 21.0-28.0 mmol/L Arterial Blood Oxygen Saturation 93.3 L 94.0-98.0 % Arterial Blood Base Excess 8.0 H -2.0-3.0 mmol/L Arterial Blood Oxyhemoglobin 90.6 L 94.0-98.0 % Arterial Blood Carboxyhemoglobin 2.2 H 0.5-1.5 % Arterial Blood Methemoglobin 0.7 0.0-1.5 % Arterial Blood Deoxyhemoglobin 6.5 H 0.0-5.0 % Chito Test Modified Blood Gas Total Hemoglobin 9.30 L 12.0-16.0 g/dL Blood Gas Set Respiration Rate 14.0 Blood Gas Modality Vent - ac FiO2 % 40.0 Blood Gas Tidal Volume 500.0 Blood Gas PEEP or CPAP 5.0 Test 08/10/25 06:15 08/10/25 04:40 08/10/25 03:26 08/10/25 00:20 Range/Units POC Glucose 271 H 70-106 mg/dl Influenza Type A Antigen Negative Negative Influenza Type B Antigen Negative Negative SARS-CoV-2 Antigen (Rapid) Negative NEGATIVE White Blood Count 7.2 # 4.4-10.8 10^3/uL Red Blood Count 2.31 L 4.0-5.20 10^6/uL Hemoglobin 7.7 L 12.2-16.2 g/dL Hematocrit 21.8 L 36.0-46.0 % Mean Corpuscular Volume 94.4 80.0-100.0 fL Mean Corpuscular Hemoglobin 33.1 H 28.0-32.0 pg Mean Corpuscular Hemoglobin Concent 35.1 32.0-36.0 g/dL Red Cell Distribution Width 18.8 H 11.8-14.3 % Platelet Count 78 L 140-450 10^3/uL Mean Platelet Volume 8.9 6.9-10.8 fL Neutrophils (%) (Auto) 66.1 37.0-80.0 % Lymphocytes (%) (Auto) 13.5 10.0-50.0 % Monocytes (%) (Auto) 19.5 H 0.0-12.0 % Eosinophils (%) (Auto) 0.5 0.0-7.0 % Basophils (%) (Auto) 0.4 0.0-2.0 % Neutrophils # (Auto) 4.8 1.6-8.6 10 ^3/uL Lymphocytes # (Auto) 1.0 0.4-5.4 10 ^3/uL Monocytes # (Auto) 1.4 H 0-1.3 10 ^3/uL Eosinophils # (Auto) 0 0-0.8 10 ^3/uL Basophils # (Auto) 0 0-0.2 10 ^3/uL Nucleated Red Blood Cells 0.0 % Prothrombin Time 14.3 H 19.0 H 9.3-11.8 sec Prothrombin Time INR 1.39 H 1.91 H 0.9-1.15 Activated Partial Thromboplast Time 51.0 H 68.6 H 24.5-34.5 SEC Sodium Level 141 136-145 mmol/L Potassium Level 3.2 L 3.5-5.1 mmol/L Chloride Level 98 98-107 mmol/L Carbon Dioxide Level 32 H 20-31 mmol/L Anion Gap 11 5-15 Blood Urea Nitrogen 32 H 9-23 mg/dL Creatinine 1.25 H 0.550-1.02 mg/dL Glomerular Filtration Rate Calc 43 >90 mL/min BUN/Creatinine Ratio 25.6 H 10.0-20.0 Serum Glucose 256 H 74-106 mg/dL Calcium Level 8.8 8.7-10.4 mg/dL Total Bilirubin 1.5 H 0.2-1.0 mg/dL Aspartate Amino Transferase (AST) 96 H 13-40 U/L Alanine Aminotransferase (ALT) 77 H 7-40 U/L Alkaline Phosphatase 96 46-116 U/L Total Protein 6.2 5.7-8.2 g/dL Albumin 3.3 3.2-4.8 g/dL Random Vancomycin Level 20.8 H 5-10 ug/mL Test 08/09/25 23:10 08/09/25 19:13 08/09/25 18:45 08/09/25 17:40 Range/Units Urine Color Light-orange Yellow Yellow Urine Clarity Turbid H Turbid H Clear Urine pH 5.5 5.5 5.0-9.0 Urine Specific [place] 1.041 H 1.016 1.001-1.035 Urine Protein Trace H 1+ H Negative Urine Ketones Negative Negative Negative Urine Blood 3+ H 1+ H Negative /uL Urine Nitrite Negative Negative Negative Urine Bilirubin Negative Negative Negative Urine Urobilinogen Normal Normal Negative mg/dL Urine Leukocyte Esterase Negative Negative Negative /uL Urine RBC 123 11 0 - 4 /hpf Urine Microscopic WBC 13 H 20 H 0-5 /HPF Urine Squamous Epithelial Cells Few Few <5 /hpf Urine Uric Acid Crystals Mod None Seen /hpf Urine Bacteria None seen Few H None Seen /hpf Urine Glucose Trace 1+ H Normal mg/dL Lactic Acid Level 1.7 0.4-2.0 mmol/L Troponin I High Sensitivity 469 *H 209 *H </=34 ng/L Urine WBC Clumps Present None Seen /hpf Urine Mucus Few None Seen Urine Opiates Screen Neg NEGATIVE Urine Fentanyl Screen Neg NEGATIVE Urine Barbiturates Screen Neg NEGATIVE Urine Phencyclidine Screen Neg NEGATIVE Urine Amphetamines Screen Neg NEGATIVE Urine Benzodiazepines Screen Pos NEGATIVE Urine Cocaine Screen Neg NEGATIVE Urine Cannabinoids Screen Neg NEGATIVE Ammonia 14 11-32 umol/L Test 08/09/25 16:30 Range/Units White Blood Count 4.3 L 4.4-10.8 10^3/uL Red Blood Count 2.23 L 4.0-5.20 10^6/uL Hemoglobin 7.3 L 12.2-16.2 g/dL Hematocrit 21.9 L 36.0-46.0 % Mean Corpuscular Volume 98.1 80.0-100.0 fL Mean Corpuscular Hemoglobin 32.9 H 28.0-32.0 pg Mean Corpuscular Hemoglobin Concent 33.6 32.0-36.0 g/dL Red Cell Distribution Width 19.1 H 11.8-14.3 % Platelet Count 69 L 140-450 10^3/uL Mean Platelet Volume 9.1 6.9-10.8 fL Neutrophils (%) (Auto) 74.5 37.0-80.0 % Lymphocytes (%) (Auto) 12.7 10.0-50.0 % Monocytes (%) (Auto) 11.6 0.0-12.0 % Eosinophils (%) (Auto) 0.5 0.0-7.0 % Basophils (%) (Auto) 0.7 0.0-2.0 % Neutrophils # (Auto) 3.2 1.6-8.6 10 ^3/uL Lymphocytes # (Auto) 0.5 0.4-5.4 10 ^3/uL Monocytes # (Auto) 0.5 0-1.3 10 ^3/uL Eosinophils # (Auto) 0 0-0.8 10 ^3/uL Basophils # (Auto) 0 0-0.2 10 ^3/uL Nucleated Red Blood Cells 0.1 % Prothrombin Time 12.5 H 9.3-11.8 sec Prothrombin Time INR 1.20 H 0.9-1.15 Activated Partial Thromboplast Time 26.2 24.5-34.5 SEC Blood Gas Specimen Type Arterial Blood Gas Sample Site Right radial Blood Gas Patient Temperature 37.0 Arterial Blood Date Drawn [id number] Arterial Blood pH 7.456 H 7.350-7.450 Arterial Blood Partial Pressure CO2 41.4 32.0-45.0 mmHg Arterial Blood Partial Pressure O2 159.1 H 83.0-108.0 mmHg Arterial Blood HCO3 28.5 H 21.0-28.0 mmol/L Arterial Blood Oxygen Saturation 99.0 H 94.0-98.0 % Arterial Blood Base Excess 4.3 H -2.0-3.0 mmol/L Arterial Blood Oxyhemoglobin 95.9 94.0-98.0 % Arterial Blood Carboxyhemoglobin 2.5 H 0.5-1.5 % Arterial Blood Methemoglobin 0.6 0.0-1.5 % Arterial Blood Deoxyhemoglobin 1.0 0.0-5.0 % Chito Test Modified Blood Gas Total Hemoglobin 7.60 L 12.0-16.0 g/dL Blood Gas Set Respiration Rate 14.0 Blood Gas Modality Vent - ac FiO2 % 100.0 Blood Gas Tidal Volume 500.0 Blood Gas PEEP or CPAP 5.0 Sodium Level 142 136-145 mmol/L Potassium Level 4.1 3.5-5.1 mmol/L Chloride Level 96 L 98-107 mmol/L Carbon Dioxide Level 30 20-31 mmol/L Anion Gap 16 H 5-15 Blood Urea Nitrogen 35 H 9-23 mg/dL Creatinine 1.59 H 0.550-1.02 mg/dL Glomerular Filtration Rate Calc 32 >90 mL/min BUN/Creatinine Ratio 22.0 H 10.0-20.0 Serum Glucose 355 H 74-106 mg/dL Hemoglobin A1c 5.4 <5.7 % A1C Lactic Acid Level 6.2 *H 0.4-2.0 mmol/L Calcium Level 9.2 8.7-10.4 mg/dL Phosphorus Level 5.6 H 2.4-5.1 mg/dL Magnesium Level 2.0 1.6-2.6 mg/dL Total Bilirubin 1.8 H 0.2-1.0 mg/dL Aspartate Amino Transferase (AST) 148 H 13-40 U/L Alanine Aminotransferase (ALT) 109 H 7-40 U/L Alkaline Phosphatase 114 46-116 U/L Troponin I High Sensitivity 115 *H </=34 ng/L Total Protein 6.3 5.7-8.2 g/dL Albumin 3.5 3.2-4.8 g/dL Triglycerides Level 114 < 150 mg/dL Cholesterol Level 80 < 200 mg/dL LDL Cholesterol 36 < 100 mg/dL HDL Cholesterol 18 L 40-59 mg/dL Lipase 36 12-53 U/L Vitamin B12 Level 1383 H 211-911 pg/mL Vitamin D 25-Hydroxy 49.9 30.0-100 ng/mL Thyroid Stimulating Hormone (TSH) 2.33 0.55-4.78 uIU/mL Microbiology Date/Time Source Procedure Growth Status 08/09/25 23:10 Urine - Scherer Port Urine Culture - Final Complete 08/09/25 22:59 Nose MRSA Screen - Final Complete 08/09/25 16:40 Blood Blood Culture - Final NO GROWTH AFTER 5 DAYS OF INCUBATION. Complete 08/09/25 15:40 Sputum Gram Stain - Final Complete 08/09/25 15:40 Respiratory Culture - Final Escherichia coli Staphylococcus aureus Complete Assessment Acute kidney injury superimposed Chronic Kidney Disease secondary hemodynamic mediated Vancomycin nephrotoxicity Status post cardiac arrest Congestive heart failure exacerbation Atrial fibrillation with RVR Acute respiratory failure, patient extubated 08/14 Diabetes mellitus type 2 Hypokalemia Hypoalbuminemia Anemia requiring packed red blood cell transfusion Recommendations Closely monitor fluid and electrolytes Avoid nephrotoxic medications Discontinue vancomycin Scherer catheter Strict I&Os Check urine electrolytes and protein excretion Check kidney ultrasound Start Bumex 0.5 mg/h IV drip Albumin 25% IV piggyback KCL replacement Insulin sliding scale We will continue to follow up Patient seen and examined by myself. I discussed my plan of care with the patient and primary nurse at the bedside I would like to thank Dr. Harvey for the consult, will follow up Plan discussed with: Patient JESUS HOLDEN MD Aug 18, 2025 14:01
[2025-08-18] MEDS: POTASSIUM CHL 20MEQ/100ML 100 ML IV SCH (14:58)
--- NOTE | 2025-08-18 15:14 | DVH ---
INDICATION: denise TECHNIQUE: Multiple real-time sonographic images of the kidneys and bladder were obtained. COMPARISON: None FINDINGS: RIGHT kidney measures 10.2 cm in length. No hydronephrosis. LEFT kidney measures 10.2 cm in length. No hydronephrosis. Bilateral renal cysts measuring up to 1.9 cm on the right and 2.8 cm on the left. Scherer catheter within contracted urinary bladder. Incidental note of small bilateral pleural effusions. IMPRESSION: No hydronephrosis. Bilateral renal cysts. Incidental note of small bilateral pleural effusions.
[2025-08-18] MEDS: ALBUMIN 25% 100 ML IV SCH (17:13)
[2025-08-18] MEDS: POTASSIUM CHL 20MEQ/100ML 100 ML IV ONE (17:21)
[2025-08-18 17:38] LABS: Urine Amorphous Crystal FEW /hpf (None Seen); Urine Protein, UAD 1+ (Negative)
[2025-08-18 17:43] LABS: Protein, Urine 165.5 mg/dL (1-14)
[2025-08-18] MEDS: BUMETANIDE INJECTION 12.5 MG in GIVE UN-DILUTED 0 ML IV SCH (18:17)
--- NOTE | 2025-08-18 19:13 | DVHPN2 ---
Progress Note - Dictate Date Seen: Aug 18, 2025 Has the PT tested + for MRSA If YES, has PT been informed?: No Medical Necessity Reason Pt with a Central, PICC or Fol: Yes The following are medically ne: Central Line, Scherer Catheter Subjective Patient was seen and evaluated in follow up. Patient reports feeling fatigue. Patient is on 8 L Oxymizer. HGB 8.2, HCT 24.7, K 3.4, BUN 55, [employer] 1.85. Chest x- ray shows unchanged pulmonary vascular congestion and small left pleural effusion. Renal US shows bilateral renal cysts and incidental note of small bilateral pleural effusions. Telemetry reviewed. vital signs Vital Sign Date Time Temp Pulse Resp B/P (MAP) Pulse Ox O2 Delivery O2 Flow Rate FiO2 08/18/25 10:08 94 111/53 08/18/25 08:51 98.0 17 94 98.0 08/18/25 08:02 Oxymizer 8 N/A Total Intake and Output 08/17/25 08/17/25 08/18/25 15:00 23:00 07:00 Intake Total 350 ml 430 ml 300 ml Output Total 400 ml 650 ml Balance 350 ml 30 ml -350 ml medications Current Medications Medications Dose Ordered Sig/Justina Route Start Time Stop Time Status Last Admin Dose Admin Acetaminophen 325 mg Q4HP PRN PO 08/09/25 17:15 Diagnostic Test (Pha) 1 strip Q6HR 08/10/25 06:00 08/18/25 12:23 1 STRIP Insulin Human Regular Q6HR SC 08/10/25 06:00 08/18/25 12:44 3 UNITS Dextrose 50 ml UD PRN IV 08/10/25 02:30 Atorvastatin Calcium 80 mg HS GT 08/11/25 22:00 08/18/25 00:49 80 MG Pantoprazole Sodium 40 mg DAILY IV 08/12/25 10:00 08/18/25 10:08 40 MG Enteral Nutritional Formula 1,000 ml 25ML/HR GT 08/11/25 19:30 08/11/25 21:54 1,000 ML Sennosides 8.6 mg HS PO 08/12/25 22:00 08/13/25 23:13 8.6 MG Docusate Sodium 100 mg BID GT 08/13/25 10:00 08/16/25 21:39 100 MG Polyethylene Glycol 17 gm DAILYPRN PRN GT 08/14/25 14:30 Iron Sucrose 110 ml @ 110 mls/hr DAILY@1200 IV 08/15/25 12:00 08/19/25 11:59 Cancel Iron Sucrose 110 ml @ 110 mls/hr DAILY@1200 IV 08/15/25 12:00 08/19/25 11:59 Cancel Ceftriaxone Sodium 50 ml @ 100 mls/hr DAILY@09 IV 08/16/25 09:00 08/17/25 13:32 100 MLS/HR Albuterol 2.5 mg Q6HWA [facility] 08/16/25 06:00 08/18/25 07:52 2.5 MG Ipratropium [place] 0.5 mg Q6HWA [facility] 08/16/25 06:00 08/18/25 07:52 0.5 MG Furosemide 40 mg BIDD IV 08/16/25 18:00 08/18/25 06:38 40 MG Enteral Nutritional Formula 28.8 gm BIDWM PO 08/16/25 18:00 08/18/25 10:09 28.8 GM Purified Water 250 ml Q3HR PO 08/16/25 15:00 08/18/25 09:00 250 ML Metoprolol Tartrate 25 mg BID PO 08/17/25 22:00 08/18/25 10:08 25 MG Potassium Chloride 100 ml @ 50 mls/hr Q2H IV 08/18/25 10:15 08/18/25 14:14 objective GENERAL: Alert and oriented x 3. Ill appearing. EYES: PERRL, EOMI. Anicteric. HENT: Moist mucous membranes. LUNGS: Decreased breath sounds. CARDIOVASCULAR: Regular rate and rhythm. ABDOMEN: Soft, nontender and nondistended. EXTREMITIES: No edema. SKIN: Warm, dry. laboratory and microbiology Laboratory Tests 08/18/25 05:27 Test 08/18/25 05:27 Range/Units Serum Glucose 159 H 74-106 mg/dL Problem List Cardiac arrest with successful ROSC. Metabolic encephalopathy. STEMI (ST elevation myocardial infarction). Assessment/Plan Continued all current supportive medical care. Lipitor, Metoprolol. IV antibiotics as ordered. Diuretics with Lasix. Morphine for pain management. GI prophylactics. Additional plan as per the hospital course. Dietary Evaluation Review Comments: Nutrition Recommendation: 1) EN Vital High Protein @ 45ml/hr x 24hr (goal). Water flush 50ml Q6H if allowed, adjust PRN. TF at goal volume provides 1080 kcal (100%), 95 gm protein (100%), and 22002 ml free water(including flush). 2) TPN if NPO >7 days 3) Monitor NPO status, lab values, weight trend, and I/O Expected Outcomes/Goals: Intake to meet >75% estimated needs Lab values to improve FU 2-3 days Plan discussed with: Patient PATRICIA GROVES MD Aug 18, 2025 13:04
--- NOTE | 2025-08-18 23:21 | DVHINCON2 ---
Date of service: Aug 18, [address] Harvey Reason for Consultation Acute on chronic hypoxic respiratory failure, pneumonia, pleural effusions. History of Present Illness An 85-year-old woman with past medical history including hypertension, dyslipidemia, diabetes, HFpEF, paroxysmal A-Fib and recent COVID who presented to the ED via EMS on 08/10/25 due to dyspnea functional class IV, chest pain and right arm weakness. Upon arrival, patient presented agonal breathing associated with desaturation (70%) on a non-rebreather mask and became unresponsive, progressing to cardiac arrest obtaining ROSC with ACLS maneuvers with a down time of 2 minutes (1 round of CPR, 1 epinephrine and ET intubation). Patient underwent emergent coronary angiography due to STEMI. Patient was admitted for further care. Pulmonary consultation is requested for evaluation and management of acute on chronic hypoxic respiratory failure, pneumonia, and pleural effusions. Review of Systems: 14-point review of systems negative unless otherwise noted above. Past Medical History: Hypertension, dyslipidemia, diabetes, basal cell carcinoma, atypical sarcoma of left hip, HFpEF, paroxysmal A-Fib (CHADS VASC 7) on apixaban, recent hospitalization due to COVID Past Surgical history: Hysterectomy, biopsy of basal cell carcinoma and sarcoma Medications: Reviewed. Allergies: No known drug allergies. Family History: No family history of premature CAD. No family history of lung disorders. Social History: Nonsmoker. No alcohol or illicit drug use. Family History: Hypertension G8 MOTHER Allergies: Coded Allergies: NO KNOWN ALLERGIES (Unverified , 09/12/15) Home Meds Active Scripts Zinc Gluconate (Zinc) 50 Mg Tab, 50 MG PO DAILY for 14 Days, #14 TAB Prov:JR FRANCO RESIDENT 05/02/25 Cholecalciferol (Vitamin D) 2,000 Unit Cap, 2000 UNIT PO DAILY for 14 Days, #20 CAP Prov:JR FRANCO RESIDENT 05/02/25 Ascorbic Acid (VITAMIN C) 500 Mg Cap, 500 MG PO DAILY for 14 Days, #30 CAP Prov:JR FRANCO RESIDENT 05/02/25 Reported Medications Nifedipine (Nifedipine ER) 30 Mg Tab, 30 MG PO DAILY, TAB 08/10/25 Metoprolol Tartrate (Metoprolol Tartrate) 25 Mg Tab, 25 MG PO BID for 30 Days, MG 08/10/25 Sitagliptin Phosphate (Januvia) 50 Mg Tab, 25 MG PO, TAB 08/10/25 Glimepiride (Glimepiride) 4 Mg Tab, 1 TAB PO DAILY, #30 TAB 5 Refills 08/10/25 Atorvastatin Calcium (ATORVASTATIN CALCIUM) 40 Mg Tab, 1 TAB PO DAILY, #30 TAB 5 Refills 08/10/25 Apixaban Base (Eliquis Starter Pack) 5 Mg Tab, 2.5 MG PO BID, TAB 08/10/25 Current Medications Current Medications Medications (Trade) Dose Ordered Sig/Justina Route PRN Reason Start Time Stop Time Status Last Admin Potassium Chloride 100 ml @ 50 mls/hr Q2H IV 08/18/25 10:15 08/18/25 14:14 DC 08/18/25 17:04 Bumetanide 12.5 mg/Miscellaneous 50 ml @ 2 mls/hr Q24H IV 08/18/25 14:00 08/18/25 18:17 Albumin Human 100 ml @ 100 mls/hr Q12HR IV 08/18/25 14:00 08/19/25 10:59 08/18/25 17:13 Vital Signs Vital Signs Date Time Temp Pulse Resp B/P (MAP) Pulse Ox O2 Delivery O2 Flow Rate FiO2 08/18/25 21:37 104 08/18/25 21:00 97.6 22 129/70 (89) 99 97.6 08/18/25 20:00 Oxymizer 8 N/A Physical Exam Gen.: Patient lying in bed in no apparent distress. On supplemental oxygen. Head: Normocephalic, atraumatic. Eyes: EOMI/PERRLA. Ears: Normal hearing. Normal anatomy. Neck/trachea: Trachea midline, supple. Nose: Normal external anatomy. Mouth: Moist mucous membranes. Chest: Decreased air entry bilaterally. No wheezing or rhonchi. Cardiovascular: Positive S1, positive S2. Regular rate and rhythm. Abdomen: Positive bowel sounds in all 4 quadrants. Soft, non-tender, non- distended. : Deferred. Rectal: Deferred. Skin: Warm, dry. Intact. Extremities: 2+ radial pulses bilaterally. No lower extremity edema. Neuro: Awake, alert, oriented x3. No gross motor or sensory deficits. Cranial nerves II through XII intact. Gait not assessed. Labs/Diagnostic Data Labs Test 08/18/25 17:29 08/18/25 16:30 08/18/25 10:48 08/18/25 05:27 Range/Units POC Glucose 196 H 70-106 mg/dl Urine Color Light-orange Yellow Urine Clarity Ex.turbid Clear Urine pH 5.5 5.0-9.0 Urine Specific Rupert 1.014 1.001-1.035 Urine Protein 1+ H Negative Urine Ketones Negative Negative Urine Blood 2+ H Negative /uL Urine Nitrite Negative Negative Urine Bilirubin Negative Negative Urine Urobilinogen Normal Negative mg/dL Urine Leukocyte Esterase Negative Negative /uL Urine RBC 9 0 - 4 /hpf Urine Microscopic WBC 3 0-5 /HPF Urine Squamous Epithelial Cells None seen <5 /hpf Urine Amorphous Crystals Few None Seen /hpf Urine Bacteria Few H None Seen /hpf Urine Hyaline Casts Few 0 - 2 /lpf Urine Mucus Few None Seen Urine Creatinine 66.60 30.0-125.0 mg/dL Urine Protein/Creatinine Ratio 2.48 Urine Sodium 19 L 40-220 mmol/L Urine Glucose Normal Normal mg/dL Urine Total Protein 165.5 H 1-14 mg/dL Blood Gas Specimen Type Arterial Blood Gas Sample Site Right radial Blood Gas Patient Temperature 37.0 Arterial Blood Date Drawn [id number] Arterial Blood pH 7.478 H 7.350-7.450 Arterial Blood Partial Pressure CO2 37.4 32.0-45.0 mmHg Arterial Blood Partial Pressure O2 93.1 83.0-108.0 mmHg Arterial Blood HCO3 27.1 21.0-28.0 mmol/L Arterial Blood Oxygen Saturation 96.6 94.0-98.0 % Arterial Blood Base Excess 3.4 H -2.0-3.0 mmol/L Arterial Blood Oxyhemoglobin 94.3 94.0-98.0 % Arterial Blood Carboxyhemoglobin 1.6 H 0.5-1.5 % Arterial Blood Methemoglobin 0.8 0.0-1.5 % Arterial Blood Deoxyhemoglobin 3.3 0.0-5.0 % Chito Test Yes Blood Gas Total Hemoglobin 8.60 L 12.0-16.0 g/dL Blood Gas Liter Flow 8.00 Blood Gas Modality Oxymizer FiO2 % 64.0 White Blood Count 5.3 4.4-10.8 10^3/uL Red Blood Count 2.54 L 4.0-5.20 10^6/uL Hemoglobin 8.2 L 12.2-16.2 g/dL Hematocrit 24.7 #L 36.0-46.0 % Mean Corpuscular Volume 97.3 80.0-100.0 fL Mean Corpuscular Hemoglobin 32.5 H 28.0-32.0 pg Mean Corpuscular Hemoglobin Concent 33.4 32.0-36.0 g/dL Red Cell Distribution Width 18.9 H 11.8-14.3 % Platelet Count 162 140-450 10^3/uL Mean Platelet Volume 8.4 6.9-10.8 fL Neutrophils (%) (Auto) 37.0-80.0 % Lymphocytes (%) (Auto) 10.0-50.0 % Monocytes (%) (Auto) 0.0-12.0 % Basophils (%) (Auto) 0.0-2.0 % Neutrophils # (Auto) 1.6-8.6 10 ^3/uL Lymphocytes # (Auto) 0.4-5.4 10 ^3/uL Monocytes # (Auto) 0-1.3 10 ^3/uL Differential Total Cells Counted 100.0 100 Neutrophils % (Manual) 41 37.0-80.0 Band Neutrophils % (Manual) 0 Lymphocytes % (Manual) 43 10.0-50.0 Monocytes % (Manual) 16 H 0-12 Eosinophils % (Manual) 0 0-7 Basophils % (Manual) 0 0.0-2.0 Metamyelocytes % (manual) 0 Myelocytes % (Manual) 0 Promyelocytes % (Manual) 0 Blast Cells % (Manual) 0 Reactive Lymphocytes 0 Platelet Estimate Adequate Sodium Level 143 136-145 mmol/L Potassium Level 3.4 L 3.5-5.1 mmol/L Chloride Level 102 98-107 mmol/L Carbon Dioxide Level 31 20-31 mmol/L Anion Gap 10 5-15 Blood Urea Nitrogen 55 H 9-23 mg/dL Creatinine 1.85 H 0.550-1.02 mg/dL Glomerular Filtration Rate Calc 27 >90 mL/min BUN/Creatinine Ratio 29.7 H 10.0-20.0 Serum Glucose 159 H 74-106 mg/dL Calcium Level 9.8 8.7-10.4 mg/dL Phosphorus Level 3.8 2.4-5.1 mg/dL Magnesium Level 2.1 1.6-2.6 mg/dL B-Type Natriuretic Peptide 1955.90 0-100 pg/mL Vitamin D 25-Hydroxy 46.1 30.0-100 ng/mL Parathyroid Hormone (Intact) 65.2 18.4-80.1 pg/mL Test 08/17/25 05:24 08/16/25 14:58 08/16/25 02:40 08/15/25 11:06 Range/Units Large Platelets Few Stomatocytes Few Stool Occult Blood Negative Negative Stool Occult Blood Sample #3 Negative Total Bilirubin 1.0 0.2-1.0 mg/dL Aspartate Amino Transferase (AST) 39 13-40 U/L Alanine Aminotransferase (ALT) 30 7-40 U/L Alkaline Phosphatase 117 H 46-116 U/L Total Protein 6.0 5.7-8.2 g/dL Albumin 3.1 L 3.2-4.8 g/dL Random Vancomycin Level 19.9 H 5-10 ug/mL Blood Gas Set Respiration Rate 14.0 Blood Gas Spontaneous Rate 39 Blood Gas Spontaneous Tidal Volume 438 Blood Gas EPAP 5 Blood Gas IPAP 12 Test 08/15/25 02:51 08/14/25 17:30 08/13/25 06:25 08/13/25 02:45 Range/Units Giant Platelets Few Iron Level 43 L 50-170 ug/dL Total Iron Binding Capacity 236 L 250-425 ug/dL Percent Iron Saturation 18.2 15-50 % Ferritin 230.7 10-291 ng/mL Blood Gas Tidal Volume 500.0 Blood Gas PEEP or CPAP 5.0 Haptoglobin <10 L 41-333 mg/dL Lactate Dehydrogenase 385 H 120-246 U/L Test 08/12/25 00:32 08/11/25 02:30 08/10/25 04:40 08/09/25 23:10 Range/Units Prothrombin Time 12.1 H 9.3-11.8 sec Prothrombin Time INR 1.16 H 0.9-1.15 Activated Partial Thromboplast Time 64.2 H 24.5-34.5 SEC Eosinophils (%) (Auto) 2.1 0.0-7.0 % Eosinophils # (Auto) 0.1 0-0.8 10 ^3/uL Basophils # (Auto) 0 0-0.2 10 ^3/uL Nucleated Red Blood Cells 0.1 % Lactic Acid Level 1.2 0.4-2.0 mmol/L Influenza Type A Antigen Negative Negative Influenza Type B Antigen Negative Negative SARS-CoV-2 Antigen (Rapid) Negative NEGATIVE Urine Uric Acid Crystals Mod None Seen /hpf Test 08/09/25 19:13 08/09/25 18:45 08/09/25 17:40 08/09/25 16:30 Range/Units Troponin I High Sensitivity 469 *H </=34 ng/L Urine WBC Clumps Present None Seen /hpf Urine Opiates Screen Neg NEGATIVE Urine Fentanyl Screen Neg NEGATIVE Urine Barbiturates Screen Neg NEGATIVE Urine Phencyclidine Screen Neg NEGATIVE Urine Amphetamines Screen Neg NEGATIVE Urine Benzodiazepines Screen Pos NEGATIVE Urine Cocaine Screen Neg NEGATIVE Urine Cannabinoids Screen Neg NEGATIVE Ammonia 14 11-32 umol/L Hemoglobin A1c 5.4 <5.7 % A1C Triglycerides Level 114 < 150 mg/dL Cholesterol Level 80 < 200 mg/dL LDL Cholesterol 36 < 100 mg/dL HDL Cholesterol 18 L 40-59 mg/dL Lipase 36 12-53 U/L Vitamin B12 Level 1383 H 211-911 pg/mL Thyroid Stimulating Hormone (TSH) 2.33 0.55-4.78 uIU/mL Microbiology Date/Time Source Procedure Growth Status 08/09/25 23:10 Urine - Scherer Port Urine Culture - Final Complete 08/09/25 22:59 Nose MRSA Screen - Final Complete 08/09/25 16:40 Blood Blood Culture - Final NO GROWTH AFTER 5 DAYS OF INCUBATION. Complete 08/09/25 15:40 Sputum Gram Stain - Final Complete 08/09/25 15:40 Respiratory Culture - Final Escherichia coli Staphylococcus aureus Complete Assessment Impression: Acute on chronic hypoxic respiratory failure Dependence on supplemental oxygen Aspiration pneumonia, multifocal Metabolic encephalopathy S/p cardiac arrest with ROSC Acute on chronic diastolic CHF Severe pulmonary hypertension - RVSP of 61 mmHg Pleural effusions Atelectasis Acute kidney injury Transaminitis Anemia Thrombocytopenia Obesity Plan: Supplemental oxygen Titrate to keep O2 sats above 92%. On 8 LPM Oxymizer Taper O2 as tolerated. Monitor respiratory function closely due to increased oxygen requirements. Continue bronchodilators/Mucomyst. Continue antibiotics Incentive spirometry S/p right thoracentesis with drainage of 1.3 liters. Follow up Cardiology recommendations Diurese with Lasix as tolerated Monitor renal function. Monitor electrolytes. Supplement as necessary. K, mag supplementation Monitor ins and outs. Monitor hemoglobin Transfuse if less than 7.0 g/dL. Monitor platelet count due to thrombocytopenia Recommend diet and lifestyle modifications for weight reduction Obesity complicates all care DVT prophylaxis. Prognosis: Poor given patient's multiple co-morbidities. Rest of plan per hospitalist and other consultants. A total of 76 minutes of clinical care time was spent reviewing the patient record, examining the patient, making a diagnostic and therapeutic plan, discussing this plan with the medical personnel, following up on diagnostic studies and following the patient for clinical stability excluding any and all procedures. At least 50% of this time was spent in direct, [id number] contact. Thank you, Dr. Harvey, for allowing me to participate in this patient's care. Further recommendations will depend on the patient's clinical course. Please do not hesitate to contact me if you have any questions or concerns. This medical document was created using an electronic medical record system with [employer] dictation system. Although these documentations are being carefully reviewed, there may still be some phonetic and typographical changes. The errors are purely typographical, due to imperfection on the software program, and do not reflect any compromise in the patient's medical care. Plan discussed with: Other (KELLY Cuadra) Visit Coding Pulmonary Billing Provider: HAIDER PRESTON MD Date of Service if different f: Aug 18, 2025 Common Visit Codes: [id number] INP/OBS CARE (HIGH) HAIDER PRESTON MD Aug 18, 2025 23:21
[2025-08-19] VITALS (13 sets, daily range): BP systolic 120–143; BP diastolic 53–81; PULSE 78–122; RESP 18–24; TEMP 96.7–98.2; O2SAT 94–98
--- NOTE | 2025-08-19 06:00 | DVH ---
CHEST RADIOGRAPH Indication: CHF Technique: Single frontal view of the chest was obtained COMPARISON: XY CHEST XRAY 1 VIEW on DOS: 08/18/25, XY CHEST XRAY 1 VIEW on DOS: 08/16/25, XY CHEST PORTABLE on DOS: 08/15/25, XY CHEST XRAY 1 VIEW on DOS: 08/15/25, XY CHEST XRAY 1 VIEW on DOS: 08/14/25 FINDINGS: Lines and Tubes: None Lungs: Unchanged to slightly increased pulmonary edema. Pleura: No effusion.No pneumothorax. Cardiomediastinal contours: Cardiomegaly. Bones: Unremarkable IMPRESSION: Unchanged to slightly increased pulmonary edema.
[2025-08-19 06:34] LABS: Hematocrit 22.4 % (36.0-46.0); Hemoglobin 7.5 g/dL (12.2-16.2); Mean Corpuscular Hemoglobin 33.4 pg (28.0-32.0); Mean Corpuscular Volume 100.0 fL (80.0-100.0)
[2025-08-19 06:49] LABS: Alanine Aminotransferase 20 U/L (7-40); Albumin 4.1 g/dL (3.2-4.8); Alkaline Phosphatase 105 U/L (46-116); Anion Gap 14 (5-15); BUN/Creatinine Ratio 29.7 (10.0-20.0); Bilirubin, Total 1.1 mg/dL (0.2-1.0); Calcium 10.0 mg/dL (8.7-10.4); Carbon Dioxide 26 mmol/L (20-31); Chloride 102 mmol/L (98-107); Magnesium 2.2 mg/dL (1.6-2.6); Sodium 142 mmol/L (136-145); Total Protein 7.1 g/dL (5.7-8.2)
[2025-08-19 07:06] LABS: Blood Urea Nitrogen 51 mg/dL (9-23); Glucose 232 mg/dL (74-106); Potassium 3.5 mmol/L (3.5-5.1)
[2025-08-19] MEDS: ACETAMINOPHEN 325 MG TAB PO PRN (08:28)
[2025-08-19 08:39] LABS: Total Cells Counted 100.0 (100)
[2025-08-19 08:40] LABS: RBC Morphology Normal
--- NOTE | 2025-08-19 09:44 | DVHPNRES ---
Progress Note Date Seen: Aug 19, 2025 Resident Creating Document: KRIS BOWLES RESIDENT Has the PT tested + for MRSA If YES, has PT been informed?: No Medical Necessity Reason Pt with a Central, PICC or Fol: Yes The following are medically ne: Central Line, Scherer Catheter Subjective Review of Systems The patient is an 85-year-old female who presented to the ED with class IV dyspnea, chest pain, and right arm weakness, followed by agonal breathing, rapid desaturation into the 70s on NRB, and progression to cardiac arrest. ROSC achieved after ~2 min downtime, 1 round of CPR, 1 dose epinephrine, and endotracheal intubation. EKG showed new left bundle branch block. atrial fibrillation with global ischemia. Cardiology diagnosed ST-segmentelevation NJ equivalent and took patient for emergent LHC, which revealed: * 99% LAD stenosis * 60% left main stenosis * 90% circumflex stenosis * Unable to cross chronic total occlusion due to high procedural mortality and conservative medical management recommended. The patient developed acute hypoxic respiratory failure, aspiration pneumonia, and septic shock requiring vasopressors. She was admitted to ICU on mechanical ventilation, norepinephrine, broad-spectrum antibiotics, heparin drip, and supportive care. PAST MEDICAL HISTORY * Hypertension * Type 2 diabetes mellitus * Dyslipidemia * HFpEF (EF 65%) * Paroxysmal atrial fibrillation on apixaban * Pulmonary hypertension (RVSP 61 mmHg) * Basal cell carcinoma * Atypical left hip sarcoma (surgically treated) * Recent COVID-19 * Chronic thrombocytopenia IV. PAST SURGICAL HISTORY * Hysterectomy * Appendectomy * Cholecystectomy * Basal cell carcinoma excision * Left hip sarcoma excision (2019) V. SOCIAL HISTORY * Lives with * No smoking, alcohol, or illicit substances ROS (Unable to Obtain Due to Intubation & Sedation) 08/10/25 The patient is an 85-year-old female who presented to the ED with class IV dyspnea, chest pain, and right arm weakness, followed by agonal breathing, rapid desaturation into the 70s on NRB, and progression to cardiac arrest. ROSC achieved after ~2 min downtime, 1 round of CPR, 1 dose epinephrine, and endotracheal intubation. EKG showed new left bundle branch block. atrial fibrillation with global ischemia. Cardiology diagnosed ST-segmentelevation NJ equivalent and took patient for emergent LHC, which revealed: * 99% LAD stenosis * 60% left main stenosis * 90% circumflex stenosis * Unable to cross chronic total occlusion due to high procedural mortality and conservative medical management recommended. The patient developed acute hypoxic respiratory failure, aspiration pneumonia, and septic shock requiring vasopressors. She was admitted to ICU on mechanical ventilation, norepinephrine, broad-spectrum antibiotics, heparin drip, and supportive care. * Still requiring norepinephrine Temperature: Tmax 100.9 ongoing infection concern. Renal: UOP remains 0.32 mL/kg/hr, creatinine improved to 1.25 (from 1.6). Troponin: 496 ( from 115), consistent with evolving NJ. Platelets: 92K (chronic baseline, trending up from 78K yesterday). CXR: Cardiomegaly, pulmonary vascular congestion, multifocal pneumonia, bilateral effusions. Labs: K 3.2 repleted; Phos 5.6; BUN 32; Hgb 8.1; AST/ALT down-trending. Medications: Norepinephrine, midazolam, fentanyl, heparin drip, cefepime, vancomycin. PLAN ADJUSTMENTS TODAY: * Convert enteric-coated aspirin to regular aspirin * Continue heparin drip now * Discontinue heparin in 48 hours, then start Aspirin + Plavix * Held/discontinued Zofran * Held/discontinued Atorvastatin (Lipitor) * Ordered repeat chest X-ray * Continue antibiotics * Continue vasopressor support 08/11/25 * Hemodynamically fluctuating on norepinephrine. * On AC/VC mechanical ventilation; gases show mild metabolic alkalosis. * Oxygenation improved (PO2 88). * No fever overnight. * Chronic thrombocytopenia trending downward but stable. * Hemoglobin down to 7.3; monitor closely, consider transfusion if symptomatic or <7.0. * WILLIAN slightly worsened (Cr 1.37). * CXR unchanged. * Started statin therapy and sedation vacation protocol. * No arrhythmias other than AFib with controlled rate. 08/12/25 Patient remains critically ill but hemodynamically unstable on low-dose norepinephrine. Ventilation stable. Labs show mild anemia worsening (Hgb 7.5), stable chronic thrombocytopenia (80K), slight rise in creatinine. Cultures negative except respiratory culture with E. coli sensitive to cefepime. Heparin drip discontinued; switched to prophylactic Lovenox. Code status updated to DNR. KUB ordered for constipation; tube feeds tolerated. Continuing all supportive care. Heparin drip discontinued today Started Lovenox 40 mg subcutaneous daily (prophylactic) Continue Aspirin. NOT starting Eliquis / therapeutic Lovenox due to: * Hgb drop (8.2 to 7.5) * Platelets 80K * High bleeding risk. NOT starting Plavix due to high bleeding risk Code status changed from FULL CODE to DNR per family. Continue cefepime (E. coli sensitive), discontinue vancomycin if MRSA PCR negative (as already done) K repleted; Mg repleted Continue sedation and vasopressor support Begin bowel regimen if KUB non-obstructive 08/13/25: Patient is seen and examined at bedside, x-ray KUB shows, Moderate to large volume stool within the colon. Bibasilar pulmonary airspace opacities and pleural effusions. We will begin bowel regimen. Ordered lower extremity Doppler to rule out DVT, start Lovenox 30 mg subQ. 08/14/25 Patient is off pressors, tolerating CPAP/TSV SBT, clear lungs, stable oxygenation, and strong respiratory effort. Preparing for extubation today. However, she has worsening anemia (Hgb 6.7) transfusing 1 PRBC. WILLIAN slightly worse. Holding all therapeutic anticoagulation (Eliquis, Lovenox). Continue aspirin. Starting Miralax for constipation. Cultures negative except respiratory culture showing E. coli + Staph aureus continuing cefepime + vancomycin. 08/15/25 The patient is an 85-year-old critically ill female with a history of cardiac arrest with ROSC, STEMI-equivalent NJ, acute hypoxic respiratory failure, severe pulmonary hypertension, HFpEF, aspiration pneumonia, septic shock (improving), WILLIAN, chronic anemia, and chronic thrombocytopenia. She was successfully extubated yesterday, currently on BiPAP but develops tachypnea (RR 40), tachycardia (110), and desaturation to 88% when weaning off BiPAP. Symptoms improved when placed back on BiPAP (RR to 20, SpO2 to 100).CXR showed persistent bilateral pleural effusions, so a right-sided ultrasound- guided thoracentesis was performed with 1.3 L fluid removed. 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 Antibiotics: discontinue; vancomycin planned to discontinue . Considering de- escalation to ceftriaxone Current drips (fentanyl, versed, precedex, norepinephrine) all discontinued. Aspirin currently on hold due to anemia and thrombocytopenia. * Starting Lasix drip 5 mg/h after IV bolus 40 mg. 08/16/25 Today she is off BiPAP and maintaining adequate oxygenation on 4 L nasal cannula, with saturations 64053%. No increased work of breathing noted. Hemodynamically soft but stable. Chest x-ray unchanged with small left pleural effusion and vascular congestion. \Awake, interactive, sitting upright. Stool output absent today; bowel sounds active. She is tolerating mechanical soft diet. Lasix drip discontinued; transitioned to Lasix 40 mg IV BID.?On Ceftriaxone monotherapy, tolerating well. downgrade to telemetry given respiratory stability. * CXR stable. * Hemoglobin improving (7.2) without transfusion. * Platelets up to 108K. 08/17/25 Patient evaluated at bedside today. She is awake, alert, intermittently fatigued, able to answer simple questions, remains in AFib with HR [id number], BP stable with MAP > 70 throughout the morning. Oxygenation stable on 4 L nasal cannula FiO2 ~3642% with SpO2 9699%. She had six bowel movements today on bowel regimen and soft diet, no abdominal pain. Reports mild generalized weakness. No chest pain, dyspnea improved. Labs: Hemoglobin improved from 7.2 - 7.6, WBC 5.9, platelets 152 (normalized). Persistent WILLIAN on CKD: Cr 1.78 (?), BUN 53. Sodium normal at 144. Potassium 3.2 low, repleted today with 40 mEq KCl and magnesium. * Discontinued right IJ central venous catheter. * Reinforced PT/OT, patient stood briefly with assistance. * Case management consulted; family requests intermediate / assisted care facility for discharge planning. * No change in antibiotics 08/18/25 Patient evaluated at bedside today. She is awake, alert, following commands, conversational with fatigue. On 8L Oximizer with increased o2 REQUIREMNT FROM 4L NC NOW ON SpO2 9698%. Hemodynamics stable. No active chest pain or increased dyspnea. Renal function worsened today: BUN/Cr increased from 53/1.78 to 55/1.85 despite prior diuresis. Urine output over past 24 hours 1050 ml, intake 1080 ml (near even balance). Decision made for volume-based renal optimization. Interventions & Management changes today: * Furosemide discontinued due to worsening renal indices. * Bumetanide drip (Bumex) initiated for improved diuretic efficiency in CKD. * Albumin 25% IV Q15H 3 doses started to improve intravascular volume and diuretic responsiveness. * Free water discontinued to avoid hyponatremia and further renal stress. * Nephrology consult placed today. * Ordered renal US, PTH, Urine sodium, Urine creatinine, Urine protein/Cr ratio for WILLIAN evaluation. * PT working with patient patient able to sit edge of bed with assistance. * Hgb improved to 8.2 g/dL ( from 7.6). No transfusion indicated today. Plan today: Continue bumetanide drip with albumin dosing, monitor renal response hourly UO, trend BMP Q12h, avoid nephrotoxins, continue ceftriaxone, maintain soft PO diet and electrolytes optimization. 08/19/25: Patient seen and examined at bedside, overnight events reviewed, PT eval requested and patient is working with PT. Objective vital signs Vital Sign Date Time Temp Pulse Resp B/P (MAP) Pulse Ox O2 Delivery O2 Flow Rate FiO2 08/19/25 09:13 100 22 134/72 97 10.0 08/19/25 09:00 96.7 96.7 08/19/25 00:15 Nasal Cannula* 40 Total Intake and Output 08/18/25 08/18/25 08/19/25 15:00 23:00 07:00 Intake Total 500 ml 400 ml Output Total 700 ml 575 ml Balance -200 ml -175 ml medications Current Medications Medications Dose Ordered Sig/Justina Route Start Time Stop Time Status Last Admin Dose Admin Acetaminophen 325 mg Q4HP PRN PO 08/09/25 17:15 08/19/25 08:28 325 MG Diagnostic Test (Pha) 1 strip Q6HR 08/10/25 06:00 08/19/25 06:10 1 STRIP Insulin Human Regular Q6HR SC 08/10/25 06:00 08/19/25 06:10 4 UNITS Dextrose 50 ml UD PRN IV 08/10/25 02:30 Atorvastatin Calcium 80 mg HS GT 08/11/25 22:00 08/18/25 00:49 80 MG Pantoprazole Sodium 40 mg DAILY IV 08/12/25 10:00 08/18/25 10:08 40 MG Enteral Nutritional Formula 1,000 ml 25ML/HR GT 08/11/25 19:30 08/11/25 21:54 1,000 ML Sennosides 8.6 mg HS PO 08/12/25 22:00 08/18/25 21:37 8.6 MG Docusate Sodium 100 mg BID GT 08/13/25 10:00 08/16/25 21:39 100 MG Polyethylene Glycol 17 gm DAILYPRN PRN GT 08/14/25 14:30 Iron Sucrose 110 ml @ 110 mls/hr DAILY@1200 IV 08/15/25 12:00 08/19/25 11:59 Cancel Iron Sucrose 110 ml @ 110 mls/hr DAILY@1200 IV 08/15/25 12:00 08/19/25 11:59 Cancel Ceftriaxone Sodium 50 ml @ 100 mls/hr DAILY@09 IV 08/16/25 09:00 08/19/25 08:28 100 MLS/HR Albuterol 2.5 mg Q6HWA [facility] [place] 08/16/25 06:00 08/18/25 13:14 2.5 MG Ipratropium [place] 0.5 mg Q6HWA [facility] [place] 08/16/25 06:00 08/18/25 13:15 0.5 MG Enteral Nutritional Formula 28.8 gm BIDWM PO 08/16/25 18:00 08/19/25 08:29 28.8 GM Metoprolol Tartrate 25 mg BID PO 08/17/25 22:00 08/18/25 21:37 25 MG Bumetanide 12.5 mg/Miscellaneous 50 ml @ 2 mls/hr Q24H IV 08/18/25 14:00 08/18/25 18:17 2 MLS/HR Albumin Human 100 ml @ 100 mls/hr Q12HR IV 08/18/25 14:00 08/19/25 10:59 08/19/25 03:47 100 MLS/HR Examination General: Elderly, frail female, no acute distress, pleasant. Neuro: Alert, follows commands, no focal deficits. Cardiac: Irregularly irregular rhythm AFib [id number], no murmurs, pulses 2+; no JVD. Respiratory: bilateral crackles mild, no respiratory distress. GI: Soft, NT/ND, bowel sounds present. Renal: Scherer intermittently; urine clear yellow; output 1050 ml/24h. Extremities: 1+ pedal edema, warm. Skin: No breakdown; healed central line site. laboratory and microbiology Laboratory Tests 08/19/25 06:06 Test 08/19/25 06:06 Range/Units Serum Glucose 232 H 74-106 mg/dL Microbiology Date/Time Source Procedure Growth Status 08/09/25 23:10 Urine - Scherer Port Urine Culture - Final Complete 08/09/25 22:59 Nose MRSA Screen - Final Complete 08/09/25 16:40 Blood Blood Culture - Final NO GROWTH AFTER 5 DAYS OF INCUBATION. Complete 08/09/25 15:40 Sputum Gram Stain - Final Complete 08/09/25 15:40 Respiratory Culture - Final Escherichia coli Staphylococcus aureus Complete Problem List/Assessment/Plan Problem List/Assessment/Plan Metabolic Encephalopathy Post-arrest + sepsis + hypoxia. neurological arrest ruled out (CT head negative) Reflexes present * Awake, alert * No sedation required * Neurochecks Q4H * CT head negative for acute abnormalities. CARDIOVASCULAR . Cardiac Arrest with ROSC Due to hypoxic respiratory failure + STEMI-equivalent. * Downtime ~2 minutes; ROSC after 1 Epi, 1 CPR cycle. Atrial fibrillation rate controlled On Metoprolol Tartarate 25 Mg PO BID * HR [id number] today * High stroke risk (FRANKLIN?DS?-VASc = 7). * Anticoagulation withheld due to anemia and prior thrombocytopenia. STEMI Due to multi-vessel CAD (LAD 99%, LM 60%, LCx 90%).High procedural mortality , conservative management per cardiology LBBB, global ischemia, coronary angiography findings Acute on Chronic Diastolic CHF (HFpEF, EF 65%) Volume overload + pulmonary edema on imaging. Severe Pulmonary Hypertension (RVSP 61 mmHg) From chronic HF + hypoxic vasoconstriction. * Hemodynamically stable off pressors * Hold aspirin due to Hgb 7.6 + platelets 71K * Hold anticoagulation (Eliquis / Lovenox) * Continue atorvastatin * Strict MAP monitoring * EKG for QT interval * No Plavix due to bleeding risk * No KEVIN inhibitors due to WILLIAN * Cardiology following * Conservative management of multi-vessel CAD per cardiology. * Continuous telemetry for AFib; starting metoprolol tartarate 25 mg BID Hypertension Chronic comorbidity Dyslipidemia Chronic comorbidity Continue Atorvasatin RESPIRATORY MECHANICAL VENTILATION Acute on chronic hypoxic respiratory failure post-extubation, improving Aspiration Pneumonia, Multifocal bacterial (E. coli + MSSA) improving Bilateral pleural effusions large right, moderate left Thoracentesis improved symptoms. Right drained 1.3 L. *pneumonia on CXR, lactate normalized from 6.2 - 1.7 - 1.2 improved * On 8 L Oximizer * Wean as tolerated * Thoracentesis done monitor for re-expansion edema * Start: * Incentive spirometry * Chest physiotherapy * Daily CXR * Bronchodilators PRN * Maintain saturation >94% * Suction PRN RENAL WILLIAN Stage 2 due to VMN Improving Likely hemodynamic ischemic ATN. . Hyperphosphatemia Hypokalemia improving replenished Electrolyte derangements. Hypernatremia * Nephrology consult placed today * Monitor UOP hourly * Electrolyte replacement protocol * 250 mL PO free water Q3H * STOP furosemide * START bumetanide drip + albumin 25% IV Q15H 3 doses * Avoid nephrotoxins * Consider renal ultrasound if persistent oliguria * Monitor UOP q1h; goal >0.5 mL/kg/hr. * Correct electrolytes: K >4, Mg >2. INFECTIOUS DISEASE Septic Shock From aspiration pneumonia: initially lactate 6.2 THEN improved to 1.7 - 1.2 .Still requiring vasopressors. Aspiration Pneumonia, Multifocal CXR findings consistent.. * Repeat blood cultures if febrile, urine culture ordered and are negative. * MRSA negative, initial blood cultures are negative * Respiratory culture/gram stain Few Gram Positive Rods Few Gram Positive Cocci in chains Rare Gram Negative Rods Positive for Stap aures ECOLI, * Discontinue vancomycin (MSSA, no MRSA) * STOP cefepime to reduce nephrotoxicity risk in WILLIAN (acceptable to stop) * Start: * Ceftriaxone 12 g IV daily * De-escalate based on culture results. * Lactate normalized; continue sepsis bundle. GI Transaminitis Likely shock liver vs congestive hepatopathy. * Start mechanical soft diet * Continue bowel regimen: * Senna * Docusate * Miralax * If no BM by tomorrow add bisacodyl PRN * GI prophylaxis: IV pantoprazole. * Continue Scherer for accurate I/O * Monitor for hematuria * Scherer catheter in place for accurate UOP. 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 * Anemia : transfuse if <7 or hemodynamically unstable. * DVT prophylaxis: SCD ENDOCRINE T2DM with Stress Hyperglycemia * Sliding scale insulin q4h * Goal BG [id number] * Resume home diabetic meds after stabilization. PSYCHIATRY * Sedated; no psychiatric meds needed NUTRITION Malnutrition risk low albumin * Mechanical soft diet * Advance as tolerated PROPHYLAXIS * DVT: SCD * GI: Pantoprazole * Pressure ulcers: q2h turns * Line-associated infection: Daily review of necessity LINES, TUBES, DRIPS * Right IJ triple-lumen (08/09) placed order to remove today. * ET tube placed 08/09 * NG tube * Scherer * Drips: discontinued PHYSICAL THERAPY * Out of bed to chair and then walk today * PT/OT evaluation for mobility improvement SOCIAL WORK * Family updated * Code status changed to DNR today per family request * Continue [id number] discussion * Continue planning SNF transfer once medically stable for physical therapy XI. CODE STATUS DNR Discussed with family >20 minutes Case discussed with Dr. Galindo Plan discussed with: Patient Dietary Evaluation Review Comments: Nutrition Recommendation: 1) EN Vital High Protein @ 45ml/hr x 24hr (goal). Water flush 50ml Q6H if allowed, adjust PRN. TF at goal volume provides 1080 kcal (100%), 95 gm protein (100%), and 27615 ml free water(including flush). 2) TPN if NPO >7 days 3) Monitor NPO status, lab values, weight trend, and I/O Expected Outcomes/Goals: Intake to meet >75% estimated needs Lab values to improve FU 2-3 days KRIS BOWLES RESIDENT Aug 19, 2025 09:44
--- NOTE | 2025-08-19 11:44 | DVHPN2 ---
Progress Note Date Seen: Aug 19, 2025 Has the PT tested + for MRSA If YES, has PT been informed?: No Medical Necessity Reason Pt with a Central, PICC or Fol: Yes The following are medically ne: Central Line, Scherer Catheter Subjective Review of Systems: RESPIRATORY:Abnormal Other Systems: Patient seen and examined by myself today in follow-up Patient remained high flow oxygen Objective vital signs Vital Sign Date Time Temp Pulse Resp B/P (MAP) Pulse Ox O2 Delivery O2 Flow Rate FiO2 08/19/25 11:12 107 134/72 08/19/25 09:13 22 97 10.0 08/19/25 09:00 96.7 96.7 08/19/25 00:15 Nasal Cannula* 40 Total Intake and Output 08/18/25 08/18/25 08/19/25 15:00 23:00 07:00 Intake Total 500 ml 400 ml Output Total 700 ml 575 ml Balance -200 ml -175 ml medications Current Medications Medications Dose Ordered Sig/Justina Route Start Time Stop Time Status Last Admin Dose Admin Acetaminophen 325 mg Q4HP PRN PO 08/09/25 17:15 08/19/25 08:28 325 MG Diagnostic Test (Pha) 1 strip Q6HR 08/10/25 06:00 08/19/25 06:10 1 STRIP Insulin Human Regular Q6HR SC 08/10/25 06:00 08/19/25 06:10 4 UNITS Dextrose 50 ml UD PRN IV 08/10/25 02:30 Atorvastatin Calcium 80 mg HS GT 08/11/25 22:00 08/18/25 00:49 80 MG Pantoprazole Sodium 40 mg DAILY IV 08/12/25 10:00 08/19/25 11:11 40 MG Enteral Nutritional Formula 1,000 ml 25ML/HR GT 08/11/25 19:30 08/11/25 21:54 1,000 ML Sennosides 8.6 mg HS PO 08/12/25 22:00 08/18/25 21:37 8.6 MG Docusate Sodium 100 mg BID GT 08/13/25 10:00 08/16/25 21:39 100 MG Polyethylene Glycol 17 gm DAILYPRN PRN GT 08/14/25 14:30 Iron Sucrose 110 ml @ 110 mls/hr DAILY@1200 IV 08/15/25 12:00 08/19/25 11:59 Cancel Iron Sucrose 110 ml @ 110 mls/hr DAILY@1200 IV 08/15/25 12:00 08/19/25 11:59 Cancel Ceftriaxone Sodium 50 ml @ 100 mls/hr DAILY@09 IV 08/16/25 09:00 08/19/25 08:28 100 MLS/HR Albuterol 2.5 mg Q6HWA [facility] 08/16/25 06:00 08/18/25 13:14 2.5 MG Ipratropium [place] 0.5 mg Q6HWA [facility] 08/16/25 06:00 08/18/25 13:15 0.5 MG Enteral Nutritional Formula 28.8 gm BIDWM PO 08/16/25 18:00 08/19/25 08:29 28.8 GM Metoprolol Tartrate 25 mg BID PO 08/17/25 22:00 08/19/25 11:12 25 MG Bumetanide 12.5 mg/Miscellaneous 50 ml @ 2 mls/hr Q24H IV 08/18/25 14:00 08/18/25 18:17 2 MLS/HR Examination: LUNGS:Normal, CVS:Normal, MSK:Abnormal laboratory and microbiology Laboratory Tests 08/19/25 06:06 Test 08/19/25 06:06 Range/Units Serum Glucose 232 H 74-106 mg/dL Microbiology Date/Time Source Procedure Growth Status 08/09/25 23:10 Urine - Scherer Port Urine Culture - Final Complete 08/09/25 22:59 Nose MRSA Screen - Final Complete 08/09/25 16:40 Blood Blood Culture - Final NO GROWTH AFTER 5 DAYS OF INCUBATION. Complete 08/09/25 15:40 Sputum Gram Stain - Final Complete 08/09/25 15:40 Respiratory Culture - Final Escherichia coli Staphylococcus aureus Complete Problem List/Assessment/Plan Problem List/Assessment/Plan Acute kidney injury superimposed Chronic Kidney Disease secondary hemodynamic mediated, FeNa < 1% Vancomycin nephrotoxicity Status post cardiac arrest Congestive heart failure exacerbation Pulmonary edema Atrial fibrillation with RVR Acute respiratory failure, patient extubated 08/14 Diabetes mellitus type 2 Hypokalemia Hypoalbuminemia Anemia requiring packed red blood cell transfusion Recommendations Kidney function slightly worsened today Increased urine output Discontinue vancomycin Scherer catheter Strict I&Os kidney ultrasound reported bilateral simple cysts Continue Bumex 0.5 mg/h IV drip Add metolazone 10 mg p.o. q.day Albumin 25% IV piggyback KCL replacement Insulin sliding scale We will continue to follow up Plan discussed with: Patient My Orders My Orders Orders - JESUS HOLDEN MD Procedure Category Date Status Time Kidney US 08/18/25 Resulted 13:39 Give Un-Diluted PHA 08/18/25 In Process (Gi... W/Bumetanide 14:00 Metolazone (Zaroxolyn) PHA 08/19/25 Transmitted 11:45 Dietary Evaluation Review Comments: Nutrition Recommendation: 1) EN Vital High Protein @ 45ml/hr x 24hr (goal). Water flush 50ml Q6H if allowed, adjust PRN. TF at goal volume provides 1080 kcal (100%), 95 gm protein (100%), and 30772 ml free water(including flush). 2) TPN if NPO >7 days 3) Monitor NPO status, lab values, weight trend, and I/O Expected Outcomes/Goals: Intake to meet >75% estimated needs Lab values to improve FU 2-3 days JESUS HOLDEN MD Aug 19, 2025 11:44
--- NOTE | 2025-08-19 23:08 | DVHPN2 ---
Subjective DOS: 08/19/2025 Patient seen and examined at bedside. Remains on supplemental oxygen Overnight events reviewed. Changes from previous H/P or p: No Changes Objective Vitals Vital Signs Date Time Temp Pulse Resp B/P (MAP) Pulse Ox O2 Delivery O2 Flow Rate FiO2 08/19/25 21:17 100 08/19/25 21:00 97.4 20 120/62 (81) 97 97.4 08/19/25 20:00 Oxymizer 8 N/A Intake/Output Intake and Output 08/19/25 07:00 Intake Total 900 ml Output Total 1275 ml Balance -375 ml Intake Oral 900 ml Output Urine Total 1275 ml # Bowel Movements 1 Exam Gen.: Patient lying in bed in no apparent distress. On supplemental oxygen. Head: Normocephalic, atraumatic. Eyes: EOMI/PERRLA. Ears: Normal hearing. Normal anatomy. Neck/trachea: Trachea midline, supple. Nose: Normal external anatomy. Mouth: Moist mucous membranes. Chest: Decreased air entry bilaterally. No wheezing or rhonchi. Cardiovascular: Positive S1, positive S2. Regular rate and rhythm. Abdomen: Positive bowel sounds in all 4 quadrants. Soft, non-tender, non- distended. : Deferred. Rectal: Deferred. Skin: Warm, dry. Intact. Extremities: 2+ radial pulses bilaterally. No lower extremity edema. Neuro: Awake, alert, oriented x3. No gross motor or sensory deficits. Cranial nerves II through XII intact. Gait not assessed. Medications Current Medications Medications Dose Ordered Sig/Justina Route Start Time Stop Time Status Last Admin Dose Admin Acetaminophen 325 mg Q4HP PRN PO 08/09/25 17:15 08/19/25 08:28 325 MG Diagnostic Test (Pha) 1 strip Q6HR 08/10/25 06:00 08/19/25 18:48 1 STRIP Insulin Human Regular Q6HR SC 08/10/25 06:00 08/19/25 18:51 3 UNITS Dextrose 50 ml UD PRN IV 08/10/25 02:30 Atorvastatin Calcium 80 mg HS GT 08/11/25 22:00 08/19/25 21:17 80 MG Pantoprazole Sodium 40 mg DAILY IV 08/12/25 10:00 08/19/25 11:11 40 MG Enteral Nutritional Formula 1,000 ml 25ML/HR GT 08/11/25 19:30 08/11/25 21:54 1,000 ML Sennosides 8.6 mg HS PO 08/12/25 22:00 08/19/25 21:18 8.6 MG Docusate Sodium 100 mg BID GT 08/13/25 10:00 08/16/25 21:39 100 MG Polyethylene Glycol 17 gm DAILYPRN PRN GT 08/14/25 14:30 Iron Sucrose 110 ml @ 110 mls/hr DAILY@1200 IV 08/15/25 12:00 08/19/25 11:59 Cancel Iron Sucrose 110 ml @ 110 mls/hr DAILY@1200 IV 08/15/25 12:00 08/19/25 11:59 Cancel Ceftriaxone Sodium 50 ml @ 100 mls/hr DAILY@09 IV 08/16/25 09:00 08/19/25 08:28 100 MLS/HR Albuterol 2.5 mg Q6HWA [facility] 08/16/25 06:00 08/19/25 18:11 2.5 MG Ipratropium Cora 0.5 mg Q6HWA [facility] 08/16/25 06:00 08/19/25 18:11 0.5 MG Enteral Nutritional Formula 28.8 gm BIDWM PO 08/16/25 18:00 08/19/25 18:53 28.8 GM Metoprolol Tartrate 25 mg BID PO 08/17/25 22:00 08/19/25 21:17 25 MG Bumetanide 12.5 mg/Miscellaneous 50 ml @ 2 mls/hr Q24H IV 08/18/25 14:00 08/19/25 17:27 2 MLS/HR Metolazone 15 mg DAILY PO 08/19/25 11:45 08/19/25 13:46 15 MG Laboratory Results Laboratory Tests 08/19/25 06:06 Chemistry Test 08/19/25 06:06 Albumin 4.1 g/dL (3.2-4.8) Calcium Level 10.0 mg/dL (8.7-10.4) Magnesium Level 2.2 mg/dL (1.6-2.6) Total Protein 7.1 g/dL (5.7-8.2) LFT Test 08/19/25 06:06 Alanine Aminotransferase (ALT) 20 U/L (7-40) Alkaline Phosphatase 105 U/L (46-116) Aspartate Amino Transferase (AST) 26 U/L (13-40) Total Bilirubin 1.1 mg/dL (0.2-1.0) H Urinalysis Test 08/09/25 18:45 08/09/25 23:10 08/18/25 16:30 Urine WBC Clumps Present /hpf (None Seen) Urine Uric Acid Crystals Mod /hpf (None Seen) Urine Color Light-orange (Yellow) Urine Clarity Ex.turbid (Clear) Urine pH 5.5 (5.0-9.0) Urine Specific [place] 1.014 (1.001-1.035) Urine Protein 1+ (Negative) H Urine Ketones Negative (Negative) Urine Blood 2+ /uL (Negative) H Urine Nitrite Negative (Negative) Urine Bilirubin Negative (Negative) Urine Urobilinogen Normal mg/dL (Negative) Urine Leukocyte Esterase Negative /uL (Negative) Urine RBC 9 /hpf (0 - 4) Urine Microscopic WBC 3 /HPF (0-5) Urine Squamous Epithelial Cells None seen /hpf (<5) Urine Amorphous Crystals Few /hpf (None Seen) Urine Bacteria Few /hpf (None Seen) H Urine Hyaline Casts Few /lpf (0 - 2) Urine Mucus Few (None Seen) Urine Creatinine 66.60 mg/dL (30.0-125.0) Urine Protein/Creatinine Ratio 2.48 Urine Sodium 19 mmol/L (40-220) L Urine Glucose Normal mg/dL (Normal) Urine Total Protein 165.5 mg/dL (1-14) H Microbiology Microbiology Date/Time Source Procedure Growth Status 08/09/25 23:10 Urine - Scherer Port Urine Culture - Final Complete 08/09/25 22:59 Nose MRSA Screen - Final Complete 08/09/25 16:40 Blood Blood Culture - Final NO GROWTH AFTER 5 DAYS OF INCUBATION. Complete 08/09/25 15:40 Sputum Gram Stain - Final Complete 08/09/25 15:40 Respiratory Culture - Final Escherichia coli Staphylococcus aureus Complete Assessment/Plan Assessment/Plan Impression: Acute on chronic hypoxic respiratory failure Dependence on supplemental oxygen Aspiration pneumonia, multifocal Metabolic encephalopathy S/p cardiac arrest with ROSC Acute on chronic diastolic CHF Severe pulmonary hypertension - RVSP of 61 mmHg Pleural effusions Atelectasis Acute kidney injury Transaminitis Anemia Thrombocytopenia Obesity Events: Remains on supplemental oxygen On 8 LPM -->10 LPM Oxymizer Taper O2 as tolerated. Increased oxygen requirements. Patient and family agreed for hospice care. On Bumex drip for diuresis Nephrology recs appreciated Monitor renal function. Monitor electrolytes. Supplement as necessary. Continue bronchodilators Continue antibiotics Labs and imaging reviewed. Rest of plan as noted below. Plan: Supplemental oxygen Titrate to keep O2 sats above 90%. Continue bronchodilators/Mucomyst. Continue antibiotics Incentive spirometry S/p right thoracentesis with drainage of 1.3 liters. Follow up Cardiology recommendations Diurese with Bumex as tolerated Monitor renal function. Monitor electrolytes. Supplement as necessary. Monitor ins and outs. Monitor hemoglobin Transfuse if less than 7.0 g/dL. Monitor platelet count due to thrombocytopenia Recommend diet and lifestyle modifications for weight reduction Obesity complicates all care DVT prophylaxis. Prognosis: Poor given patient's multiple co-morbidities. Rest of plan per hospitalist and other consultants. A total of 51 minutes of clinical care time was spent reviewing the patient record, examining the patient, making a diagnostic and therapeutic plan, discussing this plan with the medical personnel, following up on diagnostic studies and following the patient for clinical stability excluding any and all procedures. At least 50% of this time was spent in direct, [id number] contact. Thank you, Dr. Harvey, for allowing me to participate in this patient's care. Further recommendations will depend on the patient's clinical course. Please do not hesitate to contact me if you have any questions or concerns. This medical document was created using an electronic medical record system with [employer] dictation system. Although these documentations are being carefully reviewed, there may still be some phonetic and typographical changes. The errors are purely typographical, due to imperfection on the software program, and do not reflect any compromise in the patient's medical care. Plan discussed with: Patient, Other (RN Ary/GREGORIA) Visit Coding Pulmonary Billing Provider: HAIDER PRESTON MD Date of Service if different f: Aug 19, 2025 Common Visit Codes: [id number] INP/OBS CARE(HIGH) HAIDER PRESTON MD Aug 19, 2025 23:08
--- NOTE | 2025-08-19 23:36 | DVHPN2 ---
Progress Note - Dictate Date Seen: Aug 19, 2025 Has the PT tested + for MRSA If YES, has PT been informed?: No Medical Necessity Reason Pt with a Central, PICC or Fol: Yes The following are medically ne: Central Line, Scherer Catheter Subjective Patient was seen and evaluated in follow up. Patient is complaining of weakness. Patient is now on 10 LPM NC. HGB 7.5, HCT 22.4, BUN 51, [employer]LECT[employer]ER 1.72, GLUC 228. Chest x-ray shows unchanged to slightly increased pulmonary edema. Telemetry reviewed. vital signs Vital Sign Date Time Temp Pulse Resp B/P (MAP) Pulse Ox O2 Delivery O2 Flow Rate FiO2 08/19/25 12:17 100 127/75 08/19/25 09:13 22 97 10.0 08/19/25 09:00 96.7 96.7 08/19/25 00:15 Nasal Cannula* 40 Total Intake and Output 08/18/25 08/18/25 08/19/25 15:00 23:00 07:00 Intake Total 500 ml 400 ml Output Total 700 ml 575 ml Balance -200 ml -175 ml medications Current Medications Medications Dose Ordered Sig/Justina Route Start Time Stop Time Status Last Admin Dose Admin Acetaminophen 325 mg Q4HP PRN PO 08/09/25 17:15 08/19/25 08:28 325 MG Diagnostic Test (Pha) 1 strip Q6HR 08/10/25 06:00 08/19/25 06:10 1 STRIP Insulin Human Regular Q6HR SC 08/10/25 06:00 08/19/25 06:10 4 UNITS Dextrose 50 ml UD PRN IV 08/10/25 02:30 Atorvastatin Calcium 80 mg HS GT 08/11/25 22:00 08/18/25 00:49 80 MG Pantoprazole Sodium 40 mg DAILY IV 08/12/25 10:00 08/19/25 11:11 40 MG Enteral Nutritional Formula 1,000 ml 25ML/HR GT 08/11/25 19:30 08/11/25 21:54 1,000 ML Sennosides 8.6 mg HS PO 08/12/25 22:00 08/18/25 21:37 8.6 MG Docusate Sodium 100 mg BID GT 08/13/25 10:00 08/16/25 21:39 100 MG Polyethylene Glycol 17 gm DAILYPRN PRN GT 08/14/25 14:30 Iron Sucrose 110 ml @ 110 mls/hr DAILY@1200 IV 08/15/25 12:00 08/19/25 11:59 Cancel Iron Sucrose 110 ml @ 110 mls/hr DAILY@1200 IV 08/15/25 12:00 08/19/25 11:59 Cancel Ceftriaxone Sodium 50 ml @ 100 mls/hr DAILY@09 IV 08/16/25 09:00 08/19/25 08:28 100 MLS/HR Albuterol 2.5 mg Q6HWA [facility] 08/16/25 06:00 08/19/25 11:33 2.5 MG Ipratropium [place] 0.5 mg Q6HWA [facility] 08/16/25 06:00 08/19/25 11:33 0.5 MG Enteral Nutritional Formula 28.8 gm BIDWM PO 08/16/25 18:00 08/19/25 08:29 28.8 GM Metoprolol Tartrate 25 mg BID PO 08/17/25 22:00 08/19/25 11:12 25 MG Bumetanide 12.5 mg/Miscellaneous 50 ml @ 2 mls/hr Q24H IV 08/18/25 14:00 08/18/25 18:17 2 MLS/HR Metolazone 15 mg DAILY PO 08/19/25 11:45 objective GENERAL: Alert and oriented x 3. Ill appearing. EYES: PERRL, EOMI. Anicteric. HENT: Moist mucous membranes. LUNGS: Decreased breath sounds. CARDIOVASCULAR: Regular rate and rhythm. ABDOMEN: Soft, nontender and nondistended. EXTREMITIES: No edema. SKIN: Warm, dry. laboratory and microbiology Laboratory Tests 08/19/25 06:06 Test 08/19/25 06:06 Range/Units Serum Glucose 232 H 74-106 mg/dL Problem List Cardiac arrest with successful ROSC. Metabolic encephalopathy. STEMI (ST elevation myocardial infarction). Assessment/Plan Continued all current supportive medical care. GI prophylactics. Lipitor, Metoprolol. Diuretics with Bumex. IV antibiotics as ordered. Morphine for pain management. Additional plan as per the hospital course. Dietary Evaluation Review Comments: Nutrition Recommendation: 1) EN Vital High Protein @ 45ml/hr x 24hr (goal). Water flush 50ml Q6H if allowed, adjust PRN. TF at goal volume provides 1080 kcal (100%), 95 gm protein (100%), and 73655 ml free water(including flush). 2) TPN if NPO >7 days 3) Monitor NPO status, lab values, weight trend, and I/O Expected Outcomes/Goals: Intake to meet >75% estimated needs Lab values to improve FU 2-3 days Plan discussed with: Patient PATRICIA GROVES MD Aug 19, 2025 12:30
[2025-08-20] VITALS (20 sets, daily range): BP systolic 115–159; BP diastolic 61–82; PULSE 89–118; RESP 17–26; TEMP 97.7–98.6; O2SAT 88–100
[2025-08-20] MEDS ORDERED: IPRATROPIUM BROM 0.5 MG/2.5ML INH SOL NEB PRN (03:00)
[2025-08-20] MEDS ORDERED: ALBUTEROL SULF 2.5 MG/0.5ML(0.5%) NEB SOLN NEB PRN (03:00)
[2025-08-20] MEDS: IPRATROPIUM BROM 0.5 MG/2.5ML INH SOL NEB ONE (03:12)
[2025-08-20] MEDS: ALBUTEROL SULF 2.5 MG/0.5ML(0.5%) NEB SOLN NEB ONE (03:12)
[2025-08-20 04:19] LABS: Base Excess 8.0 mmol/L (-2.0-3.0)
[2025-08-20 08:04] LABS: Hematocrit 23.8 % (36.0-46.0); Hemoglobin 7.9 g/dL (12.2-16.2); Mean Corpuscular Hemoglobin 33.2 pg (28.0-32.0); Mean Corpuscular Volume 99.6 fL (80.0-100.0)
[2025-08-20 08:31] LABS: Total Cells Counted 100.0 (100)
[2025-08-20 09:01] LABS: Alanine Aminotransferase 19 U/L (7-40); Alkaline Phosphatase 113 U/L (46-116); Anion Gap 17 (5-15); BUN/Creatinine Ratio 38.4 (10.0-20.0); Calcium 10.1 mg/dL (8.7-10.4); Carbon Dioxide 28 mmol/L (20-31); Chloride 100 mmol/L (98-107); Total Protein 6.7 g/dL (5.7-8.2)
[2025-08-20 09:02] LABS: Albumin 3.8 g/dL (3.2-4.8); Bilirubin, Total 0.9 mg/dL (0.2-1.0); Blood Urea Nitrogen 58 mg/dL (9-23); Glucose 144 mg/dL (74-106); Potassium 2.8 mmol/L (3.5-5.1); Sodium 145 mmol/L (136-145)
--- NOTE | 2025-08-20 11:09 | DVHPN2 ---
Progress Note Date Seen: Aug 20, 2025 Has the PT tested + for MRSA If YES, has PT been informed?: No Medical Necessity Reason Pt with a Central, PICC or Fol: Yes The following are medically ne: Central Line, Scherer Catheter Subjective Review of Systems: RESPIRATORY:Abnormal Other Systems: Patient seen and examined by myself today in follow-up Patient remained on BiPAP Objective vital signs Vital Sign Date Time Temp Pulse Resp B/P (MAP) Pulse Ox O2 Delivery O2 Flow Rate FiO2 08/20/25 10:14 107 149/80 100 Facial BiPAP Mask 50 08/20/25 09:00 97.9 19 97.9 08/20/25 08:00 12 Total Intake and Output 08/19/25 08/19/25 08/20/25 15:00 23:00 07:00 Intake Total 50 ml 806 ml 400 ml Output Total 600 ml 1500 ml Balance 50 ml 206 ml -1100 ml medications Current Medications Medications Dose Ordered Sig/Justina Route Start Time Stop Time Status Last Admin Dose Admin Acetaminophen 325 mg Q4HP PRN PO 08/09/25 17:15 08/19/25 08:28 325 MG Diagnostic Test (Pha) 1 strip Q6HR 08/10/25 06:00 08/20/25 05:51 1 STRIP Insulin Human Regular Q6HR SC 08/10/25 06:00 08/20/25 05:53 3 UNITS Dextrose 50 ml UD PRN IV 08/10/25 02:30 Atorvastatin Calcium 80 mg HS GT 08/11/25 22:00 08/19/25 21:17 80 MG Pantoprazole Sodium 40 mg DAILY IV 08/12/25 10:00 08/20/25 09:22 40 MG Enteral Nutritional Formula 1,000 ml 25ML/HR GT 08/11/25 19:30 08/11/25 21:54 1,000 ML Sennosides 8.6 mg HS PO 08/12/25 22:00 08/19/25 21:18 8.6 MG Docusate Sodium 100 mg BID GT 08/13/25 10:00 08/20/25 09:22 100 MG Polyethylene Glycol 17 gm DAILYPRN PRN GT 08/14/25 14:30 Iron Sucrose 110 ml @ 110 mls/hr DAILY@1200 IV 08/15/25 12:00 08/19/25 11:59 Cancel Iron Sucrose 110 ml @ 110 mls/hr DAILY@1200 IV 08/15/25 12:00 08/19/25 11:59 Cancel Ceftriaxone Sodium 50 ml @ 100 mls/hr DAILY@09 IV 08/16/25 09:00 08/20/25 09:22 100 MLS/HR Albuterol 2.5 mg Q6HWA [facility] 08/16/25 06:00 08/20/25 07:01 2.5 MG Ipratropium Igo 0.5 mg Q6HWA [facility] 08/16/25 06:00 08/20/25 07:01 0.5 MG Enteral Nutritional Formula 28.8 gm BIDWM PO 08/16/25 18:00 08/20/25 09:21 28.8 GM Metoprolol Tartrate 25 mg BID PO 08/17/25 22:00 08/20/25 09:22 25 MG Bumetanide 12.5 mg/Miscellaneous 50 ml @ 2 mls/hr Q24H IV 08/18/25 14:00 08/19/25 17:27 2 MLS/HR Metolazone 15 mg DAILY PO 08/19/25 11:45 08/20/25 09:23 15 MG Albuterol 2.5 mg Q4HPRN PRN NEB 08/20/25 03:00 Ipratropium Igo 0.5 mg Q4HPRN PRN NEB 08/20/25 03:00 Examination: LUNGS:Abnormal, CVS:Normal, MSK:Abnormal laboratory and microbiology Laboratory Tests 08/20/25 06:20 Test 08/20/25 06:20 Range/Units Serum Glucose 144 H 74-106 mg/dL Microbiology Date/Time Source Procedure Growth Status 08/09/25 23:10 Urine - Scherer Port Urine Culture - Final Complete 08/09/25 22:59 Nose MRSA Screen - Final Complete 08/09/25 16:40 Blood Blood Culture - Final NO GROWTH AFTER 5 DAYS OF INCUBATION. Complete 08/09/25 15:40 Sputum Gram Stain - Final Complete 08/09/25 15:40 Respiratory Culture - Final Escherichia coli Staphylococcus aureus Complete Problem List/Assessment/Plan Problem List/Assessment/Plan Acute kidney injury superimposed Chronic Kidney Disease secondary hemodynamic mediated, FeNa < 1% Vancomycin nephrotoxicity Status post cardiac arrest Congestive heart failure exacerbation Pulmonary edema Atrial fibrillation with RVR Acute respiratory failure, patient extubated 08/14 Diabetes mellitus type 2 Hypokalemia Hypoalbuminemia Anemia requiring packed red blood cell transfusion Recommendations Kidney function slightly improving today3 Increased urine output Discontinue vancomycin Scherer catheter Strict I&Os kidney ultrasound reported bilateral simple cysts Continue Bumex 0.5 mg/h IV drip Add metolazone 10 mg p.o. q.day Albumin 25% IV piggyback KCL replacement Insulin sliding scale We will continue to follow up Plan discussed with: Patient My Orders My Orders Orders - JESUS HOLDEN MD Procedure Category Date Status Time Metolazone (Zaroxolyn) PHA 08/19/25 In Process 11:45 Dietary Evaluation Review Comments: Nutrition Recommendation: 1) EN Vital High Protein @ 45ml/hr x 24hr (goal). Water flush 50ml Q6H if allowed, adjust PRN. TF at goal volume provides 1080 kcal (100%), 95 gm protein (100%), and 82869 ml free water(including flush). 2) TPN if NPO >7 days 3) Monitor NPO status, lab values, weight trend, and I/O Expected Outcomes/Goals: Intake to meet >75% estimated needs Lab values to improve FU 2-3 days JESUS HOLDEN MD Aug 20, 2025 11:09
[2025-08-20] MEDS: POTASSIUM CHL 20MEQ/100ML 100 ML IV SCH (12:24)
[2025-08-20] MEDS: POTASSIUM EFFERVESENT TAB 25 MEQ PO SCH (12:25)
--- NOTE | 2025-08-20 12:29 | DVHPNRES ---
Progress Note Date Seen: Aug 20, 2025 Resident Creating Document: KRIS BOWLES RESIDENT Has the PT tested + for MRSA If YES, has PT been informed?: No Medical Necessity Reason Pt with a Central, PICC or Fol: Yes The following are medically ne: Central Line, Scherer Catheter Subjective Review of Systems The patient is an 85-year-old female who presented to the ED with class IV dyspnea, chest pain, and right arm weakness, followed by agonal breathing, rapid desaturation into the 70s on NRB, and progression to cardiac arrest. ROSC achieved after ~2 min downtime, 1 round of CPR, 1 dose epinephrine, and endotracheal intubation. EKG showed new left bundle branch block. atrial fibrillation with global ischemia. Cardiology diagnosed ST-segmentelevation NE equivalent and took patient for emergent LHC, which revealed: * 99% LAD stenosis * 60% left main stenosis * 90% circumflex stenosis * Unable to cross chronic total occlusion due to high procedural mortality and conservative medical management recommended. The patient developed acute hypoxic respiratory failure, aspiration pneumonia, and septic shock requiring vasopressors. She was admitted to ICU on mechanical ventilation, norepinephrine, broad-spectrum antibiotics, heparin drip, and supportive care. PAST MEDICAL HISTORY * Hypertension * Type 2 diabetes mellitus * Dyslipidemia * HFpEF (EF 65%) * Paroxysmal atrial fibrillation on apixaban * Pulmonary hypertension (RVSP 61 mmHg) * Basal cell carcinoma * Atypical left hip sarcoma (surgically treated) * Recent COVID-19 * Chronic thrombocytopenia IV. PAST SURGICAL HISTORY * Hysterectomy * Appendectomy * Cholecystectomy * Basal cell carcinoma excision * Left hip sarcoma excision (2019) V. SOCIAL HISTORY * Lives with * No smoking, alcohol, or illicit substances ROS (Unable to Obtain Due to Intubation & Sedation) 08/10/25 The patient is an 85-year-old female who presented to the ED with class IV dyspnea, chest pain, and right arm weakness, followed by agonal breathing, rapid desaturation into the 70s on NRB, and progression to cardiac arrest. ROSC achieved after ~2 min downtime, 1 round of CPR, 1 dose epinephrine, and endotracheal intubation. EKG showed new left bundle branch block. atrial fibrillation with global ischemia. Cardiology diagnosed ST-segmentelevation NE equivalent and took patient for emergent LHC, which revealed: * 99% LAD stenosis * 60% left main stenosis * 90% circumflex stenosis * Unable to cross chronic total occlusion due to high procedural mortality and conservative medical management recommended. The patient developed acute hypoxic respiratory failure, aspiration pneumonia, and septic shock requiring vasopressors. She was admitted to ICU on mechanical ventilation, norepinephrine, broad-spectrum antibiotics, heparin drip, and supportive care. * Still requiring norepinephrine Temperature: Tmax 100.9 ongoing infection concern. Renal: UOP remains 0.32 mL/kg/hr, creatinine improved to 1.25 (from 1.6). Troponin: 496 ( from 115), consistent with evolving NE. Platelets: 92K (chronic baseline, trending up from 78K yesterday). CXR: Cardiomegaly, pulmonary vascular congestion, multifocal pneumonia, bilateral effusions. Labs: K 3.2 repleted; Phos 5.6; BUN 32; Hgb 8.1; AST/ALT down-trending. Medications: Norepinephrine, midazolam, fentanyl, heparin drip, cefepime, vancomycin. PLAN ADJUSTMENTS TODAY: * Convert enteric-coated aspirin to regular aspirin * Continue heparin drip now * Discontinue heparin in 48 hours, then start Aspirin + Plavix * Held/discontinued Zofran * Held/discontinued Atorvastatin (Lipitor) * Ordered repeat chest X-ray * Continue antibiotics * Continue vasopressor support 08/11/25 * Hemodynamically fluctuating on norepinephrine. * On AC/VC mechanical ventilation; gases show mild metabolic alkalosis. * Oxygenation improved (PO2 88). * No fever overnight. * Chronic thrombocytopenia trending downward but stable. * Hemoglobin down to 7.3; monitor closely, consider transfusion if symptomatic or <7.0. * WILLIAN slightly worsened (Cr 1.37). * CXR unchanged. * Started statin therapy and sedation vacation protocol. * No arrhythmias other than AFib with controlled rate. 08/12/25 Patient remains critically ill but hemodynamically unstable on low-dose norepinephrine. Ventilation stable. Labs show mild anemia worsening (Hgb 7.5), stable chronic thrombocytopenia (80K), slight rise in creatinine. Cultures negative except respiratory culture with E. coli sensitive to cefepime. Heparin drip discontinued; switched to prophylactic Lovenox. Code status updated to DNR. KUB ordered for constipation; tube feeds tolerated. Continuing all supportive care. Heparin drip discontinued today Started Lovenox 40 mg subcutaneous daily (prophylactic) Continue Aspirin. NOT starting Eliquis / therapeutic Lovenox due to: * Hgb drop (8.2 to 7.5) * Platelets 80K * High bleeding risk. NOT starting Plavix due to high bleeding risk Code status changed from FULL CODE to DNR per family. Continue cefepime (E. coli sensitive), discontinue vancomycin if MRSA PCR negative (as already done) K repleted; Mg repleted Continue sedation and vasopressor support Begin bowel regimen if KUB non-obstructive 08/13/25: Patient is seen and examined at bedside, x-ray KUB shows, Moderate to large volume stool within the colon. Bibasilar pulmonary airspace opacities and pleural effusions. We will begin bowel regimen. Ordered lower extremity Doppler to rule out DVT, start Lovenox 30 mg subQ. 08/14/25 Patient is off pressors, tolerating CPAP/TSV SBT, clear lungs, stable oxygenation, and strong respiratory effort. Preparing for extubation today. However, she has worsening anemia (Hgb 6.7) transfusing 1 PRBC. WILLIAN slightly worse. Holding all therapeutic anticoagulation (Eliquis, Lovenox). Continue aspirin. Starting Miralax for constipation. Cultures negative except respiratory culture showing E. coli + Staph aureus continuing cefepime + vancomycin. 08/15/25 The patient is an 85-year-old critically ill female with a history of cardiac arrest with ROSC, STEMI-equivalent NE, acute hypoxic respiratory failure, severe pulmonary hypertension, HFpEF, aspiration pneumonia, septic shock (improving), WILLIAN, chronic anemia, and chronic thrombocytopenia. She was successfully extubated yesterday, currently on BiPAP but develops tachypnea (RR 40), tachycardia (110), and desaturation to 88% when weaning off BiPAP. Symptoms improved when placed back on BiPAP (RR to 20, SpO2 to 100).CXR showed persistent bilateral pleural effusions, so a right-sided ultrasound- guided thoracentesis was performed with 1.3 L fluid removed. 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 Antibiotics: discontinue; vancomycin planned to discontinue . Considering de- escalation to ceftriaxone Current drips (fentanyl, versed, precedex, norepinephrine) all discontinued. Aspirin currently on hold due to anemia and thrombocytopenia. * Starting Lasix drip 5 mg/h after IV bolus 40 mg. 08/16/25 Today she is off BiPAP and maintaining adequate oxygenation on 4 L nasal cannula, with saturations 42324%. No increased work of breathing noted. Hemodynamically soft but stable. Chest x-ray unchanged with small left pleural effusion and vascular congestion. \Awake, interactive, sitting upright. Stool output absent today; bowel sounds active. She is tolerating mechanical soft diet. Lasix drip discontinued; transitioned to Lasix 40 mg IV BID.?On Ceftriaxone monotherapy, tolerating well. downgrade to telemetry given respiratory stability. * CXR stable. * Hemoglobin improving (7.2) without transfusion. * Platelets up to 108K. 08/17/25 Patient evaluated at bedside today. She is awake, alert, intermittently fatigued, able to answer simple questions, remains in AFib with HR [id number], BP stable with MAP > 70 throughout the morning. Oxygenation stable on 4 L nasal cannula FiO2 ~3642% with SpO2 9699%. She had six bowel movements today on bowel regimen and soft diet, no abdominal pain. Reports mild generalized weakness. No chest pain, dyspnea improved. Labs: Hemoglobin improved from 7.2 - 7.6, WBC 5.9, platelets 152 (normalized). Persistent WILLIAN on CKD: Cr 1.78 (?), BUN 53. Sodium normal at 144. Potassium 3.2 low, repleted today with 40 mEq KCl and magnesium. * Discontinued right IJ central venous catheter. * Reinforced PT/OT, patient stood briefly with assistance. * Case management consulted; family requests [facility]iary / assisted care facility for discharge planning. * No change in antibiotics 08/18/25 Patient evaluated at bedside today. She is awake, alert, following commands, conversational with fatigue. On 8L Oximizer with increased o2 REQUIREMNT FROM 4L NC NOW ON SpO2 9698%. Hemodynamics stable. No active chest pain or increased dyspnea. Renal function worsened today: BUN/Cr increased from 53/1.78 to 55/1.85 despite prior diuresis. Urine output over past 24 hours 1050 ml, intake 1080 ml (near even balance). Decision made for volume-based renal optimization. Interventions & Management changes today: * Furosemide discontinued due to worsening renal indices. * Bumetanide drip (Bumex) initiated for improved diuretic efficiency in CKD. * Albumin 25% IV Q15H 3 doses started to improve intravascular volume and diuretic responsiveness. * Free water discontinued to avoid hyponatremia and further renal stress. * Nephrology consult placed today. * Ordered renal US, PTH, Urine sodium, Urine creatinine, Urine protein/Cr ratio for WILLIAN evaluation. * PT working with patient patient able to sit edge of bed with assistance. * Hgb improved to 8.2 g/dL ( from 7.6). No transfusion indicated today. Plan today: Continue bumetanide drip with albumin dosing, monitor renal response hourly UO, trend BMP Q12h, avoid nephrotoxins, continue ceftriaxone, maintain soft PO diet and electrolytes optimization. 08/19/25: Patient seen and examined at bedside, overnight events reviewed, PT eval requested and patient is working with PT. 08/20/25: Patient seen and examined at bedside, overnight events reviewed, discussed with the family, patient will go to facility for hospice. Objective vital signs Vital Sign Date Time Temp Pulse Resp B/P (MAP) Pulse Ox O2 Delivery O2 Flow Rate FiO2 08/20/25 10:14 107 149/80 100 Facial BiPAP Mask 50 08/20/25 09:00 97.9 19 97.9 08/20/25 08:00 12 Total Intake and Output 08/19/25 08/19/25 08/20/25 15:00 23:00 07:00 Intake Total 50 ml 806 ml 400 ml Output Total 600 ml 1500 ml Balance 50 ml 206 ml -1100 ml medications Current Medications Medications Dose Ordered Sig/Justina Route Start Time Stop Time Status Last Admin Dose Admin Acetaminophen 325 mg Q4HP PRN PO 08/09/25 17:15 08/19/25 08:28 325 MG Diagnostic Test (Pha) 1 strip Q6HR 08/10/25 06:00 08/20/25 05:51 1 STRIP Insulin Human Regular Q6HR SC 08/10/25 06:00 08/20/25 05:53 3 UNITS Dextrose 50 ml UD PRN IV 08/10/25 02:30 Atorvastatin Calcium 80 mg HS GT 08/11/25 22:00 08/19/25 21:17 80 MG Pantoprazole Sodium 40 mg DAILY IV 08/12/25 10:00 08/20/25 09:22 40 MG Enteral Nutritional Formula 1,000 ml 25ML/HR GT 08/11/25 19:30 08/11/25 21:54 1,000 ML Sennosides 8.6 mg HS PO 08/12/25 22:00 08/19/25 21:18 8.6 MG Docusate Sodium 100 mg BID GT 08/13/25 10:00 08/20/25 09:22 100 MG Polyethylene Glycol 17 gm DAILYPRN PRN GT 08/14/25 14:30 Iron Sucrose 110 ml @ 110 mls/hr DAILY@1200 IV 08/15/25 12:00 08/19/25 11:59 Cancel Iron Sucrose 110 ml @ 110 mls/hr DAILY@1200 IV 08/15/25 12:00 08/19/25 11:59 Cancel Ceftriaxone Sodium 50 ml @ 100 mls/hr DAILY@09 IV 08/16/25 09:00 08/20/25 09:22 100 MLS/HR Albuterol 2.5 mg Q6HWA [place] 08/16/25 06:00 08/20/25 11:41 2.5 MG Ipratropium [place] 0.5 mg Q6HWA [place] 08/16/25 06:00 08/20/25 11:41 0.5 MG Enteral Nutritional Formula 28.8 gm BIDWM PO 08/16/25 18:00 08/20/25 09:21 28.8 GM Metoprolol Tartrate 25 mg BID PO 08/17/25 22:00 08/20/25 09:22 25 MG Bumetanide 12.5 mg/Miscellaneous 50 ml @ 2 mls/hr Q24H IV 08/18/25 14:00 08/19/25 17:27 2 MLS/HR Metolazone 15 mg DAILY PO 08/19/25 11:45 08/20/25 09:23 15 MG Albuterol 2.5 mg Q4HPRN PRN NEB 08/20/25 03:00 Ipratropium [place] 0.5 mg Q4HPRN PRN NEB 08/20/25 03:00 Potassium Chloride 100 ml @ 50 mls/hr Q2H IV 08/20/25 11:15 08/20/25 17:14 Potassium Bicarbonate 50 meq Q4HR PO 08/20/25 11:15 08/20/25 14:01 Examination General: Elderly, frail female, no acute distress, pleasant. Neuro: Alert, follows commands, no focal deficits. Cardiac: Irregularly irregular rhythm AFib [id number], no murmurs, pulses 2+; no JVD. Respiratory: bilateral crackles mild, no respiratory distress. GI: Soft, NT/ND, bowel sounds present. Renal: Scherer intermittently; urine clear yellow; output 1050 ml/24h. Extremities: 1+ pedal edema, warm. Skin: No breakdown; healed central line site. laboratory and microbiology Laboratory Tests 08/20/25 06:20 Test 08/20/25 06:20 Range/Units Serum Glucose 144 H 74-106 mg/dL Microbiology Date/Time Source Procedure Growth Status 08/09/25 23:10 Urine - Scherer Port Urine Culture - Final Complete 08/09/25 22:59 Nose MRSA Screen - Final Complete 08/09/25 16:40 Blood Blood Culture - Final NO GROWTH AFTER 5 DAYS OF INCUBATION. Complete 08/09/25 15:40 Sputum Gram Stain - Final Complete 08/09/25 15:40 Respiratory Culture - Final Escherichia coli Staphylococcus aureus Complete Problem List/Assessment/Plan Problem List/Assessment/Plan Metabolic Encephalopathy Post-arrest + sepsis + hypoxia. neurological arrest ruled out (CT head negative) Reflexes present * Awake, alert * No sedation required * Neurochecks Q4H * CT head negative for acute abnormalities. CARDIOVASCULAR . Cardiac Arrest with ROSC Due to hypoxic respiratory failure + STEMI-equivalent. * Downtime ~2 minutes; ROSC after 1 Epi, 1 CPR cycle. Atrial fibrillation rate controlled On Metoprolol Tartarate 25 Mg PO BID * HR [id number] today * High stroke risk (FRANKLIN?DS?-VASc = 7). * Anticoagulation withheld due to anemia and prior thrombocytopenia. STEMI Due to multi-vessel CAD (LAD 99%, LM 60%, LCx 90%).High procedural mortality , conservative management per cardiology LBBB, global ischemia, coronary angiography findings Acute on Chronic Diastolic CHF (HFpEF, EF 65%) Volume overload + pulmonary edema on imaging. Severe Pulmonary Hypertension (RVSP 61 mmHg) From chronic HF + hypoxic vasoconstriction. * Hemodynamically stable off pressors * Hold aspirin due to Hgb 7.6 + platelets 71K * Hold anticoagulation (Eliquis / Lovenox) * Continue atorvastatin * Strict MAP monitoring * EKG for QT interval * No Plavix due to bleeding risk * No KEVIN inhibitors due to WILLIAN * Cardiology following * Conservative management of multi-vessel CAD per cardiology. * Continuous telemetry for AFib; starting metoprolol tartarate 25 mg BID Hypertension Chronic comorbidity Dyslipidemia Chronic comorbidity Continue Atorvasatin RESPIRATORY MECHANICAL VENTILATION Acute on chronic hypoxic respiratory failure post-extubation, improving Aspiration Pneumonia, Multifocal bacterial (E. coli + MSSA) improving Bilateral pleural effusions large right, moderate left Thoracentesis improved symptoms. Right drained 1.3 L. *pneumonia on CXR, lactate normalized from 6.2 - 1.7 - 1.2 improved * On 8 L Oximizer * Wean as tolerated * Thoracentesis done monitor for re-expansion edema * Start: * Incentive spirometry * Chest physiotherapy * Daily CXR * Bronchodilators PRN * Maintain saturation >94% * Suction PRN RENAL WILLIAN Stage 2 due to VMN Improving Likely hemodynamic ischemic ATN. . Hyperphosphatemia Hypokalemia improving replenished Electrolyte derangements. Hypernatremia * Nephrology consult placed today * Monitor UOP hourly * Electrolyte replacement protocol * 250 mL PO free water Q3H * STOP furosemide * START bumetanide drip + albumin 25% IV Q15H 3 doses * Avoid nephrotoxins * Consider renal ultrasound if persistent oliguria * Monitor UOP q1h; goal >0.5 mL/kg/hr. * Correct electrolytes: K >4, Mg >2. INFECTIOUS DISEASE Septic Shock From aspiration pneumonia: initially lactate 6.2 THEN improved to 1.7 - 1.2 .Still requiring vasopressors. Aspiration Pneumonia, Multifocal CXR findings consistent.. * Repeat blood cultures if febrile, urine culture ordered and are negative. * MRSA negative, initial blood cultures are negative * Respiratory culture/gram stain Few Gram Positive Rods Few Gram Positive Cocci in chains Rare Gram Negative Rods Positive for Stap aures ECOLI, * Discontinue vancomycin (MSSA, no MRSA) * STOP cefepime to reduce nephrotoxicity risk in WILLIAN (acceptable to stop) * Start: * Ceftriaxone 12 g IV daily * De-escalate based on culture results. * Lactate normalized; continue sepsis bundle. GI Transaminitis Likely shock liver vs congestive hepatopathy. * Start mechanical soft diet * Continue bowel regimen: * Senna * Docusate * Miralax * If no BM by tomorrow add bisacodyl PRN * GI prophylaxis: IV pantoprazole. * Continue Scherer for accurate I/O * Monitor for hematuria * Scherer catheter in place for accurate UOP. 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 * Anemia : transfuse if <7 or hemodynamically unstable. * DVT prophylaxis: SCD ENDOCRINE T2DM with Stress Hyperglycemia * Sliding scale insulin q4h * Goal BG [id number] * Resume home diabetic meds after stabilization. PSYCHIATRY * Sedated; no psychiatric meds needed NUTRITION Malnutrition risk low albumin * Mechanical soft diet * Advance as tolerated PROPHYLAXIS * DVT: SCD * GI: Pantoprazole * Pressure ulcers: q2h turns * Line-associated infection: Daily review of necessity LINES, TUBES, DRIPS * Right IJ triple-lumen (08/09) placed order to remove today. * ET tube placed 08/09 * NG tube * Scherer * Drips: discontinued PHYSICAL THERAPY * Out of bed to chair and then walk today * PT/OT evaluation for mobility improvement SOCIAL WORK * Family updated * Code status changed to DNR today per family request * Continue [id number]-fu-dook discussion * Continue planning SNF transfer once medically stable for physical therapy XI. CODE STATUS DNR Discussed with family >20 minutes Case discussed with Dr. Galindo Plan discussed with: Patient Dietary Evaluation Review Comments: Nutrition Recommendation: 1) EN Vital High Protein @ 45ml/hr x 24hr (goal). Water flush 50ml Q6H if allowed, adjust PRN. TF at goal volume provides 1080 kcal (100%), 95 gm protein (100%), and 35996 ml free water(including flush). 2) TPN if NPO >7 days 3) Monitor NPO status, lab values, weight trend, and I/O Expected Outcomes/Goals: Intake to meet >75% estimated needs Lab values to improve FU 2-3 days KRIS BOWLES RESIDENT Aug 20, 2025 12:29
--- NOTE | 2025-08-20 14:35 | DVHPN2 ---
Progress Note - Dictate Date Seen: Aug 20, 2025 Has the PT tested + for MRSA If YES, has PT been informed?: No Medical Necessity Reason Pt with a Central, PICC or Fol: Yes The following are medically ne: Central Line, Scherer Catheter Subjective Patient was seen and evaluated in follow up. Patient is on BIPAP at 50% FiO2. Patient is complaining of weakness and worsening SOB. HGB 7.9, HCT 23.8, K 2.8, BUN 58, KILN TESTER 1.51. Telemetry reviewed. vital signs Vital Sign Date Time Temp Pulse Resp B/P (MAP) Pulse Ox O2 Delivery O2 Flow Rate FiO2 08/20/25 11:50 103 98 Facial BiPAP Mask 50 08/20/25 11:47 20 08/20/25 10:14 149/80 08/20/25 09:00 97.9 97.9 08/20/25 08:00 12 Total Intake and Output 08/19/25 08/19/25 08/20/25 15:00 23:00 07:00 Intake Total 50 ml 806 ml 400 ml Output Total 600 ml 1500 ml Balance 50 ml 206 ml -1100 ml medications Current Medications Medications Dose Ordered Sig/Justina Route Start Time Stop Time Status Last Admin Dose Admin Acetaminophen 325 mg Q4HP PRN PO 08/09/25 17:15 08/19/25 08:28 325 MG Diagnostic Test (Pha) 1 strip Q6HR 08/10/25 06:00 08/20/25 05:51 1 STRIP Insulin Human Regular Q6HR SC 08/10/25 06:00 08/20/25 05:53 3 UNITS Dextrose 50 ml UD PRN IV 08/10/25 02:30 Atorvastatin Calcium 80 mg HS GT 08/11/25 22:00 08/19/25 21:17 80 MG Pantoprazole Sodium 40 mg DAILY IV 08/12/25 10:00 08/20/25 09:22 40 MG Enteral Nutritional Formula 1,000 ml 25ML/HR GT 08/11/25 19:30 08/11/25 21:54 1,000 ML Sennosides 8.6 mg HS PO 08/12/25 22:00 08/19/25 21:18 8.6 MG Docusate Sodium 100 mg BID GT 08/13/25 10:00 08/20/25 09:22 100 MG Polyethylene Glycol 17 gm DAILYPRN PRN GT 08/14/25 14:30 Iron Sucrose 110 ml @ 110 mls/hr DAILY@1200 IV 08/15/25 12:00 08/19/25 11:59 Cancel Iron Sucrose 110 ml @ 110 mls/hr DAILY@1200 IV 08/15/25 12:00 08/19/25 11:59 Cancel Ceftriaxone Sodium 50 ml @ 100 mls/hr DAILY@09 IV 08/16/25 09:00 08/20/25 09:22 100 MLS/HR Albuterol 2.[address] [facility] 08/16/25 06:00 08/20/25 11:41 2.5 MG Ipratropium [place] 0.[address] [facility] 08/16/25 06:00 08/20/25 11:41 0.5 MG Enteral Nutritional Formula 28.8 gm BIDWM PO 08/16/25 18:00 08/20/25 09:21 28.8 GM Metoprolol Tartrate 25 mg BID PO 08/17/25 22:00 08/20/25 09:22 25 MG Bumetanide 12.5 mg/Miscellaneous 50 ml @ 2 mls/hr Q24H IV 08/18/25 14:00 08/19/25 17:27 2 MLS/HR Metolazone 15 mg DAILY PO 08/19/25 11:45 08/20/25 09:23 15 MG Albuterol 2.5 mg Q4HPRN PRN NEB 08/20/25 03:00 Ipratropium [place] 0.5 mg Q4HPRN PRN NEB 08/20/25 03:00 Potassium Chloride 100 ml @ 50 mls/hr Q2H IV 08/20/25 11:15 08/20/25 17:14 08/20/25 12:24 50 MLS/HR Potassium Bicarbonate 50 meq Q4HR PO 08/20/25 11:15 08/20/25 14:01 08/20/25 12:25 50 MEQ objective GENERAL: Alert and oriented x 3. Ill appearing. EYES: PERRL, EOMI. Anicteric. HENT: Moist mucous membranes. LUNGS: Decreased breath sounds. CARDIOVASCULAR: Regular rate and rhythm. ABDOMEN: Soft, nontender and nondistended. EXTREMITIES: No edema. SKIN: Warm, dry. laboratory and microbiology Laboratory Tests 08/20/25 06:20 Test 08/20/25 06:20 Range/Units Serum Glucose 144 H 74-106 mg/dL Problem List Cardiac arrest with successful ROSC. Metabolic encephalopathy. STEMI (ST elevation myocardial infarction). Assessment/Plan Continued all current supportive medical care. GI prophylactics. Lipitor, Metoprolol. Diuretics with Bumex. IV antibiotics as ordered. Morphine for pain management. Additional plan as per the hospital course. Dietary Evaluation Review Comments: Nutrition Recommendation: 1) EN Vital High Protein @ 45ml/hr x 24hr (goal). Water flush 50ml Q6H if allowed, adjust PRN. TF at goal volume provides 1080 kcal (100%), 95 gm protein (100%), and 30380 ml free water(including flush). 2) TPN if NPO >7 days 3) Monitor NPO status, lab values, weight trend, and I/O Expected Outcomes/Goals: Intake to meet >75% estimated needs Lab values to improve FU 2-3 days Plan discussed with: Patient PATRICIA GROVES MD Aug 20, 2025 12:35
--- NOTE | 2025-08-20 22:59 | DVHPN2 ---
Subjective DOS: 08/20/2025 Patient seen and examined at bedside. Remains on supplemental oxygen Overnight events reviewed. Changes from previous H/P or p: No Changes Objective Vitals Vital Signs Date Time Temp Pulse Resp B/P (MAP) Pulse Ox O2 Delivery O2 Flow Rate FiO2 08/20/25 21:53 105 08/20/25 20:00 20 94 Oxymizer 12 N/A 08/20/25 17:00 97.7 126/72 (90) 97.7 Intake/Output Intake and Output 08/20/25 07:00 Intake Total 1256 ml Output Total 2100 ml Balance -844 ml Intake Oral 1206 ml IV Total 50 ml Output Urine Total 2100 ml # Voids 1 Exam Gen.: Patient lying in bed in no apparent distress. On supplemental oxygen. Head: Normocephalic, atraumatic. Eyes: EOMI/PERRLA. Ears: Normal hearing. Normal anatomy. Neck/trachea: Trachea midline, supple. Nose: Normal external anatomy. Mouth: Moist mucous membranes. Chest: Decreased air entry bilaterally. No wheezing or rhonchi. Cardiovascular: Positive S1, positive S2. Regular rate and rhythm. Abdomen: Positive bowel sounds in all 4 quadrants. Soft, non-tender, non- distended. : Deferred. Rectal: Deferred. Skin: Warm, dry. Intact. Extremities: 2+ radial pulses bilaterally. No lower extremity edema. Neuro: Awake, alert, oriented x3. No gross motor or sensory deficits. Cranial nerves II through XII intact. Gait not assessed. Medications Current Medications Medications Dose Ordered Sig/Justina Route Start Time Stop Time Status Last Admin Dose Admin Acetaminophen 325 mg Q4HP PRN PO 08/09/25 17:15 08/19/25 08:28 325 MG Diagnostic Test (Pha) 1 strip Q6HR 08/10/25 06:00 08/20/25 18:47 1 STRIP Insulin Human Regular Q6HR SC 08/10/25 06:00 08/20/25 05:53 3 UNITS Dextrose 50 ml UD PRN IV 08/10/25 02:30 Atorvastatin Calcium 80 mg HS GT 08/11/25 22:00 08/20/25 21:53 80 MG Pantoprazole Sodium 40 mg DAILY IV 08/12/25 10:00 08/20/25 09:22 40 MG Enteral Nutritional Formula 1,000 ml 25ML/HR GT 08/11/25 19:30 08/11/25 21:54 1,000 ML Sennosides 8.6 mg HS PO 08/12/25 22:00 08/20/25 21:53 8.6 MG Docusate Sodium 100 mg BID GT 08/13/25 10:00 08/20/25 21:53 100 MG Polyethylene Glycol 17 gm DAILYPRN PRN GT 08/14/25 14:30 Iron Sucrose 110 ml @ 110 mls/hr DAILY@1200 IV 08/15/25 12:00 08/19/25 11:59 Cancel Iron Sucrose 110 ml @ 110 mls/hr DAILY@1200 IV 08/15/25 12:00 08/19/25 11:59 Cancel Ceftriaxone Sodium 50 ml @ 100 mls/hr DAILY@09 IV 08/16/25 09:00 08/20/25 09:22 100 MLS/HR Albuterol 2.5 mg Q6HWA [facility] 08/16/25 06:00 08/20/25 19:00 2.5 MG Ipratropium [place] 0.5 mg Q6HWA [facility] 08/16/25 06:00 08/20/25 19:00 0.5 MG Enteral Nutritional Formula 28.8 gm BIDWM PO 08/16/25 18:00 08/20/25 18:21 28.8 GM Metoprolol Tartrate 25 mg BID PO 08/17/25 22:00 08/20/25 21:53 25 MG Bumetanide 12.5 mg/Miscellaneous 50 ml @ 2 mls/hr Q24H IV 08/18/25 14:00 08/20/25 16:44 2 MLS/HR Metolazone 15 mg DAILY PO 08/19/25 11:45 08/20/25 09:23 15 MG Albuterol 2.5 mg Q4HPRN PRN NEB 08/20/25 03:00 Ipratropium [place] 0.5 mg Q4HPRN PRN NEB 08/20/25 03:00 Laboratory Results Laboratory Tests 08/20/25 06:20 Chemistry Test 08/20/25 06:20 Albumin 3.8 g/dL (3.2-4.8) Calcium Level 10.1 mg/dL (8.7-10.4) Total Protein 6.7 g/dL (5.7-8.2) LFT Test 08/20/25 06:20 Alanine Aminotransferase (ALT) 19 U/L (7-40) Alkaline Phosphatase 113 U/L (46-116) Aspartate Amino Transferase (AST) 28 U/L (13-40) Total Bilirubin 0.9 mg/dL (0.2-1.0) Urinalysis Test 08/09/25 18:45 08/09/25 23:10 08/18/25 16:30 Urine WBC Clumps Present /hpf (None Seen) Urine Uric Acid Crystals Mod /hpf (None Seen) Urine Color Light-orange (Yellow) Urine Clarity Ex.turbid (Clear) Urine pH 5.5 (5.0-9.0) Urine Specific [place] 1.014 (1.001-1.035) Urine Protein 1+ (Negative) H Urine Ketones Negative (Negative) Urine Blood 2+ /uL (Negative) H Urine Nitrite Negative (Negative) Urine Bilirubin Negative (Negative) Urine Urobilinogen Normal mg/dL (Negative) Urine Leukocyte Esterase Negative /uL (Negative) Urine RBC 9 /hpf (0 - 4) Urine Microscopic WBC 3 /HPF (0-5) Urine Squamous Epithelial Cells None seen /hpf (<5) Urine Amorphous Crystals Few /hpf (None Seen) Urine Bacteria Few /hpf (None Seen) H Urine Hyaline Casts Few /lpf (0 - 2) Urine Mucus Few (None Seen) Urine Creatinine 66.60 mg/dL (30.0-125.0) Urine Protein/Creatinine Ratio 2.48 Urine Sodium 19 mmol/L (40-220) L Urine Glucose Normal mg/dL (Normal) Urine Total Protein 165.5 mg/dL (1-14) H Blood Gas Results Test 08/20/25 03:32 Arterial Blood pH 7.469 (7.350-7.450) FiO2 % 80.0 Microbiology Microbiology Date/Time Source Procedure Growth Status 08/09/25 23:10 Urine - Scherer Port Urine Culture - Final Complete 08/09/25 22:59 Nose MRSA Screen - Final Complete 08/09/25 16:40 Blood Blood Culture - Final NO GROWTH AFTER 5 DAYS OF INCUBATION. Complete 08/09/25 15:40 Sputum Gram Stain - Final Complete 08/09/25 15:40 Respiratory Culture - Final Escherichia coli Staphylococcus aureus Complete Assessment/Plan Assessment/Plan Impression: Acute on chronic hypoxic respiratory failure Dependence on supplemental oxygen Aspiration pneumonia, multifocal Metabolic encephalopathy S/p cardiac arrest with ROSC Acute on chronic diastolic CHF Severe pulmonary hypertension - RVSP of 61 mmHg Pleural effusions Atelectasis Acute kidney injury Transaminitis Anemia Thrombocytopenia Obesity Events: Remains on supplemental oxygen On 8 LPM -->10 LPM Oxymizer Taper O2 as tolerated. Increased oxygen requirements. Patient and family agreed for hospice care. Awaiting discharge on hospice. Supportive care. On Bumex drip for diuresis Nephrology recs appreciated Monitor renal function. Monitor electrolytes. Supplement as necessary. Continue bronchodilators Continue antibiotics Labs and imaging reviewed. Rest of plan as noted below. Plan: Supplemental oxygen Titrate to keep O2 sats above 90%. Continue bronchodilators/Mucomyst. Continue antibiotics Incentive spirometry S/p right thoracentesis with drainage of 1.3 liters. Follow up Cardiology recommendations Diurese with Bumex as tolerated Monitor renal function. Monitor electrolytes. Supplement as necessary. Monitor ins and outs. Monitor hemoglobin -7.9 g/dL Transfuse if less than 7.0 g/dL. Monitor platelet count due to thrombocytopenia -106 K Recommend diet and lifestyle modifications for weight reduction Obesity complicates all care DVT prophylaxis. Prognosis: Poor given patient's multiple co-morbidities. Rest of plan per hospitalist and other consultants. A total of 51 minutes of clinical care time was spent reviewing the patient record, examining the patient, making a diagnostic and therapeutic plan, discussing this plan with the medical personnel, following up on diagnostic studies and following the patient for clinical stability excluding any and all procedures. At least 50% of this time was spent in direct, [id number] contact. Thank you, Dr. Harvey, for allowing me to participate in this patient's care. Further recommendations will depend on the patient's clinical course. Please do not hesitate to contact me if you have any questions or concerns. This medical document was created using an electronic medical record system with [employer] dictation system. Although these documentations are being carefully reviewed, there may still be some phonetic and typographical changes. The errors are purely typographical, due to imperfection on the software program, and do not reflect any compromise in the patient's medical care. Plan discussed with: Patient, Other (KELLY Ramon) Visit Coding Pulmonary Billing Provider: HAIDER PRESTON MD Date of Service if different f: Aug 20, 2025 Common Visit Codes: [id number] INP/OBS CARE(HIGH) HAIDER PRESTON MD Aug 20, 2025 22:59
[2025-08-21] VITALS (15 sets, daily range): BP systolic 114–131; BP diastolic 61–88; PULSE 78–113; RESP 16–21; TEMP 97.4–98; O2SAT 90–99
[2025-08-21 07:04] LABS: Hematocrit 25.2 % (36.0-46.0); Hemoglobin 8.5 g/dL (12.2-16.2); Mean Corpuscular Hemoglobin 33.5 pg (28.0-32.0); Mean Corpuscular Volume 99.2 fL (80.0-100.0)
[2025-08-21 07:27] LABS: Alanine Aminotransferase 19 U/L (7-40); Anion Gap 14 (5-15); BUN/Creatinine Ratio 36.6 (10.0-20.0); Calcium 10.4 mg/dL (8.7-10.4); Sodium 144 mmol/L (136-145); Total Protein 6.7 g/dL (5.7-8.2)
[2025-08-21 07:28] LABS: Albumin 3.7 g/dL (3.2-4.8); Bilirubin, Total 0.8 mg/dL (0.2-1.0)
[2025-08-21 07:29] LABS: Alkaline Phosphatase 119 U/L (46-116); Blood Urea Nitrogen 59 mg/dL (9-23); Carbon Dioxide 32 mmol/L (20-31); Chloride 98 mmol/L (98-107); Glucose 148 mg/dL (74-106); Potassium 2.9 mmol/L (3.5-5.1)
[2025-08-21 08:00] LABS: Total Cells Counted 100.0 (100)
--- NOTE | 2025-08-21 10:38 | DVHPN2 ---
Progress Note Date Seen: Aug 21, 2025 Has the PT tested + for MRSA If YES, has PT been informed?: No Medical Necessity Reason Pt with a Central, PICC or Fol: Yes The following are medically ne: Central Line, Scherer Catheter Subjective Review of Systems: RESPIRATORY:Abnormal Other Systems: Patient seen and examined by myself today in follow-up, patient remained high flow oxygen Objective vital signs Vital Sign Date Time Temp Pulse Resp B/P (MAP) Pulse Ox O2 Delivery O2 Flow Rate FiO2 08/21/25 09:40 116/63 08/21/25 09:39 78 08/21/25 06:15 16 94 08/21/25 06:09 Oxymizer 10.0 08/21/25 06:09 N/A 08/21/25 05:00 97.5 97.5 Total Intake and Output 08/20/25 08/20/25 08/21/25 15:00 23:00 07:00 Intake Total 250 ml 700 ml Output Total 1500 ml 1700 ml Balance -1250 ml -1000 ml medications Current Medications Medications Dose Ordered Sig/Justina Route Start Time Stop Time Status Last Admin Dose Admin Acetaminophen 325 mg Q4HP PRN PO 08/09/25 17:15 08/19/25 08:28 325 MG Diagnostic Test (Pha) 1 strip Q6HR 08/10/25 06:00 08/21/25 06:23 1 STRIP Insulin Human Regular Q6HR SC 08/10/25 06:00 08/21/25 06:27 3 UNITS Dextrose 50 ml UD PRN IV 08/10/25 02:30 Atorvastatin Calcium 80 mg HS GT 08/11/25 22:00 08/20/25 21:53 80 MG Pantoprazole Sodium 40 mg DAILY IV 08/12/25 10:00 08/21/25 09:39 40 MG Enteral Nutritional Formula 1,000 ml 25ML/HR GT 08/11/25 19:30 08/11/25 21:54 1,000 ML Sennosides 8.6 mg HS PO 08/12/25 22:00 08/20/25 21:53 8.6 MG Docusate Sodium 100 mg BID GT 08/13/25 10:00 08/20/25 21:53 100 MG Polyethylene Glycol 17 gm DAILYPRN PRN GT 08/14/25 14:30 Iron Sucrose 110 ml @ 110 mls/hr DAILY@1200 IV 08/15/25 12:00 08/19/25 11:59 Cancel Iron Sucrose 110 ml @ 110 mls/hr DAILY@1200 IV 08/15/25 12:00 08/19/25 11:59 Cancel Ceftriaxone Sodium 50 ml @ 100 mls/hr DAILY@09 IV 08/16/25 09:00 08/21/25 08:50 100 MLS/HR Albuterol 2.5 mg Q6HWA [facility] 08/16/25 06:00 08/21/25 06:09 2.5 MG Ipratropium [place] 0.5 mg Q6HWA [facility] 08/16/25 06:00 08/21/25 06:09 0.5 MG Enteral Nutritional Formula 28.8 gm BIDWM PO 08/16/25 18:00 08/21/25 08:58 28.8 GM Metoprolol Tartrate 25 mg BID PO 08/17/25 22:00 08/21/25 09:39 25 MG Bumetanide 12.5 mg/Miscellaneous 50 ml @ 2 mls/hr Q24H IV 08/18/25 14:00 08/20/25 16:44 2 MLS/HR Metolazone 15 mg DAILY PO 08/19/25 11:45 08/21/25 09:40 15 MG Albuterol 2.5 mg Q4HPRN PRN [facility] 08/20/25 03:00 Ipratropium [place] 0.5 mg Q4HPRN PRN [facility] 08/20/25 03:00 Examination: LUNGS:Normal, CVS:Normal, MSK:Normal laboratory and microbiology Laboratory Tests 08/21/25 04:58 Test 08/21/25 04:58 Range/Units Serum Glucose 148 H 74-106 mg/dL Microbiology Date/Time Source Procedure Growth Status 08/09/25 23:10 Urine - Scherer Port Urine Culture - Final Complete 08/09/25 22:59 Nose MRSA Screen - Final Complete 08/09/25 16:40 Blood Blood Culture - Final NO GROWTH AFTER 5 DAYS OF INCUBATION. Complete 08/09/25 15:40 Sputum Gram Stain - Final Complete 08/09/25 15:40 Respiratory Culture - Final Escherichia coli Staphylococcus aureus Complete Problem List/Assessment/Plan Problem List/Assessment/Plan Acute kidney injury superimposed Chronic Kidney Disease secondary hemodynamic mediated, FeNa < 1% Vancomycin nephrotoxicity Status post cardiac arrest Congestive heart failure exacerbation Pulmonary edema Atrial fibrillation with RVR Acute respiratory failure, patient extubated 08/14 Diabetes mellitus type 2 Hypokalemia Hypoalbuminemia Anemia requiring packed red blood cell transfusion Recommendations Kidney function slightly improving today Increased urine output Discontinue vancomycin Scherer catheter Strict I&Os kidney ultrasound reported bilateral simple cysts Continue Bumex 0.5 mg/h IV drip Add metolazone 10 mg p.o. q.day Albumin 25% IV piggyback KCL replacement Insulin sliding scale We will continue to follow up Plan discussed with: Patient Dietary Evaluation Review Comments: Nutrition Recommendation: 1) EN Vital High Protein @ 45ml/hr x 24hr (goal). Water flush 50ml Q6H if allowed, adjust PRN. TF at goal volume provides 1080 kcal (100%), 95 gm protein (100%), and 26963 ml free water(including flush). 2) TPN if NPO >7 days 3) Monitor NPO status, lab values, weight trend, and I/O Expected Outcomes/Goals: Intake to meet >75% estimated needs Lab values to improve FU 2-3 days JESUS HOLDEN MD Aug 21, 2025 10:38
[2025-08-21] MEDS: POTASSIUM EFFERVESENT TAB 25 MEQ PO ONE (11:44)
[2025-08-21] MEDS: POTASSIUM CHL 20MEQ/100ML 100 ML IV SCH (11:45)
--- NOTE | 2025-08-21 12:01 | DVH ---
CHEST RADIOGRAPH Indication: Eval pulmonary effusion Technique: Single frontal view of the chest was obtained COMPARISON: XY CHEST XRAY 1 VIEW on DOS: 08/19/25, XY CHEST XRAY 1 VIEW on DOS: 08/18/25, XY CHEST XRAY 1 VIEW on DOS: 08/16/25, XY CHEST PORTABLE on DOS: 08/15/25, XY CHEST XRAY 1 VIEW on DOS: 08/15/25 FINDINGS: Lines and Tubes: None Lungs: Unchanged pulmonary edema. Pleura: Possible small to moderate bilateral pleural effusions, [id number]. No pneumothorax. Cardiomediastinal contours: Cardiomegaly, unchanged. Bones: Unremarkable IMPRESSION: Unchanged pulmonary edema and possible small to moderate bilateral pleural effusions, [id number].
--- NOTE | 2025-08-21 15:02 | DVHPNRES ---
Progress Note Date Seen: Aug 21, 2025 Resident Creating Document: YISEL MONTEZ RESIDENT Has the PT tested + for MRSA If YES, has PT been informed?: No Medical Necessity Reason Pt with a Central, PICC or Fol: Yes The following are medically ne: Central Line, Scherer Catheter Subjective Review of Systems The patient is an 85-year-old female who presented to the ED with class IV dyspnea, chest pain, and right arm weakness, followed by agonal breathing, rapid desaturation into the 70s on NRB, and progression to cardiac arrest. ROSC achieved after ~2 min downtime, 1 round of CPR, 1 dose epinephrine, and endotracheal intubation. EKG showed new left bundle branch block. atrial fibrillation with global ischemia. Cardiology diagnosed ST-segmentelevation OH equivalent and took patient for emergent LHC, which revealed: * 99% LAD stenosis * 60% left main stenosis * 90% circumflex stenosis * Unable to cross chronic total occlusion due to high procedural mortality and conservative medical management recommended. The patient developed acute hypoxic respiratory failure, aspiration pneumonia, and septic shock requiring vasopressors. She was admitted to ICU on mechanical ventilation, norepinephrine, broad-spectrum antibiotics, heparin drip, and supportive care. PAST MEDICAL HISTORY * Hypertension * Type 2 diabetes mellitus * Dyslipidemia * HFpEF (EF 65%) * Paroxysmal atrial fibrillation on apixaban * Pulmonary hypertension (RVSP 61 mmHg) * Basal cell carcinoma * Atypical left hip sarcoma (surgically treated) * Recent COVID-19 * Chronic thrombocytopenia IV. PAST SURGICAL HISTORY * Hysterectomy * Appendectomy * Cholecystectomy * Basal cell carcinoma excision * Left hip sarcoma excision (2019) V. SOCIAL HISTORY * Lives with * No smoking, alcohol, or illicit substances Review of Systems: Constitutional: Denies weight loss, fever and chills. HEENT: Denies changes in vision and hearing. Respiratory: Refers occasional shortness of breath when being moved Cardiovascular: Refers chest pain during CPT, denies any other chest pain GI: Denies abdominal distention, abdominal pain, diarrhea : Denies dysuria and urinary frequency. Musculoskeletal: Denies symptoms Skin: Denies rash and pruritus. Neurological: denies dizziness headache vision or hearing problems 08/21/2025: Patient seen at bedside. She states she feels well, denies any dizziness, chest pain, palpitations, cough, fever, and other symptoms. States she only has occasional chest pain during CPT. Labs are significant for decreasing WBCs, potassium 2.9, renal function is stable. Saturating adequately on oxymizer at 6L. Per nephrology, she continues on Bumex and Metalozone. Chest Xray shows persistence of bilateral pleural effusions, greater on the left than the right. Bedside ultrasound shows presence of at the 500 cc of fluid, per the patient, she would like to wait on any further pleuracentesis. We will continue to monitor. Objective vital signs Vital Sign Date Time Temp Pulse Resp B/P (MAP) Pulse Ox O2 Delivery O2 Flow Rate FiO2 08/21/25 13:00 97.5 104 20 128/72 (90) 96 97.5 08/21/25 12:14 Oxymizer 8 N/A Total Intake and Output 08/20/25 08/20/25 08/21/25 15:00 23:00 07:00 Intake Total 250 ml 700 ml Output Total 1500 ml 1700 ml Balance -1250 ml -1000 ml medications Current Medications Medications Dose Ordered Sig/Justina Route Start Time Stop Time Status Last Admin Dose Admin Acetaminophen 325 mg Q4HP PRN PO 08/09/25 17:15 08/19/25 08:28 325 MG Diagnostic Test (Pha) 1 strip Q6HR 08/10/25 06:00 08/21/25 12:29 1 STRIP Insulin Human Regular Q6HR SC 08/10/25 06:00 08/21/25 12:29 4 UNITS Dextrose 50 ml UD PRN IV 08/10/25 02:30 Atorvastatin Calcium 80 mg HS GT 08/11/25 22:00 08/20/25 21:53 80 MG Pantoprazole Sodium 40 mg DAILY IV 08/12/25 10:00 08/21/25 09:39 40 MG Enteral Nutritional Formula 1,000 ml 25ML/HR GT 08/11/25 19:30 08/11/25 21:54 1,000 ML Sennosides 8.6 mg HS PO 08/12/25 22:00 08/20/25 21:53 8.6 MG Docusate Sodium 100 mg BID GT 08/13/25 10:00 08/20/25 21:53 100 MG Polyethylene Glycol 17 gm DAILYPRN PRN GT 08/14/25 14:30 Iron Sucrose 110 ml @ 110 mls/hr DAILY@1200 IV 08/15/25 12:00 08/19/25 11:59 Cancel Iron Sucrose 110 ml @ 110 mls/hr DAILY@1200 IV 08/15/25 12:00 08/19/25 11:59 Cancel Ceftriaxone Sodium 50 ml @ 100 mls/hr DAILY@09 IV 08/16/25 09:00 08/21/25 08:50 100 MLS/HR Albuterol 2.5 mg Q6HWA NEB 08/16/25 06:00 08/21/25 12:14 2.5 MG Ipratropium [place] 0.5 mg Q6HWA NEB 08/16/25 06:00 08/21/25 12:14 0.5 MG Enteral Nutritional Formula 28.8 gm BIDWM PO 08/16/25 18:00 08/21/25 08:58 28.8 GM Metoprolol Tartrate 25 mg BID PO 08/17/25 22:00 08/21/25 09:39 25 MG Bumetanide 12.5 mg/Miscellaneous 50 ml @ 2 mls/hr Q24H IV 08/18/25 14:00 08/20/25 16:44 2 MLS/HR Metolazone 15 mg DAILY PO 08/19/25 11:45 08/21/25 09:40 15 MG Albuterol 2.5 mg Q4HPRN PRN NEB 08/20/25 03:00 Ipratropium [place] 0.5 mg Q4HPRN PRN NEB 08/20/25 03:00 Potassium Chloride 100 ml @ 50 mls/hr Q2H IV 08/21/25 10:45 08/21/25 16:44 08/21/25 13:36 50 MLS/HR Examination General: The patient alert and oriented in person place and time. Patient following commands HEENT: Normocephalic, atraumatic, normal reactive pupils, EOM intact, pink conjunctiva, pink moist mucous membrane, Oxymizer in place delivering 6 L Respiratory/pulmonary: Bilateral chest expansion, no pain on palpation of chest wall, decreased breath sounds towards bilateral bases with crackles Cardiovascular: Normal RRR, normal S1 and S2, no murmurs Abdomen: Obese, Abdomen nondistended, normal bowel sounds, soft, there is no pain to palpation in any of the abdominal quadrants, no palpable masses. Extremities: No deformities, there is no peripheral edema present at the lower extremities, pulses are present Skin: Bruising is noted along left forearm Neurological: Intact cranial nerves with no focal neurologic deficits laboratory and microbiology Laboratory Tests 08/21/25 04:58 Test 08/21/25 04:58 Range/Units Serum Glucose 148 H 74-106 mg/dL Microbiology Date/Time Source Procedure Growth Status 08/09/25 23:10 Urine - Scherer Port Urine Culture - Final Complete 08/09/25 22:59 Nose MRSA Screen - Final Complete 08/09/25 16:40 Blood Blood Culture - Final NO GROWTH AFTER 5 DAYS OF INCUBATION. Complete 08/09/25 15:40 Sputum Gram Stain - Final Complete 08/09/25 15:40 Respiratory Culture - Final Escherichia coli Staphylococcus aureus Complete Problem List/Assessment/Plan Problem List/Assessment/Plan Metabolic Encephalopathy Post-arrest + sepsis + hypoxia. neurological arrest ruled out (CT head negative) Reflexes present * Awake, alert * No sedation required * Neurochecks Q4H * CT head negative for acute abnormalities. CARDIOVASCULAR . Cardiac Arrest with ROSC Due to hypoxic respiratory failure + STEMI-equivalent. * Downtime ~2 minutes; ROSC after 1 Epi, 1 CPR cycle. Atrial fibrillation rate controlled On Metoprolol Tartarate 25 Mg PO BID * HR [id number] today * High stroke risk (FRANKLIN?DS?-VASc = 7). * Anticoagulation withheld due to anemia and prior thrombocytopenia. STEMI Due to multi-vessel CAD (LAD 99%, LM 60%, LCx 90%).High procedural mortality , conservative management per cardiology LBBB, global ischemia, coronary angiography findings Acute on Chronic Diastolic CHF (HFpEF, EF 65%) Volume overload + pulmonary edema on imaging. Severe Pulmonary Hypertension (RVSP 61 mmHg) From chronic HF + hypoxic vasoconstriction. * Hemodynamically stable off pressors * Hold aspirin due to Hgb 7.6 + platelets 71K * Hold anticoagulation (Eliquis / Lovenox) * Continue atorvastatin * Strict MAP monitoring * EKG for QT interval * No Plavix due to bleeding risk * No KEVIN inhibitors due to WILLIAN * Cardiology following * Conservative management of multi-vessel CAD per cardiology. * Continuous telemetry for AFib; starting metoprolol tartarate 25 mg BID Hypertension Chronic comorbidity Dyslipidemia Chronic comorbidity Continue Atorvasatin RESPIRATORY MECHANICAL VENTILATION Acute on chronic hypoxic respiratory failure post-extubation, improving Aspiration Pneumonia, Multifocal bacterial (E. coli + MSSA) improving Bilateral pleural effusions large right, moderate left -Thoracentesis improved symptoms. -Right drained 1.3 L. -Bedside chest ultrasound was done at bedside showing approximately 500 cc of fluid in left pleural cavity, per the patient at this time she would like to wait on any further pleurocentesis *pneumonia on CXR, lactate normalized from 6.2 - 1.7 - 1.2 improved * On 8 L Oximizer * Wean as tolerated * Thoracentesis done monitor for re-expansion edema * Start: * Incentive spirometry * Chest physiotherapy * Daily CXR * Bronchodilators PRN * Maintain saturation >94% * Suction PRN RENAL WILLIAN Stage 2 due to VMN Improving Likely hemodynamic ischemic ATN. . Hyperphosphatemia Hypokalemia improving replenished Electrolyte derangements. Hypernatremia * Nephrology consult placed today * Monitor UOP hourly * Electrolyte replacement protocol * 250 mL PO free water Q3H * STOP furosemide * START bumetanide drip + albumin 25% IV Q15H 3 doses * Avoid nephrotoxins * Consider renal ultrasound if persistent oliguria * Monitor UOP q1h; goal >0.5 mL/kg/hr. * Correct electrolytes: K >4, Mg >2. INFECTIOUS DISEASE Septic Shock From aspiration pneumonia: initially lactate 6.2 THEN improved to 1.7 - 1.2 .Still requiring vasopressors. Aspiration Pneumonia, Multifocal CXR findings consistent.. * Repeat blood cultures if febrile, urine culture ordered and are negative. * MRSA negative, initial blood cultures are negative * Respiratory culture/gram stain Few Gram Positive Rods Few Gram Positive Cocci in chains Rare Gram Negative Rods Positive for Stap aures ECOLI, * Discontinue vancomycin (MSSA, no MRSA) * STOP cefepime to reduce nephrotoxicity risk in WILLIAN (acceptable to stop) * Start: * Ceftriaxone 12 g IV daily * De-escalate based on culture results. * Lactate normalized; continue sepsis bundle. GI Transaminitis Likely shock liver vs congestive hepatopathy. * Start mechanical soft diet * Continue bowel regimen: * Senna * Docusate * Miralax * If no BM by tomorrow add bisacodyl PRN * GI prophylaxis: IV pantoprazole. * Continue Scherer for accurate I/O * Monitor for hematuria * Scherer catheter in place for accurate UOP. 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 * Anemia : transfuse if <7 or hemodynamically unstable. * DVT prophylaxis: SCD ENDOCRINE T2DM with Stress Hyperglycemia * Sliding scale insulin q4h * Goal BG [id number] * Resume home diabetic meds after stabilization. PSYCHIATRY * Sedated; no psychiatric meds needed NUTRITION Malnutrition risk low albumin * Mechanical soft diet * Advance as tolerated PROPHYLAXIS * DVT: SCD * GI: Pantoprazole * Pressure ulcers: q2h turns * Line-associated infection: Daily review of necessity LINES, TUBES, DRIPS * Right IJ triple-lumen (08/09), removed * ET tube placed 08/09, extubated 08/14/2025 * NG tube discontinued * Scherer * Drips: discontinued PHYSICAL THERAPY * Out of bed to chair and then walk today * PT/OT evaluation for mobility improvement SOCIAL WORK * Family updated * Code status changed to DNI today per family request * Continue [id number] discussion * Continue planning SNF transfer once medically stable for physical therapy Bedside chest ultrasound was done at bedside showing approximately 500 cc of fluid in left pleural cavity, per the patient at this time she would like to wait on any further pleurocentesis. She is currently pending placement for hospice. XI. CODE STATUS DNI Discussed with family >34 minutes Case discussed with Dr. Gailndo Plan discussed with: Patient, Other (Nurse (Yenny)) My Orders My Orders Orders - YISEL MONTEZ Procedure Category Date Status Time Chest Xray 1 View XY 08/21/25 Resulted 09:58 Dietary Evaluation Review Comments: Nutrition Recommendation: 1) EN Vital High Protein @ 45ml/hr x 24hr (goal). Water flush 50ml Q6H if allowed, adjust PRN. TF at goal volume provides 1080 kcal (100%), 95 gm protein (100%), and 80251 ml free water(including flush). 2) TPN if NPO >7 days 3) Monitor NPO status, lab values, weight trend, and I/O Expected Outcomes/Goals: Intake to meet >75% estimated needs Lab values to improve FU 2-3 days Visit Coding STANDARD RES Billing Provider: YISEL MONTEZ Date of Service if different f: Aug 21, 2025 YISEL MONTEZ Aug 21, 2025 15:02
--- NOTE | 2025-08-21 23:30 | DVHPN2 ---
Subjective DOS: 08/21/2025 Patient seen and examined at bedside. Remains on supplemental oxygen Overnight events reviewed. Changes from previous H/P or p: No Changes Objective Vitals Vital Signs Date Time Temp Pulse Resp B/P (MAP) Pulse Ox O2 Delivery O2 Flow Rate FiO2 08/21/25 22:20 106 96 Facial BiPAP Mask 50 08/21/25 21:42 114/63 08/21/25 21:00 97.4 17 97.4 08/21/25 19:14 8.0 Intake/Output Intake and Output 08/21/25 07:00 Intake Total 950 ml Output Total 3200 ml Balance -2250 ml Intake Oral 950 ml Output Urine Total 3200 ml Exam Gen.: Patient lying in bed in no apparent distress. On supplemental oxygen. Head: Normocephalic, atraumatic. Eyes: EOMI/PERRLA. Ears: Normal hearing. Normal anatomy. Neck/trachea: Trachea midline, supple. Nose: Normal external anatomy. Mouth: Moist mucous membranes. Chest: Decreased air entry bilaterally. No wheezing or rhonchi. Cardiovascular: Positive S1, positive S2. Regular rate and rhythm. Abdomen: Positive bowel sounds in all 4 quadrants. Soft, non-tender, non- distended. : Deferred. Rectal: Deferred. Skin: Warm, dry. Intact. Extremities: 2+ radial pulses bilaterally. No lower extremity edema. Neuro: Awake, alert, oriented x3. No gross motor or sensory deficits. Cranial nerves II through XII intact. Gait not assessed. Medications Current Medications Medications Dose Ordered Sig/Justina Route Start Time Stop Time Status Last Admin Dose Admin Acetaminophen 325 mg Q4HP PRN PO 08/09/25 17:15 08/19/25 08:28 325 MG Diagnostic Test (Pha) 1 strip Q6HR 08/10/25 06:00 08/21/25 18:00 1 STRIP Insulin Human Regular Q6HR SC 08/10/25 06:00 08/21/25 18:26 3 UNITS Dextrose 50 ml UD PRN IV 08/10/25 02:30 Atorvastatin Calcium 80 mg HS GT 08/11/25 22:00 08/21/25 21:41 80 MG Pantoprazole Sodium 40 mg DAILY IV 08/12/25 10:00 08/21/25 09:39 40 MG Enteral Nutritional Formula 1,000 ml 25ML/HR GT 08/11/25 19:30 08/11/25 21:54 1,000 ML Sennosides 8.6 mg HS PO 08/12/25 22:00 08/21/25 21:41 8.6 MG Docusate Sodium 100 mg BID GT 08/13/25 10:00 08/20/25 21:53 100 MG Polyethylene Glycol 17 gm DAILYPRN PRN GT 08/14/25 14:30 Iron Sucrose 110 ml @ 110 mls/hr DAILY@1200 IV 08/15/25 12:00 08/19/25 11:59 Cancel Iron Sucrose 110 ml @ 110 mls/hr DAILY@1200 IV 08/15/25 12:00 08/19/25 11:59 Cancel Ceftriaxone Sodium 50 ml @ 100 mls/hr DAILY@09 IV 08/16/25 09:00 08/21/25 08:50 100 MLS/HR Albuterol 2.5 mg Q6HWA NEB 08/16/25 06:00 08/21/25 19:14 2.5 MG Ipratropium [place] 0.5 mg Q6HWA NEB 08/16/25 06:00 08/21/25 19:14 0.5 MG Enteral Nutritional Formula 28.8 gm BIDWM PO 08/16/25 18:00 08/21/25 18:24 28.8 GM Metoprolol Tartrate 25 mg BID PO 08/17/25 22:00 08/21/25 21:42 25 MG Bumetanide 12.5 mg/Miscellaneous 50 ml @ 2 mls/hr Q24H IV 08/18/25 14:00 08/21/25 17:35 2 MLS/HR Metolazone 15 mg DAILY PO 08/19/25 11:45 08/21/25 09:40 15 MG Albuterol 2.5 mg Q4HPRN PRN NEB 08/20/25 03:00 Ipratropium Elizabeth 0.5 mg Q4HPRN PRN NEB 08/20/25 03:00 Laboratory Results Laboratory Tests 08/21/25 04:58 Chemistry Test 08/21/25 04:58 Albumin 3.7 g/dL (3.2-4.8) Calcium Level 10.4 mg/dL (8.7-10.4) Total Protein 6.7 g/dL (5.7-8.2) LFT Test 08/21/25 04:58 Alanine Aminotransferase (ALT) 19 U/L (7-40) Alkaline Phosphatase 119 U/L (46-116) H Aspartate Amino Transferase (AST) 22 U/L (13-40) Total Bilirubin 0.8 mg/dL (0.2-1.0) Urinalysis Test 08/09/25 18:45 08/09/25 23:10 08/18/25 16:30 Urine WBC Clumps Present /hpf (None Seen) Urine Uric Acid Crystals Mod /hpf (None Seen) Urine Color Light-orange (Yellow) Urine Clarity Ex.turbid (Clear) Urine pH 5.5 (5.0-9.0) Urine Specific Norris 1.014 (1.001-1.035) Urine Protein 1+ (Negative) H Urine Ketones Negative (Negative) Urine Blood 2+ /uL (Negative) H Urine Nitrite Negative (Negative) Urine Bilirubin Negative (Negative) Urine Urobilinogen Normal mg/dL (Negative) Urine Leukocyte Esterase Negative /uL (Negative) Urine RBC 9 /hpf (0 - 4) Urine Microscopic WBC 3 /HPF (0-5) Urine Squamous Epithelial Cells None seen /hpf (<5) Urine Amorphous Crystals Few /hpf (None Seen) Urine Bacteria Few /hpf (None Seen) H Urine Hyaline Casts Few /lpf (0 - 2) Urine Mucus Few (None Seen) Urine Creatinine 66.60 mg/dL (30.0-125.0) Urine Protein/Creatinine Ratio 2.48 Urine Sodium 19 mmol/L (40-220) L Urine Glucose Normal mg/dL (Normal) Urine Total Protein 165.5 mg/dL (1-14) H Microbiology Microbiology Date/Time Source Procedure Growth Status 08/09/25 23:10 Urine - Scherer Port Urine Culture - Final Complete 08/09/25 22:59 Nose MRSA Screen - Final Complete 08/09/25 16:40 Blood Blood Culture - Final NO GROWTH AFTER 5 DAYS OF INCUBATION. Complete 08/09/25 15:40 Sputum Gram Stain - Final Complete 08/09/25 15:40 Respiratory Culture - Final Escherichia coli Staphylococcus aureus Complete Assessment/Plan Assessment/Plan Impression: Acute on chronic hypoxic respiratory failure Dependence on supplemental oxygen Aspiration pneumonia, multifocal Metabolic encephalopathy S/p cardiac arrest with ROSC Acute on chronic diastolic CHF Severe pulmonary hypertension - RVSP of 61 mmHg Pleural effusions Atelectasis Acute kidney injury Transaminitis Anemia Thrombocytopenia Obesity Events: Remains on supplemental oxygen On 10 LPM --> 6 LPM Oxymizer Taper O2 as tolerated. Improving oxygen requirements. Patient and family agreed for hospice care. Awaiting discharge on hospice. Supportive care. Limited chest U/S demonstrated small left pleural effusion Patient deferred left thora - will continue to monitor On metolazone and Bumex drip for diuresis Nephrology recs appreciated Monitor renal function. Monitor electrolytes. Supplement as necessary. Potassium supplementation Continue bronchodilators/Mucomyst Continue antibiotics Chest physiotherapy. Incentive spirometry Labs and imaging reviewed. Rest of plan as noted below. Plan: Supplemental oxygen Titrate to keep O2 sats above 90%. Continue bronchodilators/Mucomyst. Continue antibiotics Incentive spirometry S/p right thoracentesis with drainage of 1.3 liters. Follow up Cardiology recommendations Diurese with Bumex as tolerated Monitor renal function. Monitor electrolytes. Supplement as necessary. Monitor ins and outs. Monitor hemoglobin Transfuse if less than 7.0 g/dL. Monitor platelet count due to thrombocytopenia Recommend diet and lifestyle modifications for weight reduction Obesity complicates all care DVT prophylaxis. Prognosis: Poor given patient's multiple co-morbidities. Rest of plan per hospitalist and other consultants. A total of 51 minutes of clinical care time was spent reviewing the patient record, examining the patient, making a diagnostic and therapeutic plan, discussing this plan with the medical personnel, following up on diagnostic studies and following the patient for clinical stability excluding any and all procedures. At least 50% of this time was spent in direct, [id number] contact. Thank you, Dr. Harvey, for allowing me to participate in this patient's care. Further recommendations will depend on the patient's clinical course. Please do not hesitate to contact me if you have any questions or concerns. This medical document was created using an electronic medical record system with [employer] dictation system. Although these documentations are being carefully reviewed, there may still be some phonetic and typographical changes. The errors are purely typographical, due to imperfection on the software program, and do not reflect any compromise in the patient's medical care. Plan discussed with: Patient, Other (KELLY Ramon) Visit Coding Pulmonary Billing Provider: HAIDER PRESTON MD Date of Service if different f: Aug 21, 2025 Common Visit Codes: 45839-[id number] INP/OBS CARE(HIGH) HAIDER PRESTON MD Aug 21, 2025 23:30
--- NOTE | 2025-08-21 23:51 | DVHPN2 ---
Progress Note - Dictate Date Seen: Aug 21, 2025 Has the PT tested + for MRSA If YES, has PT been informed?: No Medical Necessity Reason Pt with a Central, PICC or Fol: Yes The following are medically ne: Central Line, Scherer Catheter Subjective Patient was seen and evaluated in follow up. Patient is Oxymizer at 8 L. K 3.4, CA 8.5, K 2.9, CO2 32, BUN 59, EDUCATIONAL ASSISTANT 1.61, GLUC 211. Chest x-ray shows unchanged pulmonary edema and possible small to moderate bilateral pleural effusions, [id number]. Telemetry reviewed. vital signs Vital Sign Date Time Temp Pulse Resp B/P (MAP) Pulse Ox O2 Delivery O2 Flow Rate FiO2 08/21/25 12:20 103 16 96 08/21/25 12:14 Oxymizer 8 N/A 08/21/25 09:40 116/63 08/21/25 09:00 98.0 98.0 Total Intake and Output 08/20/25 08/20/25 08/21/25 15:00 23:00 07:00 Intake Total 250 ml 700 ml Output Total 1500 ml 1700 ml Balance -1250 ml -1000 ml medications Current Medications Medications Dose Ordered Sig/Justina Route Start Time Stop Time Status Last Admin Dose Admin Acetaminophen 325 mg Q4HP PRN PO 08/09/25 17:15 08/19/25 08:28 325 MG Diagnostic Test (Pha) 1 strip Q6HR 08/10/25 06:00 08/21/25 12:29 1 STRIP Insulin Human Regular Q6HR SC 08/10/25 06:00 08/21/25 12:29 4 UNITS Dextrose 50 ml UD PRN IV 08/10/25 02:30 Atorvastatin Calcium 80 mg HS GT 08/11/25 22:00 08/20/25 21:53 80 MG Pantoprazole Sodium 40 mg DAILY IV 08/12/25 10:00 08/21/25 09:39 40 MG Enteral Nutritional Formula 1,000 ml 25ML/HR GT 08/11/25 19:30 08/11/25 21:54 1,000 ML Sennosides 8.6 mg HS PO 08/12/25 22:00 08/20/25 21:53 8.6 MG Docusate Sodium 100 mg BID GT 08/13/25 10:00 08/20/25 21:53 100 MG Polyethylene Glycol 17 gm DAILYPRN PRN GT 08/14/25 14:30 Iron Sucrose 110 ml @ 110 mls/hr DAILY@1200 IV 08/15/25 12:00 08/19/25 11:59 Cancel Iron Sucrose 110 ml @ 110 mls/hr DAILY@1200 IV 08/15/25 12:00 08/19/25 11:59 Cancel Ceftriaxone Sodium 50 ml @ 100 mls/hr DAILY@09 IV 08/16/25 09:00 08/21/25 08:50 100 MLS/HR Albuterol 2.5 mg Q6HWA [facility] 08/16/25 06:00 08/21/25 12:14 2.5 MG Ipratropium [place] 0.5 mg Q6HWA NEB 08/16/25 06:00 08/21/25 12:14 0.5 MG Enteral Nutritional Formula 28.8 gm BIDWM PO 08/16/25 18:00 08/21/25 08:58 28.8 GM Metoprolol Tartrate 25 mg BID PO 08/17/25 22:00 08/21/25 09:39 25 MG Bumetanide 12.5 mg/Miscellaneous 50 ml @ 2 mls/hr Q24H IV 08/18/25 14:00 08/20/25 16:44 2 MLS/HR Metolazone 15 mg DAILY PO 08/19/25 11:45 08/21/25 09:40 15 MG Albuterol 2.5 mg Q4HPRN PRN NEB 08/20/25 03:00 Ipratropium [place] 0.5 mg Q4HPRN PRN NEB 08/20/25 03:00 Potassium Chloride 100 ml @ 50 mls/hr Q2H IV 08/21/25 10:45 08/21/25 16:44 08/21/25 13:36 50 MLS/HR objective GENERAL: Alert and oriented x 3. Ill appearing. EYES: PERRL, EOMI. Anicteric. HENT: Moist mucous membranes. LUNGS: Decreased breath sounds. CARDIOVASCULAR: Regular rate and rhythm. ABDOMEN: Soft, nontender and nondistended. EXTREMITIES: No edema. SKIN: Warm, dry. laboratory and microbiology Laboratory Tests 08/21/25 04:58 Test 08/21/25 04:58 Range/Units Serum Glucose 148 H 74-106 mg/dL Problem List Cardiac arrest with successful ROSC. Metabolic encephalopathy. STEMI (ST elevation myocardial infarction). Assessment/Plan Continued all current supportive medical care. GI prophylactics. Lipitor, Metoprolol. Diuretics with Bumex. IV antibiotics as ordered. Morphine for pain management. Additional plan as per the hospital course. Dietary Evaluation Review Comments: Nutrition Recommendation: 1) EN Vital High Protein @ 45ml/hr x 24hr (goal). Water flush 50ml Q6H if allowed, adjust PRN. TF at goal volume provides 1080 kcal (100%), 95 gm protein (100%), and 74631 ml free water(including flush). 2) TPN if NPO >7 days 3) Monitor NPO status, lab values, weight trend, and I/O Expected Outcomes/Goals: Intake to meet >75% estimated needs Lab values to improve FU 2-3 days Plan discussed with: Patient PATRICIA GROVES MD Aug 21, 2025 13:44
[2025-08-22] VITALS (18 sets, daily range): BP systolic 115–136; BP diastolic 23–75; PULSE 69–106; RESP 16–20; TEMP 97.5–98; O2SAT 93–100
[2025-08-22 06:27] LABS: Hematocrit 27.2 % (36.0-46.0); Hemoglobin 9.2 g/dL (12.2-16.2); Mean Corpuscular Hemoglobin 33.1 pg (28.0-32.0); Mean Corpuscular Volume 97.6 fL (80.0-100.0)
[2025-08-22 06:32] LABS: Sodium 143 mmol/L (136-145)
[2025-08-22 06:33] LABS: Anion Gap 8 (5-15)
[2025-08-22 06:39] LABS: BUN/Creatinine Ratio 43.8 (10.0-20.0); Blood Urea Nitrogen 57 mg/dL (9-23); Calcium 10.4 mg/dL (8.7-10.4); Carbon Dioxide 38 mmol/L (20-31); Chloride 97 mmol/L (98-107); Glucose 163 mg/dL (74-106); Potassium 3.1 mmol/L (3.5-5.1)
[2025-08-22 06:40] LABS: Magnesium 1.5 mg/dL (1.6-2.6)
[2025-08-22 09:05] LABS: Total Cells Counted 100.0 (100)
[2025-08-22] MEDS: MAGNESIUM SULFATE 1GM/100ML 100 ML IV ONE (13:06)
[2025-08-22] MEDS: POTASSIUM CHL 20MEQ/100ML 100 ML IV SCH (13:07)
--- NOTE | 2025-08-22 13:55 | DVHPNRES ---
Progress Note Date Seen: Aug 22, 2025 Resident Creating Document: BRENDAN LEMOS RESIDENT Has the PT tested + for MRSA If YES, has PT been informed?: No Medical Necessity Reason Pt with a Central, PICC or Fol: Yes The following are medically ne: Scherer Catheter Subjective Review of Systems The patient is an 85-year-old female who presented to the ED with class IV dyspnea, chest pain, and right arm weakness, followed by agonal breathing, rapid desaturation into the 70s on NRB, and progression to cardiac arrest. ROSC achieved after ~2 min downtime, 1 round of CPR, 1 dose epinephrine, and endotracheal intubation. EKG showed new left bundle branch block. atrial fibrillation with global ischemia. Cardiology diagnosed ST-segmentelevation VA equivalent and took patient for emergent LHC, which revealed: * 99% LAD stenosis * 60% left main stenosis * 90% circumflex stenosis * Unable to cross chronic total occlusion due to high procedural mortality and conservative medical management recommended. The patient developed acute hypoxic respiratory failure, aspiration pneumonia, and septic shock requiring vasopressors. She was admitted to ICU on mechanical ventilation, norepinephrine, broad-spectrum antibiotics, heparin drip, and supportive care. PAST MEDICAL HISTORY * Hypertension * Type 2 diabetes mellitus * Dyslipidemia * HFpEF (EF 65%) * Paroxysmal atrial fibrillation on apixaban * Pulmonary hypertension (RVSP 61 mmHg) * Basal cell carcinoma * Atypical left hip sarcoma (surgically treated) * Recent COVID-19 * Chronic thrombocytopenia IV. PAST SURGICAL HISTORY * Hysterectomy * Appendectomy * Cholecystectomy * Basal cell carcinoma excision * Left hip sarcoma excision (2019) V. SOCIAL HISTORY * Lives with * No smoking, alcohol, or illicit substances Review of Systems: Constitutional: Denies weight loss, fever and chills. HEENT: Denies changes in vision and hearing. Respiratory: Refers occasional shortness of breath when being moved Cardiovascular: Refers chest pain during CPT, denies any other chest pain GI: Denies abdominal distention, abdominal pain, diarrhea : Denies dysuria and urinary frequency. Musculoskeletal: Denies symptoms Skin: Denies rash and pruritus. Neurological: denies dizziness headache vision or hearing problems 08/10/25 The patient is an 85-year-old female who presented to the ED with class IV dyspnea, chest pain, and right arm weakness, followed by agonal breathing, rapid desaturation into the 70s on NRB, and progression to cardiac arrest. ROSC achieved after ~2 min downtime, 1 round of CPR, 1 dose epinephrine, and endotracheal intubation. EKG showed new left bundle branch block. atrial fibrillation with global ischemia. Cardiology diagnosed ST-segmentelevation VA equivalent and took patient for emergent LHC, which revealed: * 99% LAD stenosis * 60% left main stenosis * 90% circumflex stenosis * Unable to cross chronic total occlusion due to high procedural mortality and conservative medical management recommended. The patient developed acute hypoxic respiratory failure, aspiration pneumonia, and septic shock requiring vasopressors. She was admitted to ICU on mechanical ventilation, norepinephrine, broad-spectrum antibiotics, heparin drip, and supportive care. * Still requiring norepinephrine Temperature: Tmax 100.9 ongoing infection concern. Renal: UOP remains 0.32 mL/kg/hr, creatinine improved to 1.25 (from 1.6). Troponin: 496 ( from 115), consistent with evolving VA. Platelets: 92K (chronic baseline, trending up from 78K yesterday). CXR: Cardiomegaly, pulmonary vascular congestion, multifocal pneumonia, bilateral effusions. Labs: K 3.2 repleted; Phos 5.6; BUN 32; Hgb 8.1; AST/ALT down-trending. Medications: Norepinephrine, midazolam, fentanyl, heparin drip, cefepime, vancomycin. PLAN ADJUSTMENTS TODAY: * Convert enteric-coated aspirin to regular aspirin * Continue heparin drip now * Discontinue heparin in 48 hours, then start Aspirin + Plavix * Held/discontinued Zofran * Held/discontinued Atorvastatin (Lipitor) * Ordered repeat chest X-ray * Continue antibiotics * Continue vasopressor support 08/11/25 * Hemodynamically fluctuating on norepinephrine. * On AC/VC mechanical ventilation; gases show mild metabolic alkalosis. * Oxygenation improved (PO2 88). * No fever overnight. * Chronic thrombocytopenia trending downward but stable. * Hemoglobin down to 7.3; monitor closely, consider transfusion if symptomatic or <7.0. * WILLIAN slightly worsened (Cr 1.37). * CXR unchanged. * Started statin therapy and sedation vacation protocol. * No arrhythmias other than AFib with controlled rate. 08/12/25 Patient remains critically ill but hemodynamically unstable on low-dose norepinephrine. Ventilation stable. Labs show mild anemia worsening (Hgb 7.5), stable chronic thrombocytopenia (80K), slight rise in creatinine. Cultures negative except respiratory culture with E. coli sensitive to cefepime. Heparin drip discontinued; switched to prophylactic Lovenox. Code status updated to DNR. KUB ordered for constipation; tube feeds tolerated. Continuing all supportive care. Heparin drip discontinued today Started Lovenox 40 mg subcutaneous daily (prophylactic) Continue Aspirin. NOT starting Eliquis / therapeutic Lovenox due to: * Hgb drop (8.2 to 7.5) * Platelets 80K * High bleeding risk. NOT starting Plavix due to high bleeding risk Code status changed from FULL CODE to DNR per family. Continue cefepime (E. coli sensitive), discontinue vancomycin if MRSA PCR negative (as already done) K repleted; Mg repleted Continue sedation and vasopressor support Begin bowel regimen if KUB non-obstructive 08/13/25: Patient is seen and examined at bedside, x-ray KUB shows, Moderate to large volume stool within the colon. Bibasilar pulmonary airspace opacities and pleural effusions. We will begin bowel regimen. Ordered lower extremity Doppler to rule out DVT, start Lovenox 30 mg subQ. 08/14/25 Patient is off pressors, tolerating CPAP/TSV SBT, clear lungs, stable oxygenation, and strong respiratory effort. Preparing for extubation today. However, she has worsening anemia (Hgb 6.7) transfusing 1 PRBC. WILLIAN slightly worse. Holding all therapeutic anticoagulation (Eliquis, Lovenox). Continue aspirin. Starting Miralax for constipation. Cultures negative except respiratory culture showing E. coli + Staph aureus continuing cefepime + vancomycin. 08/15/25 The patient is an 85-year-old critically ill female with a history of cardiac arrest with ROSC, STEMI-equivalent VA, acute hypoxic respiratory failure, severe pulmonary hypertension, HFpEF, aspiration pneumonia, septic shock (improving), WILLIAN, chronic anemia, and chronic thrombocytopenia. She was successfully extubated yesterday, currently on BiPAP but develops tachypnea (RR 40), tachycardia (110), and desaturation to 88% when weaning off BiPAP. Symptoms improved when placed back on BiPAP (RR to 20, SpO2 to 100).CXR showed persistent bilateral pleural effusions, so a right-sided ultrasound- guided thoracentesis was performed with 1.3 L fluid removed. 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 Antibiotics: discontinue; vancomycin planned to discontinue . Considering de- escalation to ceftriaxone Current drips (fentanyl, versed, precedex, norepinephrine) all discontinued. Aspirin currently on hold due to anemia and thrombocytopenia. * Starting Lasix drip 5 mg/h after IV bolus 40 mg. 08/16/25 Today she is off BiPAP and maintaining adequate oxygenation on 4 L nasal cannula, with saturations 02563%. No increased work of breathing noted. Hemodynamically soft but stable. Chest x-ray unchanged with small left pleural effusion and vascular congestion. \Awake, interactive, sitting upright. Stool output absent today; bowel sounds active. She is tolerating mechanical soft diet. Lasix drip discontinued; transitioned to Lasix 40 mg IV BID.?On Ceftriaxone monotherapy, tolerating well. downgrade to telemetry given respiratory stability. * CXR stable. * Hemoglobin improving (7.2) without transfusion. * Platelets up to 108K. 08/17/25 Patient evaluated at bedside today. She is awake, alert, intermittently fatigued, able to answer simple questions, remains in AFib with HR 152433, BP stable with MAP > 70 throughout the morning. Oxygenation stable on 4 L nasal cannula FiO2 ~3642% with SpO2 9699%. She had six bowel movements today on bowel regimen and soft diet, no abdominal pain. Reports mild generalized weakness. No chest pain, dyspnea improved. Labs: Hemoglobin improved from 7.2 - 7.6, WBC 5.9, platelets 152 (normalized). Persistent WILLIAN on CKD: Cr 1.78 (?), BUN 53. Sodium normal at 144. Potassium 3.2 low, repleted today with 40 mEq KCl and magnesium. * Discontinued right IJ central venous catheter. * Reinforced PT/OT, patient stood briefly with assistance. * Case management consulted; family requests retirement / assisted care facility for discharge planning. * No change in antibiotics 08/18/25 Patient evaluated at bedside today. She is awake, alert, following commands, conversational with fatigue. On 8L Oximizer with increased o2 REQUIREMNT FROM 4L NC NOW ON SpO2 9698%. Hemodynamics stable. No active chest pain or increased dyspnea. Renal function worsened today: BUN/Cr increased from 53/1.78 to 55/1.85 despite prior diuresis. Urine output over past 24 hours 1050 ml, intake 1080 ml (near even balance). Decision made for volume-based renal optimization. Interventions & Management changes today: * Furosemide discontinued due to worsening renal indices. * Bumetanide drip (Bumex) initiated for improved diuretic efficiency in CKD. * Albumin 25% IV Q15H 3 doses started to improve intravascular volume and diuretic responsiveness. * Free water discontinued to avoid hyponatremia and further renal stress. * Nephrology consult placed today. * Ordered renal US, PTH, Urine sodium, Urine creatinine, Urine protein/Cr ratio for WILLIAN evaluation. * PT working with patient patient able to sit edge of bed with assistance. * Hgb improved to 8.2 g/dL ( from 7.6). No transfusion indicated today. Plan today: Continue bumetanide drip with albumin dosing, monitor renal response hourly UO, trend BMP Q12h, avoid nephrotoxins, continue ceftriaxone, maintain soft PO diet and electrolytes optimization. 08/19/25: Patient seen and examined at bedside, overnight events reviewed, PT eval requested and patient is working with PT. 08/20/25: Patient seen and examined at bedside, overnight events reviewed, discussed with the family, patient will go to facility for hospice. 08/21/2025: Patient seen at bedside. She states she feels well, denies any dizziness, chest pain, palpitations, cough, fever, and other symptoms. States she only has occasional chest pain during CPT. Labs are significant for decreasing WBCs, potassium 2.9, renal function is stable. Saturating adequately on oxymizer at 6L. Per nephrology, she continues on Bumex and Metalozone. Chest Xray shows persistence of bilateral pleural effusions, greater on the left than the right. Bedside ultrasound shows presence of at the 500 cc of fluid, per the patient, she would like to wait on any further pleuracentesis. We will continue to monitor. 08/22/25 Patient evaluated at bedside today. Awake, fatigued, cooperative, responding appropriately. Shortness of breath increased overnight requiring escalation from 5L NC to 8L Oxymizer to maintain SpO2 9395%. No acute chest pain. Mild dyspnea on conversation. Renal indices improving but remain significantly abnormal (BUN/Cr 57/1.30 improving, GFR 41). Urine output preserved (0.92 mL/kg/hr). Hemoglobin improved to 9.2 g/dL, no bleeding. WBC 4.0, stable but low. CXR unchanged persistent pulmonary edema + bilateral pleural effusions (L>R). Ordered left-sided ultrasound-guided thoracentesis, tolerating well. Potassium critically low at 3.1, replaced with 60 mEq IV KCl rider. Family actively discussing hospice. Goals of care conversation ongoing. Objective vital signs Vital Sign Date Time Temp Pulse Resp B/P (MAP) Pulse Ox O2 Delivery O2 Flow Rate FiO2 08/22/25 13:10 97.6 98 19 134/75 (94) 95 97.6 08/22/25 11:37 Oxymizer 6.0 08/22/25 09:13 94 Total Intake and Output 08/21/25 08/21/25 08/22/25 15:00 23:00 07:00 Intake Total 600 ml 1700 ml Output Total 1500 ml Balance -900 ml 1700 ml medications Current Medications Medications Dose Ordered Sig/Justina Route Start Time Stop Time Status Last Admin Dose Admin Acetaminophen 325 mg Q4HP PRN PO 08/09/25 17:15 08/19/25 08:28 325 MG Diagnostic Test (Pha) 1 strip Q6HR 08/10/25 06:00 08/22/25 12:09 1 STRIP Insulin Human Regular Q6HR SC 08/10/25 06:00 08/22/25 11:57 3 UNITS Dextrose 50 ml UD PRN IV 08/10/25 02:30 Atorvastatin Calcium 80 mg HS GT 08/11/25 22:00 08/21/25 21:41 80 MG Pantoprazole Sodium 40 mg DAILY IV 08/12/25 10:00 08/22/25 09:00 40 MG Enteral Nutritional Formula 1,000 ml 25ML/HR GT 08/11/25 19:30 08/11/25 21:54 1,000 ML Sennosides 8.6 mg HS PO 08/12/25 22:00 08/21/25 21:41 8.6 MG Docusate Sodium 100 mg BID GT 08/13/25 10:00 08/20/25 21:53 100 MG Polyethylene Glycol 17 gm DAILYPRN PRN GT 08/14/25 14:30 Iron Sucrose 110 ml @ 110 mls/hr DAILY@1200 IV 08/15/25 12:00 08/19/25 11:59 Cancel Iron Sucrose 110 ml @ 110 mls/hr DAILY@1200 IV 08/15/25 12:00 08/19/25 11:59 Cancel Ceftriaxone Sodium 50 ml @ 100 mls/hr DAILY@09 IV 08/16/25 09:00 08/22/25 08:59 100 MLS/HR Albuterol 2.5 mg Q6HWA NEB 08/16/25 06:00 08/22/25 11:36 2.5 MG Ipratropium [place] 0.5 mg Q6HWA NEB 08/16/25 06:00 08/22/25 11:36 0.5 MG Enteral Nutritional Formula 28.8 gm BIDWM PO 08/16/25 18:00 08/22/25 09:00 28.8 GM Metoprolol Tartrate 25 mg BID PO 08/17/25 22:00 08/22/25 09:00 25 MG Bumetanide 12.5 mg/Miscellaneous 50 ml @ 2 mls/hr Q24H IV 08/18/25 14:00 08/21/25 17:35 2 MLS/HR Metolazone 15 mg DAILY PO 08/19/25 11:45 08/22/25 08:59 15 MG Albuterol 2.5 mg Q4HPRN PRN NEB 08/20/25 03:00 Ipratropium [place] 0.5 mg Q4HPRN PRN NEB 08/20/25 03:00 Potassium Chloride 100 ml @ 50 mls/hr Q2H IV 08/22/25 10:00 08/22/25 15:59 08/22/25 13:07 50 MLS/HR Examination General: The patient alert and oriented in person place and time. Patient following commands HEENT: Normocephalic, atraumatic, normal reactive pupils, EOM intact, pink conjunctiva, pink moist mucous membrane, Oxymizer in place delivering 6 L Respiratory/pulmonary: Bilateral chest expansion, no pain on palpation of chest wall, decreased breath sounds towards bilateral bases with crackles Cardiovascular: Normal RRR, normal S1 and S2, no murmurs Abdomen: Obese, Abdomen nondistended, normal bowel sounds, soft, there is no pain to palpation in any of the abdominal quadrants, no palpable masses. Extremities: No deformities, there is no peripheral edema present at the lower extremities, pulses are present Skin: Bruising is noted along left forearm Neurological: Intact cranial nerves with no focal neurologic deficits laboratory and microbiology Laboratory Tests 08/22/25 05:36 Test 08/22/25 05:36 Range/Units Serum Glucose 163 H 74-106 mg/dL Microbiology Date/Time Source Procedure Growth Status 08/09/25 23:10 Urine - [place] Urine Culture - Final Complete 08/09/25 22:59 Nose MRSA Screen - Final Complete 08/09/25 16:40 Blood Blood Culture - Final NO GROWTH AFTER 5 DAYS OF INCUBATION. Complete 08/09/25 15:40 Sputum Gram Stain - Final Complete 08/09/25 15:40 Respiratory Culture - Final Escherichia coli Staphylococcus aureus Complete Problem List/Assessment/Plan Problem List/Assessment/Plan IX. [id number] PLAN NEUROLOGY Metabolic Encephalopathy Post-arrest + sepsis + hypoxia. neurological arrest ruled out (CT head negative) Reflexes present * Awake, alert * No sedation required * Neurochecks Q4H * CT head negative for acute abnormalities. * Continue PT/OT to bedside daily CARDIOVASCULAR . Cardiac Arrest with ROSC Due to hypoxic respiratory failure + STEMI-equivalent. * Downtime ~2 minutes; ROSC after 1 Epi, 1 CPR cycle. Atrial fibrillation rate controlled On Metoprolol Tartarate 25 Mg PO BID * HR [id number] today * High stroke risk (FRANKLIN?DS?-VASc = 7). * Anticoagulation withheld due to anemia and prior thrombocytopenia. STEMI Due to multi-vessel CAD (LAD 99%, LM 60%, LCx 90%).High procedural mortality , conservative management per cardiology LBBB, global ischemia, coronary angiography findings Acute on Chronic Diastolic CHF (HFpEF, EF 65%) Volume overload + pulmonary edema on imaging. Severe Pulmonary Hypertension (RVSP 61 mmHg) From chronic HF + hypoxic vasoconstriction. * Hemodynamically stable off pressors * Hold aspirin due to Hgb 7.6 + platelets 71K * Hold anticoagulation (Eliquis / Lovenox) * Continue atorvastatin * Strict MAP monitoring * EKG for QT interval * No Plavix due to bleeding risk * No KEVIN inhibitors due to WILLIAN * Cardiology following * Conservative management of multi-vessel CAD per cardiology. * Continuous telemetry for AFib; starting metoprolol tartarate 25 mg BID Hypertension Chronic comorbidity Dyslipidemia Chronic comorbidity Continue Atorvasatin RESPIRATORY MECHANICAL VENTILATION Acute on chronic hypoxic respiratory failure post-extubation, improving Aspiration Pneumonia, Multifocal bacterial (E. coli + MSSA) improving Bilateral pleural effusions large right, moderate left Thoracentesis improved symptoms. Right drained 1.3 L. *pneumonia on CXR, lactate normalized from 6.2 - 1.7 - 1.2 improved * On 8 L Oximizer * Wean as tolerated * Thoracentesis Ordered * Start: * Incentive spirometry * Chest physiotherapy * Daily CXR * Bronchodilators PRN * Maintain saturation >94% * Suction PRN RENAL WILLIAN Stage 2 due to VMN Improving Likely hemodynamic ischemic ATN. . Hyperphosphatemia Hypokalemia improving replenished Electrolyte derangements. Hypernatremia * Nephrology following * Monitor UOP hourly * Electrolyte replacement protocol * Continue Bumex drip + Metolazone for diuresis * Avoid nephrotoxins * Consider renal ultrasound if persistent oliguria * Monitor UOP q1h; goal >0.5 mL/kg/hr. * Correct electrolytes: K >4, Mg >2. INFECTIOUS DISEASE Septic Shock From aspiration pneumonia: initially lactate 6.2 THEN improved to 1.7 - 1.2 .Still requiring vasopressors. Aspiration Pneumonia, Multifocal CXR findings consistent.. * Repeat blood cultures if febrile, urine culture ordered and are negative. * MRSA negative, initial blood cultures are negative * Respiratory culture/gram stain Few Gram Positive Rods Few Gram Positive Cocci in chains Rare Gram Negative Rods Positive for Stap aures ECOLI, * Discontinue vancomycin (MSSA, no MRSA) * STOP cefepime to reduce nephrotoxicity risk in WILLIAN (acceptable to stop) * Start: * Ceftriaxone 12 g IV daily GI Transaminitis Likely shock liver vs congestive hepatopathy. * Start mechanical soft diet * Continue bowel regimen: * Senna * Docusate * Miralax * If no BM by tomorrow add bisacodyl PRN * GI prophylaxis: IV pantoprazole. * Continue Scherer for accurate I/O * Monitor for hematuria * Scherer catheter in place for accurate UOP. 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 * Anemia : transfuse if <7 or hemodynamically unstable. * DVT prophylaxis: SCD ENDOCRINE T2DM with Stress Hyperglycemia * Sliding scale insulin q4h * Goal BG [id number] * Resume home diabetic meds after stabilization. PSYCHIATRY * Sedated; no psychiatric meds needed NUTRITION Malnutrition risk low albumin * Mechanical soft diet * Advance as tolerated PROPHYLAXIS * DVT: SCD * GI: Pantoprazole * Pressure ulcers: q2h turns * Line-associated infection: Daily review of necessity LINES, TUBES, DRIPS * Right IJ triple-lumen (08/09) placed order to removed * ET tube placed 08/09 Removed * NG tube removed * Scherer * Drips: discontinued PHYSICAL THERAPY * Out of bed to chair and then walk today * PT/OT evaluation for mobility improvement SOCIAL WORK * Family updated * Code status changed to DNR today per family request * Continue [id number] discussion * Hospice vs SNF discussion ongoing X. CRITICAL CARE TIME Critical care time: 43 minutes (exclusive of procedures).High-complexity medical decision-making due to multiorgan failure, vasopressor dependence, mechanical ventilation, post-cardiac arrest care, evolving STEMI, and septic shock. XI. CODE STATUS DNR Discussed with family >20 minutes.Family understands severity of illness and poor prognosis of illness FINAL STATEMENT Case discussed in detail with the attending physician , including the clinical presentation, diagnostic workup, and comprehensive management plan. The patient was present for the discussion and demonstrated understanding of her condition and the proposed plan. Plan discussed with: Patient, Other (NIECE, RN) My Orders My Orders Orders - BRENDAN LEMOS RESIDENT Procedure Category Date Status Time Potassium Chl PHA 08/22/25 In Process 20meq/100ml 10:00 * Track Grinder Operator CONS 08/22/25 Transmitted Consult 12:05 Dietary Evaluation Review Comments: Nutrition Recommendation: 1) EN Vital High Protein @ 45ml/hr x 24hr (goal). Water flush 50ml Q6H if allowed, adjust PRN. TF at goal volume provides 1080 kcal (100%), 95 gm protein (100%), and 72443 ml free water(including flush). 2) TPN if NPO >7 days 3) Monitor NPO status, lab values, weight trend, and I/O Expected Outcomes/Goals: Intake to meet >75% estimated needs Lab values to improve FU 2-3 days Visit Coding STANDARD RES Billing Provider: DAVID SANDRA MD Date of Service if different f: Aug 22, 2025 Common Visit Codes: 73790-[id number] CARE 30-74 MIN BRENDAN LEMOS RESIDENT Aug 22, 2025 13:55 DAVID SANDRA MD Aug 23, 2025 13:18
--- NOTE | 2025-08-22 16:54 | DVHPN2 ---
Progress Note - Dictate Date Seen: Aug 22, 2025 Has the PT tested + for MRSA If YES, has PT been informed?: No Medical Necessity Reason Pt with a Central, PICC or Fol: Yes The following are medically ne: Scherer Catheter Subjective Patient was seen and evaluated in follow up. Patient is 6L by Oxymizer. HGB 9.2, HCT 27.2, K 3.1, CO2 38, BUN 57, Radioactive Waste Disposal Dispatcher 1.30, MG 1.5. Patients electrolytes were replaced. Telemetry reviewed. vital signs Vital Sign Date Time Temp Pulse Resp B/P (MAP) Pulse Ox O2 Delivery O2 Flow Rate FiO2 08/22/25 13:10 97.6 98 19 134/75 (94) 95 97.6 08/22/25 11:37 Oxymizer 6.0 08/22/25 09:13 94 Total Intake and Output 08/21/25 08/21/25 08/22/25 15:00 23:00 07:00 Intake Total 600 ml 1700 ml Output Total 1500 ml Balance -900 ml 1700 ml medications Current Medications Medications Dose Ordered Sig/Justina Route Start Time Stop Time Status Last Admin Dose Admin Acetaminophen 325 mg Q4HP PRN PO 08/09/25 17:15 08/19/25 08:28 325 MG Diagnostic Test (Pha) 1 strip Q6HR 08/10/25 06:00 08/22/25 12:09 1 STRIP Insulin Human Regular Q6HR SC 08/10/25 06:00 08/22/25 11:57 3 UNITS Dextrose 50 ml UD PRN IV 08/10/25 02:30 Atorvastatin Calcium 80 mg HS GT 08/11/25 22:00 08/21/25 21:41 80 MG Pantoprazole Sodium 40 mg DAILY IV 08/12/25 10:00 08/22/25 09:00 40 MG Sennosides 8.6 mg HS PO 08/12/25 22:00 08/21/25 21:41 8.6 MG Docusate Sodium 100 mg BID GT 08/13/25 10:00 08/20/25 21:53 100 MG Polyethylene Glycol 17 gm DAILYPRN PRN GT 08/14/25 14:30 Iron Sucrose 110 ml @ 110 mls/hr DAILY@1200 IV 08/15/25 12:00 08/19/25 11:59 Cancel Iron Sucrose 110 ml @ 110 mls/hr DAILY@1200 IV 08/15/25 12:00 08/19/25 11:59 Cancel Ceftriaxone Sodium 50 ml @ 100 mls/hr DAILY@09 IV 08/16/25 09:00 08/22/25 08:59 100 MLS/HR Albuterol 2.5 mg Q6HWA [facility] 08/16/25 06:00 08/22/25 11:36 2.5 MG Ipratropium [place] 0.5 mg Q6HWA [facility] 08/16/25 06:00 08/22/25 11:36 0.5 MG Enteral Nutritional Formula 28.8 gm BIDWM PO 08/16/25 18:00 08/22/25 09:00 28.8 GM Metoprolol Tartrate 25 mg BID PO 08/17/25 22:00 08/22/25 09:00 25 MG Bumetanide 12.5 mg/Miscellaneous 50 ml @ 2 mls/hr Q24H IV 08/18/25 14:00 08/21/25 17:35 2 MLS/HR Metolazone 15 mg DAILY PO 08/19/25 11:45 08/22/25 08:59 15 MG Albuterol 2.5 mg Q4HPRN PRN [facility] 08/20/25 03:00 Ipratropium [place] 0.5 mg Q4HPRN PRN [facility] 08/20/25 03:00 objective GENERAL: Alert and oriented x 3. Ill appearing. EYES: PERRL, EOMI. Anicteric. HENT: Moist mucous membranes. LUNGS: Decreased breath sounds. CARDIOVASCULAR: Regular rate and rhythm. ABDOMEN: Soft, nontender and nondistended. EXTREMITIES: No edema. SKIN: Warm, dry. laboratory and microbiology Laboratory Tests 08/22/25 05:36 Test 08/22/25 05:36 Range/Units Serum Glucose 163 H 74-106 mg/dL Problem List Cardiac arrest with successful ROSC. Metabolic encephalopathy. STEMI (ST elevation myocardial infarction). Assessment/Plan Continued all current supportive medical care. Lipitor, Metoprolol. Diuretics with Bumex. IV antibiotics as ordered. GI prophylactics. Additional plan as per the hospital course. Dietary Evaluation Review Comments: Nutrition Recommendation: 1) EN Vital High Protein @ 45ml/hr x 24hr (goal). Water flush 50ml Q6H if allowed, adjust PRN. TF at goal volume provides 1080 kcal (100%), 95 gm protein (100%), and 73876 ml free water(including flush). 2) TPN if NPO >7 days 3) Monitor NPO status, lab values, weight trend, and I/O Expected Outcomes/Goals: Intake to meet >75% estimated needs Lab values to improve FU 2-3 days Plan discussed with: Patient PATRICIA GROVES MD Aug 22, 2025 16:54
[2025-08-23] VITALS (12 sets, daily range): BP systolic 110–134; BP diastolic 54–72; PULSE 90–110; RESP 16–20; TEMP 97–98.4; O2SAT 90–99
[2025-08-23 07:20] LABS: Hematocrit 26.7 % (36.0-46.0); Hemoglobin 9.5 g/dL (12.2-16.2); Mean Corpuscular Hemoglobin 33.9 pg (28.0-32.0); Mean Corpuscular Volume 95.5 fL (80.0-100.0)
[2025-08-23 07:48] LABS: Sodium 143 mmol/L (136-145)
[2025-08-23 07:49] LABS: Calcium 10.3 mg/dL (8.7-10.4)
[2025-08-23 07:53] LABS: Anion Gap 10.99999 (5-15); Chloride 92 mmol/L (98-107)
[2025-08-23 07:54] LABS: BUN/Creatinine Ratio 44.4 (10.0-20.0)
[2025-08-23 07:55] LABS: Carbon Dioxide > 40 mmol/L (20-31); Potassium 2.5 mmol/L (3.5-5.1)
[2025-08-23 07:58] LABS: Blood Urea Nitrogen 55 mg/dL (9-23); Glucose 150 mg/dL (74-106); Magnesium 1.3 mg/dL (1.6-2.6)
[2025-08-23 08:14] LABS: INR 1.31 (0.9-1.15); Partial Thromboplastin Time 27.6 SEC (24.5-34.5); Prothrombin Time 13.5 sec (9.3-11.8)
[2025-08-23] MEDS: acetaZOLAMIDE 250 MG TAB PO ONE (08:30)
[2025-08-23 08:36] LABS: Base Excess 15.1 mmol/L (-2.0-3.0)
[2025-08-23] MEDS: POTASSIUM EFFERVESENT TAB 25 MEQ PO ONE (08:42)
[2025-08-23 09:04] LABS: Smudge Cells 3 /100 WBC; Total Cells Counted 100.0 (100)
--- NOTE | 2025-08-23 09:13 | DVH ---
Bilateral Chest Sonogram CLINICAL HISTORY: evaluate for possible thoracentesis TECHNIQUE: Limited sonographic evaluation of the right and left chest was performed. Findings/Impression: There is a moderate right and small left pleural effusion pleural effusion.
[2025-08-23] MEDS ORDERED: IPRATROPIUM BROM 0.5 MG/2.5ML INH SOL NEB PRN (10:15)
[2025-08-23] MEDS ORDERED: ALBUTEROL SULF 2.5 MG/0.5ML(0.5%) NEB SOLN NEB PRN (10:15)
--- NOTE | 2025-08-23 10:19 | DVHPN2 ---
Progress Note - Dictate Date Seen: Aug 23, 2025 Has the PT tested + for MRSA If YES, has PT been informed?: No Medical Necessity Reason Pt with a Central, PICC or Fol: Yes The following are medically ne: Scherer Catheter Subjective Patient awake and alert this morning, she expressed frustration that she was unable to eat breakfast because of diagnostic imaging and blood draws. vital signs Vital Sign Date Time Temp Pulse Resp B/P (MAP) Pulse Ox O2 Delivery O2 Flow Rate FiO2 08/23/25 09:02 97.9 110 18 117/55 (75) 90 97.9 08/23/25 08:00 Oxymizer 8 N/A Total Intake and Output 08/22/25 08/22/25 08/23/25 15:00 23:00 07:00 Intake Total 425 ml 100 ml Output Total 400 ml 1400 ml Balance 25 ml -1300 ml medications Current Medications Medications Dose Ordered Sig/Justina Route Start Time Stop Time Status Last Admin Dose Admin Acetaminophen 325 mg Q4HP PRN PO 08/09/25 17:15 08/19/25 08:28 325 MG Diagnostic Test (Pha) 1 strip Q6HR 08/10/25 06:00 08/23/25 05:57 1 STRIP Insulin Human Regular Q6HR SC 08/10/25 06:00 08/23/25 05:59 2 UNITS Dextrose 50 ml UD PRN IV 08/10/25 02:30 Atorvastatin Calcium 80 mg HS GT 08/11/25 22:00 08/22/25 21:08 80 MG Pantoprazole Sodium 40 mg DAILY IV 08/12/25 10:00 08/23/25 08:43 40 MG Sennosides 8.6 mg HS PO 08/12/25 22:00 08/22/25 21:08 8.6 MG Docusate Sodium 100 mg BID GT 08/13/25 10:00 08/23/25 08:42 100 MG Polyethylene Glycol 17 gm DAILYPRN PRN GT 08/14/25 14:30 Iron Sucrose 110 ml @ 110 mls/hr DAILY@1200 IV 08/15/25 12:00 08/19/25 11:59 Cancel Iron Sucrose 110 ml @ 110 mls/hr DAILY@1200 IV 08/15/25 12:00 08/19/25 11:59 Cancel Ceftriaxone Sodium 50 ml @ 100 mls/hr DAILY@09 IV 08/16/25 09:00 08/23/25 08:42 100 MLS/HR Enteral Nutritional Formula 28.8 gm BIDWM PO 08/16/25 18:00 08/23/25 08:42 28.8 GM Metoprolol Tartrate 25 mg BID PO 08/17/25 22:00 08/23/25 08:43 25 MG Bumetanide 12.5 mg/Miscellaneous 50 ml @ 2 mls/hr Q24H IV 08/18/25 14:00 08/22/25 17:11 2 MLS/HR Metolazone 15 mg DAILY PO 08/19/25 11:45 Hold 08/23/25 08:43 15 MG Potassium Chloride 100 ml @ 50 mls/hr Q2H IV 08/23/25 11:00 08/23/25 16:59 Magnesium Sulfate/ Dextrose 100 ml @ 100 mls/hr Q1HR IV 08/23/25 09:00 08/23/25 10:59 Albuterol 2.5 mg Q6HWA PRN NEB 08/23/25 10:15 UNV Ipratropium [place] 0.5 mg Q6HWA PRN NEB 08/23/25 10:15 UNV objective Gen: nad heent: nc/at, mmm lungs: cta anteriorly cvs: no rub abd: soft, bowel sounds audible ext: + edema laboratory and microbiology Laboratory Tests 08/23/25 06:04 Test 08/23/25 06:04 Range/Units Serum Glucose 150 H 74-106 mg/dL Assessment/Plan IMP: Acute kidney injury superimposed Chronic Kidney Disease secondary hemodynamic mediated, FeNa < 1% Vancomycin nephrotoxicity Status post cardiac arrest Congestive heart failure exacerbation Pulmonary edema Atrial fibrillation with RVR Acute respiratory failure, patient extubated 08/14 Diabetes mellitus type 2 Hypokalemia - multifactorial, total body deficit/ + alkalemia Hypoalbuminemia Anemia requiring packed red blood cell transfusion Recommendations - supplemental potassium - acetazolamide x1 - consideration for holding loop diuretic infusion temporarily Dietary Evaluation Review Comments: Nutrition Recommendation: 1) EN Vital High Protein @ 45ml/hr x 24hr (goal). Water flush 50ml Q6H if allowed, adjust PRN. TF at goal volume provides 1080 kcal (100%), 95 gm protein (100%), and 05128 ml free water(including flush). 2) TPN if NPO >7 days 3) Monitor NPO status, lab values, weight trend, and I/O Expected Outcomes/Goals: Intake to meet >75% estimated needs Lab values to improve FU 2-3 days Plan discussed with: Patient NEMO KEARNS MD Aug 23, 2025 10:19
[2025-08-23] MEDS: MAGNESIUM SULFATE 1GM/100ML 100 ML IV SCH (10:27)
[2025-08-23] MEDS: POTASSIUM CHL 20MEQ/100ML 100 ML IV SCH (11:00)
[2025-08-23] MEDS: DOXYCYCLINE 100MG/100ML 100 ML IV ONE (14:49)
[2025-08-23] MEDS: BUMETANIDE 1mg/4ml VIAL (0.25mg/ml) IV ONE (14:49)
--- NOTE | 2025-08-23 15:49 | DVHPNRES ---
Progress Note Date Seen: Aug 23, 2025 Resident Creating Document: BRENDAN LEMOS RESIDENT Has the PT tested + for MRSA If YES, has PT been informed?: No Medical Necessity Reason Pt with a Central, PICC or Fol: Yes The following are medically ne: Scherer Catheter Subjective Review of Systems The patient is an 85-year-old female who presented to the ED with class IV dyspnea, chest pain, and right arm weakness, followed by agonal breathing, rapid desaturation into the 70s on NRB, and progression to cardiac arrest. ROSC achieved after ~2 min downtime, 1 round of CPR, 1 dose epinephrine, and endotracheal intubation. EKG showed new left bundle branch block. atrial fibrillation with global ischemia. Cardiology diagnosed ST-segmentelevation NH equivalent and took patient for emergent LHC, which revealed: * 99% LAD stenosis * 60% left main stenosis * 90% circumflex stenosis * Unable to cross chronic total occlusion due to high procedural mortality and conservative medical management recommended. The patient developed acute hypoxic respiratory failure, aspiration pneumonia, and septic shock requiring vasopressors. She was admitted to ICU on mechanical ventilation, norepinephrine, broad-spectrum antibiotics, heparin drip, and supportive care. PAST MEDICAL HISTORY * Hypertension * Type 2 diabetes mellitus * Dyslipidemia * HFpEF (EF 65%) * Paroxysmal atrial fibrillation on apixaban * Pulmonary hypertension (RVSP 61 mmHg) * Basal cell carcinoma * Atypical left hip sarcoma (surgically treated) * Recent COVID-19 * Chronic thrombocytopenia IV. PAST SURGICAL HISTORY * Hysterectomy * Appendectomy * Cholecystectomy * Basal cell carcinoma excision * Left hip sarcoma excision (2019) V. SOCIAL HISTORY * Lives with * No smoking, alcohol, or illicit substances Review of Systems: Constitutional: Denies weight loss, fever and chills. HEENT: Denies changes in vision and hearing. Respiratory: Refers occasional shortness of breath when being moved Cardiovascular: Refers chest pain during CPT, denies any other chest pain GI: Denies abdominal distention, abdominal pain, diarrhea : Denies dysuria and urinary frequency. Musculoskeletal: Denies symptoms Skin: Denies rash and pruritus. Neurological: denies dizziness headache vision or hearing problems 08/10/25 The patient is an 85-year-old female who presented to the ED with class IV dyspnea, chest pain, and right arm weakness, followed by agonal breathing, rapid desaturation into the 70s on NRB, and progression to cardiac arrest. ROSC achieved after ~2 min downtime, 1 round of CPR, 1 dose epinephrine, and endotracheal intubation. EKG showed new left bundle branch block. atrial fibrillation with global ischemia. Cardiology diagnosed ST-segmentelevation NH equivalent and took patient for emergent LHC, which revealed: * 99% LAD stenosis * 60% left main stenosis * 90% circumflex stenosis * Unable to cross chronic total occlusion due to high procedural mortality and conservative medical management recommended. The patient developed acute hypoxic respiratory failure, aspiration pneumonia, and septic shock requiring vasopressors. She was admitted to ICU on mechanical ventilation, norepinephrine, broad-spectrum antibiotics, heparin drip, and supportive care. * Still requiring norepinephrine Temperature: Tmax 100.9 ongoing infection concern. Renal: UOP remains 0.32 mL/kg/hr, creatinine improved to 1.25 (from 1.6). Troponin: 496 ( from 115), consistent with evolving NH. Platelets: 92K (chronic baseline, trending up from 78K yesterday). CXR: Cardiomegaly, pulmonary vascular congestion, multifocal pneumonia, bilateral effusions. Labs: K 3.2 repleted; Phos 5.6; BUN 32; Hgb 8.1; AST/ALT down-trending. Medications: Norepinephrine, midazolam, fentanyl, heparin drip, cefepime, vancomycin. PLAN ADJUSTMENTS TODAY: * Convert enteric-coated aspirin to regular aspirin * Continue heparin drip now * Discontinue heparin in 48 hours, then start Aspirin + Plavix * Held/discontinued Zofran * Held/discontinued Atorvastatin (Lipitor) * Ordered repeat chest X-ray * Continue antibiotics * Continue vasopressor support 08/11/25 * Hemodynamically fluctuating on norepinephrine. * On AC/VC mechanical ventilation; gases show mild metabolic alkalosis. * Oxygenation improved (PO2 88). * No fever overnight. * Chronic thrombocytopenia trending downward but stable. * Hemoglobin down to 7.3; monitor closely, consider transfusion if symptomatic or <7.0. * WILLIAN slightly worsened (Cr 1.37). * CXR unchanged. * Started statin therapy and sedation vacation protocol. * No arrhythmias other than AFib with controlled rate. 08/12/25 Patient remains critically ill but hemodynamically unstable on low-dose norepinephrine. Ventilation stable. Labs show mild anemia worsening (Hgb 7.5), stable chronic thrombocytopenia (80K), slight rise in creatinine. Cultures negative except respiratory culture with E. coli sensitive to cefepime. Heparin drip discontinued; switched to prophylactic Lovenox. Code status updated to DNR. KUB ordered for constipation; tube feeds tolerated. Continuing all supportive care. Heparin drip discontinued today Started Lovenox 40 mg subcutaneous daily (prophylactic) Continue Aspirin. NOT starting Eliquis / therapeutic Lovenox due to: * Hgb drop (8.2 to 7.5) * Platelets 80K * High bleeding risk. NOT starting Plavix due to high bleeding risk Code status changed from FULL CODE to DNR per family. Continue cefepime (E. coli sensitive), discontinue vancomycin if MRSA PCR negative (as already done) K repleted; Mg repleted Continue sedation and vasopressor support Begin bowel regimen if KUB non-obstructive 08/13/25: Patient is seen and examined at bedside, x-ray KUB shows, Moderate to large volume stool within the colon. Bibasilar pulmonary airspace opacities and pleural effusions. We will begin bowel regimen. Ordered lower extremity Doppler to rule out DVT, start Lovenox 30 mg subQ. 08/14/25 Patient is off pressors, tolerating CPAP/TSV SBT, clear lungs, stable oxygenation, and strong respiratory effort. Preparing for extubation today. However, she has worsening anemia (Hgb 6.7) transfusing 1 PRBC. WILLIAN slightly worse. Holding all therapeutic anticoagulation (Eliquis, Lovenox). Continue aspirin. Starting Miralax for constipation. Cultures negative except respiratory culture showing E. coli + Staph aureus continuing cefepime + vancomycin. 08/15/25 The patient is an 85-year-old critically ill female with a history of cardiac arrest with ROSC, STEMI-equivalent NH, acute hypoxic respiratory failure, severe pulmonary hypertension, HFpEF, aspiration pneumonia, septic shock (improving), WILLIAN, chronic anemia, and chronic thrombocytopenia. She was successfully extubated yesterday, currently on BiPAP but develops tachypnea (RR 40), tachycardia (110), and desaturation to 88% when weaning off BiPAP. Symptoms improved when placed back on BiPAP (RR to 20, SpO2 to 100).CXR showed persistent bilateral pleural effusions, so a right-sided ultrasound- guided thoracentesis was performed with 1.3 L fluid removed. 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 Antibiotics: discontinue; vancomycin planned to discontinue . Considering de- escalation to ceftriaxone Current drips (fentanyl, versed, precedex, norepinephrine) all discontinued. Aspirin currently on hold due to anemia and thrombocytopenia. * Starting Lasix drip 5 mg/h after IV bolus 40 mg. 08/16/25 Today she is off BiPAP and maintaining adequate oxygenation on 4 L nasal cannula, with saturations 63550%. No increased work of breathing noted. Hemodynamically soft but stable. Chest x-ray unchanged with small left pleural effusion and vascular congestion. \Awake, interactive, sitting upright. Stool output absent today; bowel sounds active. She is tolerating mechanical soft diet. Lasix drip discontinued; transitioned to Lasix 40 mg IV BID.?On Ceftriaxone monotherapy, tolerating well. downgrade to telemetry given respiratory stability. * CXR stable. * Hemoglobin improving (7.2) without transfusion. * Platelets up to 108K. 08/17/25 Patient evaluated at bedside today. She is awake, alert, intermittently fatigued, able to answer simple questions, remains in AFib with HR [id number], BP stable with MAP > 70 throughout the morning. Oxygenation stable on 4 L nasal cannula FiO2 ~3642% with SpO2 9699%. She had six bowel movements today on bowel regimen and soft diet, no abdominal pain. Reports mild generalized weakness. No chest pain, dyspnea improved. Labs: Hemoglobin improved from 7.2 - 7.6, WBC 5.9, platelets 152 (normalized). Persistent WILLIAN on CKD: Cr 1.78 (?), BUN 53. Sodium normal at 144. Potassium 3.2 low, repleted today with 40 mEq KCl and magnesium. * Discontinued right IJ central venous catheter. * Reinforced PT/OT, patient stood briefly with assistance. * Case management consulted; family requests group home / assisted care facility for discharge planning. * No change in antibiotics 08/18/25 Patient evaluated at bedside today. She is awake, alert, following commands, conversational with fatigue. On 8L Oximizer with increased o2 REQUIREMNT FROM 4L NC NOW ON SpO2 9698%. Hemodynamics stable. No active chest pain or increased dyspnea. Renal function worsened today: BUN/Cr increased from 53/1.78 to 55/1.85 despite prior diuresis. Urine output over past 24 hours 1050 ml, intake 1080 ml (near even balance). Decision made for volume-based renal optimization. Interventions & Management changes today: * Furosemide discontinued due to worsening renal indices. * Bumetanide drip (Bumex) initiated for improved diuretic efficiency in CKD. * Albumin 25% IV Q15H 3 doses started to improve intravascular volume and diuretic responsiveness. * Free water discontinued to avoid hyponatremia and further renal stress. * Nephrology consult placed today. * Ordered renal US, PTH, Urine sodium, Urine creatinine, Urine protein/Cr ratio for WILLIAN evaluation. * PT working with patient patient able to sit edge of bed with assistance. * Hgb improved to 8.2 g/dL ( from 7.6). No transfusion indicated today. Plan today: Continue bumetanide drip with albumin dosing, monitor renal response hourly UO, trend BMP Q12h, avoid nephrotoxins, continue ceftriaxone, maintain soft PO diet and electrolytes optimization. 08/19/25: Patient seen and examined at bedside, overnight events reviewed, PT eval requested and patient is working with PT. 08/20/25: Patient seen and examined at bedside, overnight events reviewed, discussed with the family, patient will go to facility for hospice. 08/21/2025: Patient seen at bedside. She states she feels well, denies any dizziness, chest pain, palpitations, cough, fever, and other symptoms. States she only has occasional chest pain during CPT. Labs are significant for decreasing WBCs, potassium 2.9, renal function is stable. Saturating adequately on oxymizer at 6L. Per nephrology, she continues on Bumex and Metalozone. Chest Xray shows persistence of bilateral pleural effusions, greater on the left than the right. Bedside ultrasound shows presence of at the 500 cc of fluid, per the patient, she would like to wait on any further pleuracentesis. We will continue to monitor. 08/22/25 Patient evaluated at bedside today. Awake, fatigued, cooperative, responding appropriately. Shortness of breath increased overnight requiring escalation from 5L NC to 8L Oxymizer to maintain SpO2 9395%. No acute chest pain. Mild dyspnea on conversation. Renal indices improving but remain significantly abnormal (BUN/Cr 57/1.30 improving, GFR 41). Urine output preserved (0.92 mL/kg/hr). Hemoglobin improved to 9.2 g/dL, no bleeding. WBC 4.0, stable but low. CXR unchanged persistent pulmonary edema + bilateral pleural effusions (L>R). Ordered left-sided ultrasound-guided thoracentesis, tolerating well. Potassium critically low at 3.1, replaced with 60 mEq IV KCl rider. Family actively discussing hospice. Goals of care conversation ongoing. 08/23/25 Patient examined at bedside. Awake, fatigued but responsive and following commands. Breathing comfortably at rest but requires 8L Oxymizer FiO2 64% with SpO2 9296%. ABG demonstrates metabolic alkalosis with inadequate respiratory compensation O2 saturation on ABG 90.9% indicating persistent V/Q mismatch with possible underlying fluid overload + lung parenchymal impairment. Renal function improving BUN/Cr 55/1.24, GFR 43 (up from prior), but persistent metabolic alkalosis prompted Acetazolamide 500 mg once to enhance bicarbonate excretion. Electrolytes: K 2.5 (critical) replenished IV 60 mEq, Mg repleted. Hgb 9.5, stable. Plts 121, low but improving. Underwent Ultrasound-guided paracentesis scheduled. Antibiotic therapy expanded to cover respiratory kaylee Ceftriaxone continued + Doxycycline 100 mg IV q12h initiated.?Bumex drip + Metolazone discontinued transitioned to Bumetanide 1 mg IV BID for gentler diuresis given contraction alkalosis. Aspirin restarted as hemoglobin stable and stool occult negative. Disposition: Not yet stable for hospice transfer due to oxygen requirement + alkalosis + AFib HR variability. Transfer when oxygen <4L and acid-base stabilizes. Objective vital signs Vital Sign Date Time Temp Pulse Resp B/P (MAP) Pulse Ox O2 Delivery O2 Flow Rate FiO2 08/23/25 14:49 110/63 08/23/25 12:51 97.0 93 18 96 97.0 08/23/25 08:00 Oxymizer 8 N/A Total Intake and Output 08/22/25 08/22/25 08/23/25 15:00 23:00 07:00 Intake Total 425 ml 100 ml Output Total 400 ml 1400 ml Balance 25 ml -1300 ml medications Current Medications Medications Dose Ordered Sig/Justina Route Start Time Stop Time Status Last Admin Dose Admin Acetaminophen 325 mg Q4HP PRN PO 08/09/25 17:15 08/23/25 11:23 325 MG Diagnostic Test (Pha) 1 strip Q6HR 08/10/25 06:00 08/23/25 12:00 1 STRIP Insulin Human Regular Q6HR SC 08/10/25 06:00 08/23/25 11:27 4 UNITS Dextrose 50 ml UD PRN IV 08/10/25 02:30 Atorvastatin Calcium 80 mg HS GT 08/11/25 22:00 08/22/25 21:08 80 MG Sennosides 8.6 mg HS PO 08/12/25 22:00 08/22/25 21:08 8.6 MG Docusate Sodium 100 mg BID GT 08/13/25 10:00 08/23/25 08:42 100 MG Polyethylene Glycol 17 gm DAILYPRN PRN GT 08/14/25 14:30 Iron Sucrose 110 ml @ 110 mls/hr DAILY@1200 IV 08/15/25 12:00 08/19/25 11:59 Cancel Iron Sucrose 110 ml @ 110 mls/hr DAILY@1200 IV 08/15/25 12:00 08/19/25 11:59 Cancel Ceftriaxone Sodium 50 ml @ 100 mls/hr DAILY@09 IV 08/16/25 09:00 08/23/25 08:42 100 MLS/HR Enteral Nutritional Formula 28.8 gm BIDWM PO 08/16/25 18:00 08/23/25 08:42 28.8 GM Metoprolol Tartrate 25 mg BID PO 08/17/25 22:00 08/23/25 08:43 25 MG Potassium Chloride 100 ml @ 50 mls/hr Q2H IV 08/23/25 11:00 08/23/25 16:59 Albuterol 2.5 mg Q6HWA PRN NEB 08/23/25 10:15 Ipratropium [place] 0.5 mg Q6HWA PRN NEB 08/23/25 10:15 Pantoprazole Sodium 40 mg DAILY@0600 PO 08/24/25 06:00 Bumetanide 1 mg BIDD IV 08/23/25 18:00 Doxycycline Hyclate 100 ml @ 50 mls/hr Q12H IV 08/23/25 13:15 Examination General: The patient alert and oriented in person place and time. Patient following commands HEENT: Normocephalic, atraumatic, normal reactive pupils, EOM intact, pink conjunctiva, pink moist mucous membrane, Oxymizer in place delivering 8 L Respiratory/pulmonary: Bilateral chest expansion, no pain on palpation of chest wall, decreased breath sounds towards bilateral bases with crackles Cardiovascular: Normal RRR, normal S1 and S2, no murmurs Abdomen: Obese, Abdomen nondistended, normal bowel sounds, soft, there is no pain to palpation in any of the abdominal quadrants, no palpable masses. Extremities: No deformities, there is no peripheral edema present at the lower extremities, pulses are present Skin: Bruising is noted along left forearm Neurological: Intact cranial nerves with no focal neurologic deficits laboratory and microbiology Laboratory Tests 08/23/25 11:19 08/23/25 06:04 Test 08/23/25 06:04 Range/Units Serum Glucose 150 H 74-106 mg/dL Microbiology Date/Time Source Procedure Growth Status 08/09/25 23:10 Urine - Scherer Port Urine Culture - Final Complete 08/09/25 22:59 Nose MRSA Screen - Final Complete 08/09/25 16:40 Blood Blood Culture - Final NO GROWTH AFTER 5 DAYS OF INCUBATION. Complete 08/09/25 15:40 Sputum Gram Stain - Final Complete 08/09/25 15:40 Respiratory Culture - Final Escherichia coli Staphylococcus aureus Complete Problem List/Assessment/Plan Problem List/Assessment/Plan IX. [id number] PLAN NEUROLOGY Metabolic Encephalopathy Post-arrest + sepsis + hypoxia. neurological arrest ruled out (CT head negative) Reflexes present * Awake, alert * No sedation required * Neurochecks Q4H * CT head negative for acute abnormalities. * Continue PT/OT to bedside daily CARDIOVASCULAR . Cardiac Arrest with ROSC Due to hypoxic respiratory failure + STEMI-equivalent. * Downtime ~2 minutes; ROSC after 1 Epi, 1 CPR cycle. Atrial fibrillation rate controlled On Metoprolol Tartarate 25 Mg PO BID * HR [id number] today * High stroke risk (FRANKLIN?DS?-VASc = 7). * Anticoagulation withheld due to anemia and prior thrombocytopenia. STEMI Due to multi-vessel CAD (LAD 99%, LM 60%, LCx 90%).High procedural mortality , conservative management per cardiology LBBB, global ischemia, coronary angiography findings Acute on Chronic Diastolic CHF (HFpEF, EF 65%) Volume overload + pulmonary edema on imaging. Severe Pulmonary Hypertension (RVSP 61 mmHg) From chronic HF + hypoxic vasoconstriction. * Hemodynamically stable off pressors * Restart Aspirin 81mg daily * Hold anticoagulation (Eliquis / Lovenox) * Continue atorvastatin * Strict MAP monitoring * EKG for QT interval * No Plavix due to bleeding risk * No KEVIN inhibitors due to WILLIAN * Cardiology following * Conservative management of multi-vessel CAD per cardiology. * Continuous telemetry for AFib; starting metoprolol tartarate 25 mg BID Hypertension Chronic comorbidity Dyslipidemia Chronic comorbidity Continue Atorvasatin RESPIRATORY MECHANICAL VENTILATION Acute on chronic hypoxic respiratory failure post-extubation, improving Aspiration Pneumonia, Multifocal bacterial (E. coli + MSSA) improving Bilateral pleural effusions large right, moderate left Thoracentesis improved symptoms. Right drained 1.3 L. *pneumonia on CXR, lactate normalized from 6.2 - 1.7 - 1.2 improved * On 8 L Oximizer * Wean as tolerated * Thoracentesis Ordered * Start: * Incentive spirometry * Chest physiotherapy * Daily CXR * Bronchodilators PRN * Maintain saturation >94% * Suction PRN RENAL WILLIAN Stage 2 due to VMN Improving Likely hemodynamic ischemic ATN. . Hyperphosphatemia Hypokalemia improving replenished Electrolyte derangements. Hypernatremia * Nephrology following * Monitor UOP hourly * Electrolyte replacement protocol * Transitioned to Bumex 1mg IV BID * STOP Metolazone & Bumex drip * Acetazolamide once for metabolic alkalosis * Avoid nephrotoxins * Consider renal ultrasound if persistent oliguria * Monitor UOP q1h; goal >0.5 mL/kg/hr. * Correct electrolytes: K >4, Mg >2. INFECTIOUS DISEASE Septic Shock From aspiration pneumonia: initially lactate 6.2 THEN improved to 1.7 - 1.2 .Still requiring vasopressors. Aspiration Pneumonia, Multifocal CXR findings consistent.. * Repeat blood cultures if febrile, urine culture ordered and are negative. * MRSA negative, initial blood cultures are negative * Respiratory culture/gram stain Few Gram Positive Rods Few Gram Positive Cocci in chains Rare Gram Negative Rods Positive for Stap aures ECOLI, * Discontinue vancomycin (MSSA, no MRSA) * STOP cefepime to reduce nephrotoxicity risk in WILLIAN (acceptable to stop) * Start: * Ceftriaxone 12 g IV daily + Doxycycline 100 mg IV q12h GI Transaminitis Likely shock liver vs congestive hepatopathy. * Start mechanical soft diet * Continue bowel regimen: * Senna * Docusate * Miralax * If no BM by tomorrow add bisacodyl PRN * GI prophylaxis: IV pantoprazole. * Continue Scherer for accurate I/O * Monitor for hematuria * Scherer catheter in place for accurate UOP. 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 * Anemia : transfuse if <7 or hemodynamically unstable. * DVT prophylaxis: SCD ENDOCRINE T2DM with Stress Hyperglycemia * Sliding scale insulin q4h * Goal BG [id number] * Resume home diabetic meds after stabilization. PSYCHIATRY * Sedated; no psychiatric meds needed NUTRITION Malnutrition risk low albumin * Mechanical soft diet * Advance as tolerated PROPHYLAXIS * DVT: SCD * GI: Pantoprazole * Pressure ulcers: q2h turns LINES, TUBES, DRIPS * Right IJ triple-lumen (08/09) - Removed * ET tube placed 08/09 Removed * NG tube removed * Scherer * Drips: discontinued PHYSICAL THERAPY * Out of bed to chair and then walk today * PT/OT evaluation for mobility improvement SOCIAL WORK * Family meeting- reviewed labs and plan of care * Code status changed to DNR today per family request * Continue [id number] discussion * Hospice transfer planned once stable on < 4L O2 X. CRITICAL CARE TIME Critical care time: 53 minutes (exclusive of procedures).High-complexity medical decision-making due to multiorgan failure, vasopressor dependence, mechanical ventilation, post-cardiac arrest care, evolving STEMI, and septic shock. XI. CODE STATUS DNR Discussed with family >20 minutes.Family understands severity of illness and poor prognosis of illness FINAL STATEMENT Case discussed in detail with the attending physician , including the clinical presentation, diagnostic workup, and comprehensive management plan. The patient was present for the discussion and demonstrated understanding of her condition and the proposed plan. Plan discussed with: Patient, Spouse, Other (NIECE, RN) My Orders My Orders Orders - BRENDAN LEMOS RESIDENT Procedure Category Date Status Time * Radiologist Consult CONS 08/22/25 Transmitted 17:16 Obtain Consent For: ORDERS 08/22/25 Transmitted 17:16 Potassium Chl PHA 08/23/25 In Process 20meq/100ml 11:00 Albuterol Medneb PHA 08/23/25 In Process (Ventolin Medneb) 10:15 Ipratropium Medneb PHA 08/23/25 In Process (Atrovent Medneb) 10:15 Chest Percussion Tx RT 08/23/25 Logged SUB 10:26 Thoracentesis US 08/24/25 Taken 08:00 Dietary Evaluation Review Comments: Nutrition Recommendation: 1) EN Vital High Protein @ 45ml/hr x 24hr (goal). Water flush 50ml Q6H if allowed, adjust PRN. TF at goal volume provides 1080 kcal (100%), 95 gm protein (100%), and 76857 ml free water(including flush). 2) TPN if NPO >7 days 3) Monitor NPO status, lab values, weight trend, and I/O Expected Outcomes/Goals: Intake to meet >75% estimated needs Lab values to improve FU 2-3 days Visit Coding STANDARD RES Billing Provider: DAVID SANDRA MD Date of Service if different f: Aug 23, 2025 Common Visit Codes: [id number] CARE 30-74 MIN BRENDAN LEMOS RESIDENT Aug 23, 2025 15:49 DAVID SANDRA MD Aug 24, 2025 16:18
[2025-08-23] MEDS: BUMETANIDE 1mg/4ml VIAL (0.25mg/ml) IV SCH (17:04)
[2025-08-23] MEDS: DOXYCYCLINE 100MG/100ML 100 ML IV SCH (17:04)
[2025-08-23] MEDS: ASPirin-EC 81 mg tab PO ONE (17:16)
--- NOTE | 2025-08-23 21:07 | DVHPN2 ---
Progress Note - Dictate Date Seen: Aug 23, 2025 Has the PT tested + for MRSA If YES, has PT been informed?: No Medical Necessity Reason Pt with a Central, PICC or Fol: Yes The following are medically ne: Scherer Catheter Subjective Patient was seen and evaluated in follow up. Patient is on 8 L Oxymizer. Family is at bedside. Hospice planning is in progress. HGB 9.5, HCT 26.7, K 2.5, CL 92, CO2 >40, BUN 55, LUMBER KILN OPERATOR 1.24, GLUC 220. Chest US showed there is a moderate right and small left pleural effusion pleural effusion. Per IR, there is not enough fluid to drain for left sided thoracentesis. Telemetry reviewed. vital signs Vital Sign Date Time Temp Pulse Resp B/P (MAP) Pulse Ox O2 Delivery O2 Flow Rate FiO2 08/23/25 12:51 97.0 93 18 110/63 (79) 96 97.0 08/23/25 08:00 Oxymizer 8 N/A Total Intake and Output 08/22/25 08/22/25 08/23/25 15:00 23:00 07:00 Intake Total 425 ml 100 ml Output Total 400 ml 1400 ml Balance 25 ml -1300 ml medications Current Medications Medications Dose Ordered Sig/Justina Route Start Time Stop Time Status Last Admin Dose Admin Acetaminophen 325 mg Q4HP PRN PO 08/09/25 17:15 08/23/25 11:23 325 MG Diagnostic Test (Pha) 1 strip Q6HR 08/10/25 06:00 08/23/25 12:00 1 STRIP Insulin Human Regular Q6HR SC 08/10/25 06:00 08/23/25 11:27 4 UNITS Dextrose 50 ml UD PRN IV 08/10/25 02:30 Atorvastatin Calcium 80 mg HS GT 08/11/25 22:00 08/22/25 21:08 80 MG Sennosides 8.6 mg HS PO 08/12/25 22:00 08/22/25 21:08 8.6 MG Docusate Sodium 100 mg BID GT 08/13/25 10:00 08/23/25 08:42 100 MG Polyethylene Glycol 17 gm DAILYPRN PRN GT 08/14/25 14:30 Iron Sucrose 110 ml @ 110 mls/hr DAILY@1200 IV 08/15/25 12:00 08/19/25 11:59 Cancel Iron Sucrose 110 ml @ 110 mls/hr DAILY@1200 IV 08/15/25 12:00 08/19/25 11:59 Cancel Ceftriaxone Sodium 50 ml @ 100 mls/hr DAILY@09 IV 08/16/25 09:00 08/23/25 08:42 100 MLS/HR Enteral Nutritional Formula 28.8 gm BIDWM PO 08/16/25 18:00 08/23/25 08:42 28.8 GM Metoprolol Tartrate 25 mg BID PO 08/17/25 22:00 08/23/25 08:43 25 MG Potassium Chloride 100 ml @ 50 mls/hr Q2H IV 08/23/25 11:00 08/23/25 16:59 Albuterol 2.5 mg Q6HWA PRN NEB 08/23/25 10:15 Ipratropium [place] 0.5 mg Q6HWA PRN NEB 08/23/25 10:15 Pantoprazole Sodium 40 mg DAILY@0600 PO 08/24/25 06:00 Bumetanide 1 mg BIDD IV 08/23/25 18:00 Doxycycline Hyclate 100 ml @ 50 mls/hr Q12H IV 08/23/25 13:15 objective GENERAL: Alert and oriented x 3. Ill appearing. EYES: PERRL, EOMI. Anicteric. HENT: Moist mucous membranes. LUNGS: Decreased breath sounds. CARDIOVASCULAR: Regular rate and rhythm. ABDOMEN: Soft, nontender and nondistended. EXTREMITIES: No edema. SKIN: Warm, dry. laboratory and microbiology Laboratory Tests 08/23/25 11:19 08/23/25 06:04 Test 08/23/25 06:04 Range/Units Serum Glucose 150 H 74-106 mg/dL Problem List Cardiac arrest with successful ROSC. Metabolic encephalopathy. STEMI (ST elevation myocardial infarction). Assessment/Plan Continued all current supportive medical care. Lipitor, Metoprolol. Diuretics with Bumex. IV antibiotics as ordered. GI prophylactics. Additional plan as per the hospital course. Dietary Evaluation Review Comments: Nutrition Recommendation: 1) EN Vital High Protein @ 45ml/hr x 24hr (goal). Water flush 50ml Q6H if allowed, adjust PRN. TF at goal volume provides 1080 kcal (100%), 95 gm protein (100%), and 27167 ml free water(including flush). 2) TPN if NPO >7 days 3) Monitor NPO status, lab values, weight trend, and I/O Expected Outcomes/Goals: Intake to meet >75% estimated needs Lab values to improve FU 2-3 days Plan discussed with: Patient PATRICIA GROVES MD Aug 23, 2025 13:57
[2025-08-24] VITALS (9 sets, daily range): BP systolic 107–134; BP diastolic 61–70; PULSE 77–103; RESP 14–20; TEMP 97.3–97.8; O2SAT 94–98
[2025-08-24] MEDS: PANTOPRAZOLE 40 MG TAB PO SCH (05:36)
[2025-08-24] MEDS: DOXYCYCLINE 100MG/100ML 100 ML IV SCH (05:37)
[2025-08-24 07:00] LABS: Hematocrit 27.1 % (36.0-46.0); Hemoglobin 9.4 g/dL (12.2-16.2); Mean Corpuscular Hemoglobin 32.9 pg (28.0-32.0); Mean Corpuscular Volume 94.9 fL (80.0-100.0)
[2025-08-24 07:16] LABS: Calcium 9.8 mg/dL (8.7-10.4); Sodium 140 mmol/L (136-145)
[2025-08-24 07:22] LABS: BUN/Creatinine Ratio 24.4 (10.0-20.0)
[2025-08-24 07:29] LABS: Anion Gap 10.99999 (5-15); Blood Urea Nitrogen 32 mg/dL (9-23); Carbon Dioxide > 40 mmol/L (20-31); Chloride 89 mmol/L (98-107); Glucose 131 mg/dL (74-106); Magnesium 1.5 mg/dL (1.6-2.6); Potassium 2.7 mmol/L (3.5-5.1)
[2025-08-24] MEDS: ASPirin-EC 81 mg tab PO SCH (09:33)
[2025-08-24 09:55] LABS: Anisocytosis Slight; Total Cells Counted 100.0 (100)
[2025-08-24] MEDS: MAGNESIUM SULFATE 1GM/100ML 100 ML IV SCH (10:30)
[2025-08-24] MEDS: POTASSIUM CHLORIDE 60 MEQ, LIDOCAINE 1% (LOCAL ANESTH.) 6 ML in SODIUM CHL 0.9% 500 ML IV ONE (11:26)
--- NOTE | 2025-08-24 14:06 | DVH ---
CHEST RADIOGRAPH INDICATION: S/P THORACENTESIS TECHNIQUE: Single frontal view of the chest was obtained COMPARISON: XY CHEST XRAY 1 VIEW on DOS: 08/21/25, XY CHEST XRAY 1 VIEW on DOS: 08/19/25, XY CHEST XRAY 1 VIEW on DOS: 08/18/25 FINDINGS: Lines and Tubes: None Lungs: Improving bilateral airspace disease with resolving bilateral pleural effusions Pleura: Resolving bilateral pleural effusions No pneumothorax. Cardiomediastinal contours: Unremarkable Bones: No acute osseous abnormality. IMPRESSION: 1. IMPROVING airspace disease and resolving pleural effusions.
--- NOTE | 2025-08-24 15:01 | DVH ---
US THORACENTESIS, HISTORY: PLEURAL EFFUSION PROCEDURE: Informed consent was obtained. The patient was decubitus on the bed. A limited localization ultrasound of the right thorax was obtained, and the optimal approach was marked on the skin. The area was prepped with chlorhexidine which was allowed to dry and draped in the usual sterile fashion. Time out was performed. The skin and the soft tissues were infiltrated with 1% lidocaine. A 5.5 [place] centesis needle catheter was advanced into right pleural space. Following aspiration of fluid, the catheter was advanced and the needle removed. About 1000 cc of fluid was drained. Specimen/s was/were sent for appropriate cultures/cytology/cultures and cytology. No immediate complication was identifi ed. FINDINGS: Moderate right pleural effusion. Aspirated fluid is oxana and serous. IMPRESSION: Right thoracentesis with 1L removed.
--- NOTE | 2025-08-24 15:16 | DVH ---
XY CHEST PORTABLE, HISTORY: S/P THORACENTESIS COMPARISON: XY CHEST PORTABLE on DOS: 08/24/25, US CHEST ULTRASOUND on DOS: 08/23/25, XY CHEST XRAY 1 VIEW on DOS: 08/21/25 XY CHEST PORTABLE on DOS: 08/24/25, US CHEST ULTRASOUND on DOS: 08/23/25, XY CHEST XRAY 1 VIEW on DOS: 08/21/25 TECHNICAL DATA: 1 view of the chest was obtained. FINDINGS: Lines and tubes: None Cardiomediastinal silhouette: Enlarged Pulmonary vasculature: Prominent Lung expansion: Low Lung airspace: Patchy bibasilar opacities. Lung interstitium: Prominent Pleura: Small bilateral effusions. Pneumothorax: no Bones: Unremarkable Other: no IMPRESSION: Similar lung aeration. No obvious pneumothorax seen.
--- NOTE | 2025-08-24 18:09 | DVHPNRES ---
Progress Note Date Seen: Aug 24, 2025 Resident Creating Document: BRENDAN LEMOS RESIDENT Has the PT tested + for MRSA If YES, has PT been informed?: No Medical Necessity Reason Pt with a Central, PICC or Fol: Yes The following are medically ne: Scherer Catheter Subjective Review of Systems The patient is an 85-year-old female who presented to the ED with class IV dyspnea, chest pain, and right arm weakness, followed by agonal breathing, rapid desaturation into the 70s on NRB, and progression to cardiac arrest. ROSC achieved after ~2 min downtime, 1 round of CPR, 1 dose epinephrine, and endotracheal intubation. EKG showed new left bundle branch block. atrial fibrillation with global ischemia. Cardiology diagnosed ST-segmentelevation FL equivalent and took patient for emergent LHC, which revealed: * 99% LAD stenosis * 60% left main stenosis * 90% circumflex stenosis * Unable to cross chronic total occlusion due to high procedural mortality and conservative medical management recommended. The patient developed acute hypoxic respiratory failure, aspiration pneumonia, and septic shock requiring vasopressors. She was admitted to ICU on mechanical ventilation, norepinephrine, broad-spectrum antibiotics, heparin drip, and supportive care. PAST MEDICAL HISTORY * Hypertension * Type 2 diabetes mellitus * Dyslipidemia * HFpEF (EF 65%) * Paroxysmal atrial fibrillation on apixaban * Pulmonary hypertension (RVSP 61 mmHg) * Basal cell carcinoma * Atypical left hip sarcoma (surgically treated) * Recent COVID-19 * Chronic thrombocytopenia IV. PAST SURGICAL HISTORY * Hysterectomy * Appendectomy * Cholecystectomy * Basal cell carcinoma excision * Left hip sarcoma excision (2019) V. SOCIAL HISTORY * Lives with * No smoking, alcohol, or illicit substances Review of Systems: Constitutional: Denies weight loss, fever and chills. HEENT: Denies changes in vision and hearing. Respiratory: Refers occasional shortness of breath when being moved Cardiovascular: Refers chest pain during CPT, denies any other chest pain GI: Denies abdominal distention, abdominal pain, diarrhea : Denies dysuria and urinary frequency. Musculoskeletal: Denies symptoms Skin: Denies rash and pruritus. Neurological: denies dizziness headache vision or hearing problems 08/10/25 The patient is an 85-year-old female who presented to the ED with class IV dyspnea, chest pain, and right arm weakness, followed by agonal breathing, rapid desaturation into the 70s on NRB, and progression to cardiac arrest. ROSC achieved after ~2 min downtime, 1 round of CPR, 1 dose epinephrine, and endotracheal intubation. EKG showed new left bundle branch block. atrial fibrillation with global ischemia. Cardiology diagnosed ST-segmentelevation FL equivalent and took patient for emergent LHC, which revealed: * 99% LAD stenosis * 60% left main stenosis * 90% circumflex stenosis * Unable to cross chronic total occlusion due to high procedural mortality and conservative medical management recommended. The patient developed acute hypoxic respiratory failure, aspiration pneumonia, and septic shock requiring vasopressors. She was admitted to ICU on mechanical ventilation, norepinephrine, broad-spectrum antibiotics, heparin drip, and supportive care. * Still requiring norepinephrine Temperature: Tmax 100.9 ongoing infection concern. Renal: UOP remains 0.32 mL/kg/hr, creatinine improved to 1.25 (from 1.6). Troponin: 496 ( from 115), consistent with evolving FL. Platelets: 92K (chronic baseline, trending up from 78K yesterday). CXR: Cardiomegaly, pulmonary vascular congestion, multifocal pneumonia, bilateral effusions. Labs: K 3.2 repleted; Phos 5.6; BUN 32; Hgb 8.1; AST/ALT down-trending. Medications: Norepinephrine, midazolam, fentanyl, heparin drip, cefepime, vancomycin. PLAN ADJUSTMENTS TODAY: * Convert enteric-coated aspirin to regular aspirin * Continue heparin drip now * Discontinue heparin in 48 hours, then start Aspirin + Plavix * Held/discontinued Zofran * Held/discontinued Atorvastatin (Lipitor) * Ordered repeat chest X-ray * Continue antibiotics * Continue vasopressor support 08/11/25 * Hemodynamically fluctuating on norepinephrine. * On AC/VC mechanical ventilation; gases show mild metabolic alkalosis. * Oxygenation improved (PO2 88). * No fever overnight. * Chronic thrombocytopenia trending downward but stable. * Hemoglobin down to 7.3; monitor closely, consider transfusion if symptomatic or <7.0. * WILLIAN slightly worsened (Cr 1.37). * CXR unchanged. * Started statin therapy and sedation vacation protocol. * No arrhythmias other than AFib with controlled rate. 08/12/25 Patient remains critically ill but hemodynamically unstable on low-dose norepinephrine. Ventilation stable. Labs show mild anemia worsening (Hgb 7.5), stable chronic thrombocytopenia (80K), slight rise in creatinine. Cultures negative except respiratory culture with E. coli sensitive to cefepime. Heparin drip discontinued; switched to prophylactic Lovenox. Code status updated to DNR. KUB ordered for constipation; tube feeds tolerated. Continuing all supportive care. Heparin drip discontinued today Started Lovenox 40 mg subcutaneous daily (prophylactic) Continue Aspirin. NOT starting Eliquis / therapeutic Lovenox due to: * Hgb drop (8.2 to 7.5) * Platelets 80K * High bleeding risk. NOT starting Plavix due to high bleeding risk Code status changed from FULL CODE to DNR per family. Continue cefepime (E. coli sensitive), discontinue vancomycin if MRSA PCR negative (as already done) K repleted; Mg repleted Continue sedation and vasopressor support Begin bowel regimen if KUB non-obstructive 08/13/25: Patient is seen and examined at bedside, x-ray KUB shows, Moderate to large volume stool within the colon. Bibasilar pulmonary airspace opacities and pleural effusions. We will begin bowel regimen. Ordered lower extremity Doppler to rule out DVT, start Lovenox 30 mg subQ. 08/14/25 Patient is off pressors, tolerating CPAP/TSV SBT, clear lungs, stable oxygenation, and strong respiratory effort. Preparing for extubation today. However, she has worsening anemia (Hgb 6.7) transfusing 1 PRBC. WILLIAN slightly worse. Holding all therapeutic anticoagulation (Eliquis, Lovenox). Continue aspirin. Starting Miralax for constipation. Cultures negative except respiratory culture showing E. coli + Staph aureus continuing cefepime + vancomycin. 08/15/25 The patient is an 85-year-old critically ill female with a history of cardiac arrest with ROSC, STEMI-equivalent FL, acute hypoxic respiratory failure, severe pulmonary hypertension, HFpEF, aspiration pneumonia, septic shock (improving), WILLIAN, chronic anemia, and chronic thrombocytopenia. She was successfully extubated yesterday, currently on BiPAP but develops tachypnea (RR 40), tachycardia (110), and desaturation to 88% when weaning off BiPAP. Symptoms improved when placed back on BiPAP (RR to 20, SpO2 to 100).CXR showed persistent bilateral pleural effusions, so a right-sided ultrasound- guided thoracentesis was performed with 1.3 L fluid removed. 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 Antibiotics: discontinue; vancomycin planned to discontinue . Considering de- escalation to ceftriaxone Current drips (fentanyl, versed, precedex, norepinephrine) all discontinued. Aspirin currently on hold due to anemia and thrombocytopenia. * Starting Lasix drip 5 mg/h after IV bolus 40 mg. 08/16/25 Today she is off BiPAP and maintaining adequate oxygenation on 4 L nasal cannula, with saturations 90978%. No increased work of breathing noted. Hemodynamically soft but stable. Chest x-ray unchanged with small left pleural effusion and vascular congestion. \Awake, interactive, sitting upright. Stool output absent today; bowel sounds active. She is tolerating mechanical soft diet. Lasix drip discontinued; transitioned to Lasix 40 mg IV BID.?On Ceftriaxone monotherapy, tolerating well. downgrade to telemetry given respiratory stability. * CXR stable. * Hemoglobin improving (7.2) without transfusion. * Platelets up to 108K. 08/17/25 Patient evaluated at bedside today. She is awake, alert, intermittently fatigued, able to answer simple questions, remains in AFib with HR [id number], BP stable with MAP > 70 throughout the morning. Oxygenation stable on 4 L nasal cannula FiO2 ~3642% with SpO2 9699%. She had six bowel movements today on bowel regimen and soft diet, no abdominal pain. Reports mild generalized weakness. No chest pain, dyspnea improved. Labs: Hemoglobin improved from 7.2 - 7.6, WBC 5.9, platelets 152 (normalized). Persistent WILLIAN on CKD: Cr 1.78 (?), BUN 53. Sodium normal at 144. Potassium 3.2 low, repleted today with 40 mEq KCl and magnesium. * Discontinued right IJ central venous catheter. * Reinforced PT/OT, patient stood briefly with assistance. * Case management consulted; family requests fci / assisted care facility for discharge planning. * No change in antibiotics 08/18/25 Patient evaluated at bedside today. She is awake, alert, following commands, conversational with fatigue. On 8L Oximizer with increased o2 REQUIREMNT FROM 4L NC NOW ON SpO2 9698%. Hemodynamics stable. No active chest pain or increased dyspnea. Renal function worsened today: BUN/Cr increased from 53/1.78 to 55/1.85 despite prior diuresis. Urine output over past 24 hours 1050 ml, intake 1080 ml (near even balance). Decision made for volume-based renal optimization. Interventions & Management changes today: * Furosemide discontinued due to worsening renal indices. * Bumetanide drip (Bumex) initiated for improved diuretic efficiency in CKD. * Albumin 25% IV Q15H 3 doses started to improve intravascular volume and diuretic responsiveness. * Free water discontinued to avoid hyponatremia and further renal stress. * Nephrology consult placed today. * Ordered renal US, PTH, Urine sodium, Urine creatinine, Urine protein/Cr ratio for WILLIAN evaluation. * PT working with patient patient able to sit edge of bed with assistance. * Hgb improved to 8.2 g/dL ( from 7.6). No transfusion indicated today. Plan today: Continue bumetanide drip with albumin dosing, monitor renal response hourly UO, trend BMP Q12h, avoid nephrotoxins, continue ceftriaxone, maintain soft PO diet and electrolytes optimization. 08/19/25: Patient seen and examined at bedside, overnight events reviewed, PT eval requested and patient is working with PT. 08/20/25: Patient seen and examined at bedside, overnight events reviewed, discussed with the family, patient will go to facility for hospice. 08/21/2025: Patient seen at bedside. She states she feels well, denies any dizziness, chest pain, palpitations, cough, fever, and other symptoms. States she only has occasional chest pain during CPT. Labs are significant for decreasing WBCs, potassium 2.9, renal function is stable. Saturating adequately on oxymizer at 6L. Per nephrology, she continues on Bumex and Metalozone. Chest Xray shows persistence of bilateral pleural effusions, greater on the left than the right. Bedside ultrasound shows presence of at the 500 cc of fluid, per the patient, she would like to wait on any further pleuracentesis. We will continue to monitor. 08/22/25 Patient evaluated at bedside today. Awake, fatigued, cooperative, responding appropriately. Shortness of breath increased overnight requiring escalation from 5L NC to 8L Oxymizer to maintain SpO2 9395%. No acute chest pain. Mild dyspnea on conversation. Renal indices improving but remain significantly abnormal (BUN/Cr 57/1.30 improving, GFR 41). Urine output preserved (0.92 mL/kg/hr). Hemoglobin improved to 9.2 g/dL, no bleeding. WBC 4.0, stable but low. CXR unchanged persistent pulmonary edema + bilateral pleural effusions (L>R). Ordered left-sided ultrasound-guided thoracentesis, tolerating well. Potassium critically low at 3.1, replaced with 60 mEq IV KCl rider. Family actively discussing hospice. Goals of care conversation ongoing. 08/23/25 Patient examined at bedside. Awake, fatigued but responsive and following commands. Breathing comfortably at rest but requires 8L Oxymizer FiO2 64% with SpO2 9296%. ABG demonstrates metabolic alkalosis with inadequate respiratory compensation O2 saturation on ABG 90.9% indicating persistent V/Q mismatch with possible underlying fluid overload + lung parenchymal impairment. Renal function improving BUN/Cr 55/1.24, GFR 43 (up from prior), but persistent metabolic alkalosis prompted Acetazolamide 500 mg once to enhance bicarbonate excretion. Electrolytes: K 2.5 (critical) replenished IV 60 mEq, Mg repleted. Hgb 9.5, stable. Plts 121, low but improving. Underwent Ultrasound-guided paracentesis scheduled. Antibiotic therapy expanded to cover respiratory kaylee Ceftriaxone continued + Doxycycline 100 mg IV q12h initiated.?Bumex drip + Metolazone discontinued transitioned to Bumetanide 1 mg IV BID for gentler diuresis given contraction alkalosis. Aspirin restarted as hemoglobin stable and stool occult negative. Disposition: Not yet stable for hospice transfer due to oxygen requirement + alkalosis + AFib HR variability. Transfer when oxygen <4L and acid-base stabilizes. 08/24/25 Patient evaluated at bedside today. Awake, fatigued but cooperative. Conversational, no acute distress at rest. Still requires 8 L Oxymizer to maintain SpO2 9295%. Overnight she experienced another episode of significant hypokalemia (K- 2.7), which required immediate replacement with IV KCl. Initiated scheduled 20 mEq potassium supplementation due to recurrent depletion from diuresis and metabolic alkalosis. Today she underwent right-sided ultrasound-guided thoracentesis, removing 1 liter of pleural fluid. Tolerated the procedure well with improved breath sounds. Oxygen requirement remains elevated; plan to titrate toward ?6 L before hospice transfer. Renal function continues to stabilize PT/OT working with the patienttolerated sitting at edge of bed with minimal dizziness. A detailed family meeting with , niece, and nephew occurred today. Long- term goals of care were clarified. The family agrees with transition to hospice once the patients oxygen requirement decreases and she is medically stable for transfer. Objective vital signs Vital Sign Date Time Temp Pulse Resp B/P (MAP) Pulse Ox O2 Delivery O2 Flow Rate FiO2 08/24/25 17:00 97.5 95 18 107/68 (81) 96 97.5 08/24/25 08:00 Oxymizer 8 N/A Total Intake and Output 08/23/25 08/23/25 08/24/25 15:00 23:00 07:00 Intake Total 50 ml 500 ml 500 ml Output Total 750 ml 650 ml Balance 50 ml -250 ml -150 ml medications Current Medications Medications Dose Ordered Sig/Justina Route Start Time Stop Time Status Last Admin Dose Admin Acetaminophen 325 mg Q4HP PRN PO 08/09/25 17:15 08/23/25 11:23 325 MG Diagnostic Test (Pha) 1 strip Q6HR 08/10/25 06:00 08/24/25 17:04 1 STRIP Insulin Human Regular Q6HR SC 08/10/25 06:00 08/24/25 17:25 2 UNITS Dextrose 50 ml UD PRN IV 08/10/25 02:30 Atorvastatin Calcium 80 mg HS GT 08/11/25 22:00 08/23/25 21:49 80 MG Sennosides 8.6 mg HS PO 08/12/25 22:00 08/23/25 21:50 8.6 MG Docusate Sodium 100 mg BID GT 08/13/25 10:00 08/23/25 08:42 100 MG Polyethylene Glycol 17 gm DAILYPRN PRN GT 08/14/25 14:30 Iron Sucrose 110 ml @ 110 mls/hr DAILY@1200 IV 08/15/25 12:00 08/19/25 11:59 Cancel Iron Sucrose 110 ml @ 110 mls/hr DAILY@1200 IV 08/15/25 12:00 08/19/25 11:59 Cancel Ceftriaxone Sodium 50 ml @ 100 mls/hr DAILY@09 IV 08/16/25 09:00 08/24/25 09:33 100 MLS/HR Enteral Nutritional Formula 28.8 gm BIDWM PO 08/16/25 18:00 08/24/25 17:34 28.8 GM Metoprolol Tartrate 25 mg BID PO 08/17/25 22:00 08/24/25 09:34 25 MG Albuterol 2.5 mg Q6HWA PRN NEB 08/23/25 10:15 Ipratropium [place] 0.5 mg Q6HWA PRN NEB 08/23/25 10:15 Pantoprazole Sodium 40 mg DAILY@0600 PO 08/24/25 06:00 08/24/25 05:36 40 MG Bumetanide 1 mg BIDD IV 08/23/25 18:00 08/24/25 05:37 1 MG Aspirin 81 mg DAILY PO 08/24/25 10:00 08/24/25 09:33 81 MG Doxycycline Hyclate 100 ml @ 50 mls/hr Q12H IV 08/24/25 06:00 08/24/25 17:34 50 MLS/HR Examination General: Frail, chronically ill, awake, fatigued. Neuro: Alert, oriented, follows commands, no focal deficits. [place]: [place] [id number], pulses 2+, no murmurs. Respiratory: Decreased basilar sounds; improved on right after tap. Mild crackles, no acute distress at rest. GI: Soft, NT/ND, bowel sounds present. Renal: Good UO; no suprapubic tenderness. Extremities: Trace1+ edema; warm and perfused. Skin: No breakdown. Lines: PIV; no CVC. laboratory and microbiology Laboratory Tests 08/24/25 06:17 Test 08/24/25 06:17 Range/Units Serum Glucose 131 H 74-106 mg/dL Microbiology Date/Time Source Procedure Growth Status 08/09/25 23:10 Urine - Scherer Port Urine Culture - Final Complete 08/09/25 22:59 Nose MRSA Screen - Final Complete 08/09/25 16:40 Blood Blood Culture - Final NO GROWTH AFTER 5 DAYS OF INCUBATION. Complete 08/09/25 15:40 Sputum Gram Stain - Final Complete 08/09/25 15:40 Respiratory Culture - Final Escherichia coli Staphylococcus aureus Complete Problem List/Assessment/Plan Problem List/Assessment/Plan IX. [id number] PLAN NEUROLOGY Metabolic Encephalopathy Post-arrest + sepsis + hypoxia. neurological arrest ruled out (CT head negative) Reflexes present * Awake, alert * No sedation required * Neurochecks Q4H * CT head negative for acute abnormalities. * Continue PT/OT to bedside daily CARDIOVASCULAR . Cardiac Arrest with ROSC Due to hypoxic respiratory failure + STEMI-equivalent. * Downtime ~2 minutes; ROSC after 1 Epi, 1 CPR cycle. Atrial fibrillation rate controlled On Metoprolol Tartarate 25 Mg PO BID * HR [id number] today * High stroke risk (FRANKLIN?DS?-VASc = 7). * Anticoagulation withheld due to anemia and prior thrombocytopenia. STEMI Due to multi-vessel CAD (LAD 99%, LM 60%, LCx 90%).High procedural mortality , conservative management per cardiology LBBB, global ischemia, coronary angiography findings Acute on Chronic Diastolic CHF (HFpEF, EF 65%) Volume overload + pulmonary edema on imaging. Severe Pulmonary Hypertension (RVSP 61 mmHg) From chronic HF + hypoxic vasoconstriction. * Hemodynamically stable off pressors * Restart Aspirin 81mg daily * Hold anticoagulation (Eliquis / Lovenox) * Continue atorvastatin * Strict MAP monitoring * EKG for QT interval * No Plavix due to bleeding risk * No KEVIN inhibitors due to WILLIAN * Cardiology following * Conservative management of multi-vessel CAD per cardiology. * Continuous telemetry for AFib; starting metoprolol tartarate 25 mg BID Hypertension Chronic comorbidity Dyslipidemia Chronic comorbidity Continue Atorvasatin RESPIRATORY MECHANICAL VENTILATION Acute on chronic hypoxic respiratory failure post-extubation, improving Aspiration Pneumonia, Multifocal bacterial (E. coli + MSSA) improving Bilateral pleural effusions large right, moderate left Thoracentesis improved symptoms. Right drained 1.3 L. *pneumonia on CXR, lactate normalized from 6.2 - 1.7 - 1.2 improved * Maintain 8 L Oxymizer; gradual titration toward 6 L as tolerated * Consider repeat thoracentesis if effusions reaccumulate * Start: * Incentive spirometry * Chest physiotherapy * Daily CXR * Bronchodilators PRN * Maintain saturation >94% * Suction PRN RENAL WILLIAN Stage 2 due to VMN Improving Likely hemodynamic ischemic ATN. . Hyperphosphatemia Hypokalemia improving replenished Electrolyte derangements. Hypernatremia * Nephrology following * Monitor UOP hourly * Electrolyte replacement protocol * Transitioned to Bumex 1mg IV BID * STOP Metolazone & Bumex drip * Acetazolamide once for metabolic alkalosis * Avoid nephrotoxins * Consider renal ultrasound if persistent oliguria * Monitor UOP q1h; goal >0.5 mL/kg/hr. * Severe recurrent hypokalemia scheduled 20 mEq KCl PO/IV BID + PRN IV K * Magnesium supplementation PRN * Correct electrolytes: K >4, Mg >2. INFECTIOUS DISEASE Septic Shock From aspiration pneumonia: initially lactate 6.2 THEN improved to 1.7 - 1.2 .Still requiring vasopressors. Aspiration Pneumonia, Multifocal CXR findings consistent.. * Repeat blood cultures if febrile, urine culture ordered and are negative. * MRSA negative, initial blood cultures are negative * Respiratory culture/gram stain Few Gram Positive Rods Few Gram Positive Cocci in chains Rare Gram Negative Rods Positive for Stap aures ECOLI, * Discontinue vancomycin (MSSA, no MRSA) * STOP cefepime to reduce nephrotoxicity risk in WILLIAN (acceptable to stop) * Start: * Ceftriaxone 12 g IV daily + Doxycycline 100 mg IV q12h GI Transaminitis Likely shock liver vs congestive hepatopathy. * Start mechanical soft diet * Continue bowel regimen: * Senna * Docusate * Miralax * If no BM by tomorrow add bisacodyl PRN * GI prophylaxis: IV pantoprazole. * Continue Scherer for accurate I/O * Monitor for hematuria * Scherer catheter in place for accurate UOP. 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 * Anemia : transfuse if <7 or hemodynamically unstable. * DVT prophylaxis: SCD ENDOCRINE T2DM with Stress Hyperglycemia * Sliding scale insulin q4h * Goal BG [id number] * Resume home diabetic meds after stabilization. PSYCHIATRY * Sedated; no psychiatric meds needed NUTRITION Malnutrition risk low albumin * Mechanical soft diet * Advance as tolerated PROPHYLAXIS * DVT: SCD * GI: Pantoprazole * Pressure ulcers: q2h turns LINES, TUBES, DRIPS * Right IJ triple-lumen (08/09) - Removed * ET tube placed 08/09 Removed * NG tube removed * Scherer * Drips: discontinued PHYSICAL THERAPY * Out of bed to chair and then walk today * PT/OT evaluation for mobility improvement SOCIAL WORK * Family updated * Code status changed to DNR today per family request * Continue [id number] discussion * Hospice transfer planned once stable on < 6L O2 * Family meeting held family (, niece, nephew) agree with hospice transition X. CRITICAL CARE TIME Critical care time: 43 minutes (exclusive of procedures).High-complexity medical decision-making due to multiorgan failure, vasopressor dependence, mechanical ventilation, post-cardiac arrest care, evolving STEMI, and septic shock. XI. CODE STATUS DNR Discussed with family >20 minutes.Family understands severity of illness and poor prognosis of illness FINAL STATEMENT Case discussed in detail with the attending physician , including the clinical presentation, diagnostic workup, and comprehensive management plan. The patient was present for the discussion and demonstrated understanding of her condition and the proposed plan. Plan discussed with: Patient, Other (NEPHEW, RN) My Orders My Orders Orders - BRENDAN LEMOS Procedure Category Date Status Time Thoracentesis 08/24/25 Resulted Dietary Evaluation Review Comments: Nutrition Recommendation: 1) EN Vital High Protein @ 45ml/hr x 24hr (goal). Water flush 50ml Q6H if allowed, adjust PRN. TF at goal volume provides 1080 kcal (100%), 95 gm protein (100%), and 25092 ml free water(including flush). 2) TPN if NPO >7 days 3) Monitor NPO status, lab values, weight trend, and I/O Expected Outcomes/Goals: Intake to meet >75% estimated needs Lab values to improve FU 2-3 days Visit Coding STANDARD RES Billing Provider: DAVID SANDRA MD Date of Service if different f: Aug 24, 2025 Common Visit Codes: 69188-[id number] CARE 30-74 MIN BRENDAN LEMOS RESIDENT Aug 24, 2025 18:09 DAVID SANDRA MD Aug 25, 2025 10:41
--- NOTE | 2025-08-24 23:53 | DVHPN2 ---
Progress Note - Dictate Date Seen: Aug 24, 2025 Has the PT tested + for MRSA If YES, has PT been informed?: No Medical Necessity Reason Pt with a Central, PICC or Fol: Yes The following are medically ne: Scherer Catheter Subjective Patient was seen and evaluated in follow up. Patient is on 8 L Oxymizer. HGB 9.4, HCT 27.1, K 2.7, CL 89, CO2 40, BUN 32, PUBLIC INFORMATION COORDINATOR 1.31, GLUC 202. Telemetry reviewed. vital signs Vital Sign Date Time Temp Pulse Resp B/P (MAP) Pulse Ox O2 Delivery O2 Flow Rate FiO2 08/24/25 09:34 85 127/65 08/24/25 08:41 97.7 14 95 97.7 08/24/25 08:00 Oxymizer 8 N/A Total Intake and Output 08/23/25 08/23/25 08/24/25 15:00 23:00 07:00 Intake Total 50 ml 500 ml 500 ml Output Total 750 ml 650 ml Balance 50 ml -250 ml -150 ml medications Current Medications Medications Dose Ordered Sig/Justina Route Start Time Stop Time Status Last Admin Dose Admin Acetaminophen 325 mg Q4HP PRN PO 08/09/25 17:15 08/23/25 11:23 325 MG Diagnostic Test (Pha) 1 strip Q6HR 08/10/25 06:00 08/24/25 12:07 1 STRIP Insulin Human Regular Q6HR SC 08/10/25 06:00 08/24/25 12:13 4 UNITS Dextrose 50 ml UD PRN IV 08/10/25 02:30 Atorvastatin Calcium 80 mg HS GT 08/11/25 22:00 08/23/25 21:49 80 MG Sennosides 8.6 mg HS PO 08/12/25 22:00 08/23/25 21:50 8.6 MG Docusate Sodium 100 mg BID GT 08/13/25 10:00 08/23/25 08:42 100 MG Polyethylene Glycol 17 gm DAILYPRN PRN GT 08/14/25 14:30 Iron Sucrose 110 ml @ 110 mls/hr DAILY@1200 IV 08/15/25 12:00 08/19/25 11:59 Cancel Iron Sucrose 110 ml @ 110 mls/hr DAILY@1200 IV 08/15/25 12:00 08/19/25 11:59 Cancel Ceftriaxone Sodium 50 ml @ 100 mls/hr DAILY@09 IV 08/16/25 09:00 08/24/25 09:33 100 MLS/HR Enteral Nutritional Formula 28.8 gm BIDWM PO 08/16/25 18:00 08/24/25 08:00 28.8 GM Metoprolol Tartrate 25 mg BID PO 08/17/25 22:00 08/24/25 09:34 25 MG Albuterol 2.5 mg Q6HWA PRN NEB 08/23/25 10:15 Ipratropium [place] 0.5 mg Q6HWA PRN NEB 08/23/25 10:15 Pantoprazole Sodium 40 mg DAILY@0600 PO 08/24/25 06:00 08/24/25 05:36 40 MG Bumetanide 1 mg BIDD IV 08/23/25 18:00 08/24/25 05:37 1 MG Aspirin 81 mg DAILY PO 08/24/25 10:00 08/24/25 09:33 81 MG Doxycycline Hyclate 100 ml @ 50 mls/hr Q12H IV 08/24/25 06:00 08/24/25 05:37 50 MLS/HR objective GENERAL: Alert and oriented x 3. Ill appearing. EYES: PERRL, EOMI. Anicteric. HENT: Moist mucous membranes. LUNGS: Decreased breath sounds. CARDIOVASCULAR: Regular rate and rhythm. ABDOMEN: Soft, nontender and nondistended. EXTREMITIES: No edema. SKIN: Warm, dry. laboratory and microbiology Laboratory Tests 08/24/25 06:17 Test 08/24/25 06:17 Range/Units Serum Glucose 131 H 74-106 mg/dL Problem List Cardiac arrest with successful ROSC. Metabolic encephalopathy. STEMI (ST elevation myocardial infarction). Assessment/Plan Continued all current supportive medical care. Aspirin, Lipitor, Metoprolol. Diuretics with Bumex. IV antibiotics as ordered. GI prophylactics. Additional plan as per the hospital course. Dietary Evaluation Review Comments: Nutrition Recommendation: 1) EN Vital High Protein @ 45ml/hr x 24hr (goal). Water flush 50ml Q6H if allowed, adjust PRN. TF at goal volume provides 1080 kcal (100%), 95 gm protein (100%), and 90461 ml free water(including flush). 2) TPN if NPO >7 days 3) Monitor NPO status, lab values, weight trend, and I/O Expected Outcomes/Goals: Intake to meet >75% estimated needs Lab values to improve FU 2-3 days Plan discussed with: Patient PATRICIA GROVES MD Aug 24, 2025 12:37
[2025-08-25] MEDS: POTASSIUM CHL 20MEQ/100ML 100 ML IV SCH (00:48)
[2025-08-25 01:00] VITALS: BP 115/77; PULSE 89; RESP 22; TEMP 97.5; O2SAT 96
[2025-08-25 05:00] VITALS: BP 107/58; PULSE 84; RESP 20; TEMP 97.6; O2SAT 92
[2025-08-25] MEDS ORDERED: MAGNESIUM SULFATE 1GM/100ML 100 ML IV SCH (06:00)
[2025-08-25] MEDS ORDERED: POTASSIUM CHL 20 Meq TABLET PO ONE (06:00)
[2025-08-25 06:15] LABS: Hematocrit 26.1 % (36.0-46.0); Hemoglobin 8.8 g/dL (12.2-16.2); Mean Corpuscular Hemoglobin 32.4 pg (28.0-32.0); Mean Corpuscular Volume 96.0 fL (80.0-100.0)
[2025-08-25 06:19] LABS: Calcium 9.1 mg/dL (8.7-10.4)
[2025-08-25 06:24] LABS: BUN/Creatinine Ratio 38.1 (10.0-20.0); Magnesium 2.0 mg/dL (1.6-2.6)
[2025-08-25 06:39] LABS: Chloride 91 mmol/L (98-107); Potassium 3.6 mmol/L (3.5-5.1); Sodium 139 mmol/L (136-145)
[2025-08-25 06:41] LABS: Anion Gap 7.99999 (5-15); Blood Urea Nitrogen 45 mg/dL (9-23); Carbon Dioxide > 40 mmol/L (20-31); Glucose 142 mg/dL (74-106)
[2025-08-25 08:00] VITALS: PULSE 88; O2SAT 98
[2025-08-25 08:01] LABS: Anisocytosis Slight; Total Cells Counted 100.0 (100)
[2025-08-25 09:25] VITALS: O2SAT 95
--- NOTE | 2025-08-25 12:39 | DVHDSRES ---
Discharge Summary Date of Admission Resident Creating Document: GUSTABOYOLA NINOJANE GORDON RESIDENT Aug 09, 2025 at 17:01 Date of Discharge: Aug 25, 2025 Admitting Diagnosis Cardiac arrest - s/p ROSC (downtime 2 minutes) Metabolic encephalopathy Acute on chronic respiratory failure Septic shock secondary to aspiration pneumonia STEMI Acute on chronic diastolic congestive heart failure (LVEF 65%) Pulmonary hypertension (RVSP 61 mmHg) WILLIAN hemodynamically mediated (VMN) Labs/Diagnostic Data: Laboratory Results Test 08/25/25 11:55 08/25/25 05:33 08/24/25 13:30 08/23/25 08:18 POC Glucose 153 mg/dl (70-106) White Blood Count 3.7 10^3/uL (4.4-10.8) Red Blood Count 2.72 10^6/uL (4.0-5.20) Hemoglobin 8.8 g/dL (12.2-16.2) Hematocrit 26.1 % (36.0-46.0) Mean Corpuscular Volume 96.0 fL (80.0-100.0) Mean Corpuscular Hemoglobin 32.4 pg (28.0-32.0) Mean Corpuscular Hemoglobin Concent 33.8 g/dL (32.0-36.0) Red Cell Distribution Width 17.6 % (11.8-14.3) Platelet Count 99 10^3/uL (140-450) Mean Platelet Volume 8.9 fL (6.9-10.8) Neutrophils (%) (Auto) % (37.0-80.0) Lymphocytes (%) (Auto) % (10.0-50.0) Monocytes (%) (Auto) % (0.0-12.0) Basophils (%) (Auto) % (0.0-2.0) Neutrophils # (Auto) 10 ^3/uL (1.6-8.6) Lymphocytes # (Auto) 10 ^3/uL (0.4-5.4) Monocytes # (Auto) 10 ^3/uL (0-1.3) Differential Total Cells Counted 100.0 (100) Neutrophils % (Manual) 39 (37.0-80.0) Band Neutrophils % (Manual) 0 Lymphocytes % (Manual) 33 (10.0-50.0) Monocytes % (Manual) 27 (0-12) Eosinophils % (Manual) 1 (0-7) Basophils % (Manual) 0 (0.0-2.0) Metamyelocytes % (manual) 0 Myelocytes % (Manual) 0 Promyelocytes % (Manual) 0 Blast Cells % (Manual) 0 Reactive Lymphocytes 0 Platelet Estimate Decreased Anisocytosis (manual) Slight Sodium Level 139 mmol/L (136-145) Potassium Level 3.6 mmol/L (3.5-5.1) Chloride Level 91 mmol/L (98-107) Carbon Dioxide Level > 40 mmol/L (20-31) Anion Gap 7.50278 (5-15) Blood Urea Nitrogen 45 mg/dL (9-23) Creatinine 1.18 mg/dL (0.550-1.02) Glomerular Filtration Rate Calc 46 mL/min (>90) BUN/Creatinine Ratio 38.1 (10.0-20.0) Serum Glucose 142 mg/dL (74-106) Calcium Level 9.1 mg/dL (8.7-10.4) Magnesium Level 2.0 mg/dL (1.6-2.6) Body Fluid Source Pleural fluid Body Fluid pH 8.0 Body Fluid WBC (Manual) 556 CUMM (0-200) Body Fluid RBC (Manual) 287 CUMM (0-2000) Body Fluid Mononuclear Cells 95 % Body Fluid Polymorphonuclear Cells 5 % (0-25) Blood Gas Specimen Type Arterial Blood Gas Sample Site Left radial Blood Gas Patient Temperature 37.0 Arterial Blood Date Drawn [id number] Arterial Blood pH 7.579 (7.350-7.450) Arterial Blood Partial Pressure CO2 42.0 mmHg (32.0-45.0) Arterial Blood Partial Pressure O2 62.2 mmHg (83.0-108.0) Arterial Blood HCO3 38.4 mmol/L (21.0-28.0) Arterial Blood Oxygen Saturation 90.9 % (94.0-98.0) Arterial Blood Base Excess 15.1 mmol/L (-2.0-3.0) Arterial Blood Oxyhemoglobin 89.0 % (94.0-98.0) Arterial Blood Carboxyhemoglobin 1.9 % (0.5-1.5) Arterial Blood Methemoglobin 0.2 % (0.0-1.5) Arterial Blood Deoxyhemoglobin 8.9 % (0.0-5.0) Chito Test Modified Blood Gas Total Hemoglobin 10.30 g/dL (12.0-16.0) Blood Gas Liter Flow 8.00 Blood Gas Modality Oxymizer FiO2 % 64.0 Blood Gas Critical Value Read Back Yes Blood Gas Notified Whom althea Mcginnis md Blood Gas Notified Time [id number] Blood Gas Notified By Alan albrecht blower insulator Test 08/23/25 07:43 08/23/25 06:04 08/22/25 05:36 08/21/25 04:58 Prothrombin Time 13.5 sec (9.3-11.8) Prothrombin Time INR 1.31 (0.9-1.15) Activated Partial Thromboplast Time 27.6 SEC (24.5-34.5) Smudge Cells 3 /100 WBC Phosphorus Level 2.5 mg/dL (2.4-5.1) Large Platelets Few Total Bilirubin 0.8 mg/dL (0.2-1.0) Aspartate Amino Transferase (AST) 22 U/L (13-40) Alanine Aminotransferase (ALT) 19 U/L (7-40) Alkaline Phosphatase 119 U/L (46-116) Total Protein 6.7 g/dL (5.7-8.2) Albumin 3.7 g/dL (3.2-4.8) Test 08/20/25 03:32 08/19/25 06:06 08/18/25 16:30 08/18/25 05:27 Blood Gas Spontaneous Rate 22 Blood Gas Spontaneous Tidal Volume 357 Blood Gas EPAP 5 Blood Gas IPAP 14 Red Blood Cell Morphology Normal Urine Color Light-orange (Yellow) Urine Clarity Ex.turbid (Clear) Urine pH 5.5 (5.0-9.0) Urine Specific Vermilion 1.014 (1.001-1.035) Urine Protein 1+ (Negative) Urine Ketones Negative (Negative) Urine Blood 2+ /uL (Negative) Urine Nitrite Negative (Negative) Urine Bilirubin Negative (Negative) Urine Urobilinogen Normal mg/dL (Negative) Urine Leukocyte Esterase Negative /uL (Negative) Urine RBC 9 /hpf (0 - 4) Urine Microscopic WBC 3 /HPF (0-5) Urine Squamous Epithelial Cells None seen /hpf (<5) Urine Amorphous Crystals Few /hpf (None Seen) Urine Bacteria Few /hpf (None Seen) Urine Hyaline Casts Few /lpf (0 - 2) Urine Mucus Few (None Seen) Urine Creatinine 66.60 mg/dL (30.0-125.0) Urine Protein/Creatinine Ratio 2.48 Urine Sodium 19 mmol/L (40-220) Urine Glucose Normal mg/dL (Normal) Urine Total Protein 165.5 mg/dL (1-14) B-Type Natriuretic Peptide 1955.90 pg/mL (0-100) Vitamin D 25-Hydroxy 46.1 ng/mL (30.0-100) Parathyroid Hormone (Intact) 65.2 pg/mL (18.4-80.1) Test 08/17/25 05:24 08/16/25 14:58 08/16/25 02:40 08/15/25 11:06 Stomatocytes Few Stool Occult Blood Negative (Negative) Stool Occult Blood Sample #3 (Negative) Random Vancomycin Level 19.9 ug/mL (5-10) Blood Gas Set Respiration Rate 14.0 Test 08/15/25 02:51 08/14/25 17:30 08/13/25 06:25 08/13/25 02:45 Giant Platelets Few Iron Level 43 ug/dL (50-170) Total Iron Binding Capacity 236 ug/dL (250-425) Percent Iron Saturation 18.2 % (15-50) Ferritin 230.7 ng/mL (10-291) Blood Gas Tidal Volume 500.0 Blood Gas PEEP or CPAP 5.0 Haptoglobin <10 mg/dL (41-333) Lactate Dehydrogenase 385 U/L (120-246) Test 08/11/25 02:30 08/10/25 04:40 08/09/25 23:10 08/09/25 19:13 Eosinophils (%) (Auto) 2.1 % (0.0-7.0) Eosinophils # (Auto) 0.1 10 ^3/uL (0-0.8) Basophils # (Auto) 0 10 ^3/uL (0-0.2) Nucleated Red Blood Cells 0.1 % Lactic Acid Level 1.2 mmol/L (0.4-2.0) Influenza Type A Antigen Negative (Negative) Influenza Type B Antigen Negative (Negative) SARS-CoV-2 Antigen (Rapid) Negative (NEGATIVE) Urine Uric Acid Crystals Mod /hpf (None Seen) Troponin I High Sensitivity 469 ng/L (</=34) Test 08/09/25 18:45 08/09/25 17:40 08/09/25 16:30 Urine WBC Clumps Present /hpf (None Seen) Urine Opiates Screen Neg (NEGATIVE) Urine Fentanyl Screen Neg (NEGATIVE) Urine Barbiturates Screen Neg (NEGATIVE) Urine Phencyclidine Screen Neg (NEGATIVE) Urine Amphetamines Screen Neg (NEGATIVE) Urine Benzodiazepines Screen Pos (NEGATIVE) Urine Cocaine Screen Neg (NEGATIVE) Urine Cannabinoids Screen Neg (NEGATIVE) Ammonia 14 umol/L (11-32) Hemoglobin A1c 5.4 % A1C (<5.7) Triglycerides Level 114 mg/dL (< 150) Cholesterol Level 80 mg/dL (< 200) LDL Cholesterol 36 mg/dL (< 100) HDL Cholesterol 18 mg/dL (40-59) Lipase 36 U/L (12-53) Vitamin B12 Level 1383 pg/mL (211-911) Thyroid Stimulating Hormone (TSH) 2.33 uIU/mL (0.55-4.78) Other Laboratory Tests 08/25/25 05:33 Brief Hx & Hospital Course: The patient is an 85-year-old female who presented to the ED with class IV dyspnea, chest pain, and right arm weakness, followed by agonal breathing, rapid desaturation into the 70s on NRB, and progression to cardiac arrest. ROSC achieved after ~2 min downtime, 1 round of CPR, 1 dose epinephrine, and endotracheal intubation. EKG showed new left bundle branch block. atrial fibrillation with global ischemia. Cardiology diagnosed ST-segmentelevation DE equivalent and took patient for emergent LHC, which revealed: * 99% LAD stenosis * 60% left main stenosis * 90% circumflex stenosis * Unable to cross chronic total occlusion due to high procedural mortality and conservative medical management recommended. The patient developed acute hypoxic respiratory failure, aspiration pneumonia, and septic shock requiring vasopressors. She was admitted to ICU on mechanical ventilation, norepinephrine, broad-spectrum antibiotics, heparin drip, and supportive care. PAST MEDICAL HISTORY * Hypertension * Type 2 diabetes mellitus * Dyslipidemia * HFpEF (EF 65%) * Paroxysmal atrial fibrillation on apixaban * Pulmonary hypertension (RVSP 61 mmHg) * Basal cell carcinoma * Atypical left hip sarcoma (surgically treated) * Recent COVID-19 * Chronic thrombocytopenia IV. PAST SURGICAL HISTORY * Hysterectomy * Appendectomy * Cholecystectomy * Basal cell carcinoma excision * Left hip sarcoma excision (2019) V. SOCIAL HISTORY * Lives with * No smoking, alcohol, or illicit substances 08/10/25 The patient is an 85-year-old female who presented to the ED with class IV dyspnea, chest pain, and right arm weakness, followed by agonal breathing, rapid desaturation into the 70s on NRB, and progression to cardiac arrest. ROSC achieved after ~2 min downtime, 1 round of CPR, 1 dose epinephrine, and endotracheal intubation. EKG showed new left bundle branch block. atrial fibrillation with global ischemia. Cardiology diagnosed ST-segmentelevation DE equivalent and took patient for emergent LHC, which revealed: * 99% LAD stenosis * 60% left main stenosis * 90% circumflex stenosis * Unable to cross chronic total occlusion due to high procedural mortality and conservative medical management recommended. The patient developed acute hypoxic respiratory failure, aspiration pneumonia, and septic shock requiring vasopressors. She was admitted to ICU on mechanical ventilation, norepinephrine, broad-spectrum antibiotics, heparin drip, and supportive care. * Still requiring norepinephrine Temperature: Tmax 100.9 ongoing infection concern. Renal: UOP remains 0.32 mL/kg/hr, creatinine improved to 1.25 (from 1.6). Troponin: 496 ( from 115), consistent with evolving DE. Platelets: 92K (chronic baseline, trending up from 78K yesterday). CXR: Cardiomegaly, pulmonary vascular congestion, multifocal pneumonia, bilateral effusions. Labs: K 3.2 repleted; Phos 5.6; BUN 32; Hgb 8.1; AST/ALT down-trending. Medications: Norepinephrine, midazolam, fentanyl, heparin drip, cefepime, vancomycin. PLAN ADJUSTMENTS TODAY: * Convert enteric-coated aspirin to regular aspirin * Continue heparin drip now * Discontinue heparin in 48 hours, then start Aspirin + Plavix * Held/discontinued Zofran * Held/discontinued Atorvastatin (Lipitor) * Ordered repeat chest X-ray * Continue antibiotics * Continue vasopressor support 08/11/25 * Hemodynamically fluctuating on norepinephrine. * On AC/VC mechanical ventilation; gases show mild metabolic alkalosis. * Oxygenation improved (PO2 88). * No fever overnight. * Chronic thrombocytopenia trending downward but stable. * Hemoglobin down to 7.3; monitor closely, consider transfusion if symptomatic or <7.0. * WILLIAN slightly worsened (Cr 1.37). * CXR unchanged. * Started statin therapy and sedation vacation protocol. * No arrhythmias other than AFib with controlled rate. 08/12/25 Patient remains critically ill but hemodynamically unstable on low-dose norepinephrine. Ventilation stable. Labs show mild anemia worsening (Hgb 7.5), stable chronic thrombocytopenia (80K), slight rise in creatinine. Cultures negative except respiratory culture with E. coli sensitive to cefepime. Heparin drip discontinued; switched to prophylactic Lovenox. Code status updated to DNR. KUB ordered for constipation; tube feeds tolerated. Continuing all supportive care. Heparin drip discontinued today Started Lovenox 40 mg subcutaneous daily (prophylactic) Continue Aspirin. NOT starting Eliquis / therapeutic Lovenox due to: * Hgb drop (8.2 to 7.5) * Platelets 80K * High bleeding risk. NOT starting Plavix due to high bleeding risk Code status changed from FULL CODE to DNR per family. Continue cefepime (E. coli sensitive), discontinue vancomycin if MRSA PCR negative (as already done) K repleted; Mg repleted Continue sedation and vasopressor support Begin bowel regimen if KUB non-obstructive 08/13/25: Patient is seen and examined at bedside, x-ray KUB shows, Moderate to large volume stool within the colon. Bibasilar pulmonary airspace opacities and pleural effusions. We will begin bowel regimen. Ordered lower extremity Doppler to rule out DVT, start Lovenox 30 mg subQ. 08/14/25 Patient is off pressors, tolerating CPAP/TSV SBT, clear lungs, stable oxygenation, and strong respiratory effort. Preparing for extubation today. However, she has worsening anemia (Hgb 6.7) transfusing 1 PRBC. WILLIAN slightly worse. Holding all therapeutic anticoagulation (Eliquis, Lovenox). Continue aspirin. Starting Miralax for constipation. Cultures negative except respiratory culture showing E. coli + Staph aureus continuing cefepime + vancomycin. 08/15/25 The patient is an 85-year-old critically ill female with a history of cardiac arrest with ROSC, STEMI-equivalent DE, acute hypoxic respiratory failure, severe pulmonary hypertension, HFpEF, aspiration pneumonia, septic shock (improving), WILLIAN, chronic anemia, and chronic thrombocytopenia. She was successfully extubated yesterday, currently on BiPAP but develops tachypnea (RR 40), tachycardia (110), and desaturation to 88% when weaning off BiPAP. Symptoms improved when placed back on BiPAP (RR to 20, SpO2 to 100).CXR showed persistent bilateral pleural effusions, so a right-sided ultrasound- guided thoracentesis was performed with 1.3 L fluid removed. 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 Antibiotics: discontinue; vancomycin planned to discontinue . Considering de- escalation to ceftriaxone Current drips (fentanyl, versed, precedex, norepinephrine) all discontinued. Aspirin currently on hold due to anemia and thrombocytopenia. * Starting Lasix drip 5 mg/h after IV bolus 40 mg. 08/16/25 Today she is off BiPAP and maintaining adequate oxygenation on 4 L nasal cannula, with saturations 54685%. No increased work of breathing noted. Hemodynamically soft but stable. Chest x-ray unchanged with small left pleural effusion and vascular congestion. \\Awake, interactive, sitting upright. Stool output absent today; bowel sounds active. She is tolerating mechanical soft diet. Lasix drip discontinued; transitioned to Lasix 40 mg IV BID.?On Ceftriaxone monotherapy, tolerating well. downgrade to telemetry given respiratory stability. * CXR stable. * Hemoglobin improving (7.2) without transfusion. * Platelets up to 108K. 08/17/25 Patient evaluated at bedside today. She is awake, alert, intermittently fatigued, able to answer simple questions, remains in AFib with HR [id number], BP stable with MAP > 70 throughout the morning. Oxygenation stable on 4 L nasal cannula FiO2 ~3642% with SpO2 9699%. She had six bowel movements today on bowel regimen and soft diet, no abdominal pain. Reports mild generalized weakness. No chest pain, dyspnea improved. Labs: Hemoglobin improved from 7.2 - 7.6, WBC 5.9, platelets 152 (normalized). Persistent WILLIAN on CKD: Cr 1.78 (?), BUN 53. Sodium normal at 144. Potassium 3.2 low, repleted today with 40 mEq KCl and magnesium. * Discontinued right IJ central venous catheter. * Reinforced PT/OT, patient stood briefly with assistance. * Case management consulted; family requests alf / assisted care facility for discharge planning. * No change in antibiotics 08/18/25 Patient evaluated at bedside today. She is awake, alert, following commands, conversational with fatigue. On 8L Oximizer with increased o2 REQUIREMNT FROM 4L NC NOW ON SpO2 9698%. Hemodynamics stable. No active chest pain or increased dyspnea. Renal function worsened today: BUN/Cr increased from 53/1.78 to 55/1.85 despite prior diuresis. Urine output over past 24 hours 1050 ml, intake 1080 ml (near even balance). Decision made for volume-based renal optimization. Interventions & Management changes today: * Furosemide discontinued due to worsening renal indices. * Bumetanide drip (Bumex) initiated for improved diuretic efficiency in CKD. * Albumin 25% IV Q15H 3 doses started to improve intravascular volume and diuretic responsiveness. * Free water discontinued to avoid hyponatremia and further renal stress. * Nephrology consult placed today. * Ordered renal US, PTH, Urine sodium, Urine creatinine, Urine protein/Cr ratio for WILLIAN evaluation. * PT working with patient patient able to sit edge of bed with assistance. * Hgb improved to 8.2 g/dL ( from 7.6). No transfusion indicated today. Plan today: Continue bumetanide drip with albumin dosing, monitor renal response hourly UO, trend BMP Q12h, avoid nephrotoxins, continue ceftriaxone, maintain soft PO diet and electrolytes optimization. 08/19/25: Patient seen and examined at bedside, overnight events reviewed, PT eval requested and patient is working with PT. 08/20/25: Patient seen and examined at bedside, overnight events reviewed, discussed with the family, patient will go to facility for hospice. 08/21/2025: Patient seen at bedside. She states she feels well, denies any dizziness, chest pain, palpitations, cough, fever, and other symptoms. States she only has occasional chest pain during CPT. Labs are significant for decreasing WBCs, potassium 2.9, renal function is stable. Saturating adequately on oxymizer at 6L. Per nephrology, she continues on Bumex and Metalozone. Chest Xray shows persistence of bilateral pleural effusions, greater on the left than the right. Bedside ultrasound shows presence of at the 500 cc of fluid, per the patient, she would like to wait on any further pleuracentesis. We will continue to monitor. 08/22/25 Patient evaluated at bedside today. Awake, fatigued, cooperative, responding appropriately. Shortness of breath increased overnight requiring escalation from 5L NC to 8L Oxymizer to maintain SpO2 9395%. No acute chest pain. Mild dyspnea on conversation. Renal indices improving but remain significantly abnormal (BUN/Cr 57/1.30 improving, GFR 41). Urine output preserved (0.92 mL/kg/hr). Hemoglobin improved to 9.2 g/dL, no bleeding. WBC 4.0, stable but low. CXR unchanged persistent pulmonary edema + bilateral pleural effusions (L>R). Ordered left-sided ultrasound-guided thoracentesis, tolerating well. Potassium critically low at 3.1, replaced with 60 mEq IV KCl rider. Family actively discussing hospice. Goals of care conversation ongoing. 08/23/25 Patient examined at bedside. Awake, fatigued but responsive and following commands. Breathing comfortably at rest but requires 8L Oxymizer FiO2 64% with SpO2 9296%. ABG demonstrates metabolic alkalosis with inadequate respiratory compensation O2 saturation on ABG 90.9% indicating persistent V/Q mismatch with possible underlying fluid overload + lung parenchymal impairment. Renal function improving BUN/Cr 55/1.24, GFR 43 (up from prior), but persistent metabolic alkalosis prompted Acetazolamide 500 mg once to enhance bicarbonate excretion. Electrolytes: K 2.5 (critical) replenished IV 60 mEq, Mg repleted. Hgb 9.5, stable. Plts 121, low but improving. Underwent Ultrasound-guided paracentesis scheduled. Antibiotic therapy expanded to cover respiratory kaylee Ceftriaxone continued + Doxycycline 100 mg IV q12h initiated.?Bumex drip + Metolazone discontinued transitioned to Bumetanide 1 mg IV BID for gentler diuresis given contraction alkalosis. Aspirin restarted as hemoglobin stable and stool occult negative. Disposition: Not yet stable for hospice transfer due to oxygen requirement + alkalosis + AFib HR variability. Transfer when oxygen <4L and acid-base stabilizes. 08/24/25 Patient evaluated at bedside today. Awake, fatigued but cooperative. Conversational, no acute distress at rest. Still requires 8 L Oxymizer to maintain SpO2 9295%. Overnight she experienced another episode of significant hypokalemia (K- 2.7), which required immediate replacement with IV KCl. Initiated scheduled 20 mEq potassium supplementation due to recurrent depletion from diuresis and metabolic alkalosis. Today she underwent right-sided ultrasound-guided thoracentesis, removing 1 liter of pleural fluid. Tolerated the procedure well with improved breath sounds. Oxygen requirement remains elevated; plan to titrate toward ?6 L before hospice transfer. Renal function continues to stabilize PT/OT working with the patienttolerated sitting at edge of bed with minimal dizziness. A detailed family meeting with , niece, and nephew occurred today. Long- term goals of care were clarified. The family agrees with transition to hospice once the patients oxygen requirement decreases and she is medically stable for transfer. Today, her oxygen requirement gradually decreased from high-flow supports to 5 liters Oxymizer, meeting criteria for safe hospice transfer. Multiple family meetings were held with her , niece, and nephew. Given the chronicity of her cardiopulmonary disease, persistent oxygen need, frailty, and declining functional reserve, the family elected for comfort-focused care in hospice. Today, on August 25, she is stable on 5 L Oxymizer, oxygen saturation 9095%, hemodynamically stable, and appropriate for discharge to an inpatient hospice facility. Disposition: Transfer to Inpatient Hospice Facility Total discharge planning and coordination time spent today: 42 minutes. Case discussed in detail with the attending physician Dr. Sandra, including the clinical presentation, diagnostic workup, and comprehensive management plan. The patient was present for the discussion and demonstrated understanding of her condition and the proposed plan. Consults/Reason for consult Pulmonary/Critical Care Cardiology Nephrology Operations or Procedures PATIENT: LOU STAHLACCT: [id number]: [id number] : 1940 [facility] / BED: [facility] / B AGE / SEX: 85 / F ADM STATUS: ADM IN SERVICE 0000 ORDERING PHYSICIAN: BRENDAN LEMOS RESIDENT PROCEDURE(s): THORA - THORACENTESIS REASON: PLEURAL EFFUSION ORDER NUMBER(s): [id number], ACCESSION NUMBER(s): [id number] US THORACENTESIS, HISTORY: PLEURAL EFFUSION PROCEDURE: Informed consent was obtained. The patient was decubitus on the bed. A limited localization ultrasound of the right thorax was obtained, and the optimal approach was marked on the skin. The area was prepped with chlorhexidine which was allowed to dry and draped in the usual sterile fashion. Time out was performed. The skin and the soft tissues were infiltrated with 1% lidocaine. A 5.5 Greek centesis needle catheter was advanced into right pleural space. Following aspiration of fluid, the catheter was advanced and the needle removed. About 1000 cc of fluid was drained. Specimen/s was/were sent for appropriate cultures/cytology/cultures and cytology. No immediate complication was identified. FINDINGS: Moderate right pleural effusion. Aspirated fluid is oxana and serous. IMPRESSION: Right thoracentesis with 1L removed. ATED BY: DESHAUN CALDWELL MD DICTATED DATE/TIME: 08/24/251457 SIGNED BY: DESHAUN CALDWELL MD SIGNED DATE/TIME: 08/24/251457 CC: Procedure- Right sided Thoracentesis ultrasound guided Indication- Pleural effusions Procedure in detail Consent was obtained and timeout performed per protocol. The patient was placed in the sitting position and ultrasound SonoSite was used to localize pleural fluid. ChloraPrep was used to clean the operative field and Lidocaine for local analgesia. Thoracentesis catheter was advanced over the needle, attached to the suction bottle and approximately 1.3 liters of fluid was drained from the right pleural space. At the end of the procedure, the catheter was removed and dressing applied. Samples obtained for diagnostic testing. Chest-x ray ordered. No complications RICO KING MD Aug 15, 2025 15:14 DICTATED BY: RICO KING MD DICATED DATE/TIME: 08/15/251513 SIGNED BY: RICO KING MD <<Signature on File>> SIGNED DATE/TIME: 08/15/251514 DATE OF SURGERY: 08/09/2025 TECHNIQUES PERFORMED: * Ultrasound of the right radial artery. * Management of conscious sedation. * Ultrasound-guided insertion of a 6-Greek arterial line in the right radial artery. * Left coronary angiography. * Insertion of the balloon angioplasty in approximately the mid-region of the left anterior descending artery, which is a 2.0 x 6 mm balloon. * Insertion of the multiple wires in the left anterior descending artery. Initially, we have tried with a Whisper wire and subsequently followed by the Processing Manager wire and subsequently followed by the Choice extra-support wire. COMPLICATIONS: None. ASSISTANTS: Assisted by Irving. Other assistants are Joseph Husain Juliet. INDICATION: The patient given cardiac cath and CPR, intubated. 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 DESCRIPTION OF PROCEDURE: Risk and benefits have been explained to the and niece, Safia, in a standard manner. Angiogram was started. XB 3.5, 6-Greek guiding catheter ____ and subsequently now we put a wire which is Whisper wire, which went in the left anterior artery in the proximal region. It did not cross the lesion, going immediately to the septal alterations expert proximal to the stenosis. Multiple attempts were done and subsequently the further attempt had been discontinued. Now I have put a Processing Manager wire and Processing Manager wire also had the same problem. It did not cross the lesion because it is heavily calcified subtotally and it is chronically total occluded, so did not cross the lesion. Subsequently, I pulled a Choice extra-support wire and a similar problem had occurred ____ did not cross the lesion. So further attempts had been discontinued. There were no complications and balloon, wire and catheter all had been discontinued. 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 It appears it is chronically occluded. * Post-procedure the similar finding and the GABRIELLE grade 1 flow has been noted pre and post. No complications. PLAN OF ACTION: I was unable to cross the wire because of the chronic total occlusion. I discussed along with the patient's in person and also with her niece, her name is Safia conservative medical treatment at this time. Patricia Sivla MD MP/GEOVANY/JUSTIN TID: [id number] RECEIPT: [id number] DICTATED BY:PATRICIA SILVA MD DICTATED DATE/TIME:08/09/252035 DATE OF SURGERY: 08/09/2025 TECHNIQUES PERFORMED: * Ultrasound of right radial artery. * Management of conscious sedation. * Ultrasound-guided insertion of a 6-Greek arterial line in the right radial artery. * Attempt for right heart cath and left ventriculogram. * [place] selective left and right coronary artery angiography. ASSISTANTS: Rodrigue Villatoro Juliet and Joseph. INDICATIONS: cardiac catheterization, CPR, intubated, acute myocardial infarction. DESCRIPTION OF PROCEDURE: The procedure risks and benefits discussed. Counseling done. Questions answered. Information given. Brought to the laboratory machinist. The right radial area thoroughly cleaned with soap and Betadine. I also in-person discussed with the patient's and niece, Safia before bringing her to the laboratory machinist. Indications, risks and benefits all have been explained. Informed consent obtained. A 6-Greek arterial line had been placed under ultrasound and TIG catheter, 5-Greek ____ done after giving the cocktail of nitroglycerin, verapamil and heparin. Subsequently with the help of the TIG catheter, 5-Greek right groin performed ____. IMPRESSION: * The left main distally is 60% narrowed. 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 * Circumflex artery is moderate sized, obtuse marginal artery is narrowed 90% ____ left anterior descending artery. Patricia Silva MD MP/SAM/JUSTIN TID: [id number] RECEIPT: [id number] DICTATED BY:PATRICIA SILVA MD DICTATED DATE/TIME:08/09/252029 Condition at Discharge: Stable Final Diagnosis/Problems List Metabolic Encephalopathy, POA, improved Post-arrest + sepsis + hypoxia. neurological arrest ruled out (CT head negative) Reflexes present Cardiac Arrest with ROSC, POA, Due to hypoxic respiratory failure + STEMI-equivalent. * Downtime ~2 minutes; ROSC after 1 Epi, 1 CPR cycle. Atrial fibrillation rate controlled, POA On Metoprolol Tartarate 25 Mg PO BID STEMI, POA, medical management Due to multi-vessel CAD (LAD 99%, LM 60%, LCx 90%).High procedural mortality , conservative management per cardiology Acute on Chronic Diastolic CHF (HFpEF, EF 65%), POA, Improving, Ongoing Volume overload + pulmonary edema on imaging. Severe Pulmonary Hypertension (RVSP 61 mmHg), POA Hypertension, POA Chronic comorbidity Dyslipidemia,POA Chronic comorbidity Acute on chronic hypoxic respiratory failure POA, post-extubation, improving now improved and stable on 5 L Oxymizer Aspiration Pneumonia, Multifocal bacterial (E. coli + MSSA) POA, improving Bilateral pleural effusions large right, moderate left POA, S/P Thoracentesis improved symptoms. Right drained 1.3 L. WILLIAN Stage 2 superimposed Chronic Kidney Disease due to VMN,FeNa < 1% POA Improving Likely hemodynamic ischemic ATN. Vancomycin nephrotoxicity,improved Severe Metabolic Alkalosis (Contraction + Chloride Depletion) improved Hyperphosphatemia improving Recurrent Severe Hypokalemia, improved Hypernatremia, Resolved Septic Shock, POA , resolved now From aspiration pneumonia: initially lactate 6.2 THEN improved to 1.7 - 1.2 .Still requiring vasopressors. Aspiration Pneumonia, Multifocal, POA, improving Transaminitis, POA Likely shock liver vs congestive hepatopathy. Normocytic Anemia /Anemia of chronic disease / critical illness, POA, IMPROVING Chronic Thrombocytopenia, POA, Ongoing T2DM with Stress Hyperglycemia, POA Malnutrition risk low albumin, POA, Ongoing Frailty Syndrome with Functional Decline, POA Discharge Disposition: Hospice- Medical Facility Discharge Instruct/Medications Diet: Cardiac 2g Na,low cholest Activity: No Restrictions, As Tolerated Follow Up/Referral: FU WITH HOSPICE Medications: PER HOSPICE LEAVE VARGAS IN Care Plan: * Comfort-focused care as per Hospice facility, patient and family wishes Scheduled Apixaban Base (Eliquis Starter Pack), 2.5 MG PO BID, (Reported) Ascorbic Acid (Vitamin C), 500 MG PO DAILY Atorvastatin Calcium (Atorvastatin Calcium), 1 TAB PO DAILY, (Reported) Cholecalciferol (Vitamin D), 2,000 UNIT PO DAILY Glimepiride (Glimepiride), 1 TAB PO DAILY, (Reported) Metoprolol Tartrate (Metoprolol Tartrate), 25 MG PO BID, (Reported) Nifedipine (Nifedipine ER), 30 MG PO DAILY, (Reported) Zinc Gluconate (Zinc), 50 MG PO DAILY Miscellaneous Medications Sitagliptin Phosphate (Januvia), 25 MG PO, (Reported) Discharge Statement: "Patient was advised to return to the ER or call 911 if any headaches, dizziness, shortness of breath, chest pain, abdominal pain, bleeding, fevers, or worsening of medical condition. Patient was counseled about treatment plan, medications, possible side effects, patientverbalized understanding. All questions were answered to the best of my ability. This discharge took greater then 30 minutes in planning, reviewing documentation, counseling the patient, and discussing with other team members." ASSESSMENT ASSESSMENT Hospital Course The patient is an 85-year-old female who presented to the ED with class IV dyspnea, chest pain, and right arm weakness, followed by agonal breathing, rapid desaturation into the 70s on NRB, and progression to cardiac arrest. ROSC achieved after ~2 min downtime, 1 round of CPR, 1 dose epinephrine, and endotracheal intubation. EKG showed new left bundle branch block. atrial fibrillation with global ischemia. Cardiology diagnosed ST-segmentelevation DE equivalent and took patient for emergent LHC, which revealed: * 99% LAD stenosis * 60% left main stenosis * 90% circumflex stenosis * Unable to cross chronic total occlusion due to high procedural mortality and conservative medical management recommended. The patient developed acute hypoxic respiratory failure, aspiration pneumonia, and septic shock requiring vasopressors. She was admitted to ICU on mechanical ventilation, norepinephrine, broad-spectrum antibiotics, heparin drip, and supportive care. PAST MEDICAL HISTORY * Hypertension * Type 2 diabetes mellitus * Dyslipidemia * HFpEF (EF 65%) * Paroxysmal atrial fibrillation on apixaban * Pulmonary hypertension (RVSP 61 mmHg) * Basal cell carcinoma * Atypical left hip sarcoma (surgically treated) * Recent COVID-19 * Chronic thrombocytopenia IV. PAST SURGICAL HISTORY * Hysterectomy * Appendectomy * Cholecystectomy * Basal cell carcinoma excision * Left hip sarcoma excision (2019) V. SOCIAL HISTORY * Lives with * No smoking, alcohol, or illicit substances 08/10/25 The patient is an 85-year-old female who presented to the ED with class IV dyspnea, chest pain, and right arm weakness, followed by agonal breathing, rapid desaturation into the 70s on NRB, and progression to cardiac arrest. ROSC achieved after ~2 min downtime, 1 round of CPR, 1 dose epinephrine, and endotracheal intubation. EKG showed new left bundle branch block. atrial fibrillation with global ischemia. Cardiology diagnosed ST-segmentelevation DE equivalent and took patient for emergent LHC, which revealed: * 99% LAD stenosis * 60% left main stenosis * 90% circumflex stenosis * Unable to cross chronic total occlusion due to high procedural mortality and conservative medical management recommended. The patient developed acute hypoxic respiratory failure, aspiration pneumonia, and septic shock requiring vasopressors. She was admitted to ICU on mechanical ventilation, norepinephrine, broad-spectrum antibiotics, heparin drip, and supportive care. * Still requiring norepinephrine Temperature: Tmax 100.9 ongoing infection concern. Renal: UOP remains 0.32 mL/kg/hr, creatinine improved to 1.25 (from 1.6). Troponin: 496 ( from 115), consistent with evolving DE. Platelets: 92K (chronic baseline, trending up from 78K yesterday). CXR: Cardiomegaly, pulmonary vascular congestion, multifocal pneumonia, bilateral effusions. Labs: K 3.2 repleted; Phos 5.6; BUN 32; Hgb 8.1; AST/ALT down-trending. Medications: Norepinephrine, midazolam, fentanyl, heparin drip, cefepime, vancomycin. PLAN ADJUSTMENTS TODAY: * Convert enteric-coated aspirin to regular aspirin * Continue heparin drip now * Discontinue heparin in 48 hours, then start Aspirin + Plavix * Held/discontinued Zofran * Held/discontinued Atorvastatin (Lipitor) * Ordered repeat chest X-ray * Continue antibiotics * Continue vasopressor support 08/11/25 * Hemodynamically fluctuating on norepinephrine. * On AC/VC mechanical ventilation; gases show mild metabolic alkalosis. * Oxygenation improved (PO2 88). * No fever overnight. * Chronic thrombocytopenia trending downward but stable. * Hemoglobin down to 7.3; monitor closely, consider transfusion if symptomatic or <7.0. * WILLIAN slightly worsened (Cr 1.37). * CXR unchanged. * Started statin therapy and sedation vacation protocol. * No arrhythmias other than AFib with controlled rate. 08/12/25 Patient remains critically ill but hemodynamically unstable on low-dose norepinephrine. Ventilation stable. Labs show mild anemia worsening (Hgb 7.5), stable chronic thrombocytopenia (80K), slight rise in creatinine. Cultures negative except respiratory culture with E. coli sensitive to cefepime. Heparin drip discontinued; switched to prophylactic Lovenox. Code status updated to DNR. KUB ordered for constipation; tube feeds tolerated. Continuing all supportive care. Heparin drip discontinued today Started Lovenox 40 mg subcutaneous daily (prophylactic) Continue Aspirin. NOT starting Eliquis / therapeutic Lovenox due to: * Hgb drop (8.2 to 7.5) * Platelets 80K * High bleeding risk. NOT starting Plavix due to high bleeding risk Code status changed from FULL CODE to DNR per family. Continue cefepime (E. coli sensitive), discontinue vancomycin if MRSA PCR negative (as already done) K repleted; Mg repleted Continue sedation and vasopressor support Begin bowel regimen if KUB non-obstructive 08/13/25: Patient is seen and examined at bedside, x-ray KUB shows, Moderate to large volume stool within the colon. Bibasilar pulmonary airspace opacities and pleural effusions. We will begin bowel regimen. Ordered lower extremity Doppler to rule out DVT, start Lovenox 30 mg subQ. 08/14/25 Patient is off pressors, tolerating CPAP/TSV SBT, clear lungs, stable oxygenation, and strong respiratory effort. Preparing for extubation today. However, she has worsening anemia (Hgb 6.7) transfusing 1 PRBC. WILLIAN slightly worse. Holding all therapeutic anticoagulation (Eliquis, Lovenox). Continue aspirin. Starting Miralax for constipation. Cultures negative except respiratory culture showing E. coli + Staph aureus continuing cefepime + vancomycin. 08/15/25 The patient is an 85-year-old critically ill female with a history of cardiac arrest with ROSC, STEMI-equivalent DE, acute hypoxic respiratory failure, severe pulmonary hypertension, HFpEF, aspiration pneumonia, septic shock (improving), WILLIAN, chronic anemia, and chronic thrombocytopenia. She was successfully extubated yesterday, currently on BiPAP but develops tachypnea (RR 40), tachycardia (110), and desaturation to 88% when weaning off BiPAP. Symptoms improved when placed back on BiPAP (RR to 20, SpO2 to 100).CXR showed persistent bilateral pleural effusions, so a right-sided ultrasound- guided thoracentesis was performed with 1.3 L fluid removed. 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 Antibiotics: discontinue; vancomycin planned to discontinue . Considering de- escalation to ceftriaxone Current drips (fentanyl, versed, precedex, norepinephrine) all discontinued. Aspirin currently on hold due to anemia and thrombocytopenia. * Starting Lasix drip 5 mg/h after IV bolus 40 mg. 08/16/25 Today she is off BiPAP and maintaining adequate oxygenation on 4 L nasal cannula, with saturations 61191%. No increased work of breathing noted. Hemodynamically soft but stable. Chest x-ray unchanged with small left pleural effusion and vascular congestion. \\Awake, interactive, sitting upright. Stool output absent today; bowel sounds active. She is tolerating mechanical soft diet. Lasix drip discontinued; transitioned to Lasix 40 mg IV BID.?On Ceftriaxone monotherapy, tolerating well. downgrade to telemetry given respiratory stability. * CXR stable. * Hemoglobin improving (7.2) without transfusion. * Platelets up to 108K. 08/17/25 Patient evaluated at bedside today. She is awake, alert, intermittently fatigued, able to answer simple questions, remains in AFib with HR [id number], BP stable with MAP > 70 throughout the morning. Oxygenation stable on 4 L nasal cannula FiO2 ~3642% with SpO2 9699%. She had six bowel movements today on bowel regimen and soft diet, no abdominal pain. Reports mild generalized weakness. No chest pain, dyspnea improved. Labs: Hemoglobin improved from 7.2 - 7.6, WBC 5.9, platelets 152 (normalized). Persistent WILLIAN on CKD: Cr 1.78 (?), BUN 53. Sodium normal at 144. Potassium 3.2 low, repleted today with 40 mEq KCl and magnesium. * Discontinued right IJ central venous catheter. * Reinforced PT/OT, patient stood briefly with assistance. * Case management consulted; family requests alf / assisted care facility for discharge planning. * No change in antibiotics 08/18/25 Patient evaluated at bedside today. She is awake, alert, following commands, conversational with fatigue. On 8L Oximizer with increased o2 REQUIREMNT FROM 4L NC NOW ON SpO2 9698%. Hemodynamics stable. No active chest pain or increased dyspnea. Renal function worsened today: BUN/Cr increased from 53/1.78 to 55/1.85 despite prior diuresis. Urine output over past 24 hours 1050 ml, intake 1080 ml (near even balance). Decision made for volume-based renal optimization. Interventions & Management changes today: * Furosemide discontinued due to worsening renal indices. * Bumetanide drip (Bumex) initiated for improved diuretic efficiency in CKD. * Albumin 25% IV Q15H 3 doses started to improve intravascular volume and diuretic responsiveness. * Free water discontinued to avoid hyponatremia and further renal stress. * Nephrology consult placed today. * Ordered renal US, PTH, Urine sodium, Urine creatinine, Urine protein/Cr ratio for WILLIAN evaluation. * PT working with patient patient able to sit edge of bed with assistance. * Hgb improved to 8.2 g/dL ( from 7.6). No transfusion indicated today. Plan today: Continue bumetanide drip with albumin dosing, monitor renal response hourly UO, trend BMP Q12h, avoid nephrotoxins, continue ceftriaxone, maintain soft PO diet and electrolytes optimization. 08/19/25: Patient seen and examined at bedside, overnight events reviewed, PT freddy requested and patient is working with PT. 08/20/25: Patient seen and examined at bedside, overnight events reviewed, discussed with the family, patient will go to facility for hospice. 08/21/2025: Patient seen at bedside. She states she feels well, denies any dizziness, chest pain, palpitations, cough, fever, and other symptoms. States she only has occasional chest pain during CPT. Labs are significant for decreasing WBCs, potassium 2.9, renal function is stable. Saturating adequately on oxymizer at 6L. Per nephrology, she continues on Bumex and Metalozone. Chest Xray shows persistence of bilateral pleural effusions, greater on the left than the right. Bedside ultrasound shows presence of at the 500 cc of fluid, per the patient, she would like to wait on any further pleuracentesis. We will continue to monitor. 08/22/25 Patient evaluated at bedside today. Awake, fatigued, cooperative, responding appropriately. Shortness of breath increased overnight requiring escalation from 5L NC to 8L Oxymizer to maintain SpO2 9395%. No acute chest pain. Mild dyspnea on conversation. Renal indices improving but remain significantly abnormal (BUN/Cr 57/1.30 improving, GFR 41). Urine output preserved (0.92 mL/kg/hr). Hemoglobin improved to 9.2 g/dL, no bleeding. WBC 4.0, stable but low. CXR unchanged persistent pulmonary edema + bilateral pleural effusions (L>R). Ordered left-sided ultrasound-guided thoracentesis, tolerating well. Potassium critically low at 3.1, replaced with 60 mEq IV KCl rider. Family actively discussing hospice. Goals of care conversation ongoing. 08/23/25 Patient examined at bedside. Awake, fatigued but responsive and following commands. Breathing comfortably at rest but requires 8L Oxymizer FiO2 64% with SpO2 9296%. ABG demonstrates metabolic alkalosis with inadequate respiratory compensation O2 saturation on ABG 90.9% indicating persistent V/Q mismatch with possible underlying fluid overload + lung parenchymal impairment. Renal function improving BUN/Cr 55/1.24, GFR 43 (up from prior), but persistent metabolic alkalosis prompted Acetazolamide 500 mg once to enhance bicarbonate excretion. Electrolytes: K 2.5 (critical) replenished IV 60 mEq, Mg repleted. Hgb 9.5, stable. Plts 121, low but improving. Underwent Ultrasound-guided paracentesis scheduled. Antibiotic therapy expanded to cover respiratory kaylee Ceftriaxone continued + Doxycycline 100 mg IV q12h initiated.?Bumex drip + Metolazone discontinued transitioned to Bumetanide 1 mg IV BID for gentler diuresis given contraction alkalosis. Aspirin restarted as hemoglobin stable and stool occult negative. Disposition: Not yet stable for hospice transfer due to oxygen requirement + alkalosis + AFib HR variability. Transfer when oxygen <4L and acid-base stabilizes. 08/24/25 Patient evaluated at bedside today. Awake, fatigued but cooperative. Conversational, no acute distress at rest. Still requires 8 L Oxymizer to maintain SpO2 9295%. Overnight she experienced another episode of significant hypokalemia (K- 2.7), which required immediate replacement with IV KCl. Initiated scheduled 20 mEq potassium supplementation due to recurrent depletion from diuresis and metabolic alkalosis. Today she underwent right-sided ultrasound-guided thoracentesis, removing 1 liter of pleural fluid. Tolerated the procedure well with improved breath sounds. Oxygen requirement remains elevated; plan to titrate toward ?6 L before hospice transfer. Renal function continues to stabilize PT/OT working with the patienttolerated sitting at edge of bed with minimal dizziness. A detailed family meeting with , niece, and nephew occurred today. Long- term goals of care were clarified. The family agrees with transition to hospice once the patients oxygen requirement decreases and she is medically stable for transfer. Today, her oxygen requirement gradually decreased from high-flow supports to 5 liters Oxymizer, meeting criteria for safe hospice transfer. Multiple family meetings were held with her , niece, and nephew. Given the chronicity of her cardiopulmonary disease, persistent oxygen need, frailty, and declining functional reserve, the family elected for comfort-focused care in hospice. Today, on August 25, she is stable on 5 L Oxymizer, oxygen saturation 9095%, hemodynamically stable, and appropriate for discharge to an inpatient hospice facility. Disposition: Transfer to Inpatient Hospice Facility Total discharge planning and coordination time spent today: 40 minutes. Case discussed in detail with the attending physician Dr. Sandra, including the clinical presentation, diagnostic workup, and comprehensive management plan. The patient was present for the discussion and demonstrated understanding of her condition and the proposed plan. Assessment Metabolic Encephalopathy, POA, improved Post-arrest + sepsis + hypoxia. neurological arrest ruled out (CT head negative) Reflexes present Cardiac Arrest with ROSC, POA, Due to hypoxic respiratory failure + STEMI-equivalent. * Downtime ~2 minutes; ROSC after 1 Epi, 1 CPR cycle. Atrial fibrillation rate controlled, POA On Metoprolol Tartarate 25 Mg PO BID STEMI, POA, medical management Due to multi-vessel CAD (LAD 99%, LM 60%, LCx 90%).High procedural mortality , conservative management per cardiology Acute on Chronic Diastolic CHF (HFpEF, EF 65%), POA, Improving, Ongoing Volume overload + pulmonary edema on imaging. Severe Pulmonary Hypertension (RVSP 61 mmHg), POA Hypertension, POA Chronic comorbidity Dyslipidemia,POA Chronic comorbidity Acute on chronic hypoxic respiratory failure POA, post-extubation, improving now improved and stable on 5 L Oxymizer Aspiration Pneumonia, Multifocal bacterial (E. coli + MSSA) POA, improving Bilateral pleural effusions large right, moderate left POA, S/P Thoracentesis improved symptoms. Right drained 1.3 L. WILLIAN Stage 2 superimposed Chronic Kidney Disease due to VMN,FeNa < 1% POA Improving Likely hemodynamic ischemic ATN. Vancomycin nephrotoxicity,improved Severe Metabolic Alkalosis (Contraction + Chloride Depletion) improved Hyperphosphatemia improving Recurrent Severe Hypokalemia, improved Hypernatremia, Resolved Septic Shock, POA , resolved now From aspiration pneumonia: initially lactate 6.2 THEN improved to 1.7 - 1.2 .Still requiring vasopressors. Aspiration Pneumonia, Multifocal, POA, improving Transaminitis, POA Likely shock liver vs congestive hepatopathy. Normocytic Anemia /Anemia of chronic disease / critical illness, POA, IMPROVING Chronic Thrombocytopenia, POA, Ongoing T2DM with Stress Hyperglycemia, POA Malnutrition risk low albumin, POA, Ongoing Frailty Syndrome with Functional Decline, POA Visit Coding STANDARD RES Billing Provider: DAVID SANDRA MD Date of Service if different f: Aug 25, 2025 Common Visit Codes: 74925-MOH/OBS DISCH DAY >30min BRENDAN LEMOS RESIDENT Aug 25, 2025 12:39 DAVID SANDRA MD Aug 27, 2025 11:46
[2025-08-25 13:08] VITALS: BP 112/60; PULSE 80; RESP 14; TEMP 36.4; O2SAT 68
[2025-08-25 14:07] LABS: Glucose, Body Fluid 173.0 mg/dL (.); LD, Body Fluid 198.0 IU/L (.)
--- NOTE | 2025-08-25 20:48 | DVHPN2 ---
Progress Note - Dictate Date Seen: Aug 25, 2025 Has the PT tested + for MRSA If YES, has PT been informed?: No Medical Necessity Reason Pt with a Central, PICC or Fol: Yes The following are medically ne: Scherer Catheter Subjective Patient was seen and evaluated in follow up. Patient is on 5 L Oxymizer. HGB 8.8, HCT 26.1, CL 91, CO2 > 40, BUN 45, LOSS PREVENTION AND SAFETY MANAGER 1.18. Patient is s/p right thoracentesis with 1L removed. CM is arranging hospice placement. Telemetry reviewed. vital signs Vital Sign Date Time Temp Pulse Resp B/P (MAP) Pulse Ox O2 Delivery O2 Flow Rate FiO2 08/25/25 10:30 83 110/63 08/25/25 09:25 95 Oxymizer 5 67 67 08/25/25 05:00 97.6 20 97.6 Total Intake and Output 08/24/25 08/24/25 08/25/25 15:00 23:00 07:00 Intake Total 350 ml 1100 ml 400 ml Output Total 825 ml 250 ml Balance 350 ml 275 ml 150 ml medications Current Medications Medications Dose Ordered Sig/Justina Route Start Time Stop Time Status Last Admin Dose Admin Acetaminophen 325 mg Q4HP PRN PO 08/09/25 17:15 08/23/25 11:23 325 MG Diagnostic Test (Pha) 1 strip Q6HR 08/10/25 06:00 08/25/25 05:41 1 STRIP Insulin Human Regular Q6HR SC 08/10/25 06:00 08/25/25 05:42 2 UNITS Dextrose 50 ml UD PRN IV 08/10/25 02:30 Atorvastatin Calcium 80 mg HS GT 08/11/25 22:00 08/24/25 21:49 80 MG Sennosides 8.6 mg HS PO 08/12/25 22:00 08/24/25 21:48 8.6 MG Docusate Sodium 100 mg BID GT 08/13/25 10:00 08/25/25 10:29 100 MG Polyethylene Glycol 17 gm DAILYPRN PRN GT 08/14/25 14:30 Iron Sucrose 110 ml @ 110 mls/hr DAILY@1200 IV 08/15/25 12:00 08/19/25 11:59 Cancel Iron Sucrose 110 ml @ 110 mls/hr DAILY@1200 IV 08/15/25 12:00 08/19/25 11:59 Cancel Ceftriaxone Sodium 50 ml @ 100 mls/hr DAILY@09 IV 08/16/25 09:00 08/25/25 10:29 100 MLS/HR Enteral Nutritional Formula 28.8 gm BIDWM PO 08/16/25 18:00 08/25/25 08:00 28.8 GM Metoprolol Tartrate 25 mg BID PO 08/17/25 22:00 08/25/25 10:30 25 MG Albuterol 2.5 mg Q6HWA PRN NEB 08/23/25 10:15 Ipratropium [place] 0.5 mg Q6HWA PRN NEB 08/23/25 10:15 Pantoprazole Sodium 40 mg DAILY@0600 PO 08/24/25 06:00 08/25/25 05:41 40 MG Aspirin 81 mg DAILY PO 08/24/25 10:00 08/25/25 10:31 81 MG Doxycycline Hyclate 100 ml @ 50 mls/hr Q12H IV 08/24/25 06:00 08/25/25 05:41 50 MLS/HR objective GENERAL: Alert and oriented x 3. Ill appearing. EYES: PERRL, EOMI. Anicteric. HENT: Moist mucous membranes. LUNGS: Decreased breath sounds. CARDIOVASCULAR: Regular rate and rhythm. ABDOMEN: Soft, nontender and nondistended. EXTREMITIES: No edema. SKIN: Warm, dry. laboratory and microbiology Laboratory Tests 08/25/25 05:33 Test 08/25/25 05:33 Range/Units Serum Glucose 142 H 74-106 mg/dL Problem List Cardiac arrest with successful ROSC. Metabolic encephalopathy. STEMI (ST elevation myocardial infarction). Assessment/Plan Continued all current supportive medical care. Aspirin, Lipitor, Metoprolol. IV antibiotics as ordered. GI prophylactics. Additional plan as per the hospital course. Dietary Evaluation Review Comments: Nutrition Recommendation: 1) EN Vital High Protein @ 45ml/hr x 24hr (goal). Water flush 50ml Q6H if allowed, adjust PRN. TF at goal volume provides 1080 kcal (100%), 95 gm protein (100%), and 91905 ml free water(including flush). 2) TPN if NPO >7 days 3) Monitor NPO status, lab values, weight trend, and I/O Expected Outcomes/Goals: Intake to meet >75% estimated needs Lab values to improve FU 2-3 days Plan discussed with: Patient PATRICIA GROVES MD Aug 25, 2025 11:53
== END 2025-08-25 13:55 | disposition hospice, home (50) | DRG 870 ==
LOC: ER 15:14 → EDBD 15:14 → OVERFLOW 17:01 → ICU CENTRL 23:00 → TELE-CENTR 08-16 16:34
PROVIDERS: ADMIT Internal Medicine; ATTEND Internal Medicine
PROC: 03HY32Z Insertion of Monitoring Device into Upper Artery, Percutaneous Approach (ICD-10-PCS; principal; 2025-08-09)
PROC: B211YZZ Fluoroscopy of Multiple Coronary Arteries using Other Contrast (ICD-10-PCS; 2025-08-09)
PROC: 0BH17EZ Insertion of Endotracheal Airway into Trachea, Via Natural or Artificial Opening (ICD-10-PCS; 2025-08-09)
PROC: 5A1955Z Respiratory Ventilation, Greater than 96 Consecutive Hours (ICD-10-PCS; 2025-08-09)
PROC: 02HV33Z Insertion of Infusion Device into Superior Vena Cava, Percutaneous Approach (ICD-10-PCS; 2025-08-09)
PROC: B548ZZA Ultrasonography of Superior Vena Cava, Guidance (ICD-10-PCS; 2025-08-09)
PROC: 5A12012 Performance of Cardiac Output, Single, Manual (ICD-10-PCS; 2025-08-09)
PROC: 5A09357 Assistance with Respiratory Ventilation, Less than 24 Consecutive Hours, Continuous Positive Airway Pressure (ICD-10-PCS; 2025-08-14)
PROC: 0W993ZX Drainage of Right Pleural Cavity, Percutaneous Approach, Diagnostic (ICD-10-PCS; 2025-08-15)
PROC: 5A09357 Assistance with Respiratory Ventilation, Less than 24 Consecutive Hours, Continuous Positive Airway Pressure (ICD-10-PCS; 2025-08-15)
PROC: 5A09357 Assistance with Respiratory Ventilation, Less than 24 Consecutive Hours, Continuous Positive Airway Pressure (ICD-10-PCS; 2025-08-20)
PROC: 5A09357 Assistance with Respiratory Ventilation, Less than 24 Consecutive Hours, Continuous Positive Airway Pressure (ICD-10-PCS; 2025-08-21)
PROC: 5A09357 Assistance with Respiratory Ventilation, Less than 24 Consecutive Hours, Continuous Positive Airway Pressure (ICD-10-PCS; 2025-08-23)
PROC: 0W993ZX Drainage of Right Pleural Cavity, Percutaneous Approach, Diagnostic (ICD-10-PCS; 2025-08-24)
DX: A41.9 Sepsis, unspecified organism (principal); G93.41 Metabolic encephalopathy; I46.9 Cardiac arrest, cause unspecified; R65.21 Severe sepsis with septic shock; J96.21 Acute and chronic respiratory failure with hypoxia; J69.0 Pneumonitis due to inhalation of food and vomit; I50.33 Acute on chronic diastolic (congestive) heart failure; N17.0 Acute kidney failure with tubular necrosis; K72.00 Acute and subacute hepatic failure without coma; I21.29 ST elevation (STEMI) myocardial infarction involving other sites; I27.20 Pulmonary hypertension, unspecified; D61.818 Other pancytopenia; J91.8 Pleural effusion in other conditions classified elsewhere; D69.6 Thrombocytopenia, unspecified; E46 Unspecified protein-calorie malnutrition; I13.0 Hypertensive heart and chronic kidney disease with heart failure and stage 1 through stage 4 chronic kidney disease, or unspecified chronic kidney disease; E11.22 Type 2 diabetes mellitus with diabetic chronic kidney disease; E66.9 Obesity, unspecified; N18.9 Chronic kidney disease, unspecified; D63.8 Anemia in other chronic diseases classified elsewhere; E87.3 Alkalosis; E87.0 Hyperosmolality and hypernatremia; Z51.5 Encounter for palliative care; E78.5 Hyperlipidemia, unspecified; E87.6 Hypokalemia; N14.19 Nephropathy induced by other drugs, medicaments and biological substances; E88.09 Other disorders of plasma-protein metabolism, not elsewhere classified; T36.8X5A Adverse effect of other systemic antibiotics, initial encounter; I48.0 Paroxysmal atrial fibrillation; R74.01 Elevation of levels of liver transaminase levels; E11.65 Type 2 diabetes mellitus with hyperglycemia; I25.10 Atherosclerotic heart disease of native coronary artery without angina pectoris; R54 Age-related physical debility; Z82.49 Family history of ischemic heart disease and other diseases of the circulatory system; Z86.16 Personal history of COVID-19; Z90.710 Acquired absence of both cervix and uterus; Z79.899 Other long term (current) drug therapy; Z85.828 Personal history of other malignant neoplasm of skin; Z99.81 Dependence on supplemental oxygen; Z90.49 Acquired absence of other specified parts of digestive tract; Z85.831 Personal history of malignant neoplasm of soft tissue; Y92.89 Other specified places as the place of occurrence of the external cause
CPT/HCPCS: 31500; 32555; 36415; 36556; 36600; 70450; 71045; 74018; 76604; 76775; 76942; 80048; 80053; 80061; 80202; 80307; 81001; 82140; 82270; 82306; 82570; 82607; 82728; 82805; 82962; 83010; 83036; 83540; 83550; 83605; 83615; 83690; 83735; 83880; 83970; 83986; 84100; 84132; 84156; 84300; 84443; 84484; 85007; 85014; 85018; 85025; 85027; 85610; 85730; 86850; 86860; 86870; 86880; 86900; 86901; 86905; 86906; 86922; 86970; 86978; 87040; 87070; 87077; 87081; 87086; 87186; 87205; 87426; 87804; 88341; 89051; 92610; 93005; 93306; 93454; 93886; 93970; 94002; 94003; 94640; 94660; 94668; 96365; 97110; 97116; 97163; 97530; 99152; 99291; 99292; G0378; J1756; J1815; J2003; J2470; J2543; J3480; P9047; Q9967